=== PATIENT | male | born 1945 | race Caucasian/White ===

== ENCOUNTER → 2016-07-04 | Outpatient (CLI) | payer OTHER ==
[~2016-07-04] MED LIST: CDN30 PO; CEPH500C PO; CHOL100040 PO; CODE30TA PO; DIPH-416 PO; FINA5TAB PO; FLM4 PO; IMD2X PO; LISI-729 PO; LSN5 PO; ONDA4TAB10 SL; PANC1200 PO; PANC24002 PO; PARO1TAB27 PO; PARO30TA PO; POLY150C4 PO; PRS5 PO; PXL20 PO; TAMS0.4C38 PO; ZOLP10TA6 PO; [UNRECOGNIZED DRUG - CODE] IV; [UNRECOGNIZED DRUG - CODE] PO
[2016-07-04 12:57] LABS: HEMATOCRIT 33.9 % (42-52); MEAN CELL VOLUME 92.9 fL (80-100); MEAN CORPUSCULAR HEMOGLOBIN 30.7 pg (25-34); MEAN PLATELET VOLUME 11.7 fL (7.4-10.4); PLATELET COUNT 264 K/uL (130-400); RED BLOOD COUNT 3.65 M/uL (4.7-6.1); WHITE BLOOD COUNT 6.11 K/uL (4.8-10.8)
[2016-07-04 13:26] LABS: ALKALINE PHOSPHATASE 93 U/L (45-117); ALT/SGPT 28 U/L (12-78); BLOOD UREA NITROGEN 24 mg/dl (7-18); BUN/CREATININE RATIO 38.4 (10-20); CALCIUM 8.7 mg/dl (8.5-10.1); CARBON DIOXIDE 27 mmol/L (21-32); CHLORIDE 102 mmol/L (98-107); CREATININE 0.62 mg/dl (0.60-1.40); GLUCOSE 89 mg/dl (70-99); MAGNESIUM 2.2 mg/dl (1.8-2.4); POTASSIUM 4.1 mmol/L (3.5-5.1); SODIUM 140 mmol/L (136-145)
[2016-07-04 13:27] LABS: ALB/GLOB RATIO 0.7 (0.9-2); AST/SGOT 28 U/L (15-37); PHOSPHORUS 3.8 mg/dl (2.5-4.9)
--- NOTE | 2016-07-28 07:05 | CODING QUERY NO DIAGNOSIS ---
: 1945 TREATMENT RENDERED WITHOUT A DIAGNOSIS To promote full compliance with coding requirements relating to patient care, physician participation is requested in all cases of high density press operator uncertainty. Please assist us with providing a diagnosis/symptom for the test(s) below: A diagnosis/symptom was not documented on your Order. A valid diagnosis/symptom is required to bill all insurances. Please remember that we are unable to code a diagnosis of rule out, probable, possible, questionable, or suspected. Tests that require a diagnosis: * COMPREHENSIVE METABO DOS: 07/04/16 DIAGNOSIS: * MAGNESIUM DOS: 07/04/16 DIAGNOSIS: * PHOSPHORUS DOS: 07/04/16 DIAGNOSIS: * CBC W/O DIFF DOS: 07/04/16 DIAGNOSIS: Provider Signature: Date: Thank you Rosalinda Alcocer Health Information Management Once completed, please kindly fax back to [phone] For questions please call [phone]
== END | disposition home or self-care (01) ==
LOC: C.LABSPEC 12:33
PROVIDERS: ATTEND Surgery
DX: Z48.815 Encounter for surgical aftercare following surgery on the digestive system (principal); Z45.2 Encounter for adjustment and management of vascular access device; Z43.3 Encounter for attention to colostomy

== ENCOUNTER → 2016-07-11 | Outpatient (CLI) | payer OTHER ==
[2016-07-11 08:42] LABS: HEMATOCRIT 31.2 % (42-52); MEAN CELL VOLUME 94.8 fL (80-100); MEAN CORPUSCULAR HEMOGLOBIN 30.1 pg (25-34); MEAN CORPUSCULAR HGB CONC 31.7 g/dl (32-36); MEAN PLATELET VOLUME 11.7 fL (7.4-10.4); PLATELET COUNT 239 K/uL (130-400); RED BLOOD COUNT 3.29 M/uL (4.7-6.1)
[2016-07-11 08:52] LABS: ALB/GLOB RATIO 0.7 (0.9-2); ALKALINE PHOSPHATASE 72 U/L (45-117); ALT/SGPT 26 U/L (12-78); AST/SGOT 22 U/L (15-37); BLOOD UREA NITROGEN 22 mg/dl (7-18); BUN/CREATININE RATIO 36.8 (10-20); CALCIUM 8.3 mg/dl (8.5-10.1); CARBON DIOXIDE 25 mmol/L (21-32); CHLORIDE 103 mmol/L (98-107); FERRITIN 70.9 ng/ml (8.0-388.0); GLUCOSE 401 mg/dl (70-99); MAGNESIUM 2.4 mg/dl (1.8-2.4); PHOSPHORUS 5.6 mg/dl (2.5-4.9); POTASSIUM 4.8 mmol/L (3.5-5.1); SODIUM 140 mmol/L (136-145); TOTAL IRON BINDING CAPACITY 246 mcg/dl (250-450)
[2016-07-11 09:11] LABS: BETA-HYDROXYBUTYRATE 1.02 mg/dL (0.2-2.81)
--- NOTE | 2016-07-17 08:28 | CODING QUERY MEDICAL NECESSITY ---
SUPPORTING DIAGNOSIS NEEDED A supporting diagnosis is required for the test/procedure performed on this patient in order for us to be reimbursed by the patient's insurance. Please provide a supporting diagnosis for the following test/procedure listed below next to the test name along with your signature. *If there is no additional diagnosis for this patient that would support the following test/procedure please document that below next to the test/procedure. Test(s)/Procedure(s) that require a supporting diagnosis: DOS 07/11 * Vitamin D DIAGNOSIS: * Vitamin B12 DIAGNOSIS: * Vitamin B6 DIAGNOSIS: * Iron DIAGNOSIS: Provider Signature: Date: Thank you Alejandrina Leal Health Information Management Once completed, please kindly fax back to [phone] For questions please call [phone]
[2016-07-18 09:25] LABS: VIT E ALPHA-TOCOPHEROL 8.4 mg/L (5.7-19.9); VIT E BETA&GAMMA-TOCOPHEROL 1.8 mg/L (<=4.3); VITAMIN B6** TC 926 42.8 ng/mL (2.1-21.7)
== END | disposition home or self-care (01) ==
LOC: C.LABSPEC 08:16
PROVIDERS: ATTEND Internal Medicine
DX: Z79.01 Long term (current) use of anticoagulants (principal); Z51.81 Encounter for therapeutic drug level monitoring

== ENCOUNTER → 2016-07-14 | Outpatient (CLI) | payer OTHER ==
[2016-07-14 09:13] LABS: HEMATOCRIT 31.6 % (42-52); MEAN CELL VOLUME 93.2 fL (80-100); MEAN PLATELET VOLUME 11.1 fL (7.4-10.4); PLATELET COUNT 244 K/uL (130-400); RED BLOOD COUNT 3.39 M/uL (4.7-6.1); WHITE BLOOD COUNT 7.37 K/uL (4.8-10.8)
[2016-07-14 09:17] LABS: MEAN CORPUSCULAR HGB CONC 33.2 g/dl (32-36)
[2016-07-14 09:55] LABS: ALB/GLOB RATIO 0.8 (0.9-2); ALKALINE PHOSPHATASE 71 U/L (45-117); ALT/SGPT 24 U/L (12-78); AST/SGOT 25 U/L (15-37); BLOOD UREA NITROGEN 23 mg/dl (7-18); BUN/CREATININE RATIO 36.8 (10-20); CALCIUM 8.6 mg/dl (8.5-10.1); CARBON DIOXIDE 25 mmol/L (21-32); CHLORIDE 104 mmol/L (98-107); CREATININE 0.62 mg/dl (0.60-1.40); GLUCOSE 398 mg/dl (70-99); MAGNESIUM 2.5 mg/dl (1.8-2.4); PHOSPHORUS 5.5 mg/dl (2.5-4.9); SODIUM 140 mmol/L (136-145)
[2016-07-14 10:09] LABS: BETA-HYDROXYBUTYRATE 1.04 mg/dL (0.2-2.81)
--- NOTE | 2016-07-25 06:52 | CODING QUERY NO DIAGNOSIS ---
Valid Physician Order Needed A valid physician order must be submitted in order to properly bill for the service(s) provided, including date of service(s), valid diagnosis, and physician signature. If these tests are done on a recurring basis the original physican order must be submitted in order to code and bill for the service(s) provided. Please fax us the original, signed physician order so that we may expedite billing to [phone] DOS - 07/14/16 * CBC, COMPLETE METABOLIC PROFILE, MAGNESIUM, PHOSPHORUS AND BETA HYDROXYBUTYRATE (ORDERED BY DR SHANTI YORK?) Thank you Linda Morrow [facility] Information Management
--- NOTE | 2016-07-28 09:34 | CODING QUERY NO DIAGNOSIS ---
TREATMENT RENDERED WITHOUT A DIAGNOSIS To promote full compliance with coding requirements relating to patient care, physician participation is requested in all cases of senior electrical controls engineer uncertainty. Please assist us with providing a diagnosis/symptom for the test(s) below: A diagnosis/symptom was not documented on your Order. A valid diagnosis/symptom is required to bill all insurances. Please remember that we are unable to code a diagnosis of rule out, probable, possible, questionable, or suspected. DATE OF SERVICE: 07/14/16 ORDERING PHYSICIAN - DR. SHANTI YORK Tests that require a diagnosis: * CBC W/O DIFF DIAGNOSIS: * BETA-HYDROXYBUTYRATE, QUANT DIAGNOSIS: * PHOSPHORUS, SERUM DIAGNOSIS: * MAGNESIUM DIAGNOSIS: * COMP. METABOLIC PROFILE DIAGNOSIS: Provider Signature: Date: Thank you Linda Morrow [facility] [place] Information Management Once completed, please kindly fax back to [phone] For questions please call [phone]
== END ==
LOC: C.LABSPEC 08:54
PROVIDERS: ATTEND Internal Medicine
DX: D64.9 Anemia, unspecified (principal); K91.2 Postsurgical malabsorption, not elsewhere classified; R63.2 Polyphagia

== ENCOUNTER → 2016-07-18 | Outpatient (CLI) | payer OTHER ==
[2016-07-18 11:58] LABS: HEMATOCRIT 36.8 % (42-52); MEAN CELL VOLUME 91.5 fL (80-100); MEAN CORPUSCULAR HEMOGLOBIN 30.8 pg (25-34); MEAN CORPUSCULAR HGB CONC 33.7 g/dl (32-36); MEAN PLATELET VOLUME 11.5 fL (7.4-10.4); PLATELET COUNT 361 K/uL (130-400); RED BLOOD COUNT 4.02 M/uL (4.7-6.1); WHITE BLOOD COUNT 9.02 K/uL (4.8-10.8)
[2016-07-18 12:06] LABS: BLOOD UREA NITROGEN 26 mg/dl (7-18); BUN/CREATININE RATIO 32.2 (10-20); CALCIUM 9.4 mg/dl (8.5-10.1); CARBON DIOXIDE 27 mmol/L (21-32); CHLORIDE 102 mmol/L (98-107); CREATININE 0.81 mg/dl (0.60-1.40); GLUCOSE 144 mg/dl (70-99); MAGNESIUM 2.3 mg/dl (1.8-2.4); POTASSIUM 4.2 mmol/L (3.5-5.1); SODIUM 142 mmol/L (136-145)
[2016-07-18 12:10] LABS: ALB/GLOB RATIO 0.8 (0.9-2); ALKALINE PHOSPHATASE 93 U/L (45-117); ALT/SGPT 36 U/L (12-78); AST/SGOT 34 U/L (15-37); PHOSPHORUS 3.8 mg/dl (2.5-4.9)
--- NOTE | 2016-07-20 10:21 | CODING QUERY NO DIAGNOSIS ---
: 1945 TREATMENT RENDERED WITHOUT A DIAGNOSIS To promote full compliance with coding requirements relating to patient care, physician participation is requested in all cases of outpatient coder uncertainty. Please assist us with providing a diagnosis/symptom for the test(s) below: A diagnosis/symptom was not documented on your Order. A valid diagnosis/symptom is required to bill all insurances. Please remember that we are unable to code a diagnosis of rule out, probable, possible, questionable, or suspected. Tests that require a diagnosis: * COMPREHENSIVE METABO DOS: 07/18/16 DIAGNOSIS: * MAGNESIUM DOS: 07/18/16 DIAGNOSIS: * PHOSPHORUS DOS: 07/18/16 DIAGNOSIS: * CBC W/O DIFF DOS: 07/18/16 DIAGNOSIS: Provider Signature: Date: Thank you Rosalinda Alcocer Health Information Management Once completed, please kindly fax back to [phone] For questions please call [phone]
== END | disposition home or self-care (01) ==
LOC: C.LABSPEC 11:37
PROVIDERS: ATTEND Surgery
DX: E46 Unspecified protein-calorie malnutrition (principal)

== ENCOUNTER → 2016-07-31 | Outpatient (CLI) | payer OTHER ==
[2016-07-31 16:33] LABS: HEMATOCRIT 35.7 % (42-52); MEAN CELL VOLUME 90.6 fL (80-100); MEAN CORPUSCULAR HEMOGLOBIN 30.2 pg (25-34); MEAN CORPUSCULAR HGB CONC 33.3 g/dl (32-36); MEAN PLATELET VOLUME 11.2 fL (7.4-10.4); PLATELET COUNT 262 K/uL (130-400); RED BLOOD COUNT 3.94 M/uL (4.7-6.1); WHITE BLOOD COUNT 8.62 K/uL (4.8-10.8)
[2016-07-31 17:53] LABS: ALT/SGPT 29 U/L (12-78); AST/SGOT 22 U/L (15-37); BLOOD UREA NITROGEN 19 mg/dl (7-18); BUN/CREATININE RATIO 23.1 (10-20); CALCIUM 9.5 mg/dl (8.5-10.1); CARBON DIOXIDE 31 mmol/L (21-32); CHLORIDE 105 mmol/L (98-107); CREATININE 0.82 mg/dl (0.60-1.40); GLUCOSE 93 mg/dl (70-99); MAGNESIUM 2.2 mg/dl (1.8-2.4); POTASSIUM 4.2 mmol/L (3.5-5.1); SODIUM 144 mmol/L (136-145)
[2016-07-31 17:55] LABS: ALB/GLOB RATIO 0.9 (0.9-2); ALKALINE PHOSPHATASE 84 U/L (45-117); PHOSPHORUS 3.7 mg/dl (2.5-4.9)
== END | disposition home or self-care (01) ==
LOC: C.LAB 15:25
PROVIDERS: ATTEND Surgery
DX: Z48.815 Encounter for surgical aftercare following surgery on the digestive system (principal); Z43.3 Encounter for attention to colostomy; Z45.2 Encounter for adjustment and management of vascular access device; E46 Unspecified protein-calorie malnutrition

== ENCOUNTER → 2016-07-31 | Outpatient (CLI) | payer OTHER ==
[2016-07-31 09:51] LABS: BASO % 0.9 %; BASO ABS # 0.08 K/uL (0-0.2); EOS % 5.7 %; HEMATOCRIT 35.7 % (42-52); IG% 0.4 %; LYMPH % 21.7 %; LYMPH ABS # 1.83 K/uL (1.2-3.4); MEAN CELL VOLUME 90.6 fL (80-100); MEAN CORPUSCULAR HEMOGLOBIN 31.5 pg (25-34); MEAN CORPUSCULAR HGB CONC 34.7 g/dl (32-36); MEAN PLATELET VOLUME 12.4 fL (7.4-10.4); MONO % 10.3 %; PLATELET COUNT 293 K/uL (130-400); RED BLOOD COUNT 3.94 M/uL (4.7-6.1); WHITE BLOOD COUNT 8.43 K/uL (4.8-10.8)
[2016-07-31 10:51] LABS: COMPLETE YES
--- NOTE | 2016-08-03 12:03 | CODING QUERY NO DIAGNOSIS ---
TREATMENT RENDERED WITHOUT A DIAGNOSIS To promote full compliance with coding requirements relating to patient care, physician participation is requested in all cases of child welfare counselor uncertainty. Please assist us with providing a diagnosis/symptom for the test(s) below: A diagnosis/symptom was not documented on your Order. A valid diagnosis/symptom is required to bill all insurances. Please remember that we are unable to code a diagnosis of rule out, probable, possible, questionable, or suspected. Tests that require a diagnosis: * CBC WITH AUTO DIFFER DOS: 07/31/16 DIAGNOSIS: Provider Signature: Date: Thank you Rosalinda Alcocer Personally Information Management Once completed, please kindly fax back to [phone] For questions please call [phone]
== END | disposition home or self-care (01) ==
LOC: C.LABSPEC 09:36
PROVIDERS: ATTEND Surgery
DX: E46 Unspecified protein-calorie malnutrition (principal)

== ENCOUNTER → 2016-08-07 | Outpatient (CLI) | payer OTHER ==
[2016-08-07 12:26] LABS: HEMATOCRIT 37.2 % (42-52); MEAN CELL VOLUME 90.7 fL (80-100); MEAN CORPUSCULAR HEMOGLOBIN 30.2 pg (25-34); MEAN CORPUSCULAR HGB CONC 33.3 g/dl (32-36); MEAN PLATELET VOLUME 11.5 fL (7.4-10.4); PLATELET COUNT 294 K/uL (130-400); WHITE BLOOD COUNT 6.61 K/uL (4.8-10.8)
[2016-08-07 12:42] LABS: ALKALINE PHOSPHATASE 87 U/L (45-117); ALT/SGPT 28 U/L (12-78); AST/SGOT 25 U/L (15-37); BLOOD UREA NITROGEN 23 mg/dl (7-18); CALCIUM 8.8 mg/dl (8.5-10.1); CARBON DIOXIDE 27 mmol/L (21-32); CHLORIDE 104 mmol/L (98-107); CREATININE 0.71 mg/dl (0.60-1.40); GLUCOSE 123 mg/dl (70-99); MAGNESIUM 2.2 mg/dl (1.8-2.4); PHOSPHORUS 4.6 mg/dl (2.5-4.9); POTASSIUM 4.5 mmol/L (3.5-5.1); SODIUM 142 mmol/L (136-145)
[2016-08-07 12:46] LABS: ALB/GLOB RATIO 0.9 (0.9-2); FERRITIN 81.5 ng/ml (8.0-388.0); TOTAL IRON BINDING CAPACITY 331 mcg/dl (250-450)
--- NOTE | 2016-08-11 11:08 | CODING QUERY NO DIAGNOSIS ---
TREATMENT RENDERED WITHOUT A DIAGNOSIS : 1945 To promote full compliance with coding requirements relating to patient care, physician participation is requested in all cases of metal smelter uncertainty. Please assist us with providing a diagnosis/symptom for the test(s) below: A diagnosis/symptom was not documented on your Order. A valid diagnosis/symptom is required to bill all insurances. Please remember that we are unable to code a diagnosis of rule out, probable, possible, questionable, or suspected. DOS: 08/07/16 Tests that require a diagnosis: * COMPREHENSIVE METABO DIAGNOSIS: * FERRITIN DIAGNOSIS: * MAGNESIUM DIAGNOSIS: * PHOSPHORUS DIAGNOSIS: * TRANSFERRIN % SAT + DIAGNOSIS: * CBC W/O DIFF DIAGNOSIS: * VITAMIN B12 DIAGNOSIS: * VITAMIN D, 25-HYDROXY DIAGNOSIS: * VITAMIN B6 DIAGNOSIS: Provider Signature: Date: Thank you Rosalinda Alcocer Health Information Management Once completed, please kindly fax back to [phone] For questions please call [phone]
== END | disposition home or self-care (01) ==
LOC: C.LABSPEC 12:10
PROVIDERS: ATTEND Surgery
DX: K90.9 Intestinal malabsorption, unspecified (principal); Z90.49 Acquired absence of other specified parts of digestive tract

== ENCOUNTER → 2016-09-04 | Outpatient (CLI) | payer OTHER ==
[2016-09-04 14:13] LABS: HEMATOCRIT 38.1 % (42-52); MEAN CELL VOLUME 89.6 fL (80-100); MEAN CORPUSCULAR HEMOGLOBIN 30.8 pg (25-34); MEAN CORPUSCULAR HGB CONC 34.4 g/dl (32-36); MEAN PLATELET VOLUME 11.7 fL (7.4-10.4); PLATELET COUNT 293 K/uL (130-400); RED BLOOD COUNT 4.25 M/uL (4.7-6.1); WHITE BLOOD COUNT 7.23 K/uL (4.8-10.8)
[2016-09-04 18:37] LABS: ALT/SGPT 33 U/L (12-78); BLOOD UREA NITROGEN 23 mg/dl (7-18); BUN/CREATININE RATIO 26.8 (10-20); CALCIUM 9.2 mg/dl (8.5-10.1); CARBON DIOXIDE 31 mmol/L (21-32); CHLORIDE 104 mmol/L (98-107); CREATININE 0.87 mg/dl (0.60-1.40); GLUCOSE 94 mg/dl (70-99); POTASSIUM 3.7 mmol/L (3.5-5.1); SODIUM 144 mmol/L (136-145)
[2016-09-04 18:40] LABS: ALB/GLOB RATIO 0.8 (0.9-2); ALKALINE PHOSPHATASE 91 U/L (45-117); AST/SGOT 25 U/L (15-37)
--- NOTE | 2016-09-05 10:12 | CODING QUERY NO DIAGNOSIS ---
TREATMENT RENDERED WITHOUT A DIAGNOSIS [birth year] To promote full compliance with coding requirements relating to patient care, physician participation is requested in all cases of management manager uncertainty. Please assist us with providing a diagnosis/symptom for the test(s) below: A diagnosis/symptom was not documented on your Order. A valid diagnosis/symptom is required to bill all insurances. Please remember that we are unable to code a diagnosis of rule out, probable, possible, questionable, or suspected. DOS 09/04/16 Tests that require a diagnosis: * COMP METABOLIC DIAGNOSIS: * PHOSPHORUS DIAGNOSIS: * CBC W/O DIFF DIAGNOSIS: * VITAMIN B6 DIAGNOSIS: *WE RECEIVED YOUR LETTER BACK BUT WITHOUT A DX ON IT, CAN YOU PLEASE ADD A DX Provider Signature: Date: Thank you Kim [facility] Information Management Once completed, please kindly fax back to [phone] For questions please call [phone]
== END | disposition home or self-care (01) ==
LOC: C.LABSPEC 14:02
PROVIDERS: ATTEND Internal Medicine
DX: K90.9 Intestinal malabsorption, unspecified (principal)

== ENCOUNTER 2016-10-21 09:52 | Emergency (ER) | payer OTHER ==
[~2016-10-21] VITALS: Ht 162.6 cm; Wt 67.8 kg
[~2016-10-21 09:52] MED LIST changes: -CDN30 PO; -CEPH500C PO; -CHOL100040 PO; -CODE30TA PO; -DIPH-416 PO; -FLM4 PO; -LSN5 PO; -ONDA4TAB10 SL; -PANC1200 PO; -PANC24002 PO; -PARO30TA PO; -POLY150C4 PO; -PRS5 PO; -PXL20 PO; -ZOLP10TA6 PO; -[UNRECOGNIZED DRUG - CODE] IV; -[UNRECOGNIZED DRUG - CODE] PO
[2016-10-21 09:54] VITALS: TEMP 36.9; Ht 162.6 cm; Wt 67.8 kg
[2016-10-21] MEDS ORDERED: SODIUM CHLORIDE 0.9% 1000ML 1,000 ML IV STA (10:25)
--- NOTE | 2016-10-21 10:26 | EMERGENCY ROOM VISIT NOTE ---
History Report prepared by Kimberly: Les Graham Under the Supervision of: Dr. George Byrnes D.O. First contact with patient: 10:05 Chief Complaint: CHEST PAIN Stated Complaint: CHEST PAINS Nursing Triage Summary: pt reports chest pain described as tightness. had fall 3 days ago off ladder approx 3 feet. has bruise on left side from fall. feels sob. History of Present Illness The patient is a 71 year old male who presents to the Emergency Room with complaints of persistent chest pain beginning three days prior to arrival. He describes his pain and tightness and currently rates his discomfort as a 2-3/10 in severity. The patient associates shortness of breath, fever, and left rib pain with today's symptoms. He states he fell off of a 3 foot ladder three days ago, in which, he bruised his left side. The patient notes he took his temperature this morning and it was 99F, which he considers high. 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 The patient notes the surgery for TPM was at the end of May 2016. He states he originally had chronic ulcerative colitis in 1974, in which, he wore an ileostomy. The patient notes he went for an elective surgery, and they removed his entire colon and rectum. He states there were problems so they had to remove more. 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 Review of Systems See above for pertinent positives & negatives. A total of 10 systems reviewed and were otherwise negative. Past Medical & Surgical Medical Problems: (1) Small bowel obstruction (2) ulcerative colostomy Family History Diabetes mellitus FH: heart disease Hypertension Lung disease Social History Smoking Status: Never Smoker Alcohol Use: none Drug Use: none Marital Status: Housing Status: lives with family Occupation Status: retired Current/Historical Medications Scheduled Cholecalciferol (Vitamin D-1000), 1,000 UNITS PO DAILY Codeine Sulfate (Codeine), 30 MG PO QID Diphenoxylate/Atropine (Lomotil), 2 TABS PO QID Finasteride (Proscar), 5 MG PO HS Lisinopril (Zestril), 5 MG PO DAILY Pancrelipase (Lipase-Protease- (Creon 17189), 2 CAP PO TID Parenteral Electrolytes (Tpn Electrolytes), 1 DOSE 6XWK Paroxetine Hcl (Paxil), 30 MG PO DAILY Polysaccharide Iron Complex-Ir (Feosol Bifera), 5 MG PO TID Tamsulosin Hcl (Flomax), 0.4 MG PO HS Scheduled PRN Loperamide Hcl (Imodium), 1 TAB PO QID PRN for DIARRHEA Ondasetron Odt (Zofran Odt), 4 MG SL UD PRN for Nausea Allergies Coded Allergies: Ibuprofen (Verified Adverse Reaction, Intermediate, GASTRIC ULCERS, NO COLON, 10/21/16) Physical Exam Vital Signs Date Time Temp Pulse Resp B/P Pulse Ox O2 Delivery O2 Flow Rate FiO2 10/21/16 11:52 66 10/21/16 11:13 73 16 119/64 99 Room Air 10/21/16 10:12 85 18 118/76 100 Room Air 10/21/16 10:07 85 10/21/16 09:54 36.9 88 20 116/73 97 Room Air Physical Exam GENERAL: Patient is well appearing and in no acute distress. HEENT: No acute trauma, normocephalic atraumatic, mucous membranes moist, no nasal congestion, no scleral icterus. NECK: No stridor, no adenopathy, no meningismus, trachea is midline. LUNGS: No dyspnea. Clear to auscultation and equal bilaterally. No wheeze, no rhonchi. HEART: Regular rate and rhythm. No murmurs, rubs, gallops appreciated. CHEST: Left chest wall tenderness. EDWARDS catheter in right anterior chest wall , no purulence. ABDOMEN: Left upper quadrant tenderness. Right lower quadrant ileostomy. Soft, no masses appreciated, no peritonitis. BACK: No midline tenderness, no CVA tenderness EXTREMITIES: Normal motion all extremities, no cyanosis, no edema. NEUROLOGIC: Alert and oriented, no acute motor or sensory deficits, no focal weakness, cranial nerves grossly intact. SKIN: Multiple ecchymoses on the left chest. Diffuse scars over abdomen consistent with total colectomy. No rash, no jaundice, no diaphoresis. Medical Decision & Procedures ER Provider Diagnostic Interpretation: Radiology results as stated below per my review and radiologist interpretation: CT OF THE CHEST WITH IV CONTRAST CLINICAL HISTORY: Left-sided chest pain status post trauma COMPARISON STUDY: Chest x-ray dated 09/09/2015 TECHNIQUE: Following the IV administration of 119 mL of Optiray-320, CT of the thorax was performed from the thoracic inlet to the lung bases. Images are reviewed in the axial, sagittal, and coronal planes. IV contrast was administered without complication. CT DOSE: FINDINGS: Thyroid: Imaged portions of the thyroid gland are normal in appearance. Thoracic aorta: The thoracic aorta is normal in course and caliber, noting standard 3-vessel arch anatomy. No aneurysm or dissection is seen. Pulmonary vasculature: The pulmonary trunk is normal in caliber. There are no central filling defects identified to suggest pulmonary embolus. Note that this examination was not protocoled for the evaluation of pulmonary emboli. HEART: The heart is mildly enlarged. There are minimal coronary artery calcifications. Lungs and pleural spaces: No pleural effusions are visualized. There is no pneumothorax. There is pulmonary emphysema. There is no evidence of pulmonary contusion. There are left lower lobe atelectatic changes. Mediastinum: Mediastinal lymph nodes are the upper limits of normal in size. Kaci: There is no evidence of pathologic hilar adenopathy. Axilla: Clear. Upper abdomen: Partially visualized upper abdominal viscera is within normal limits. Skeletal structures: There are old bilateral rib fractures. No acute fractures are visualized. IMPRESSION: No evidence of acute intrathoracic injury. Electronically signed by: Bertin Veloz M.D. 10/21/2016 11:[address] ABD/PELVIS IV CONTRAST ONLY CLINICAL HISTORY: Left-sided chest and abdominal pain status post trauma COMPARISON STUDY: 04/05/2016 TECHNIQUE: Following the IV administration of 119 mL of Optiray-320, CT scan of the abdomen and pelvis was performed from the lung bases to the proximal femurs. Images are reviewed in the axial, sagittal, and coronal planes. IV contrast was administered without complication. CT DOSE: 499.27 mGy.cm FINDINGS: Lower chest: There are basilar atelectatic changes present. No pneumothorax is visualized. Liver: There is a 7 mm right lobe hypodensity consistent with a cyst. Gallbladder: Unremarkable. Spleen: Normal in size and attenuation. Pancreas: Unremarkable. Adrenal glands: Unremarkable. Kidneys: There is a 2 mm nonobstructing right renal calculus. There is a 9 mm cortical cyst involving the upper pole the right kidney. There is a 5 mm cyst within the mid upper pole the left kidney. Bowel: There are postsurgical changes of a total colectomy and right lower quadrant ileostomy. There is a small right parastomal hernia. There are no transition zones indicate bowel obstruction. Peritoneum: There is no intraperitoneal free air or abdominal ascites. Postsurgical changes involve the anterior abdominal wall. There is minimal stranding within the central upper pelvic mesentery. Vasculature: The abdominal aorta is normal in course and caliber. Adenopathy: None. Pelvic viscera: The bladder, and pelvic viscera are unremarkable. Skeletal structures: No destructive osseous lesions are seen. IMPRESSION: 1. No evidence of acute intra-abdominal or pelvic injury 2. Postsurgical changes of a total colectomy and right lower quadrant ileostomy Electronically signed by: Bertin Veloz M.D. 10/21/2016 11:29 AM Laboratory Results 10/21/16 10:05 Red Blood Count 4.27, Mean Corpuscular Volume 90.4, Mean Corpuscular Hemoglobin 30.4, Mean Corpuscular Hemoglobin Concent 33.7, Mean Platelet Volume 11.2, Neutrophils (%) (Auto) 67.9, Lymphocytes (%) (Auto) 20.7, Monocytes (%) (Auto) 9.3, Eosinophils (%) (Auto) 1.7, Basophils (%) (Auto) 0.3, Neutrophils # (Auto) 6.81, Lymphocytes # (Auto) 2.07, Monocytes # (Auto) 0.93, Eosinophils # (Auto) 0.17, Basophils # (Auto) 0.03 10/21/16 10:05 Test 10/21/16 10:05 10/21/16 11:30 White Blood Count 10.02 K/uL (4.8-10.8) Red Blood Count 4.27 M/uL (4.7-6.1) Hemoglobin 13.0 g/dL (14.0-18.0) Hematocrit 38.6 % (42-52) Mean Corpuscular Volume 90.4 fL (80-100) Mean Corpuscular Hemoglobin 30.4 pg (25-34) Mean Corpuscular Hemoglobin Concent 33.7 g/dl (32-36) Platelet Count 247 K/uL (130-400) Mean Platelet Volume 11.2 fL (7.4-10.4) Neutrophils (%) (Auto) 67.9 % Lymphocytes (%) (Auto) 20.7 % Monocytes (%) (Auto) 9.3 % Eosinophils (%) (Auto) 1.7 % Basophils (%) (Auto) 0.3 % Neutrophils # (Auto) 6.81 K/uL (1.4-6.5) Lymphocytes # (Auto) 2.07 K/uL (1.2-3.4) Monocytes # (Auto) 0.93 K/uL (0.11-0.59) Eosinophils # (Auto) 0.17 K/uL (0-0.5) Basophils # (Auto) 0.03 K/uL (0-0.2) RDW Standard Deviation 47.2 fL (36.4-46.3) RDW Coefficient of Variation 14.2 % (11.5-14.5) Immature Granulocyte % (Auto) 0.1 % Immature Granulocyte # (Auto) 0.01 K/uL (0.00-0.02) Anion Gap 4.0 mmol/L (3-11) Est Creatinine Clear Calc Drug Dose 66.8 ml/min Estimated GFR () 101.6 Estimated GFR (Non- 87.7 BUN/Creatinine Ratio 34.6 (10-20) Calcium Level 8.8 mg/dl (8.5-10.1) Total Bilirubin 1.7 mg/dl (0.2-1) Direct Bilirubin 0.4 mg/dl (0-0.2) Aspartate Amino Transf (AST/SGOT) 25 U/L (15-37) Alanine Aminotransferase (ALT/SGPT) 47 U/L (12-78) Alkaline Phosphatase 116 U/L (45-117) Total Protein 7.7 gm/dl (6.4-8.2) Albumin 3.6 gm/dl (3.4-5.0) Lipase 332 U/L (73-393) Procalcitonin < 0.05 ng/ml (0-0.5) Urine Color YELLOW Urine Appearance CLEAR (CLEAR) Urine pH 5.0 (4.5-7.5) Urine Specific [place] > 1.045 (1.000-1.030) Urine Protein NEG (NEG) Urine Glucose (UA) NEG (NEG) Urine Ketones NEG (NEG) Urine Occult Blood NEG (NEG) Urine Nitrite NEG (NEG) Urine Bilirubin NEG (NEG) Urine Urobilinogen NEG (NEG) Urine Leukocyte Esterase NEG (NEG) Laboratory results as reviewed by me. Medications Administered Medications (Trade) Dose Ordered Sig/Joe Route Start Time Stop Time Status Last Admin Dose Admin Sodium Chloride (Nss 1000ml) 1,000 ml @ 999 mls/hr Q1H1M STAT IV 10/21/16 10:25 10/21/16 11:25 DC 10/21/16 10:37 999 MLS/HR Procedure Critical Care Medicine Point of Care Bedside Ultrasound Procedure: E fast Ultrasound Indication: Fall from ladder onto left chest and abdomen Date: 10/21/2016 Attending: Ariel Byrnes DO Physician Skydiving Instructor: Not applicable Organs Examined: Heart, Lung, Liver, Kidney, Spleen, Genitourinary system Pericardial Fluid: Absent Hepatorenal fluid: Absent Splenorenal fluid: Absent Rectovesical fluid: Absent Additional Findings: None Extended FAST: for pneumothorax and pleural fluid (hemothorax) Hemothorax: Absent, Location: Left chest Lung sliding: Present, Location: Left Chest Impression: Normal E fast ultrasound for trauma Plan: Follow-up with contrasted CT scan of the thorax abdomen and pelvis to exclude solid organ injury. Images obtained are saved for permanent record ECG Indication: chest pain Rate (beats per minute): 85 Rhythm: normal sinus Findings: PVC (frequent), left axis deviation, other (Normal intervals. Abnormal EKG.) Comparison ECG Date: 09/09/2015 Change: Sinus tachycardia resolved. Left anterior fascicular block noted on 09/09/2015 EKG. ED Course 1010: The patient was evaluated in room B1. A complete history and physical exam was performed. 1025: Ordered Sodium Chloride 1,000 ml @ 999 mls/hr IV. 1207: Reevaluated the patient. Discussed results and discharge instructions: He verbalized understanding and agreement. The patient is ready for discharge. Medical Decision The differential diagnoses include but are not limited to: bacteremia, pneumonia , pneumothorax, hemothorax, splenic laceration, kidney laceration, fractured ribs. Patient is a 71-year-old male who approximately 3 days ago fell from a ladder approximately 3 feet onto the left chest. He presents today for continued pain , which he describes as an elevated temp of 99 and ecchymoses along his left flank. 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 He has a Edwards catheter in his right chest, blood cultures will be sent for possible bacteremia. Impression Primary Impression: Chest wall pain Additional Impressions: Fall on and from ladder causing accidental injury Short gut syndrome On total parenteral nutrition (TPN) Ileostomy in place Microcytic anemia Total bilirubin, elevated Contusion of left chest wall Hx of ulcerative colitis Hepatic cyst Renal cyst Scribe Attestation The scribe's documentation has been prepared under my direction and personally reviewed by me in its entirety. I confirm that the note above accurately reflects all work, treatment, procedures, and medical decision making performed by me. Departure Information Dispostion Home / Self-Care Referrals Tao Montoya MD (PCP) Follow-up with her primary care provider regarding a liver cyst and kidney cysts. These have likely been there a long time and were found on the CAT scan today. Forms HOME CARE DOCUMENTATION FORM, IMPORTANT VISIT INFORMATION Patient Instructions Bruises Contusions, Incentive Spirometer Fl, [facility], Simple Renal Cysts Additional Instructions Use Tylenol and/or Motrin as needed for pain, you can ice the areas as well. Follow-up with your primary care provider for any fevers or return to the emergency department. Use the incentive spirometer every 8 hours. You need to cough and deep breathe to prevent development of pneumonia. Problem Qualifiers Additional Impressions: Fall on and from ladder causing accidental injury Encounter type: initial encounter Qualified Codes: W11.XXXA - Fall on and from ladder, initial encounter
[2016-10-21 10:37] LABS: BASO % 0.3 %; BASO ABS # 0.03 K/uL (0-0.2); COMPLETE YES; EOS % 1.7 %; HEMATOCRIT 38.6 % (42-52); IG% 0.1 %; LYMPH % 20.7 %; LYMPH ABS # 2.07 K/uL (1.2-3.4); MEAN CELL VOLUME 90.4 fL (80-100); MEAN CORPUSCULAR HEMOGLOBIN 30.4 pg (25-34); MEAN CORPUSCULAR HGB CONC 33.7 g/dl (32-36); MEAN PLATELET VOLUME 11.2 fL (7.4-10.4); MONO % 9.3 %; NEUT % 67.9 %; PLATELET COUNT 247 K/uL (130-400); RED BLOOD COUNT 4.27 M/uL (4.7-6.1); WHITE BLOOD COUNT 10.02 K/uL (4.8-10.8)
[2016-10-21 10:45] LABS: BUN/CREATININE RATIO 34.6 (10-20); CALCIUM 8.8 mg/dl (8.5-10.1); CREATININE 0.85 mg/dl (0.60-1.40); POTASSIUM 4.3 mmol/L (3.5-5.1)
[2016-10-21] MEDS ORDERED: OPTIRAY 320 IV PRN (10:45)
[2016-10-21] MEDS ORDERED: [UNRECOGNIZED DRUG - CODE] PO (10:55)
[2016-10-21] MEDS ORDERED: PARO30TA PO (10:55)
[2016-10-21] MEDS ORDERED: PANC1200 PO (10:55)
[2016-10-21] MEDS ORDERED: CODE30TA PO (10:55)
--- NOTE | 2016-10-21 11:20 | DIAGNOSTIC IMAGING REPORT ---
CT OF THE CHEST WITH IV CONTRAST CLINICAL HISTORY: Left-sided chest pain status post trauma COMPARISON STUDY: Chest x-ray dated 09/09/2015 TECHNIQUE: Following the IV administration of 119 mL of Optiray-320, CT of the thorax was performed from the thoracic inlet to the lung bases. Images are reviewed in the axial, sagittal, and coronal planes. IV contrast was administered without complication. CT DOSE: FINDINGS: Thyroid: Imaged portions of the thyroid gland are normal in appearance. Thoracic aorta: The thoracic aorta is normal in course and caliber, noting standard 3-vessel arch anatomy. No aneurysm or dissection is seen. Pulmonary vasculature: The pulmonary trunk is normal in caliber. There are no central filling defects identified to suggest pulmonary embolus. Note that this examination was not protocoled for the evaluation of pulmonary emboli. HEART: The heart is mildly enlarged. There are minimal coronary artery calcifications. Lungs and pleural spaces: No pleural effusions are visualized. There is no pneumothorax. There is pulmonary emphysema. There is no evidence of pulmonary contusion. There are left lower lobe atelectatic changes. Mediastinum: Mediastinal lymph nodes are the upper limits of normal in size. Kaci: There is no evidence of pathologic hilar adenopathy. Axilla: Clear. Upper abdomen: Partially visualized upper abdominal viscera is within normal limits. Skeletal structures: There are old bilateral rib fractures. No acute fractures are visualized. IMPRESSION: No evidence of acute intrathoracic injury. Electronically signed by: Bertin Veloz M.D. 10/21/2016 11:18 AM Dictated Date/Time: 10/21/2016 11:13 AM
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
[2016-10-21 11:44] LABS: URINE APPEARANCE CLEAR (CLEAR); URINE BILIRUBIN NEG (NEG); URINE COLOR YELLOW; URINE NITRITE NEG (NEG); URINE SPECIFIC GRAVITY > 1.045 (1.000-1.030); UROBILINOGEN NEG (NEG)
[2016-10-21 11:46] LABS: MANUAL MICROSCOPIC REQUIRED? NO; REVIEW REQ? NO
[2016-10-21 12:25] VITALS: BP 105/55; PULSE 71; O2SAT 96
[2017-03-16] MEDS ORDERED: [UNRECOGNIZED DRUG - CODE] IV (10:37)
[2017-03-16] MEDS ORDERED: ONDA4TAB10 SL (10:55)
[2017-03-16] MEDS ORDERED: CHOL100040 PO (10:55)
[2017-03-16] MEDS ORDERED: DIPH-416 PO (10:55)
== END 2016-10-21 12:22 | disposition home or self-care (01) ==
LOC: C.EDB 09:54
DX: S20.211A Contusion of right front wall of thorax, initial encounter (principal); W11.XXXA Fall on and from ladder, initial encounter; K76.89 Other specified diseases of liver; N28.1 Cyst of kidney, acquired; D50.9 Iron deficiency anemia, unspecified; Z93.2 Ileostomy status; R79.89 Other specified abnormal findings of blood chemistry; Z87.19 Personal history of other diseases of the digestive system

== ENCOUNTER 2017-02-26 17:43 | Emergency (ER) | payer OTHER ==
[~2017-02-26] VITALS: Ht 165.1 cm; Wt 69.1 kg
[~2017-02-26 17:43] MED LIST changes: +CODE30TA PO; +PANC1200 PO; -PARO1TAB27 PO; +PARO30TA PO; +[UNRECOGNIZED DRUG - CODE] PO
[2017-02-26 18:03] VITALS: TEMP 36.6; Ht 165.1 cm; Wt 69.1 kg
[2017-02-26] MEDS ORDERED: CEPH500C PO (18:51)
[2017-02-26] MEDS ORDERED: CEPHALEXIN MONOHYDRATE 250 MG CAP PO ONE (19:00)
[2017-02-26 19:51] VITALS: BP 106/62; PULSE 60; O2SAT 98
--- NOTE | 2017-02-27 02:21 | EMERGENCY ROOM VISIT NOTE ---
History Report prepared by Kimberly: Nestor Monae Under the Supervision of: Dr. Reji Manuel M.D. First contact with patient: 18:35 Chief Complaint: OTHER COMPLAINT Stated Complaint: EDWARDS LINE History of Present Illness The patient is a 71 year old male who presents to the Emergency Room with complaints of intermittent drainage from his catheter that started two weeks ago. He describes the drainage as crusty "like it is dried blood". The patient states that he has had his catheter for nine months due to his short gut from his history of ulcerative colitis. The patient states that he noticed a discharge from his Edwards catheter of his right upper chest two weeks ago. He states that he called the [facility] due to his symptoms and reports he was given Keflex and Bactroban ointment. The patient states that he sent a culture to his clinic for signs of an infection. He admits that he used the antibiotics for a week and discontinued use a week ago. The patient states that the drainage resolved until three days ago when he noticed the drainage returned. He states that he called the Clinic again who advised him to report to the ED. The patient is accompanied by his who states that his temporary catheter is in because she needed to take pictures of the area for the clinic. She also reports that she typically helps change his bandages for the catheter region. He admits that he has chronic numbness in his hands bilaterally. The patient denies LOC, headache, fevers, chills, diaphoresis, visual changes, neck pain, chest pain, breathing difficulties, nausea, vomiting, abdominal pain, back pain, melena, hematochezia, urinary symptoms, weakness, lymphadenopathy, rash, erythema at the site of his catheter hole, or other complaints. Source of History: patient Onset: two weeks ago Position: chest (right) Quality: other (crusty) Timing: intermittent Review of Systems See HPI for pertinent positives and negatives. A total of ten systems were reviewed and were otherwise negative. Past Medical & Surgical Medical Problems: (1) Small bowel obstruction (2) ulcerative colostomy Family History Diabetes mellitus FH: heart disease Hypertension Lung disease Social History Smoking Status: Former Smoker Alcohol Use: none Drug Use: none Marital Status: Housing Status: lives with family Occupation Status: retired Current/Historical Medications Scheduled Cephalexin Monohydrate (Keflex), 500 MG PO QID Cholecalciferol (Vitamin D-1000), 1,000 UNITS PO DAILY Codeine Sulfate (Codeine), 30 MG PO QID Diphenoxylate/Atropine (Lomotil), 2 TABS PO QID Finasteride (Proscar), 5 MG PO HS Lisinopril (Zestril), 5 MG PO DAILY Pancrelipase (Lipase-Protease- (Creon 07102), 2 CAP PO TID Parenteral Electrolytes (Tpn Electrolytes), 1 DOSE 6XWK Paroxetine Hcl (Paxil), 30 MG PO DAILY Polysaccharide Iron Complex-Ir (Feosol Bifera), 5 MG PO TID Tamsulosin Hcl (Flomax), 0.4 MG PO HS Scheduled PRN Loperamide Hcl (Imodium), 1 TAB PO QID PRN for DIARRHEA Ondasetron Odt (Zofran Odt), 4 MG SL UD PRN for Nausea Allergies Coded Allergies: Ibuprofen (Verified Adverse Reaction, Intermediate, GASTRIC ULCERS, NO COLON, 02/26/17) Physical Exam Vital Signs Date Time Temp Pulse Resp B/P (MAP) Pulse Ox O2 Delivery O2 Flow Rate FiO2 02/26/17 19:51 60 18 106/62 98 Room Air 02/26/17 18:03 36.6 66 18 124/67 96 Room Air Physical Exam GENERAL: Awake, alert, well-appearing, in no distress HENT: Normocephalic, atraumatic. Oropharynx unremarkable. EYES: Normal conjunctiva. Sclera non-icteric. NECK: Supple. No nuchal rigidity. FROM. No JVD. RESPIRATORY: Clear to auscultation. CHEST: Edwards catheter in right chest tunneled into the right neck. No tenderness. CARDIAC: Regular rate, normal rhythm. Extremities warm and well perfused. Pulses equal. ABDOMEN: Soft, non-distended. No tenderness to palpation. No rebound or guarding. No masses. RECTAL: Deferred. MUSCULOSKELETAL: Chest examination reveals no tenderness. The back is symmetrical on inspection without obvious abnormality. There is no CVA tenderness to palpation. No joint edema. LOWER EXTREMITIES: Calves are equal size bilaterally and non-tender. No edema. No discoloration. NEURO: Normal sensorium. No sensory or motor deficits noted. SKIN: No rash or jaundice noted. Medical Decision & Procedures Medications Administered Medications (Trade) Dose Ordered Sig/Joe Route Start Time Stop Time Status Last Admin Dose Admin Cephalexin Monohydrate (Keflex Cap) 500 mg NOW ONCE PO 02/26/17 19:00 02/26/17 19:01 DC 02/26/17 19:26 500 MG ED Course 183: The patient was evaluated in room D09. A complete history and physical exam was performed. 1899: Ordered Keflex Cap 500 mg PO. 1903: I reevaluated the patient and he is resting comfortably. I discussed results and discharge instructions: He verbalized understanding and agreement. The patient is ready for discharge. Medical Decision Triage Nursing notes reviewed. The patient's presentation and history were concerning for possible line complication. The patient was evaluated. He noted some minimal drainage from the site of his right sided chest catheter. I did evaluate this. There was scant amount of drainage that I can express only with pressure along the tunnel site. There is no significant purulence. The patient has had no fevers, chills or rigors. Brush was felt to be unnecessary. He is afebrile. He has Bactroban already. He previously was treated with Keflex from his provider at [facility]. I believe it is not unreasonable to start him on Keflex because of the scant drainage. A line infection would be a significant issue for him. The patient and felt very comfortable. He was given the first dose of Keflex in the emergency department. He was able to change his dressing and apply Bactroban in the Emergency Room. He will contact the [facility] tomorrow for follow -up. Prior to antibiotics a culture was sent. Medication Reconcilliation Current Medication List: was personally reviewed by me Blood Pressure Screening Patient's blood pressure: Elevated blood pressure Blood pressure disposition: Elevated BP felt to be situational Impression Primary Impression: Infection of central venous catheter exit site Scribe Attestation The scribe's documentation has been prepared under my direction and personally reviewed by me in its entirety. I confirm that the note above accurately reflects all work, treatment, procedures, and medical decision making performed by me. Departure Information Dispostion Home / Self-Care Prescriptions Cephalexin Monohydrate (Keflex) 500 Mg Cap 500 MG PO QID, #28 CAP Prov: Reji Manuel MD 02/26/17 Referrals Tao Montoya MD (PCP) Forms HOME CARE DOCUMENTATION FORM, IMPORTANT VISIT INFORMATION, WORK / SCHOOL INSTRUCTIONS Patient Instructions My [facility] Additional Instructions Cephalexin(Keflex) 500mg: Take one pill four times daily for 7 days. All antibiotics can cause diarrhea. If this occurs and you feel worse or it does not resolve in 1-2 days follow up with your doctor or return to the Emergency Department as this could be signs of serious underlying problems. Any medication can cause an allergic reaction, stop the pills immediately and return to the ER for rash, hives, breathing difficulties, or swelling. Continue normal dressings and line care as directed by the [facility]. Continue current medications. Continue the mupirocin ointment with dressing changes. Return to the ER for severe pain, fevers, spreading redness, chest pain, difficulty breathing, chills, or any worsening of your condition. Follow up with [facility] tomorrow to let them know the results. A culture is pending and should be available within the next 24-48 hours.
--- NOTE | 2017-02-28 13:42 | Pharmacy Progress Note ---
ED Pharmacist Culture FollowUp Date of Service: Feb 28, 2017. Serratia marcescens and GNR #2 (sensitivity to follow) growing from catheter/ Edwards site. Patient was sent with cephalexin po which will not likely cover the Serratia. Patient with history of total colectomy w partial small bowel resection ( Edwards catheter for chronic TPN). I am concerned about adequacy of any po antibiotic for the following reasons: 1. Decreased absorption 2nd short gut (as above) which may both be inadequate to treat the current infection and increase risk for development of antimicrobial resistance 2. Risk of loss of line due to line infection Patient is therefore likely to require IV or IM therapy to treat this infection , which would be more appropriately managed by PCP. ED was to provide Bactrim suspension in the interim if could not make appointment with PCP MAYRA (per Dr. Sultana). Called patient and informed of above. Provided consent for me to make an appointment on his behalf. Called patient's PCP - Tao Montoya MD, [facility] . Spoke with RN. 1. Provided verbal report of patient history and need for urgent appointment 2. Made appointment for today at 2:30pm 3. Faxed culture results to at their request, confirmation received. Called patient back. Informed of above appointment. Patient also requested that results be faxed to [facility] at . Fax sent, confirmation received. Further management to be completed by patient's PCP. [facility] ED Staff will fax results of culture once finalized to both PCP at and [facility] at (at patient's request).
[2017-03-16] MEDS ORDERED: [UNRECOGNIZED DRUG - CODE] IV (10:37)
[2017-03-16] MEDS ORDERED: DIPH-416 PO (10:55)
[2017-03-16] MEDS ORDERED: CHOL100040 PO (10:55)
[2017-03-16] MEDS ORDERED: ONDA4TAB10 SL (10:55)
== END 2017-02-26 19:53 | disposition home or self-care (01) ==
LOC: C.EDB 17:44 → C.EDD 19:53
DX: T80.212A Local infection due to central venous catheter, initial encounter (principal); X58.XXXA Exposure to other specified factors, initial encounter; Z83.3 Family history of diabetes mellitus; Z82.49 Family history of ischemic heart disease and other diseases of the circulatory system; Z87.891 Personal history of nicotine dependence

== ENCOUNTER 2017-03-16 16:04 | Emergency (ER) | payer OTHER ==
[~2017-03-16] VITALS: Ht 165.1 cm; Wt 66.4 kg
[~2017-03-16 16:04] MED LIST changes: +CHOL100040 PO; +DIPH-416 PO; +ONDA4TAB10 SL; +[UNRECOGNIZED DRUG - CODE] IV
[2017-03-16 16:11] VITALS: Ht 165.1 cm; Wt 66.4 kg
[2017-03-16 16:49] VITALS: BP 118/71; PULSE 68; TEMP 36.8; O2SAT 96
[2017-03-16] MEDS ORDERED: PANC24002 PO (16:50)
[2017-03-16] MEDS ORDERED: FLM4 PO (16:50)
[2017-03-16] MEDS ORDERED: LSN5 PO (16:50)
[2017-03-16] MEDS ORDERED: PXL20 PO (16:50)
[2017-03-16] MEDS ORDERED: PRS5 PO (16:50)
[2017-03-16] MEDS ORDERED: ZOLP10TA6 PO (16:50)
[2017-03-16] MEDS ORDERED: CDN30 PO (16:50)
[2017-03-16] MEDS ORDERED: POLY150C4 PO (16:55)
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
== END 2017-03-16 16:50 | disposition home or self-care (01) ==
LOC: C.EDB 16:06 → C.EDA 16:50
DX: T82.838A Hemorrhage due to vascular prosthetic devices, implants and grafts, initial encounter (principal); Y84.8 Other medical procedures as the cause of abnormal reaction of the patient, or of later complication, without mention of misadventure at the time of the procedure; Z93.3 Colostomy status; Z83.3 Family history of diabetes mellitus; Z82.49 Family history of ischemic heart disease and other diseases of the circulatory system; Z87.891 Personal history of nicotine dependence; Z79.899 Other long term (current) drug therapy

== ENCOUNTER 2020-09-25 19:24 | Inpatient (IN) ==
[2020-09-25] MEDS ORDERED: CEFEPIME 2,000 MG/20 ML VIAL IV STA (20:13)
[2020-09-25] MEDS ORDERED: SODIUM CHLORIDE 0.9% 1000ML 1,000 ML IV ONE ×2 (20:13→21:32)
--- NOTE | 2020-09-25 20:17 | Emergency Department Note ---
History of Present Illness General Chief complaint: Fever Stated complaint: SWELLING AT CATHETER, FEVER Time Seen by Provider: 09/25/20 20:04 Source: patient and family (Daughter who is at the bedside) Mode of arrival: ambulatory Limitations: no limitations History of Present Illness This patient comes in after having redness and swelling near his Edwards site on the right chest. He is on a chronic Edwards for short gut syndrome. He had this replaced on Sunday at the [facility]. At Sunday at midnight he had an episode where he felt shaky and cold he has had a low-grade temperature since then he says some increasing redness and swelling around the site. No drainage. He has been using it for his TPN which he receives 5 days a week and it is been functioning fine to just been red. He has no chest pain or shortness of breath. No abdominal pain. Denies any other symptoms. Home Medications Medication Instructions Recorded Confirmed Type cholecalciferol (vitamin D3) 1,000 unit PO BID 04/23/18 09/25/20 History [Vitamin D3] diphenoxylate-atropine [Lomotil] 2 tab PO QID 04/23/18 09/25/20 History finasteride 5 mg PO HS 04/23/18 09/25/20 History [id number] [Creon] 1 cap PO TID 04/23/18 09/25/20 History paroxetine HCl 30 mg PO PM 04/23/18 09/25/20 History Parenteral Electrolytes 1 dose IV [id number] 05/03/18 09/25/20 History polysaccharide iron complex 150 mg PO BID 05/03/18 09/25/20 History [Ferrex 150] tamsulosin 0.4 mg PO HS 05/03/18 09/25/20 History zolpidem 10 mg PO HS PRN 05/03/18 09/25/20 History lisinopril 5 mg PO QAM 08/13/20 09/25/20 History bupropion HCl 100 mg PO QAM 09/16/20 09/25/20 History codeine sulfate 30 mg PO QID 09/16/20 09/25/20 History loperamide 2 mg PO QID 09/16/20 09/25/20 History Allergies Allergy/AdvReac Type Severity Reaction Status Date / Time ibuprofen AdvReac Intermediate GASTRIC Verified 09/25/20 21:32 ULCERS, NO COLON Past Med/Surg History Medical History Anxiety BPH (benign prostatic hyperplasia) Chronic pain H/O ulcerative colitis HTN (hypertension) Ileostomy in place Insomnia Pancreatitis pt denies any history SBO (small bowel obstruction) hx Short gut syndrome Sleep apnea CPAP Surgical History H/O rotator cuff surgery right H/O total colectomy (~1973) History of colonoscopy History of laparotomy removed SBO History of tonsillectomy Family History Other No family history of adverse response to anesthesia No significant family history Social History Smoking Status: Former smoker Second Hand Exposure: No; Do You Dip or Chew Tobacco: No; Hx Alcohol Use: No Hx Substance Use: No Preferred Language: Thai Communication Ability: Effective Burglary Investigator Required: No Beliefs That Will Affect Care: None Current Living Situation: Spouse Other Information That Helps Us Care for You: No Feels Safe at Home: Yes Safety Concerns: Feels Safe At This Time Assistive Devices: None Review of Systems A total of 10 systems reviewed and were otherwise negative Physical Exam Vital Signs Vital Signs - 24 hr 09/25/20 19:27 09/25/20 20:32 09/25/20 20:45 Temperature 36.6 C Temperature Source Temporal Artery Scan Pulse Rate 81 74 Pulse Rate from SpO2 Sensor 75 Respiratory Rate 18 16 Respiratory Depth Normal Blood Pressure 117/65 94/67 L Blood Pressure Mean 82 76 Pulse Oximetry 96 94 Oxygen Delivery Method Room Air Sepsis Recent Fever Within 48 Hours Yes Sepsis New/Unexplained Change in Mental Status N/A Sepsis Action Taken by Nursing No Action Required 09/25/20 21:00 09/25/20 21:31 09/25/20 22:00 Temperature Temperature Source Pulse Rate 69 118 H 97 H Pulse Rate from SpO2 Sensor 69 Respiratory Rate 16 19 15 Respiratory Depth Blood Pressure 120/70 135/78 133/67 Blood Pressure Mean 86 97 89 Pulse Oximetry 96 97 93 Oxygen Delivery Method Room Air Room Air Sepsis Recent Fever Within 48 Hours Sepsis New/Unexplained Change in Mental Status Sepsis Action Taken by Nursing 09/25/20 22:30 Temperature Temperature Source Pulse Rate 89 Pulse Rate from SpO2 Sensor 88 Respiratory Rate 17 Respiratory Depth Blood Pressure 110/52 L Blood Pressure Mean 71 Pulse Oximetry 93 Oxygen Delivery Method Room Air Sepsis Recent Fever Within 48 Hours Sepsis New/Unexplained Change in Mental Status Sepsis Action Taken by Nursing General: Well developed well nourished in no acute distress, breathing comfortably on room air. Normal speech HEENT: Normal cephalic atraumatic. Pupils are equal round and reactive to light. Extraocular movements are intact. Oropharynx is pink with moist mucous membranes. No swelling of the mouth lips or tongue. Neck: Supple with a midline trachea. No meningeal signs or stiffness, no JVD or bruits. No Stridor. Chest: Clear to auscultation bilaterally. No wheezes or rhonchi. No increased work of breathing. The Edwards is intact in the right chest. There is redness and swelling superior to it there is no fluctuance but it is tender. No p urulent discharge. Heart: Regular rate and rhythm without murmurs or gallops. Abdomen: Soft nontender, nondistended without rebound guarding or rigidity. Extremities: No cyanosis clubbing or edema. No calf tenderness or assymetry Spine/Back. Non tender to palpation. No CVA tenderness Skin: Good turgor without rashes. Neurologic exam: Cranial nerves two through 12 are intact. Motor and sensation are intact and symmetrical throughout. Course Administered Medications Discontinued Medications Sodium Chloride (Nss 1000ml) 1,000 mls @ 999 mls/hr IV .Q1H1M ONE Stop: 09/25/20 21:13 Last Infusion: 09/25/20 21:50 Dose: 0 mls/hr Documented by: [id number] Admin: 09/25/20 20:48 Dose: 999 mls/hr Documented by: [id number] Cefepime HCl (Maxipime) 2,000 mg in 20 mls @ 5 mls/min IV NOW STA; Protocol Stop: 09/25/20 20:16 Last Admin: 09/25/20 20:48 Dose: 5 mls/min Documented by: [id number] Sodium Chloride (Nss 1000ml) 1,000 mls @ 999 mls/hr IV .Q1H1M ONE Stop: 09/25/20 22:32 Last Infusion: 09/25/20 23:29 Dose: 0 mls/hr Documented by: [id number] Admin: 09/25/20 21:40 Dose: 999 mls/hr Documented by: [id number] Lorazepam (Ativan) 0.5 mg in 1 mls @ 1 mls/min IV NOW STA Stop: 09/25/20 21:33 Last Admin: 09/25/20 21:39 Dose: 1 mls/min Documented by: [id number] Vancomycin HCl 1,250 mg/ (Sodium Chloride) 525 mls @ 200 mls/hr IV NOW ONE Stop: 09/26/20 00:09 Last Infusion: 09/25/20 23:29 Dose: 0 mls/hr Documented by: [id number] Admin: 09/25/20 21:49 Dose: 200 mls/hr Documented by: [id number] Critical Care Time Critical Care Time: Yes Total Critical Care Time: 40 Due to the patient's concern for sepsis, rigors, need for multiple IV antibiotics IV fluids and consultations, and frequent reassessment, I have personally spent greater than 40 minutes of critical care time in the direct management of this patient. This includes bedside care, interpretation of di agnostic studies, and testing, discussion with consultants, patient, and family members, and other required patient management activities. This 40 minutes is in excess of all separately billable procedures. Medical Decision Making Differential Diagnosis Postop complication, postop infection, blood clot, cellulitis, dehydration, electrolyte or metabolic abnormality Medical Records Attestation: I reviewed the patient's medical records. Home Medications Current Medication List: was personally reviewed by me Laboratory Data Attestation: I reviewed the patient's lab results. Result diagrams: 09/25/20 20:33 09/25/20 20:33 Lab Results 09/25/20 09/25/20 09/25/20 Range/Units 20:33 20:33 20:33 WBC 8.19 (4.8-10.8) K/uL RBC 3.45 L (4.7-6.1) M/uL Hgb 10.3 L (14.0-18.0) g/dL Hct 30.8 L (42-52) % MCV 89.3 (80-100) fL MCH 29.9 (25-34) pg MCHC 33.4 (32-36) g/dL RDW Std Deviation 48.0 H (36.4-46.3) fL RDW Coeff of Charles 14.7 H (11.5-14.5) % Plt Count 244 (130-400) K/uL MPV 10.1 (7.4-10.4) fL Immature Gran % (Auto) 0.4 % Neut % (Auto) 61.6 % Lymph % (Auto) 24.5 % [place] % (Auto) 11.4 % Eos % (Auto) 1.7 % Baso % (Auto) 0.4 % Neut # (Auto) 5.05 (1.4-6.5) K/uL Lymph # (Auto) 2.01 (1.2-3.4) K/uL [place] # (Auto) 0.93 H (0.11-0.59) K/uL Eos # (Auto) 0.14 (0-0.5) K/uL Baso # (Auto) 0.03 (0-0.2) K/uL Immature Gran # (Auto) 0.03 H (0.00-0.02) K/uL PT 12.1 H (9.0-12.0) Seconds INR 1.2 H (0.9-1.1) APTT 28.4 (21.0-31.0) Seconds PTT Ratio 1.1 Sodium 134 L (136-145) mmol/L Potassium 3.1 L (3.5-5.1) mmol/L Chloride 101 (98-107) mmol/L Carbon Dioxide 28 (21-32) mmol/L Anion Gap 5.0 (3-11) BUN 15 (7-18) mg/dl Creatinine 0.89 (0.6-1.4) mg/dl Est Cr Clr Drug Dosing 60.0 ml/min Est GFR ( Amer) 96.9 Est GFR (Non-Af Amer) 83.6 BUN/Creatinine Ratio 16.4 (10-20) Glucose 122 H (70-99) mg/dl Lactate (0.4-2.0) mmol/L Calcium 8.8 (8.5-10.1) mg/dl Magnesium 1.9 (1.8-2.4) mg/dl Total Bilirubin 1.1 H (0.2-1) mg/dl AST 25 (15-37) U/L ALT 23 (12-78) U/L Alkaline Phosphatase 96 (45-117) U/L Total Protein 7.9 (6.4-8.2) gm/dl Albumin 2.7 L (3.4-5.0) gm/dl Globulin 5.2 H (2.5-4.0) gm/dl Albumin/Globulin Ratio 0.5 L (0.9-2) Procalcitonin (0-0.5) ng/ml COVID-19 Eval Order SARS-CoV-2 (PCR) (Negative) Influenza Type A (PCR) (Neg) Influenza Type B (PCR) (Neg) RSV (RT-PCR) (Neg) 09/25/20 09/25/20 09/25/20 Range/Units 20:33 20:33 21:28 WBC (4.8-10.8) K/uL RBC (4.7-6.1) M/uL Hgb (14.0-18.0) g/dL Hct (42-52) % MCV (80-100) fL MCH (25-34) pg MCHC (32-36) g/dL RDW Std Deviation (36.4-46.3) fL RDW Coeff of Charles (11.5-14.5) % Plt Count (130-400) K/uL MPV (7.4-10.4) fL Immature Gran % (Auto) % Neut % (Auto) % Lymph % (Auto) % [place] % (Auto) % Eos % (Auto) % Baso % (Auto) % Neut # (Auto) (1.4-6.5) K/uL Lymph # (Auto) (1.2-3.4) K/uL [place] # (Auto) (0.11-0.59) K/uL Eos # (Auto) (0-0.5) K/uL Baso # (Auto) (0-0.2) K/uL Immature Gran # (Auto) (0.00-0.02) K/uL PT (9.0-12.0) Seconds INR (0.9-1.1) APTT (21.0-31.0) Seconds PTT Ratio Sodium (136-145) mmol/L Potassium (3.5-5.1) mmol/L Chloride (98-107) mmol/L Carbon Dioxide (21-32) mmol/L Anion Gap (3-11) BUN (7-18) mg/dl Creatinine (0.6-1.4) mg/dl Est Cr Clr Drug Dosing ml/min Est GFR ( Amer) Est GFR (Non-Af Amer) BUN/Creatinine Ratio (10-20) Glucose (70-99) mg/dl Lactate 1.9 (0.4-2.0) mmol/L Calcium (8.5-10.1) mg/dl Magnesium (1.8-2.4) mg/dl Total Bilirubin (0.2-1) mg/dl AST (15-37) U/L ALT (12-78) U/L Alkaline Phosphatase (45-117) U/L Total Protein (6.4-8.2) gm/dl Albumin (3.4-5.0) gm/dl Globulin (2.5-4.0) gm/dl Albumin/Globulin Ratio (0.9-2) Procalcitonin 1.91 H (0-0.5) ng/ml COVID-19 Eval Order CovFluRsv at [facility] SARS-CoV-2 (PCR) (Negative) Influenza Type A (PCR) (Neg) Influenza Type B (PCR) (Neg) RSV (RT-PCR) (Neg) 09/25/20 Range/Units 21:28 WBC (4.8-10.8) K/uL RBC (4.7-6.1) M/uL Hgb (14.0-18.0) g/dL Hct (42-52) % MCV (80-100) fL MCH (25-34) pg MCHC (32-36) g/dL RDW Std Deviation (36.4-46.3) fL RDW Coeff of Charles (11.5-14.5) % Plt Count (130-400) K/uL MPV (7.4-10.4) fL Immature Gran % (Auto) % Neut % (Auto) % Lymph % (Auto) % [place] % (Auto) % Eos % (Auto) % Baso % (Auto) % Neut # (Auto) (1.4-6.5) K/uL Lymph # (Auto) (1.2-3.4) K/uL [place] # (Auto) (0.11-0.59) K/uL Eos # (Auto) (0-0.5) K/uL Baso # (Auto) (0-0.2) K/uL Immature Gran # (Auto) (0.00-0.02) K/uL PT (9.0-12.0) Seconds INR (0.9-1.1) APTT (21.0-31.0) Seconds PTT Ratio Sodium (136-145) mmol/L Potassium (3.5-5.1) mmol/L Chloride (98-107) mmol/L Carbon Dioxide (21-32) mmol/L Anion Gap (3-11) BUN (7-18) mg/dl Creatinine (0.6-1.4) mg/dl Est Cr Clr Drug Dosing ml/min Est GFR ( Amer) Est GFR (Non-Af Amer) BUN/Creatinine Ratio (10-20) Glucose (70-99) mg/dl Lactate (0.4-2.0) mmol/L Calcium (8.5-10.1) mg/dl Magnesium (1.8-2.4) mg/dl Total Bilirubin (0.2-1) mg/dl AST (15-37) U/L ALT (12-78) U/L Alkaline Phosphatase (45-117) U/L Total Protein (6.4-8.2) gm/dl Albumin (3.4-5.0) gm/dl Globulin (2.5-4.0) gm/dl Albumin/Globulin Ratio (0.9-2) Procalcitonin (0-0.5) ng/ml COVID-19 Eval Order SARS-CoV-2 (PCR) NEGATIVE (Negative) Influenza Type A (PCR) Negative (Neg) Influenza Type B (PCR) Negative (Neg) RSV (RT-PCR) Negative (Neg) Imaging Data My Impression: Chest x-rayno acute infiltrate, failure, pneumothorax seen ECG Data Attestation: I personally reviewed and interpreted this ECG as follows: Indication: + other (Sepsis) Rate (beats per minute): 76 Rhythm: + normal sinus ECG Intervals/blocks: + Incomplete right bundle branch block ECG Brohard: + Normal ECG ST segments: + Nonspecific ST abnormalities ECG Findings: + PACs Comparison ECG Date: from (10/21/16) Change: no significant change MDM Narrative This patient comes in after having some red wine after been placed about 3 days ago. He is afebrile here but is had fever and chills at home and a low-grade. I am concerned about infection based on his presentation. I ordered IV access to be established peripherally and 1 blood culture through the Edwards and one peripherally. He was given cefepime 2 g IV, he was given IV normal saline bolus of full sepsis work-up was obtained I did discuss case with Dr. Phillips who is our on-call surgeon he recommends the IV antibiotics and attempt to salvage the line it may be that ultimately is going need to be pulled. The patient did receive the cefepime as well as IV fluids and looks well he has no elevation of fever here or white count or lactic acid elevation. He has no electrolyte or meta bolic abnormality chest x-ray is unremarkable and does not show any pneumonia or pneumothorax. I am concerned he does look red around the sites and I think it is infected. I did consult Dr. Acevedo in the [facility] team to see him for admission for IV antibiotics. The patient then got very rigorous and we checked his vitals they were normal I did add vancomycin as well as additional IV fluid bolus. He is vital signs are stable but he did spike a temperature. He was given Ativan for itch shakes 0.5 mg IV and with this and the fluids he seemed to settle down. He has broad-spectrum antibiotics and fluid resuscitation and will need to be admitted for IV antibiotic IV fluids and possible Edwards removal. The patient is daughter happy with the plan and he will be admitted for these me asures Continuous cardiac monitoring: Due to the concern for sepsis, order was placed in EMR for continuous cardiac monitoring. The patient was noted to be in normal sinus rhythm with a rate of 75. Impression & Plan Sepsis, Short gut syndrome, Postoperative wound infection, Rigors Discharge Plan Visit Data Chief Complaint: Fever Stated Complaint: SWELLING AT CATHETER, FEVER ED Provider: George Durant Discharge Problem: Sepsis, Short gut syndrome, Postoperative wound infection, Rigors Patient Disposition: Admitted As Inpatient Discharge Instructions Interventions: ED Discharge Assessment Last Done: 09/25/20 23:29 Discharge Problem: Sepsis Qualifiers: Sepsis type: sepsis due to unspecified organism Sepsis acute organ dysfunction status: unspecified Qualified Code(s): A41.9 - Sepsis, unspecified organism
[2020-09-25 20:48] LABS: Basophils # (auto) 0.03 K/uL (0-0.2); Basophils % (auto) 0.4 %; Eosinophils # (auto) 0.14 K/uL (0-0.5); Eosinophils % (auto) 1.7 %; Hematocrit (blood only) 30.8 % (42-52); Hemoglobin 10.3 g/dL (14.0-18.0); Immature Granulocytes # (auto) 0.03 K/uL (0.00-0.02); Immature Granulocytes % (auto) 0.4 %; Lymphocytes # (auto) 2.01 K/uL (1.2-3.4); Lymphocytes % (auto) 24.5 %; Mean Corpuscular Hemoglobin 29.9 pg (25-34); Mean Corpuscular Hgb Conc 33.4 g/dL (32-36); Mean Corpuscular Volume 89.3 fL (80-100); Mean Platelet Volume 10.1 fL (7.4-10.4); Monocytes # (auto) 0.93 K/uL (0.11-0.59); Monocytes % (auto) 11.4 %; Neutrophils # (auto) 5.05 K/uL (1.4-6.5); Neutrophils % (auto) 61.6 %; Platelet Count 244 K/uL (130-400); RDW Coefficient of Variation 14.7 % (11.5-14.5); Red Blood Count 3.45 M/uL (4.7-6.1); White Blood Count 8.19 K/uL (4.8-10.8)
[2020-09-25 20:58] LABS: INR 1.2 (0.9-1.1); Partial Thromboplastin Ratio 1.1; Partial Thromboplastin Time 28.4 Seconds (21.0-31.0); Prothrombin Time 12.1 Seconds (9.0-12.0)
[2020-09-25 21:03] LABS: Albumin Level 2.7 gm/dl (3.4-5.0); BUN Creatinine Ratio 16.4 (10-20); Calcium 8.8 mg/dl (8.5-10.1); Est GFR (African American) 96.9; Est GFR (Non-African American) 83.6; Magnesium 1.9 mg/dl (1.8-2.4); Potassium 3.1 mmol/L (3.5-5.1)
[2020-09-25 21:06] LABS: Albumin Globulin Ratio 0.5 (0.9-2); Bilirubin,Total 1.1 mg/dl (0.2-1); Globulin 5.2 gm/dl (2.5-4.0); Total Protein 7.9 gm/dl (6.4-8.2)
[2020-09-25] MEDS ORDERED: LORazepam 0.5 MG/1 ML VIAL IV STA (21:32)
[2020-09-25] MEDS ORDERED: VANCOMYCIN CONSULT ACTIVE PRN ×2 (21:32→23:43)
[2020-09-25] MEDS ORDERED: VANCOMYCIN HCL 1,250 MG in SODIUM CHLORIDE 0.9% 500 ML IV ONE (21:32)
[2020-09-25 22:28] LABS: Influenza A virus by PCR Negative (Neg); Influenza B virus by PCR Negative (Neg); RSV by PCR Negative (Neg); SARS CoV2 RNA(COVID-19) InHosp NEGATIVE (Negative)
--- NOTE | 2020-09-25 22:39 | History & Physical Report ---
Date of Service September 25, 2020 Assessment & Plan (1) Postoperative wound infection: Patient is a 75 year old male with PMHx Ulcerative Colitis, Short Gut Syndrome, Sleep Apnea, Anxiety, BPH, HTN, Ileostomy, that presented after having 1 day history of rigors, chills, redness and swelling of Edwards port and overall feelings of malaise. Suspected infection of Edwards Port -Recent replacement on 09/22/20 at [facility] of R chest wall Edwards port -Lactic 1.9 and Procal 1.91 on admission -Blood cultures pending, drawn prior to antibiotic administration -Started on Vanc and Cefepime in the ED, will continue Vancomycin and convert Cefepime to Zosyn for greater anaerobic coverage. -Fluid resuscitated in the ED with NSS 2L, will give additional 500ml NSS bolus tonight -Surgery Consulted, continue with antibiotics at this time, suspect consideration of removal of port if no improvement on abx -Tylenol 1000mg q8h PRN fever -Will hold use of port at this time -Will likely require other form of access for TPN should this port be removed, await surg consult as above -Will keep patient NPO in the event he undergoes surgery for removal of port Short Gut Syndrome secondary total colectomy -H/O Ulcerative colitis, s/p total colectomy -Patient's home regiment of TPN on ////Sun and NSS on /Sun -Fluid given appropriately at this time -Will likely require other form of access for TPN, await surg consult -Continue home Lomotil and Imodium Hypokalemia -Potassium 3.1 on admission -Repleted with IV KCl 60meq Anxiety -Continue home Bupropion 100mg QD -Continue home Paroxetine 30mg QHS BPH -Continue home Flomax -Continue home Finasteride Sleep Apnea -CPAP QHS Dispo: PCU FEN: NPO, NSS 100ml/hr x 500ml DVT: SCD, holding chemoprophylaxis at this time while awaiting surgical consult Code: Conditional, no intubation, OK for CPR - (2) Sepsis: (3) Short gut syndrome: (4) HTN (hypertension): (5) BPH (benign prostatic hyperplasia): History of Present Illness Chief Complaint: Chills, Redness near port Primary Care Provider: Tao Montoya Patient is a 75 year old male with PMHx Ulcerative Colitis, Short Gut Syndrome, Sleep Apnea, Anxiety, BPH, HTN, Ileostomy, that presented after having 1 day history of rigors, chills, redness and swelling of Edwards port and overall feelings of malaise. Patient notes that he had recently had his Edwards port replaced at [facility] on 09/22/20 due to the line being cracked. He states he had been using that port for the past 2 years before replacement. He states that since the replacement, the port has been working as intended for his TPN, however, started to have redness and swelling 1 day ago accompanied by rigors and chills. He denies any fevers. As noted, he has been utilizing his line for his TPN which he takes everyday except for Wednesdays and Saturdays, where he does 2500mL of NSS instead, and Lipids on Sundays. Currently he notes that he feels relatively lethargic and was having some rigors prior to my arrival to his room. He also notes some tenderness to palpation around his R chest surrounding the Edwards Port in addition to progression of the redness spreading from around the port itself towards the L side of his collar bone. He otherwise denies chest pain, SOB, abdominal pain. He notes that his R sided ostomy has been working appropriately and he has not had issues with it. In the ED patient had concerns regarding infection of the port with lactate at 1.9 and elevated procal 1.91. He was started on IVF and given empiric antibiotics Cefepime and Vancomycin. Med Hx: UC, Short gut syndrome, Sleep apnea, anxiety, BPH, HTN, ileostomy in place Surg Hx: Total Colectomy, Tonsillectomy, Ileostomy Soc Hx: No tobacco, alcohol, or illicit drug use. Allergies Allergy/AdvReac Type Severity Reaction Status Date / Time ibuprofen AdvReac Intermediate GASTRIC Verified 09/25/20 21:32 ULCERS, NO COLON Home Medications Medication Instructions Recorded Confirmed Type cholecalciferol (vitamin D3) 1,000 unit PO BID 04/23/18 09/25/20 History [Vitamin D3] diphenoxylate-atropine [Lomotil] 2 tab PO QID 04/23/18 09/25/20 History finasteride 5 mg PO HS 04/23/18 09/25/20 History [id number] [Creon] 1 cap PO TID 04/23/18 09/25/20 History paroxetine HCl 30 mg PO PM 04/23/18 09/25/20 History Parenteral Electrolytes 1 dose IV [id number] 05/03/18 09/25/20 History polysaccharide iron complex 150 mg PO BID 05/03/18 09/25/20 History [Ferrex 150] tamsulosin 0.4 mg PO HS 05/03/18 09/25/20 History zolpidem 10 mg PO HS PRN 05/03/18 09/25/20 History lisinopril 5 mg PO QAM 08/13/20 09/25/20 History bupropion HCl 100 mg PO QAM 09/16/20 09/25/20 History codeine sulfate 30 mg PO QID 09/16/20 09/25/20 History loperamide 2 mg PO QID 09/16/20 09/25/20 History Past Med/Surg History Medical History Anxiety BPH (benign prostatic hyperplasia) Chronic pain H/O ulcerative colitis HTN (hypertension) Ileostomy in place Insomnia Pancreatitis pt denies any history SBO (small bowel obstruction) hx Short gut syndrome Sleep apnea CPAP Surgical History H/O rotator cuff surgery right H/O total colectomy (~1973) History of colonoscopy History of laparotomy removed SBO History of tonsillectomy Family History Other No family history of adverse response to anesthesia No significant family history Social History Smoking Status: Former smoker Second Hand Exposure: No; Do You Dip or Chew Tobacco: No; Hx Alcohol Use: No Hx Substance Use: No Preferred Language: Congolese Communication Ability: Effective Equine Breeder Required: No Beliefs That Will Affect Care: None Current Living Situation: Spouse Other Information That Helps Us Care for You: No Feels Safe at Home: Yes Safety Concerns: Feels Safe At This Time Assistive Devices: None Review of Systems Review of Systems: All systems reviewed & are unremarkable except as noted in Subjective Physical Exam Constitutional: + ill appearing and cooperative; no acute distress Eyes: PERRL, conjunctivae normal, anicteric sclerae ENMT: external ear and nose normal, oropharynx normal Neck: trachea midline, no thyromegaly no neck crepitus Respiratory: normal respiratory effort, lungs clear to auscultation Cardiovascular: RRR, no murmur, no edema Chest (Breasts): Chest: + vascular access device or port (R sided Edwards Port ); + abnormal inspection of chest (Erythema surrounding the Edwards port, progressing towards the L clavicle) Additional Comments: Tenderness to palpation surrounding the Edwards port with mild swelling and erythema. Gastrointestinal (Abdomen): Inspection/Auscultation: + visible herniation (R mid-low quadrant ), + abdominal surgical scar and + hypoactive bowel sounds; + abdomen abnormal to inspection (Ostomy site well appearing without erythema ) Percussion/Palpation: abdomen soft and + hernia (R mid to lower quadrant ); abdomen nontender, no guarding and abdomen not rigid Musculoskeletal: no cyanosis or clubbing, extremities motor strength 5/5 Skin: Erythema and swelling surrounding Edwards Port and progressing towards the L clavicle Psychiatric: A+Ox3, euthymic affect Results & Data Results & Data ([facility]) Vital Signs (Past 12 Hours) Vital Signs Temp Pulse Resp BP Pulse Ox 09/25/20 22:00 97 H 15 133/67 93 09/25/20 21:31 118 H 19 135/78 97 09/25/20 21:00 69 16 120/70 96 09/25/20 20:32 74 16 94/67 L 94 09/25/20 19:27 36.6 C 81 18 117/65 96 Code Status & VTE Plan VTE Prophylaxis Plan VTE Prophylaxis will be ordered: Yes Supervising Physician Co-Signing Physician Notes Attending addendum: I have physically seen this patient, have supervised the medical residents activities, and agree with the H&P unless as otherwise noted. Assessment and Plan: Postoperative wound infection/Edwards port infection- Status post procedure at [facility] on 09/22/2020. Follow blood culture and sensitivities Empiric treatment with vancomycin and cefepime IV in the ED. Will be admitted on vancomycin IV and Zosyn IV. General surgical consult Short gut syndrome status post total colectomy/history of ulcerative colitis- Continue home regimen: TPN on Sunday/Sunday//Sunday/Sunday, and normal saline on Sunday/Sunday Continue home Lomotil and Imodium Hypokalemia- Potassium 3.1 upon admission Replace both orally and IV Anxiety- Continue bupropion and paroxetine BPH- Continue tamsulosin and finasteride Remaining orders and notations as noted Resident Activity Tracking Resident Involvement: Resident Care Provided Care Provided: Adult [facility] Medicine
[2020-09-25] MEDS ORDERED: PIPERACILL/TAZOBAC CONSULT ACTIVE PRN (23:43)
[2020-09-25] MEDS ORDERED: SODIUM CHLORIDE 0.9% 1000ML 1,000 ML IV SCH (23:43)
[2020-09-26] MEDS: POTASSIUM CHLORIDE / WTR 10 MEQ/100 ML PLCT IV SCH ×6 (00:13→05:47)
[2020-09-26] MEDS ORDERED: ACETAMINOPHEN 500 MG TAB PO PRN (00:13)
[2020-09-26] MEDS: PIPERACILLIN/TAZOBACTAM 3.375 GM in DEXTROSE 5% 100 ML IV SCH ×4 (00:22→22:30)
--- NOTE | 2020-09-26 06:38 | Surgery Consultation ---
Date of Consultation September 26, 2020 Assessment & Plan (1) Sepsis: Patient with positive blood culture for gram-negative bacilli He also had a fever to 38 5 His Edwards shows erythema at the tunnel but no drainage Recent symptoms are associated with placement of the Edwards catheter through t he prior tunnel His care for the catheter and nutrition are through the [facility] It appears the catheter was placed by the interventional radiologist but I am unsure Technically removing the catheter would not be difficult however it is very important Would consider discussion with his team in [place] as to a plan prior to proceeding with removal Unless absolutely necessary-May need ID evaluation We will discuss with the medical team History of Present Illness Attending Physician: Greg Grossman MD History of Present Illness Patient admitted with fatigue fever and chills since he had his new Edwards catheter placed on 09/22. He has a longstanding Edwards catheter which became damaged in the recent past and has his normal care At the [facility]. He had a new catheter placed through the same tunnel this past Sunday 4 days prior He has noticed increased redness over the tunnel site in the past 1 to 2 days. Blood culture in the emergency room did grow gram-negative bacilli Patient is feeling better than he had been over the past several days. 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 Allergies Allergy/AdvReac Type Severity Reaction Status Date / Time ibuprofen AdvReac Intermediate GASTRIC Verified 09/25/20 21:32 ULCERS, NO COLON Home Medications Medication Instructions Recorded Confirmed Type cholecalciferol (vitamin D3) 1,000 unit PO BID 04/23/18 09/25/20 History [Vitamin D3] diphenoxylate-atropine [Lomotil] 2 tab PO QID 04/23/18 09/25/20 History finasteride 5 mg PO HS 04/23/18 09/25/20 History [id number] [Creon] 1 cap PO TID 04/23/18 09/25/20 History paroxetine HCl 30 mg PO PM 04/23/18 09/25/20 History Parenteral Electrolytes 1 dose IV 5XWK 05/03/18 09/25/20 History polysaccharide iron complex 150 mg PO BID 05/03/18 09/25/20 History [Ferrex 150] tamsulosin 0.4 mg PO HS 05/03/18 09/25/20 History zolpidem 10 mg PO HS PRN 05/03/18 09/25/20 History lisinopril 5 mg PO QAM 08/13/20 09/25/20 History bupropion HCl 100 mg PO QAM 09/16/20 09/25/20 History codeine sulfate 30 mg PO QID 09/16/20 09/25/20 History loperamide 2 mg PO QID 09/16/20 09/25/20 History Patient History Medical History Anxiety BPH (benign prostatic hyperplasia) Chronic pain H/O ulcerative colitis HTN (hypertension) Ileostomy in place Insomnia Pancreatitis pt denies any history SBO (small bowel obstruction) hx Short gut syndrome Sleep apnea CPAP Surgical History H/O rotator cuff surgery right H/O total colectomy (~1973) History of colonoscopy History of laparotomy removed SBO History of tonsillectomy Family History Other No family history of adverse response to anesthesia No significant family history Social History Smoking Status: Former smoker Second Hand Exposure: No; Do You Dip or Chew Tobacco: No; Hx Alcohol Use: No Hx Substance Use: No Preferred Language: Armenian Communication Ability: Effective Hardware Designer Required: No Beliefs That Will Affect Care: None Current Living Situation: Spouse Other Information That Helps Us Care for You: No Feels Safe at Home: Yes Safety Concerns: Feels Safe At This Time Assistive Devices: None Physical Exam Physical Exam: Patient is awake and alert in no distress Normally responsive He does have erythema over the tunnel from the exit site to the neck The only opening is at the exit site and not in the neck area No overt drainage Eyes: + anicteric sclerae Respiratory: normal respiratory effort; no respiratory distress Cardiovascular: Rate/Rhythm: regular rate Gastrointestinal (Abdomen): Inspection/Auscultation: abdomen not distended Musculoskeletal: Head/Neck/Chest: head atraumatic Skin: no rashes, warm and dry Neurologic: awake Psychiatric: Orientation: alert Results & Data ([facility]) Vital Signs (Past 12 Hours) Vital Signs Temp Pulse Pulse Resp BP BP Pulse Ox 09/26/20 03:18 36.6 C 62 15 111/57 L 95 09/25/20 23:59 89 09/25/20 23:44 38.5 C H 94 H 18 105/59 L 93 09/25/20 23:43 89 09/25/20 23:00 90 20 112/57 L 93 09/25/20 22:30 89 17 110/52 L 93 09/25/20 22:00 97 H 15 133/67 93 09/25/20 21:31 118 H 19 135/78 97 09/25/20 21:00 69 16 120/70 96 09/25/20 20:32 74 16 94/67 L 94 09/25/20 19:27 36.6 C 81 18 117/65 96 PG Care Time/CCT Total # of Minutes Spent Total Time Spent with Patient: Total time spent is greater than 50% in coordination of care (as documented) at patient's floor/unit and/or counseling patient: Coding Level of Care Code 60337 Initial Inpt Care Lvl 3 Diagnoses Sepsis A41.9
[2020-09-26 07:50] LABS: Basophils # (auto) 0.03 K/uL (0-0.2); Basophils % (auto) 0.3 %; Eosinophils # (auto) 0.07 K/uL (0-0.5); Eosinophils % (auto) 0.8 %; Hematocrit (blood only) 32.6 % (42-52); Hemoglobin 10.8 g/dL (14.0-18.0); Immature Granulocytes # (auto) 0.03 K/uL (0.00-0.02); Immature Granulocytes % (auto) 0.3 %; Lymphocytes # (auto) 1.15 K/uL (1.2-3.4); Lymphocytes % (auto) 12.6 %; Mean Corpuscular Hgb Conc 33.1 g/dL (32-36); Mean Corpuscular Volume 90.6 fL (80-100); Mean Platelet Volume 10.4 fL (7.4-10.4); Monocytes # (auto) 0.81 K/uL (0.11-0.59); Monocytes % (auto) 8.9 %; Neutrophils # (auto) 7.03 K/uL (1.4-6.5); Neutrophils % (auto) 77.1 %; Platelet Count 221 K/uL (130-400); RDW Coefficient of Variation 14.8 % (11.5-14.5); RDW Standard Deviation 49.5 fL (36.4-46.3); White Blood Count 9.12 K/uL (4.8-10.8)
[2020-09-26] MEDS: VANCOMYCIN HCL 1,000 MG in SODIUM CHLORIDE 0.9% 250 ML IV SCH ×2 (08:25→20:04)
[2020-09-26] MEDS: LOPERAMIDE HCL 2 MG CAP PO SCH ×4 (08:26→20:05)
[2020-09-26] MEDS: buPROPion SR 100 MG TABCR PO SCH (08:26)
[2020-09-26] MEDS: PANCREAZE (LIPASE 10,500U) CAP PO SCH ×3 (08:26→16:25)
[2020-09-26] MEDS: DIPHENOXYLATE/ATROPINE 2.5/0.025MG TAB PO SCH ×4 (08:26→20:05)
[2020-09-26] MEDS: lisinopril 5 MG TAB PO SCH (08:26)
[2020-09-26] MEDS: IRON POLYSACCHARIDE COMPLEX 150 MG CAPSULE PO SCH ×2 (08:26→20:06)
[2020-09-26] MEDS: CHOLECALCIFEROL 1,000 UNITS 25 MCG TAB PO SCH ×2 (08:26→20:05)
[2020-09-26 08:38] LABS: BUN Creatinine Ratio 13.2 (10-20); Calcium 8.7 mg/dl (8.5-10.1); Creatinine Clr Calc Pharmacy 64.4 ml/min; Est GFR (African American) 99.8; Est GFR (Non-African American) 86.1; Magnesium 1.9 mg/dl (1.8-2.4); Phosphorus 3.2 mg/dl (2.5-4.9); Potassium 4.5 mmol/L (3.5-5.1)
[2020-09-26] MEDS: CODEINE SULFATE 30 MG TAB PO SCH ×4 (09:10→20:10)
--- NOTE | 2020-09-26 09:45 | Pharmacy Report ---
Pharmacy Abx Dose Short Note - Date of Service September 26, 2020 - Assessment & Plan Assessment * 75 year old M receiving Zosyn and vancomycin for treatment of bacteremia 2nd suspected infection of Edwards Port after recent replacement on 09/22/[address] [facility] * 1 of 2 blood cultures with GNR isolated from both the aerobic and anaerobic bottles * PMH: UC s/p total colectomy, short gut Vancomycin * Will dose via AUC estimate * Trough prior to the 4th overall dose Plan * Vancomycin 1000 mg IV q12h * Trough 09/27 @ 0730 Pharmacy will continue to follow and will adjust dose/frequency as necessary. Thank you.
--- NOTE | 2020-09-26 09:46 | XRay Report ---
XR chest 1V portable HISTORY: SEPSIS COMPARISON: Chest 05/08/2018. FINDINGS: No pneumothorax. Trace bilateral pleural effusions. The heart remains mildly enlarged. Old, healed left-sided rib fractures. There is mild central pulmonary vascular congestion without overt e te. No new focal lung consolidations to suggest pneumonia. Right-sided central venous catheter term inates in the SVC. Bibasilar linear densities favor subsegmental atelectasis. IMPRESSION: 1. Mild central pulmonary vascular congestion without overt edema. 2. Cardiomegaly and trace bilateral pleural effusions. 3. Bibasilar linear densities favor subsegmental atelectasis. ACT 112: Negative or not required by law. Electronically signed by: Syed Ocampo M.D. 09/26/2020 9:44 AM
--- NOTE | 2020-09-26 15:00 | Electrocardiogram Report ---
Test Reason : Blood Pressure : / mmHG Vent. Rate : 076 BPM Atrial Rate : 076 BPM P-R Int : 136 ms QRS Dur : 100 ms QT Int : 368 ms P-R-T Axes : 042 -19 028 degrees QTc Int : 414 ms Sinus rhythm with Premature atrial complexes Incomplete right bundle branch block Borderline ECG When compared with ECG of 21-OCT-2016 10:00, Premature ventricular complexes are no longer Present Premature atrial complexes are now Present Confirmed by Bogdan Ayers ([id number]) on 09/26/2020 3:00:01 PM Referred By: REFERRED SELF Confirmed By:Bogdan Ayers
--- NOTE | 2020-09-26 15:05 | Electrocardiogram Report ---
Test Reason : Blood Pressure : / mmHG Vent. Rate : 056 BPM Atrial Rate : 056 BPM P-R Int : 134 ms QRS Dur : 090 ms QT Int : 452 ms P-R-T Axes : 050 -13 023 degrees QTc Int : 436 ms Sinus bradycardia with sinus arrhythmia Otherwise normal ECG When compared with ECG of 25-SEP-2020 20:45, (unconfirmed) Premature atrial complexes are no longer Present Confirmed by Bogdan Ayers ([id number]) on 09/26/2020 3:04:46 PM Referred By: REFERRED SELF Confirmed By:Bogdan Ayers
[2020-09-26] MEDS: PSYLLIUM 58.6% POWDER PACKET PO SCH (20:04)
[2020-09-26] MEDS: PARoxetine HCL 20 MG TAB PO SCH (20:05)
[2020-09-26] MEDS: TAMSULOSIN HCL 0.4 MG CAP PO SCH (20:05)
[2020-09-26] MEDS: FINASTERIDE 5 MG TAB PO SCH (20:07)
--- NOTE | 2020-09-26 20:29 | Hospitalist Progress Note ---
Date of Service September 26, 2020 Assessment & Plan (1) Postoperative wound infection: Patient is a 75 year old male with PMHx Ulcerative Colitis, Short Gut Syndrome, Sleep Apnea, Anxiety, BPH, HTN, Ileostomy, that presented after having 1 day history of rigors, chills, redness and swelling of Edwards port and overall feelings of malaise. Suspected infection of Edwards Port -Recent replacement on 09/22/20 at [facility] of R chest wall Edwards port -Lactic 1.9 and Procal 1.91 on admission -Blood cultures pending, drawn prior to antibiotic administration -Started on Vanc and Cefepime in the ED, will continue Vancomycin and convert Cefepime to Zosyn for greater anaerobic coverage. -Fluid resuscitated in the ED with NSS 2L, will give additional 500ml NSS bolus tonight -Surgery Consulted, continue with antibiotics at this time, suspect consideration of removal of port if no improvement on abx -Tylenol 1000mg q8h PRN fever -Will hold use of port at this time -Will likely require other form of access for TPN should this port be removed -Will keep patient NPO in the event he will likely require removal of port: will discuss with ID and [facility]. -Had discussion with daughter and will call [facility] in AM Short Gut Syndrome secondary total colectomy -H/O Ulcerative colitis, s/p total colectomy -Patient's home regiment of TPN on ////Sun and NSS on /Sun -Fluid given appropriately at this time -Will likely require other form of access for TPN, await surg consult -Continue home Lomotil and Imodium Hypokalemia -replacing. Anxiety -Continue home Bupropion 100mg QD -Continue home Paroxetine 30mg QHS BPH -Continue home Flomax -Continue home Finasteride Sleep Apnea -CPAP QHS Dispo: PCU FEN: NPO, NSS 100ml/hr x 500ml DVT: SCD, holding chemoprophylaxis at this time while awaiting surgical consult Code: Conditional, no intubation, OK for CPR (2) Sepsis: (3) Short gut syndrome: (4) HTN (hypertension): (5) BPH (benign prostatic hyperplasia): Admission and Anticipated Discharge Date Admission Date: September 25, 2020 Subjective 75 yo male reports feeling better. He feels to be 100 percent. Patient reports less swelling/ Review of Systems Review of Systems: All systems reviewed & are unremarkable except as noted in HPI & below Physical Exam Physical Exam: Constitutional: cooperative; no acute distress Eyes: PERRL, conjunctivae normal, anicteric sclerae ENMT: external ear and nose normal, oropharynx normal Neck: trachea midline, no thyromegaly no neck crepitus Respiratory: normal respiratory effort, lungs clear to auscultation Cardiovascular: RRR, no murmur, no edema Chest (Breasts): Chest: + vascular access device or port (R sided Edwards Port ); + abnormal inspection of chest (Erythema surrounding the Edwards port, progressing towards the L clavicle) Additional Comments: Tenderness to palpation surrounding the Edwards port with mild swelling and erythema. Gastrointestinal (Abdomen): Inspection/Auscultation: + visible herniation (R mid-low quadrant ), + abdominal surgical scar and + hypoactive bowel sounds; + abdomen abnormal to inspection (Ostomy site well appearing without erythema ) Percussion/Palpation: abdomen soft and + hernia (R mid to lower quadrant ); abdomen nontender, no guarding and abdomen not rigid Musculoskeletal: no cyanosis or clubbing, extremities motor strength 5/5 Skin: Erythema and swelling surrounding Edwards Port and progressing towards the L clavicle: left subclavian vein, left internal jugular vein Psychiatric: A+Ox3, euthymic affect Results & Data Results & Data ([facility]) Vital Signs (Past 12 Hours) Vital Signs Temp Pulse Pulse Resp BP Pulse Ox 09/26/20 19:46 37.2 C 69 18 96/63 L 93 09/26/20 15:10 37.0 C 79 18 107/56 L 95 09/26/20 15:00 83 09/26/20 12:11 36.8 C 83 19 120/63 92 PG Care Time/CCT Total # of Minutes Spent Total Time Spent with Patient: Total time spent is greater than 50% in coordination of care (as documented) at patient's floor/unit and/or counseling patient: Coding Level of Care Code 80878 Subseq Hosp Care Lvl 3 Diagnoses Postoperative wound infection T81.49XA Sepsis A41.9 Short gut syndrome K91.2 HTN (hypertension) I10 BPH (benign prostatic hyperplasia) N40.0 Time Spent (min) 35
--- NOTE | 2020-09-27 03:31 | Billing Data ---
Date of Service September 27, 2020 Coding Level of Care Code 06559 Initial Inpt Care Lvl 3
--- NOTE | 2020-09-27 06:58 | Surgery Progress Note ---
Date of Service September 27, 2020 Assessment & Plan (1) Sepsis: Clinically patient has improved and is afebrile Continue IV antibiotics for now Continue diet Could consider PPN for 24 to 48 hours We will discuss with medical team Admission and Anticipated Discharge Date Admission Date: September 25, 2020 Subjective Patient awake and alert much less discomfort in the right upper chest area Patient is afebrile and his vital signs are stable Physical Exam Physical Exam: Right upper chest area shows less erythema over the tunnel Continues to have some mild erythema No drainage from the exit site Constitutional: well developed; no acute distress Eyes: + anicteric sclerae Respiratory: normal respiratory effort; no respiratory distress Cardiovascular: Rate/Rhythm: regular rate Gastrointestinal (Abdomen): Inspection/Auscultation: abdomen not distended Musculoskeletal: Head/Neck/Chest: head atraumatic Skin: no rashes, warm and dry Mild erythema over the right chest tunnel site Neurologic: awake Psychiatric: Orientation: alert Results & Data ([facility]) Vital Signs (Past 12 Hours) Vital Signs Temp Pulse Pulse Resp BP BP Pulse Ox 09/27/20 03:43 37 C 65 18 110/66 92 09/27/20 00:37 64 09/26/20 23:31 36.7 C 73 17 122/65 94 09/26/20 21:00 78 18 91 09/26/20 19:46 37.2 C 69 18 96/63 L 93 PG Care Time/CCT Total # of Minutes Spent Total Time Spent with Patient: Total time spent is greater than 50% in coordination of care (as documented) at patient's floor/unit and/or counseling patient: Coding Level of Care Code 10451 Subs Hosp Care [facility] 3 Diagnoses Sepsis A41.9 Sepsis acute organ dysfunction status: unspecified Sepsis type: sepsis due to unspecified organism (1) Sepsis Sepsis acute organ dysfunction status: unspecified Sepsis type: sepsis due to unspecified organism Qualified Code(s): A41.9 - Sepsis, unspecified organism
[2020-09-27] MEDS ORDERED: VANCOMYCIN TROUGH ONE (07:30)
[2020-09-27] MEDS: VANCOMYCIN HCL 1,000 MG in SODIUM CHLORIDE 0.9% 250 ML IV SCH (08:44)
[2020-09-27] MEDS: buPROPion SR 100 MG TABCR PO SCH (08:45)
[2020-09-27] MEDS: DIPHENOXYLATE/ATROPINE 2.5/0.025MG TAB PO SCH ×4 (08:45→20:02)
[2020-09-27] MEDS: PSYLLIUM 58.6% POWDER PACKET PO SCH ×4 (08:45→20:05)
[2020-09-27] MEDS: lisinopril 5 MG TAB PO SCH (08:45)
[2020-09-27] MEDS: IRON POLYSACCHARIDE COMPLEX 150 MG CAPSULE PO SCH ×2 (08:45→20:03)
[2020-09-27] MEDS: LOPERAMIDE HCL 2 MG CAP PO SCH ×4 (08:45→20:05)
[2020-09-27] MEDS: CHOLECALCIFEROL 1,000 UNITS 25 MCG TAB PO SCH ×2 (08:45→20:02)
[2020-09-27] MEDS: PANCREAZE (LIPASE 10,500U) CAP PO SCH ×3 (08:45→17:49)
[2020-09-27] MEDS: PIPERACILLIN/TAZOBACTAM 3.375 GM in DEXTROSE 5% 100 ML IV SCH ×2 (08:52→17:54)
[2020-09-27] MEDS: CODEINE SULFATE 30 MG TAB PO SCH ×4 (09:19→20:11)
[2020-09-27 09:38] LABS: Basophils # (auto) 0.05 K/uL (0-0.2); Basophils % (auto) 0.8 %; Eosinophils # (auto) 0.17 K/uL (0-0.5); Eosinophils % (auto) 2.6 %; Hematocrit (blood only) 31.8 % (42-52); Hemoglobin 10.8 g/dL (14.0-18.0); Immature Granulocytes # (auto) 0.03 K/uL (0.00-0.02); Immature Granulocytes % (auto) 0.5 %; Lymphocytes # (auto) 1.55 K/uL (1.2-3.4); Lymphocytes % (auto) 23.3 %; Mean Corpuscular Hemoglobin 30.3 pg (25-34); Mean Corpuscular Volume 89.3 fL (80-100); Mean Platelet Volume 10.4 fL (7.4-10.4); Monocytes # (auto) 0.79 K/uL (0.11-0.59); Monocytes % (auto) 11.9 %; Neutrophils # (auto) 4.06 K/uL (1.4-6.5); Neutrophils % (auto) 60.9 %; Platelet Count 277 K/uL (130-400); RDW Coefficient of Variation 14.6 % (11.5-14.5); RDW Standard Deviation 48.2 fL (36.4-46.3); Red Blood Count 3.56 M/uL (4.7-6.1); White Blood Count 6.65 K/uL (4.8-10.8)
[2020-09-27 10:10] LABS: BUN Creatinine Ratio 11.1 (10-20); Calcium 8.6 mg/dl (8.5-10.1); Est GFR (African American) 96.9; Est GFR (Non-African American) 83.6; Potassium 3.4 mmol/L (3.5-5.1)
[2020-09-27 12:53] LABS: Influenza A virus by PCR Negative (Neg); Influenza B virus by PCR Negative (Neg); RSV by PCR Negative (Neg); SARS CoV2 RNA(COVID-19) InHosp NEGATIVE (Negative)
--- NOTE | 2020-09-27 14:29 | Anesthesiology Consultation ---
Date of Service September 27, 2020 Assessment & Plan (1) Encounter for pre-operative examination: Chart Review Patient had breakfast at 0800 so plan to start procedure after 1600 per NPO roxanna cruz. Patient had negative covid screening test today (09/27/2020) but apparently patient sharing his room with him tested positive for covid and therefore will take extra precaution of performing procedure in OR #1 as it is the COVID PUI room. Per surgeon, requesting local with sedation. Consults Requested none ASA ASA3 Proposed Anesthesia Anesthesia Type: MAC Risk / Benefits Reviewed With: PT / POA / Parent / Guardian, Accepts Plan and Informed Consent Obtained History Surgery Operation Date: 09/27/20 12:55 Proposed Procedures p Edwards Catheter Removal - Chencho Mauro MD, FACS Height/Weight Height: 5 ft 4 in Weight: 63 kg Allergies Allergy/AdvReac Type Severity Reaction Status Date / Time ibuprofen AdvReac Intermediate GASTRIC Verified 09/25/20 21:32 ULCERS, NO COLON Medications Home Medications Medication Instructions Recorded Confirmed Last Taken cholecalciferol (vitamin D3) 1,000 unit PO BID 04/23/18 09/25/20 09/16/20 [Vitamin D3] diphenoxylate-atropine [Lomotil] 2 tab PO QID 04/23/18 09/25/20 09/16/20 finasteride 5 mg PO HS 04/23/18 09/25/20 09/15/20 [id number] [Creon] 1 cap PO TID 04/23/18 09/25/20 09/16/20 paroxetine HCl 30 mg PO PM 04/23/18 09/25/20 09/15/20 Parenteral Electrolytes 1 dose IV [id number] 05/03/18 09/25/20 09/15/20 polysaccharide iron complex 150 mg PO BID 05/03/18 09/25/20 09/16/20 [Ferrex 150] tamsulosin 0.4 mg PO HS 05/03/18 09/25/20 09/15/20 zolpidem 10 mg PO HS PRN 05/03/18 09/25/20 09/15/20 lisinopril 5 mg PO QAM 08/13/20 09/25/20 09/16/20 bupropion HCl 100 mg PO QAM 03/09/25/20 09/16/20 codeine sulfate 30 mg PO QID 09/16/20 09/25/20 09/16/20 loperamide 2 mg PO QID 09/16/20 09/25/20 09/16/20 Active Medications Generic Name Dose Route Start Last Admin Trade Name Freq PRN Reason Stop Dose Admin Acetaminophen 1,000 mg 09/26/20 00:13 09/26/20 00:33 Acetaminophen 500 Mg Tab PO 10/26/20 00:12 1,000 mg Q8H PRN Administration Fever Lipase/Protease/Amylase 2 cap 09/26/20 08:00 09/27/20 16:21 Pancreaze (Lipase 10,500u) Cap PO 10/26/20 07:59 Not Given TIDM MIKIE Bupropion HCl 100 mg 09/26/20 09:00 09/27/20 08:45 Bupropion Sr 100 Mg Tabcr PO 10/26/20 08:59 100 mg QAM MIKIE Administration Codeine Sulfate 30 mg 09/26/20 07:30 09/27/20 16:21 Codeine Sulfate 30 Mg Tab PO 10/10/20 07:29 Not Given ACHS MIKIE Diphenoxylate HCl/Atropine 2 tab 09/26/20 09:00 09/27/20 16:22 Diphenoxylate/Atropine 2.5/0.025mg Tab PO 10/26/20 08:59 Not Given QID MIKIE Finasteride 5 mg 09/26/20 21:00 09/26/20 20:07 Finasteride 5 Mg Tab PO 10/26/20 20:59 5 mg HS MIKIE Administration Piperacillin Sod/Tazobactam 115 mls @ 28.75 mls/hr 09/26/20 00:00 09/27/20 16:23 Sod 3.375 gm/ Dextrose IV 10/03/20 00:00 Infused Q8H MIKIE Infusion Protocol Lisinopril 5 mg 09/26/20 09:00 09/27/20 08:45 Lisinopril 5 Mg Tab PO 10/26/20 08:59 5 mg QAM MIKIE Administration Loperamide HCl 2 mg 09/26/20 09:00 09/27/20 16:22 Loperamide Hcl 2 Mg Cap PO 10/26/20 08:59 Not Given QID MIKIE Paroxetine HCl 30 mg 09/26/20 21:00 09/26/20 20:05 Paroxetine Hcl 20 Mg Tab PO 10/26/20 20:59 30 mg PM MIKIE Administration Polysaccharide Iron Complex 150 mg 09/26/20 09:00 09/27/20 08:45 Iron Polysaccharide Complex 150 Mg Capsule PO 10/26/20 08:59 150 mg BID MIKIE Administration Psyllium Hydrophilic Mucilloid 1 pkt 09/26/20 21:00 09/27/20 16:21 Psyllium 58.6% Powder Packet PO 10/26/20 20:59 Not Given ACHS MIKIE Tamsulosin HCl 0.4 mg 09/26/20 21:00 09/26/20 20:05 Tamsulosin Hcl 0.4 Mg Cap PO 10/26/20 20:59 0.4 mg HS MIKIE Administration Vitamin D 1,000 units 09/26/20 09:00 09/27/20 08:45 Cholecalciferol 1,000 Units 25 Mcg Tab PO 10/26/20 08:59 1,000 units BID MIKIE Administration Past Medical History Medical History (Updated 09/27/20 @ 14:59 by Sudhir Mandel MD) Anxiety BPH (benign prostatic hyperplasia) Chronic pain H/O ulcerative colitis HTN (hypertension) Ileostomy in place Insomnia Pancreatitis pt denies any history SBO (small bowel obstruction) hx Sepsis Short gut syndrome Sleep apnea CPAP Suspected infection of Edwards Port -Recent replacement on 09/22/20 at [facility] chest wall Edwards port -Lactic 1.9 and Procal 1.91 on admission Exercise / Class Metabolic Activity II 4-5 Yardwork/Stairs/Walk up hill Past Family History Family History Other No family history of adverse response to anesthesia No significant family history Past Surgical History Surgical History H/O rotator cuff surgery right H/O total colectomy (~1973) History of colonoscopy History of laparotomy removed SBO History of tonsillectomy Past Anesthesia History No Hx of Anesthesia Complications and No Family Hx of Anesthesia Complications History of PONV No Hx of PONV and No Hx of Motion Sickness Social History Smoking Status: Former smoker tobacco type: cigarettes Do You Dip or Chew Tobacco: No Hx Alcohol Use: No Hx Substance Use: No substance use type: does not use Review of Systems denies fever/cough/ colds/ chest pain/ SOB/ DAVID denies DAVID Physical Exam Vital Signs Last Vital Signs Temp 36.4 C L 09/27/20 15:00 Pulse 74 09/27/20 16:00 Resp 20 09/27/20 15:00 BP 113/52 L 09/27/20 15:00 Pulse Ox 95 09/27/20 15:00 ENMT Mouth: no TMJ abnormality and no dentition abnormality Thyromental Distance: > or= 3.5 Finger Breadths Mallampati Class: II Neck neck extension not limited Respiratory normal respiratory effort; no respiratory distress Auscultation: lungs clear to auscultation bilaterally Cardiovascular Rate/Rhythm: regular rate and regular rhythm Neurologic moves all extremities Psychiatric Orientation: alert and oriented x 3 Testing Laboratory Results 09/27/20 09:12 09/27/20 09:12 PT 12.1 Seconds (9.0-12.0) H 09/25/20 20:33 INR 1.2 (0.9-1.1) H 09/25/20 20:33 APTT 28.4 Seconds (21.0-31.0) 09/25/20 20:33 09/25/20 20:33 Aerobic Blood Culture - Preliminary Blood No growth in Aerobic bottle after 24 hours. Anaerobic Blood Culture - Preliminary No growth in Anaerobic bottle after 24 hours. 09/25/20 20:37 Aerobic Blood Culture - Preliminary Blood Gram negative bacilli Anaerobic Blood Culture - Preliminary Gram negative bacilli Electrocardiogram Date: 09/25/20 DICTATED BY: Bogdan Ayers MD Test Reason : Blood Pressure : / mmHG Vent. Rate : 056 BPM Atrial Rate : 056 BPM P-R Int : 134 ms QRS Dur : 090 ms QT Int : 452 ms P-R-T Axes : 050 -13 023 degrees QTc Int : 436 ms Sinus bradycardia with sinus arrhythmia Otherwise normal ECG When compared with ECG of 25-SEP-2020 20:45, (unconfirmed) Premature atrial complexes are no longer Present Confirmed by Bogdan Ayers ([id number]) on 09/26/2020 3:04:46 PM Chest X-Ray Date: 09/25/20 XR chest 1V portable HISTORY: SEPSIS COMPARISON: Chest 05/08/2018. FINDINGS: No pneumothorax. Trace bilateral pleural effusions. The heart remains mildly enlarged. Old, healed left-sided rib fractures. There is mild central pulmonary vascular congestion without overt edema. No new focal lung consolidations to suggest pneumonia. Right-sided central venous catheter terminates in the SVC. Bibasilar linear densities favor subsegmental atel ectasis. IMPRESSION: 1. Mild central pulmonary vascular congestion without overt edema. 2. Cardiomegaly and trace bilateral pleural effusions. 3. Bibasilar linear densities favor subsegmental atelectasis.
[2020-09-27] MEDS ORDERED: LIDOCAINE HCL 1% 20 ML VIAL ONE (15:37)
[2020-09-27] MEDS ORDERED: fentaNYL citrate 100 MCG/2 ML VIAL ONE (15:43)
[2020-09-27] MEDS ORDERED: MIDAZOLAM HCL 1 MG/ML 2ML VIAL ONE (15:43)
[2020-09-27] MEDS ORDERED: LIDOCAINE HCL 2% 2 ML VIAL/AMP(20MG/ML) INFIL ONE (15:43)
[2020-09-27] MEDS ORDERED: PROPOFOL IV EMULSION 10 MG/ML 20 ML VIAL IV ONE (15:43)
[2020-09-27] MEDS ORDERED: ATROPINE SULFATE 0.1 MG/ML 10ML SYR IV PRN (16:59)
[2020-09-27] MEDS ORDERED: ONDANSETRON INJ 2 MG/ML 2 ML VIAL IV PRN ×2 (16:59→17:23)
[2020-09-27] MEDS ORDERED: fentaNYL citrate 100 MCG/2 ML VIAL IV PRN (16:59)
[2020-09-27] MEDS ORDERED: ePHEDrine sulfate 50 MG/ML AMP IV PRN (16:59)
--- NOTE | 2020-09-27 17:10 | Post Operative Brief Note ---
PG Immediate Post Op with CF Date of Surgery September 27, 2020 Pre & Post Diagnosis Operation Date: 09/27/20 12:55 Pre-Op Diagnosis: PORT INFECTION Post-Op Diagnosis: PORT INFECTION I identified the patient and participated in the time-out.: Yes Procedure Operation Date: 09/27/20 12:55 Actual Procedures p Edwards Catheter Removal(Right) - Chencho Mauro MD, FACS Surgeon Chencho Mauro MD, FACS Aircraft Technician 0 Estimated Blood Loss 0 Findings Consistent with Post-Op Diagnosis
[2020-09-27] MEDS ORDERED: MoRPHine SULFATE 2 MG/ML CARP IV PRN (17:23)
--- NOTE | 2020-09-27 17:29 | Operative Report ---
PG Post Operative Report Pre & Post Diagnosis Operation Date: 09/27/20 12:55 Pre-Op Diagnosis: PORT INFECTION Post-Op Diagnosis: PORT INFECTION I identified the patient and participated in the time-out.: Yes Procedure Operation Date: 09/27/20 12:55 Actual Procedures p Edwards Catheter Removal(Right) - Chencho Mauro MD, FACS The patient was brought into the operating theater supine position IV sedation given the right chest where the Edwards catheter was was prepped once we removed the dressing properly draped patient identified timeout was had we took down the nylon suture that was holding the Edwards catheter at the skin edge once we took this off with the opening some purulent material came out and the catheter pretty much came out without any assistance the background cuff similarly came out very easily dressing was applied the catheter was tip was cut and sent for cultures cultures placed in the small vial Procedure was tolerated well a pressure dressing was applied the opening where the Edwards catheter was was not closed left the drain Surgeon Chencho Mauro MD, FACS Maintenance Apprentice 0 Estimated Blood Loss 0 Findings Consistent with Post-Op Diagnosis Specimens piece of Edwards cath part send for c and s Description of Procedure merda I attest to the content of the Intraoperative Record and any orders documented therein. Any exceptions are noted below.
--- NOTE | 2020-09-27 17:33 | Anesthesiology Progress Note ---
Date of Service September 27, 2020 Anesthesia Post Procedure Vital Signs Vital Signs: Temp Pulse Pulse Pulse Resp BP BP 09/27/20 16:00 74 09/27/20 15:00 36.4 C L 75 20 113/52 L 09/27/20 11:57 36.3 C L 65 20 116/68 09/27/20 07:29 36.8 C 62 18 110/60 09/27/20 07:22 62 09/27/20 03:43 37 C 65 18 110/66 09/27/20 00:37 64 09/26/20 23:31 36.7 C 73 17 122/65 09/26/20 21:00 78 18 09/26/20 19:46 37.2 C 69 18 96/63 L Pulse Ox 09/27/20 16:00 09/27/20 15:00 95 09/27/20 11:57 95 09/27/20 07:29 94 09/27/20 07:22 09/27/20 03:43 92 09/27/20 00:37 09/26/20 23:31 94 09/26/20 21:00 91 09/26/20 19:46 93 Transfer of Care Handoff Completed per policy Notes Mental Status: alert / awake / arousable and participated in evaluation Patient Amnestic to Procedure: Yes Nausea / Vomiting: adequately controlled Pain: adequately controlled Airway Patency, RR, SpO2: stable & adequate BP & HR: stable & adequate Hydration State: stable & adequate Anesthetic Complications: no major complications apparent and Pt Satisfied with anesthetic care
[2020-09-27] MEDS ORDERED: ePHEDrine sulfate 50 MG/ML SYR ONE (17:59)
[2020-09-27] MEDS: FINASTERIDE 5 MG TAB PO SCH (20:03)
[2020-09-27] MEDS: PARoxetine HCL 20 MG TAB PO SCH (20:04)
[2020-09-27] MEDS: TAMSULOSIN HCL 0.4 MG CAP PO SCH (20:04)
--- NOTE | 2020-09-27 21:22 | Hospitalist Progress Note ---
Date of Service September 27, 2020 Assessment & Plan (1) Postoperative wound infection: Patient is a 75 year old male with PMHx Ulcerative Colitis, Short Gut Syndrome, Sleep Apnea, Anxiety, BPH, HTN, Ileostomy, that presented after having 1 day history of rigors, chills, redness and swelling of Cobb port and overall feelings of malaise. Suspected infection of Cobb Port -Recent replacement on 09/22/20 at [facility] of R chest wall Cobb port -Lactic 1.9 and Procal 1.91 on admission -Blood cultures pending, drawn prior to antibiotic administration -Started on Vanc and Cefepime in the ED, will continue Vancomycin and convert Cefepime to Zosyn for greater anaerobic coverage. -Fluid resuscitated in the ED with NSS 2L, will give additional 500ml NSS bolus tonight -Surgery Consulted, continue with antibiotics at this time, suspect consideration of removal of port if no improvement on abx -Tylenol 1000mg q8h PRN fever -Will hold use of port at this time -After extensive discussion, will cobb line removed. -will get tip cultured. -Given that patient has not had a fever and is growing gram negative, patient may be discharged tomorrow with a PICC line. -Had discussion with [facility] Kip from corrections cadet team. -Patient also had an expusre to an individual who is covid postive. Patient was informed and will obtain a covid test today and in 5-7 days. will continue antibiotics. Short Gut Syndrome secondary total colectomy -H/O Ulcerative colitis, s/p total colectomy -Patient's home regiment of TPN on ////Sun and NSS on /Sun -Fluid given appropriately at this time -Will likely require other form of access for TPN, await surg consult -Continue home Lomotil and Imodium Hypokalemia -replacing. Anxiety -Continue home Bupropion 100mg QD -Continue home Paroxetine 30mg QHS BPH -Continue home Flomax -Continue home Finasteride Sleep Apnea -CPAP QHS Dispo: PCU FEN: restarted oral feeds. DVT: SCD Code: Conditional, no intubation, OK for CPR (2) Sepsis: (3) Short gut syndrome: (4) HTN (hypertension): (5) BPH (benign prostatic hyperplasia): Admission and Anticipated Discharge Date Admission Date: September 25, 2020 Subjective Patient reports feeling well. He has had no new symptoms, fever chills, nausea, or vomitng. Had extensive conversation with patient and also was available to discuss with t he ID provider Dr. Banerjee. Plan is to have Cobb replaced in [place]. Review of Systems Review of Systems: All systems reviewed & are unremarkable except as noted in HPI & below Physical Exam Physical Exam: Constitutional: cooperative; no acute distress Eyes: PERRL, conjunctivae normal, anicteric sclerae ENMT: external ear and nose normal, oropharynx normal Neck: trachea midline, no thyromegaly no neck crepitus Respiratory: normal respiratory effort, lungs clear to auscultation Cardiovascular: RRR, no murmur, no edema Chest (Breasts): Chest: + vascular access device or port (R sided Cobb Port ); + abnormal inspection of chest (Erythema surrounding the Cobb port, progressing towards the L clavicle) Additional Comments: Tenderness to palpation surrounding the Cobb port with mild swelling and erythema. Gastrointestinal (Abdomen): Inspection/Auscultation: + visible herniation (R mid-low quadrant ), + abdominal surgical scar and + hypoactive bowel sounds; + abdomen abnormal to inspection (Ostomy site well appearing without erythema ) Percussion/Palpation: abdomen soft and + hernia (R mid to lower quadrant ); abdomen nontender, no guarding and abdomen not rigid Musculoskeletal: no cyanosis or clubbing, extremities motor strength 5/5 Skin: Decreased erythema and swelling surrounding Cobb Port and progressing towards the L clavicle: left subclavian vein, left internal jugular vein Psychiatric: A+Ox3, euthymic affect Results & Data Results & Data ([facility]) Vital Signs (Past 12 Hours) Vital Signs Temp Pulse Pulse Resp BP Pulse Ox 09/27/20 19:44 36.3 C L 73 18 99/58 L 93 09/27/20 18:17 36.4 C L 76 126/71 09/27/20 17:57 36.4 C L 78 109/58 L 09/27/20 17:41 36.6 C 72 113/59 L 93 09/27/20 17:39 36.6 C 77 16 113/75 95 09/27/20 16:00 74 09/27/20 15:00 36.4 C L 75 20 113/52 L 95 09/27/20 11:57 36.3 C L 65 20 116/68 95 PG Care Time/CCT Total # of Minutes Spent Total Time Spent with Patient: Total time spent is greater than 50% in coordination of care (as documented) at patient's floor/unit and/or counseling patient: Prolonged Care Time Prolonged Care Time: Yes Total Prolonged Care Time: 70 8:50-9:10 10:40 to 11:20 15:10 to 15:20 Coding Level of Care Code 00991 Subseq Hosp Care Lvl 3 Diagnoses Postoperative wound infection T81.49XA Sepsis A41.9 Short gut syndrome K91.2 HTN (hypertension) I10 BPH (benign prostatic hyperplasia) N40.0 Additional Codes Prolonged Care Time - Prolonged Care Time: Yes ([id number])
[2020-09-28] MEDS: PIPERACILLIN/TAZOBACTAM 3.375 GM in DEXTROSE 5% 100 ML IV SCH ×3 (00:44→16:12)
[2020-09-28] MEDS: PANCREAZE (LIPASE 10,500U) CAP PO SCH ×3 (07:28→16:13)
[2020-09-28] MEDS: PSYLLIUM 58.6% POWDER PACKET PO SCH ×3 (07:28→16:11)
[2020-09-28] MEDS: CODEINE SULFATE 30 MG TAB PO SCH ×3 (07:34→16:15)
[2020-09-28] MEDS: DIPHENOXYLATE/ATROPINE 2.5/0.025MG TAB PO SCH ×3 (08:16→16:12)
[2020-09-28] MEDS: CHOLECALCIFEROL 1,000 UNITS 25 MCG TAB PO SCH (08:17)
[2020-09-28] MEDS: lisinopril 5 MG TAB PO SCH (08:17)
[2020-09-28] MEDS: LOPERAMIDE HCL 2 MG CAP PO SCH ×2 (08:18→11:48)
[2020-09-28] MEDS: IRON POLYSACCHARIDE COMPLEX 150 MG CAPSULE PO SCH (08:18)
[2020-09-28] MEDS: buPROPion SR 100 MG TABCR PO SCH (08:18)
--- NOTE | 2020-09-28 08:18 | Anesthesiology Progress Note ---
Date of Service September 28, 2020 Anesthesia Post Procedure Vital Signs Vital Signs: Temp Pulse Pulse Resp BP Pulse Ox 09/28/20 05:42 58 L 09/28/20 02:50 36.5 C 65 19 125/68 95 09/27/20 21:44 61 16 91 09/27/20 19:44 36.3 C L 73 18 99/58 L 93 09/27/20 18:17 36.4 C L 76 126/71 09/27/20 17:57 36.4 C L 78 109/58 L 09/27/20 17:41 36.6 C 72 113/59 L 93 09/27/20 17:39 36.6 C 77 16 113/75 95 09/27/20 16:00 74 09/27/20 15:00 36.4 C L 75 20 113/52 L 95 09/27/20 11:57 36.3 C L 65 20 116/68 95 Notes Mental Status: alert / awake / arousable Patient Amnestic to Procedure: Yes Nausea / Vomiting: adequately controlled Pain: adequately controlled Airway Patency, RR, SpO2: stable & adequate BP & HR: stable & adequate Hydration State: stable & adequate Anesthetic Complications: no major complications apparent and Pt Satisfied with anesthetic care
[2020-09-28] MEDS ORDERED: CIPROFLOXACIN 500 MG TAB PO STA (18:16)
--- NOTE | 2020-09-28 21:11 | Hospitalist Progress Note ---
Date of Service September 28, 2020 Assessment & Plan (1) Postoperative wound infection: Patient is a 75 year old male with PMHx Ulcerative Colitis, Short Gut Syndrome, Sleep Apnea, Anxiety, BPH, HTN, Ileostomy, that presented after having 1 day history of rigors, chills, redness and swelling of Cobb port and overall feelings of malaise. Suspected infection of Cobb Port -Recent replacement on 09/22/[address] [facility] of R chest wall Cobb port -Lactic 1.9 and Procal 1.91 on admission -Blood cultures pending, drawn prior to antibiotic administration -Started on Vanc and Cefepime in the ED, will continue Vancomycin and convert Cefepime to Zosyn for greater anaerobic coverage. -Fluid resuscitated in the ED with NSS 2L, will give additional 500ml NSS bolus tonight -Surgery Consulted, continue with antibiotics at this time, suspect consideration of removal of port if no improvement on abx -Tylenol 1000mg q8h PRN fever -Will hold use of port at this time -After extensive discussion, will cobb line removed. -will get tip cultured. -Given that patient has not had a fever and is growing gram negative, patient may be discharged tomorrow with a PICC line. -Had discussion with [facility] Kip from incubator machine operator team. -Patient also had an expusre to an individual who is covid postive. Patient was informed and will obtain a covid test today and in 5-7 days. will continue antibiotics. Short Gut Syndrome secondary total colectomy -H/O Ulcerative colitis, s/p total colectomy -Patient's home regiment of TPN on ////Sun and NSS on /Sun -Fluid given appropriately at this time -Will likely require other form of access for TPN, await surg consult -Continue home Lomotil and Imodium Hypokalemia -replacing. Anxiety -Continue home Bupropion 100mg QD -Continue home Paroxetine 30mg QHS BPH -Continue home Flomax -Continue home Finasteride Sleep Apnea -CPAP QHS Dispo: PCU FEN: restarted oral feeds. DVT: SCD Code: Conditional, no intubation, OK for CPR (2) Sepsis: (3) Short gut syndrome: (4) HTN (hypertension): (5) BPH (benign prostatic hyperplasia): Admission and Anticipated Discharge Date Admission Date: September 25, 2020 Results & Data Results & Data ([facility]) Vital Signs (Past 12 Hours) Vital Signs Temp Pulse Pulse Pulse Resp BP BP 09/28/20 20:37 36.3 C L 59 L 18 116/72 09/28/20 19:24 36.6 C 65 61 18 101/61 122/65 09/28/20 15:51 36.6 C 61 18 101/61 09/28/20 15:43 74 09/28/20 11:31 36.6 C 56 L 17 120/70 Pulse Ox 09/28/20 20:37 95 09/28/20 19:24 94 09/28/20 15:51 94 09/28/20 15:43 09/28/20 11:31 97 PG Care Time/CCT Total # of Minutes Spent Total Time Spent with Patient: Total time spent is greater than 50% in coordination of care (as documented) at patient's floor/unit and/or counseling patient: Coding Diagnoses Postoperative wound infection T81.49XA Sepsis A41.9 Short gut syndrome K91.2 HTN (hypertension) I10 BPH (benign prostatic hyperplasia) N40.0
--- NOTE | 2020-09-28 21:14 | Discharge Summary ---
Date of Service September 28, 2020 Admission HPI Per Admitting Provider Patient is a 75 year old male with PMHx Ulcerative Colitis, Short Gut Syndrome, Sleep Apnea, Anxiety, BPH, HTN, Ileostomy, that presented after having 1 day history of rigors, chills, redness and swelling of Cobb port and overall feelings of malaise. Patient notes that he had recently had his Cobb port replaced at [facility] on 09/22/20 due to the line being cracked. He states he had been using that port for the past 2 years before replacement. He states that since the replacement, the port has been working as intended for his TPN, however, started to have redness and swelling 1 day ago accompanied by rigors and chills. He denies any fevers. As noted, he has been utilizing his line for his TPN which he takes everyday except for Wednesdays and Saturdays, where he does 2500mL of NSS instead, and Lipids on Sundays. Currently he notes that he feels relatively lethargic and was having some rigors prior to my arrival to his room. He also notes some tenderness to palpation around his R chest surrounding the Cobb Port in addition to progression of the redness spreading from around the port itself towards the L side of his collar bone. He otherwise denies chest pain, SOB, abdominal pain. He notes that his R sided ostomy has been working appropriately and he has not had issues with it. In the ED patient had concerns regarding infection of the port with lactate at 1.9 and elevated procal 1.91. He was started on IVF and given empiric antibiotics Cefepime and Vancomycin. Med Hx: UC, Short gut syndrome, Sleep apnea, anxiety, BPH, HTN, ileostomy in place Surg Hx: Total Colectomy, Tonsillectomy, Ileostomy Soc Hx: No tobacco, alcohol, or illicit drug use. Principal Diagnosis infected cobb catheter Discharge Exam Constitutional: cooperative; no acute distress Eyes: PERRL, conjunctivae normal, anicteric sclerae ENMT: external ear and nose normal, oropharynx normal Neck: trachea midline, no thyromegaly no neck crepitus Respiratory: normal respiratory effort, lungs clear to auscultation Cardiovascular: RRR, no murmur, no edema Chest (Breasts): ; decreased erythema.. Gastrointestinal (Abdomen): Inspection/Auscultation: + visible herniation (R mid-low quadrant ), + abdominal surgical scar and + hypoactive bowel sounds; + abdomen abnormal to inspection (Ostomy site well appearing without erythema ) Percussion/Palpation: abdomen soft and + hernia (R mid to lower quadrant ); abdomen nontender, no guarding and abdomen not rigid Musculoskeletal: no cyanosis or clubbing, extremities motor strength 5/5 Skin: Decreased erythema and swelling surrounding Cobb Port and progressing towards the L clavicle: left subclavian vein, left internal jugular vein Psychiatric: A+Ox3, euthymic affect Discharge Data Allergies Allergy/AdvReac Type Severity Reaction Status Date / Time ibuprofen AdvReac Intermediate GASTRIC Verified 09/25/20 21:32 ULCERS, NO COLON Consultations 09/25/20 21:15 ED Decision to Admit Stat 09/25/20 23:43 Consult General Surgery Routine 09/27/20 08:30 Consult Infectious Diseases Routine Procedures Performed Operation Date: 09/27/20 12:55 Actual Procedures p Cobb Catheter Removal(Right) - Chencho Mauro MD, FACS Hospital Course (1) Postoperative wound infection: Patient is a 75 year old male with PMHx Ulcerative Colitis, Short Gut Syndrome, Sleep Apnea, Anxiety, BPH, HTN, Ileostomy, that presented after having 1 day history of rigors, chills, redness and swelling of Cobb port and overall feelings of malaise. Suspected infection of Cobb Port -Recent replacement on 09/22/20 at [facility] of R chest wall Cobb port -Lactic 1.9 and Procal 1.91 on admission -Blood cultures pending, drawn prior to antibiotic administration -Started on Vanc and Cefepime in the ED, will continue Vancomycin and convert Cefepime to Zosyn for greater anaerobic coverage. -Fluid resuscitated in the ED with NSS 2L, will give additional 500ml NSS bolus tonight -Surgery Consulted, continue with antibiotics at this time, suspect consideration of removal of port if no improvement on abx -Tylenol 1000mg q8h PRN fever -Will hold use of port at this time -After extensive discussion, will cobb line removed. -will get tip cultured. -Given that patient has not had a fever and is growing gram negative, patient may be discharged tomorrow with a PICC line. -Had discussion with [facility] Kip from rn transition team. -Patient also had an expusre to an individual who is covid postive. Patient was informed and had a repeat negative covid test in house and will have one 5-7 days post exposure. -Culture showed klebsiella in blood and tip of catheter, -will have PICC line in place for nutrition at [facility]. Had discussion with ID who is in agreement. will discharge patient on cipro for 14 days (antibiotic total duration) Short Gut Syndrome secondary total colectomy -H/O Ulcerative colitis, s/p total colectomy -Patient's home regiment of TPN on ////Sun and NSS on /Sun -Fluid given appropriately at this time -Will likely require other form of access for TPN, await surg consult -Continue home Lomotil and Imodium Hypokalemia -replacing. Anxiety -Continue home Bupropion 100mg QD -Continue home Paroxetine 30mg QHS BPH -Continue home Flomax -Continue home Finasteride Sleep Apnea -CPAP QHS Dispo: PCU FEN: restarted oral feeds. DVT: SCD Code: Conditional, no intubation, OK for CPR (2) Sepsis: (3) Short gut syndrome: (4) HTN (hypertension): (5) BPH (benign prostatic hyperplasia): Total Time Total Time Spent Total Time Spent (In Minutes): 32 Total Time Includes: Examination of the Patient, Discharge Planning and M edication Reconciliation Discharge Plan Discharge Items Patient Disposition: Home - Self-Care Reason For Visit: PORT INFECTION Discharge Diagnosis: Port infection Activity: Resume your previous activity Bathing Comment: you can remove the bandage tonight or tomorrow to shower Non-emergency contact: Primary Care Provider Call non-emergency contact if: you have any medication questions Follow-up/Referrals: Tao Montoya [Primary Care Provider] - 10/05/20 10:30 am Diet: Regular Addtl Attending Provider Instructions: You were found to have an infection in your port. Thankfully, you responded to IV antibiotics. Also the bacteria is sensitive to oral antibiotics. will recommend to continue antibiotics for a total of 14 days after line was removed. You will be called by [facility] at [place] to get the new Cobb port inserted within next week or two. Due to your low exposure with a COVID 19 individual, we recommend testing in 4-6 days. we will contact you for the time and date of that test. You will take ciprofloxacin for 12 and a half days. Pending Studies at Discharge: No Stand-Alone Forms: My [facility], Smoking Cessation Medications and DC Order Prescriptions: New ciprofloxacin HCl [Cipro] 500 mg tablet 500 mg PO BID Qty: 25 RF: 0 Continued cholecalciferol (vitamin D3) [Vitamin D3] 1,000 unit Tablet 1,000 unit PO BID RF: 0 diphenoxylate-atropine [Lomotil] 2.5-0.025 mg Tablet 2 tab PO QID RF: 0 finasteride 5 mg Tablet 5 mg PO HS RF: 0 paroxetine HCl 30 mg Tablet 30 mg PO PM RF: 0 Creon 3,000-9,500- 15,000 unit Capsule,Delayed Release(Dr/Ec) 1 cap PO TID RF: 0 zolpidem 10 mg Tablet 10 mg PO HS PRN (Reason: Insomnia) RF: 0 polysaccharide iron complex [Ferrex 150] 150 mg iron Capsule 150 mg PO BID RF: 0 tamsulosin 0.4 mg Capsule 0.4 mg PO HS RF: 0 Parenteral Electrolytes 1 dose IV 5XWK RF: 0 lisinopril 5 mg tablet 5 mg PO QAM RF: 0 loperamide 2 mg capsule 2 mg PO QID RF: 0 bupropion HCl 100 mg tablet sustained-release 12 hr 100 mg PO QAM RF: 0 codeine sulfate 30 mg tablet 30 mg PO QID RF: 0 Discharge Orders: Discharge Order (Routine); Ordered 09/28/20 Ordered By: Ganga Isaac Admission Data Admit Date/Time: 09/25/20 22:38 Attending Provider: Ganga Isaac Admit Provider: Ha Briggs Primary Care Provider: Tao Montoya Other Providers: Greg Grossman ; Miguel A Phillips ; Kaz Herndon ; Nadine Salazar ; Wade Banerjee I. ; Leonardo Doll II ; Genevieve Silva ; Joe Foley Other Interventions: Discharge Summary Assessment (RN) Last Done: 09/28/20 21:20 Coding Level of Care Code D/C Day Management >30 mins Diagnoses Postoperative wound infection T81.49XA Sepsis A41.9 Short gut syndrome K91.2 HTN (hypertension) I10 BPH (benign prostatic hyperplasia) N40.0
== END 2020-09-28 21:21 | disposition home or self-care (01) | DRG 314 ==
LOC: ED 19:24 → SUATTDRO 22:38 → 2S 22:38
DX: B96.89 Other specified bacterial agents as the cause of diseases classified elsewhere; Z20.822 Contact with and (suspected) exposure to COVID-19; T80.212A Local infection due to central venous catheter, initial encounter; A41.9 Sepsis, unspecified organism; G47.30 Sleep apnea, unspecified; Y92.009 Unspecified place in unspecified non-institutional (private) residence as the place of occurrence of the external cause; I45.10 Unspecified right bundle-branch block; E87.6 Hypokalemia; Z87.891 Personal history of nicotine dependence; Z90.49 Acquired absence of other specified parts of digestive tract; N40.0 Benign prostatic hyperplasia without lower urinary tract symptoms; Z88.6 Allergy status to analgesic agent; K51.90 Ulcerative colitis, unspecified, without complications; F41.9 Anxiety disorder, unspecified; K91.2 Postsurgical malabsorption, not elsewhere classified; I10 Essential (primary) hypertension

== ENCOUNTER 2021-03-14 13:23 | Inpatient (IN) ==
[2021-03-14] MEDS ORDERED: SODIUM CHLORIDE 0.9% 1000ML 1,000 ML IV ONE (14:46)
--- NOTE | 2021-03-14 15:33 | XRay Report ---
XR chest 1V portable CLINICAL HISTORY: Chest Pain COMPARISON STUDY: Chest radiograph September 25, 2020. FINDINGS: There is no pneumothorax. There is a trace left pleural effusion. Right internal jugular ce ntral line remains in place. Cardiomegaly is unchanged. No evidence for pulmonary edema or pneumonia. IMPRESSION: 1. Trace left pleural effusion. 2. Cardiomegaly without evidence for pulmonary edema. ACT 112: Negative or not required by law. Electronically signed by: Shabbir Xiong M.D. 03/14/2021 3:31 PM
[2021-03-14 15:43] LABS: Basophils # (auto) 0.04 K/uL (0-0.2); Basophils % (auto) 0.4 %; Eosinophils # (auto) 0.15 K/uL (0-0.5); Eosinophils % (auto) 1.6 %; Hematocrit (blood only) 37.7 % (42-52); Hemoglobin 12.6 g/dL (14.0-18.0); Immature Granulocytes # (auto) 0.02 K/uL (0.00-0.02); Immature Granulocytes % (auto) 0.2 %; Lymphocytes # (auto) 2.61 K/uL (1.2-3.4); Lymphocytes % (auto) 28.4 %; Mean Corpuscular Hemoglobin 32.1 pg (25-34); Mean Corpuscular Hgb Conc 33.4 g/dL (32-36); Mean Corpuscular Volume 95.9 fL (80-100); Mean Platelet Volume 9.5 fL (7.4-10.4); Monocytes # (auto) 0.68 K/uL (0.11-0.59); Monocytes % (auto) 7.4 %; Neutrophils # (auto) 5.68 K/uL (1.4-6.5); Platelet Count 445 K/uL (130-400); RDW Coefficient of Variation 12.8 % (11.5-14.5); RDW Standard Deviation 44.6 fL (36.4-46.3); Red Blood Count 3.93 M/uL (4.7-6.1); White Blood Count 9.18 K/uL (4.8-10.8)
[2021-03-14 15:53] LABS: INR 1.1 (0.9-1.1); Prothrombin Time 10.9 Seconds (9.0-12.0)
--- NOTE | 2021-03-14 16:14 | Electrocardiogram Report ---
Test Reason : Blood Pressure : / mmHG Vent. Rate : 057 BPM Atrial Rate : 057 BPM P-R Int : 144 ms QRS Dur : 098 ms QT Int : 452 ms P-R-T Axes : 051 -09 043 degrees QTc Int : 439 ms Sinus bradycardia Incomplete right bundle branch block Nonspecific ST and T wave abnormality Abnormal ECG When compared with ECG of 26-SEP-2020 05:17, No significant change was found Confirmed by Bogdan Ayers ([id number]) on 03/14/2021 4:13:44 PM Referred By: REFERRED SELF Confirmed By:Bogdan Ayers
[2021-03-14 16:16] LABS: BUN Creatinine Ratio 20.2 (10-20); Calcium 9.6 mg/dl (8.5-10.1); Creatinine Clr Calc Pharmacy 62.4 ml/min; Est GFR (African American) 96.9 ml/min; Est GFR (Non-African American) 83.6 ml/min; Magnesium 2.2 mg/dl (1.8-2.4); Potassium 4.1 mmol/L (3.5-5.1)
[2021-03-14 16:17] LABS: Albumin Level 3.4 gm/dl (3.4-5.0); Bilirubin Direct 0.2 mg/dl (0-0.2)
[2021-03-14 16:20] LABS: Albumin Globulin Ratio 0.7 (0.9-2); Bilirubin,Total 0.5 mg/dl (0.2-1); Globulin 5.2 gm/dl (2.5-4.0); Phosphorus 4.1 mg/dl (2.5-4.9); Total Protein 8.6 gm/dl (6.4-8.2); Troponin I 0.022 ng/ml (0-0.045)
[2021-03-14] MEDS ORDERED: CEFEPIME 2,000 MG/20 ML VIAL IV STA (17:30)
[2021-03-14] MEDS ORDERED: VANCOMYCIN CONSULT ACTIVE PRN (17:30)
[2021-03-14] MEDS ORDERED: VANCOMYCIN HCL 1,500 MG in SODIUM CHLORIDE 0.9% 500 ML IV ONE (17:30)
--- NOTE | 2021-03-14 17:39 | Emergency Department Note ---
Impression & Plan Positive blood culture, Leukocytosis, On total parenteral nutrition (TPN) ED Provider Note NAME: IKE HDZ AGE: 75 SEX: M ARRIVES VIA: Walk-In INFORMANT: Patient, ED PROVIDER(S): Demian Cameron MD CHIEF COMPLAINT: Positive blood culture, referred. PLAN: Disposition: Admit MEDICAL DECISION MAKING: The patient is a pleasant 75-year-old gentleman who presents to the emergency department [facility] routine blood work had shown rising white blood cell count approximately 2 weeks ago with subsequent WBC to 16 the following week and so an outpatient blood culture was drawn from his Cobb catheter site which he was notified today was positive and was referred to emergency department. The patient reports he did have his third COVID-19 immunization/booster approximately a week ago and is unsure of the timing of whether it was before or after his second blood draw. He reported feeling feverish a week ago and thinks this may have been after the booster but otherwise denies any symptoms thereafter. He reports that he was admitted for similar suspicion for infection in August and understands the need to be admitted for further management. Review of the [facility] records shows the patient had a single blood culture drawn from his Cobb catheter site that is growing coag negative staph. On arrival the patient well-appearing in no distress if still vital signs. His Cobb catheter site is clean dry and intact without erythema warmth or tenderness. Exam is otherwise unremarkable. EKG without overt acute ischemia. CXR negative for acute cardiopulmonary process. WBC within normal limits. H/H 12.6/37.7 similar to prior. Platelets 440K increased from prior and likely active. Chemistry with metabolic acidosis. BUN/creatinine> 20 consistent with patient's clinical dry appearance. Lactic acid 1.7, with a normal limits. Electrolytes without significant abnormality. LFTs without significant abnormality. Lipase not elevated. COVID-19 PCR is negative. The patient was ordered for empiric antibiotics with cefepime and vancomycin. Case was discussed with Dr. Bill, [facility] hospitalist, who will evaluate the patient for admission. Triage Nursing notes reviewed and agree them. Additional history obtained from [facility] records. Prior medical records reviewed Vital Signs: reviewed and remarkable for no significant abnormalities Differential diagnosis: Sepsis, UTI, pneumonia, metabolic, electrolyte abnormalities, cardiac sources, intracerebral event, toxicologic, neurologic, as well as other pathologies. ER treatment provided: See below. Diagnostics interpreted by me: ECG: Sinus bradycardia, 57 bpm, no ectopy, Incomplete right bundle branch block, Nonspecific ST and T wave abnormality, No overt ST elevation or depression Cardiac Monitoring: An order for continuous cardiac monitoring was placed and demonstrated Sinus bradycardia, 57 bpm, no ectopy. Laboratory studies: See below Imaging studies: See below Consultation(s): Dr. Bill, [facility] hospitalist, who will evaluate the patient for admission. HPI: The patient is a pleasant 75-year-old gentleman who presents to the emergency department [facility] after routine blood work had shown rising white blood cell count approximately 2 weeks ago with subsequent WBC to 16 the following week and so an outpatient blood culture was drawn from his Cobb catheter site which he was notified today was positive and was referred to emergency department. The patient reports he did have his third COVID-19 immunization/booster approximately a week ago and is unsure of the timing of whether it was before or after his second blood draw. He reported feeling feverish a week ago and thinks this may have been after the booster but otherwise denies any symptoms thereafter. He reports that he was admitted for similar suspicion for infection in August and understands the need to be admitted for further management. Review of the [facility] records shows the patient had a single blood culture drawn from his Cobb catheter site that is growing coag negative staph. ROS: See above HPI for pertinent positives & negatives. A total of 10 systems reviewed and were otherwise negative. PAST MEDICAL HISTORY:See Below PAST SURGICAL HISTORY:See Below FAMILY HISTORY:See Below SOCIAL HISTORY:See Below HOME MEDICATIONS:See Below ALLERGIES:See Below VITALS:See Below PHYSICAL EXAMINATION: GENERAL: Awake, alert, well-appearing, in no distress HENT: Normocephalic, atraumatic. Oropharynx unremarkable. EYES: Normal conjunctiva. Sclera non-icteric. NECK: Supple. No nuchal rigidity. FROM. No JVD. RESPIRATORY: Clear to auscultation. CARDIAC: Regular rate, normal rhythm. Extremities warm and well perfused. Pulses equal. ABDOMEN: Soft, non-distended. No tenderness to palpation. No rebound or guarding. RLQ ostomy site c/d/i. RECTAL: Deferred. MUSCULOSKELETAL: Chest examination reveals no tenderness. Right CW cobb catheter site, c/d/i. The back is symmetrical on inspection without obvious abnormality. There is no CVA tenderness to palpation. No joint edema. LOWER EXTREMITIES: Calves are equal size bilaterally and non-tender. No edema. No discoloration. NEURO: Normal sensorium. No sensory or motor deficits noted. SKIN: No rash or jaundice noted. Demian Camerno MD Past Med/Surg History Medical History Anxiety BPH (benign prostatic hyperplasia) Chronic pain H/O ulcerative colitis HTN (hypertension) Ileostomy in place Insomnia Pancreatitis pt denies any history SBO (small bowel obstruction) hx Sepsis Short gut syndrome Sleep apnea CPAP Surgical History H/O rotator cuff surgery right H/O total colectomy (~1973) History of colonoscopy History of laparotomy removed SBO History of tonsillectomy Family History Other No family history of adverse response to anesthesia No significant family history Social History Smoking Status: Former smoker Tobacco Type: Cigarettes Second Hand Exposure: No; Do You Dip or Chew Tobacco: No; Tobacco Cessation Education Requested by Patient: No Hx Alcohol Use: Yes Alcohol type: wine Hx Substance Use: No Preferred Language: [place] Communication Ability: Effective Child Care Development Specialist Required: No Beliefs That Will Affect Care: None Current Living Situation: Spouse Other Information That Helps Us Care for You: No Feels Safe at Home: Yes Safety Concerns: Feels Safe At This Time Assistive Devices: Glasses Assistive Devices Comment: Reading glasses. Allergies Allergies Allergy/AdvReac Type Severity Reaction Status Date / Time ibuprofen AdvReac Intermediate GASTRIC Verified 03/14/21 14:39 ULCERS, NO COLON Home Meds Home Medications Medication Instructions Recorded Confirmed cholecalciferol (vitamin D3) 25 1,000 unit PO BID 04/23/18 03/14/21 mcg (1,000 unit) tablet (Vitamin D3) diphenoxylate-atropine 2.5 2 tab PO QID 04/23/18 03/14/21 mg-0.025 mg tablet (Lomotil) finasteride 5 mg tablet 5 mg PO HS 04/23/18 03/14/21 lipase 3,000-protease 1 cap PO TID 04/23/18 03/14/21 9,500-amylase 15,000 unit capsule, delayed rel (Creon) paroxetine HCl 30 mg tablet 30 mg PO PM 04/23/18 03/14/21 Parenteral Electrolytes 1 dose IV [id number] 05/03/18 03/14/21 polysaccharide iron complex 150 mg 150 mg PO BID 05/03/18 03/14/21 iron capsule (Ferrex) tamsulosin 0.4 mg capsule 0.4 mg PO HS 05/03/18 03/14/21 zolpidem 10 mg tablet 10 mg PO HS PRN 05/03/18 03/14/21 lisinopril 5 mg tablet 5 mg PO QAM 08/13/20 03/14/21 bupropion HCl 100 mg tablet,12 hr 100 mg PO QAM 09/16/20 03/14/21 sustained-release codeine sulfate 30 mg tablet 30 mg PO QID 09/16/20 03/14/21 loperamide 2 mg capsule 2 mg PO QID 09/16/20 03/14/21 Previous Rx's Medication Instructions Recorded ciprofloxacin HCl 500 mg tablet 500 mg PO BID #25 tab 09/28/20 (Cipro) Results & Data (ED) Vital Signs Vital Signs - 24 hr 03/14/21 13:30 03/14/21 15:14 03/14/21 15:30 Temperature 36.4 C L Temperature Source Temporal Artery Scan Pulse Rate 75 57 L 59 L Pulse Rate from SpO2 Sensor 57 L 59 L Respiratory Rate 20 20 21 Respiratory Effort / Characteristics Non-Labored Spontaneous Respiratory Depth Normal Respiratory Pattern Regular Blood Pressure 120/70 107/60 124/68 Blood Pressure Mean 86 75 86 Blood Pressure Position Sitting Pulse Oximetry 97 98 97 Oxygen Delivery Method Room Air Room Air Sepsis Recent Fever Within 48 Hours No Sepsis New/Unexplained Change in Mental Status N/A Sepsis Action Taken by Nursing No Action Required 03/14/21 16:00 03/14/21 16:30 03/14/21 17:00 Temperature Temperature Source Pulse Rate 57 L 57 L 58 L Pulse Rate from SpO2 Sensor 57 L 57 L Respiratory Rate 21 18 15 Respiratory Effort / Characteristics Respiratory Depth Respiratory Pattern Blood Pressure 113/66 129/67 113/57 L Blood Pressure Mean 81 87 75 Blood Pressure Position Pulse Oximetry 98 98 Oxygen Delivery Method Room Air Room Air Room Air Sepsis Recent Fever Within 48 Hours Sepsis New/Unexplained Change in Mental Status Sepsis Action Taken by Nursing 03/14/21 17:30 03/14/21 18:00 03/14/21 18:31 Temperature Temperature Source Pulse Rate 56 L 57 L 60 Pulse Rate from SpO2 Sensor 61 Respiratory Rate 14 14 15 Respiratory Effort / Characteristics Respiratory Depth Respiratory Pattern Blood Pressure 112/60 122/63 108/62 Blood Pressure Mean 77 82 77 Blood Pressure Position Pulse Oximetry 96 Oxygen Delivery Method Room Air Sepsis Recent Fever Within 48 Hours Sepsis New/Unexplained Change in Mental Status Sepsis Action Taken by Nursing Laboratory Data Attestation: I reviewed the patient's lab results. Result diagrams: 03/14/21 15:33 03/14/21 15:33 Lab Results 03/14/21 03/14/21 03/14/21 Range/Units 15:33 15:33 15:33 WBC 9.18 (4.8-10.8) K/uL RBC 3.93 L (4.7-6.1) M/uL Hgb 12.6 L (14.0-18.0) g/dL Hct 37.7 L (42-52) % MCV 95.9 (80-100) fL MCH 32.1 (25-34) pg MCHC 33.4 (32-36) g/dL RDW Std Deviation 44.6 (36.4-46.3) fL RDW Coeff of Charles 12.8 (11.5-14.5) % Plt Count 445 H (130-400) K/uL MPV 9.5 (7.4-10.4) fL Immature Gran % (Auto) 0.2 % Neut % (Auto) 62.0 % Lymph % (Auto) 28.4 % Maries % (Auto) 7.4 % Eos % (Auto) 1.6 % Baso % (Auto) 0.4 % Neut # (Auto) 5.68 (1.4-6.5) K/uL Lymph # (Auto) 2.61 (1.2-3.4) K/uL Maries # (Auto) 0.68 H (0.11-0.59) K/uL Eos # (Auto) 0.15 (0-0.5) K/uL Baso # (Auto) 0.04 (0-0.2) K/uL Immature Gran # (Auto) 0.02 (0.00-0.02) K/uL PT 10.9 (9.0-12.0) Seconds INR 1.1 (0.9-1.1) Sodium (136-145) mmol/L Potassium (3.5-5.1) mmol/L Chloride (98-107) mmol/L Carbon Dioxide (21-32) mmol/L Anion Gap (3-11) BUN (7-18) mg/dl Creatinine (0.6-1.4) mg/dl Est Cr Clr Drug Dosing ml/min Est GFR ( Amer) ml/min Est GFR (Non-Af Amer) ml/min BUN/Creatinine Ratio (10-20) Glucose (70-99) mg/dl Lactate 1.7 (0.4-2.0) mmol/L Calcium (8.5-10.1) mg/dl Phosphorus (2.5-4.9) mg/dl Magnesium (1.8-2.4) mg/dl Total Bilirubin (0.2-1) mg/dl Direct Bilirubin (0-0.2) mg/dl AST (15-37) U/L ALT (12-78) U/L Alkaline Phosphatase (45-117) U/L Troponin I (0-0.045) ng/ml Total Protein (6.4-8.2) gm/dl Albumin (3.4-5.0) gm/dl Globulin (2.5-4.0) gm/dl Albumin/Globulin Ratio (0.9-2) Lipase (73-393) U/L 03/14/21 Range/Units 15:33 WBC (4.8-10.8) K/uL RBC (4.7-6.1) M/uL Hgb (14.0-18.0) g/dL Hct (42-52) % MCV (80-100) fL MCH (25-34) pg MCHC (32-36) g/dL RDW Std Deviation (36.4-46.3) fL RDW Coeff of Charles (11.5-14.5) % Plt Count (130-400) K/uL MPV (7.4-10.4) fL Immature Gran % (Auto) % Neut % (Auto) % Lymph % (Auto) % Maries % (Auto) % Eos % (Auto) % Baso % (Auto) % Neut # (Auto) (1.4-6.5) K/uL Lymph # (Auto) (1.2-3.4) K/uL Maries # (Auto) (0.11-0.59) K/uL Eos # (Auto) (0-0.5) K/uL Baso # (Auto) (0-0.2) K/uL Immature Gran # (Auto) (0.00-0.02) K/uL PT (9.0-12.0) Seconds INR (0.9-1.1) Sodium 137 (136-145) mmol/L Potassium 4.1 (3.5-5.1) mmol/L Chloride 103 (98-107) mmol/L Carbon Dioxide 30 (21-32) mmol/L Anion Gap 4.0 (3-11) BUN 18 (7-18) mg/dl Creatinine 0.89 (0.6-1.4) mg/dl Est Cr Clr Drug Dosing 62.4 ml/min Est GFR ( Amer) 96.9 ml/min Est GFR (Non-Af Amer) 83.6 ml/min BUN/Creatinine Ratio 20.2 H (10-20) Glucose 98 (70-99) mg/dl Lactate (0.4-2.0) mmol/L Calcium 9.6 (8.5-10.1) mg/dl Phosphorus 4.1 (2.5-4.9) mg/dl Magnesium 2.2 (1.8-2.4) mg/dl Total Bilirubin 0.5 (0.2-1) mg/dl Direct Bilirubin 0.2 (0-0.2) mg/dl AST 29 (15-37) U/L ALT 39 (12-78) U/L Alkaline Phosphatase 129 H (45-117) U/L Troponin I 0.022 (0-0.045) ng/ml Total Protein 8.6 H (6.4-8.2) gm/dl Albumin 3.4 (3.4-5.0) gm/dl Globulin 5.2 H (2.5-4.0) gm/dl Albumin/Globulin Ratio 0.7 L (0.9-2) Lipase 199 (73-393) U/L Administered Medications Codeine Sulfate (Codeine Sulfate 30 Mg Tab) 30 mg PO QID MIKIE Stop: 03/28/21 20:59 Last Admin: 03/14/21 21:18 Dose: Not Given Documented by: [id number] Diphenoxylate HCl/Atropine (Diphenoxylate/Atropine 2.5/0.025mg Tab) 2 tab PO QID MIKIE Stop: 04/13/21 20:59 Last Admin: 03/14/21 21:18 Dose: Not Given Documented by: [id number] Enoxaparin Sodium (Enoxaparin Inj 40 Mg/0.4 Ml Syr) 40 mg SQ Q24H MIKIE Stop: 04/13/21 20:59 Last Admin: 03/14/21 21:20 Dose: 40 mg Documented by: [id number] Finasteride (Finasteride 5 Mg Tab) 5 mg PO HS MIKIE Stop: 04/13/21 20:59 Last Admin: 03/14/21 21:20 Dose: 5 mg Documented by: [id number] Loperamide HCl (Loperamide Hcl 2 Mg Cap) 2 mg PO QID MIKIE Stop: 04/13/21 20:59 Last Admin: 03/14/21 21:18 Dose: Not Given Documented by: [id number] Paroxetine HCl (Paroxetine Hcl 20 Mg Tab) 30 mg PO PM MIKIE Stop: 04/13/21 20:59 Last Admin: 03/14/21 21:21 Dose: 30 mg Documented by: [id number] Polysaccharide Iron Complex (Iron Polysaccharide Complex 150 Mg Capsule) 150 mg PO BID MIKIE Stop: 04/13/21 20:59 Last Admin: 03/14/21 21:21 Dose: 150 mg Documented by: [id number] Tamsulosin HCl (Tamsulosin Hcl 0.4 Mg Cap) 0.4 mg PO HS MIKIE Stop: 04/13/21 20:59 Last Admin: 03/14/21 21:21 Dose: 0.4 mg Documented by: [id number] Vitamin D (Cholecalciferol 1,000 Units 25 Mcg Tab) 1,000 units PO BID MIKIE Stop: 04/13/21 20:59 Last Admin: 03/14/21 21:18 Dose: 1,000 units Documented by: [id number] Discontinued Medications Sodium Chloride (Nss 1000ml) 1,000 mls @ 999 mls/hr IV .Q1H1M ONE Stop: 03/14/21 15:46 Last Infusion: 03/14/21 16:47 Dose: 0 mls/hr Documented by: [id number] Admin: 03/14/21 15:46 Dose: 999 mls/hr Documented by: [id number] Cefepime HCl (Maxipime) 2,000 mg in 20 mls @ 5 mls/min IV NOW STA; Protocol Stop: 03/14/21 17:33 Last Admin: 03/14/21 18:10 Dose: 5 mls/min Documented by: [id number] Vancomycin HCl 1,500 mg/ (Sodium Chloride) 530 mls @ 200 mls/hr IV NOW ONE Stop: 03/14/21 20:08 Last Infusion: 03/14/21 21:40 Dose: 0 mls/hr Documented by: [id number] Admin: 03/14/21 18:58 Dose: 200 mls/hr Documented by: [id number] Imaging Data Radiologist's Impression: Chest X-Ray 03/14/21 14:37 XR chest 1V portable CLINICAL HISTORY: Chest Pain COMPARISON STUDY: Chest radiograph September 25, 2020. FINDINGS: There is no pneumothorax. There is a trace left pleural effusion. Right internal jugular central line remains in place. Cardiomegaly is unchanged. No evidence for pulmonary edema or pneumonia. IMPRESSION: 1. Trace left pleural effusion. 2. Cardiomegaly without evidence for pulmonary edema. ACT 112: Negative or not required by law. Electronically signed by: Shabbir Xiong M.D. 03/14/2021 3:31 PM Discharge Plan Visit Data Chief Complaint: Infection Stated Complaint: INFECTION IN FEEDING TUBE ED Provider: Demian Cameron Discharge Problem: Positive blood culture, Leukocytosis, On total parenteral nutrition (TPN) Patient Disposition: Admitted As Inpatient Discharge Instructions Interventions: ED Discharge Assessment Last Done: 03/14/21 19:41 Discharge Problem: Leukocytosis Qualifiers: Leukocytosis type: unspecified Qualified Code(s): D72.829 - Elevated white blood cell count, unspecified
--- NOTE | 2021-03-14 18:36 | History & Physical Report ---
Date of Service March 14, 2021 Assessment & Plan (1) Leukocytosis: Plan: Place patient in nonmonitored observation Will try to get records from [facility] regarding culture discussed with patient on 03/11 Repeat cultures are withdrawn the emergency room, follow this as well Patient was started empirically on cefepime and vancomycin, will continue these for now Patient's white count is 9.18 which is considered normal and patient is afebrile. Cobb catheter does not appear to be outwardly infected but if blood cultures are positive, patient will require longer term antibiotics and consideration to removing the line (2) HTN (hypertension): Plan: Blood pressure stable at 122/63, continue occasions as per outpatient (3) Short gut syndrome: Plan: Chronic condition, patient tells me that while he does have ongoing diarrhea with the ileostomy that he typically does not restrict his diet. Will order regular diet (4) Ulcerative colitis: Plan: Patient status post total colectomy with ileostomy, stable History of Present Illness Chief Complaint: Possible bacteremia Primary Care Provider: Tao Montoya This is a 75-year-old male with past medical history of ulcerative colitis, status post ileostomy, short gut syndrome, status post Cobb catheter that presents today on advice of his [facility] physicians for evaluation of bacteremia. Patient is pleasant and very good historian. Patient tells me that he gets regular blood work, every 2 weeks on the direction of his physicians at the [facility]. They noted over the last 2 lab draws that he has had a slowly climbing WBC count that was not explained. Patient himself essentially had no symptoms, was using his Cobb to get TPN nightly. He does eat regularly but the food "runs right through him "secondary to a short gut syndrome and he typically has diarrhea. Despite this, he had no new symptoms of fever, chills, chest pain, or any unusual drainage or pain from the Cobb catheter. He does note a single episode a few days ago when he connected the TPN and had an episode of rigors resolved after half an hour and was not repeated. Patient had blood cultures drawn last week and was notified on Sunday, 03/11 that the cultures grew gram-positive cocci in chains from the catheter and then he should present to the emergency room [facility] for treatment. Patient delayed this until today when he came to emergency room. Patient reiterated that outside of that single episode of rigors, he has had no symptoms and otherwise feels well. He has been afebrile. Of note, the patient had been admitted here 08/2020 for evaluation of bacteremia, is found to be a pansensitive Klebsiella and to be treated for 14 days total with Cipro without any sequelae. Allergies Allergy/AdvReac Type Severity Reaction Status Date / Time ibuprofen AdvReac Intermediate GASTRIC Verified 03/14/21 14:39 ULCERS, NO COLON Home Medications Medication Instructions Recorded Confirmed Type cholecalciferol (vitamin D3) 25 1,000 unit PO BID 04/23/18 03/14/21 History mcg (1,000 unit) tablet (Vitamin D3) diphenoxylate-atropine 2.5 2 tab PO QID 04/23/18 03/14/21 History mg-0.025 mg tablet (Lomotil) finasteride 5 mg tablet 5 mg PO HS 04/23/18 03/14/21 History lipase 3,000-protease 1 cap PO TID 04/23/18 03/14/21 History 9,500-amylase 15,000 unit capsule, delayed rel (Creon) paroxetine HCl 30 mg tablet 30 mg PO PM 04/23/18 03/14/21 History Parenteral Electrolytes 1 dose IV 5XWK 05/03/18 03/14/21 History polysaccharide iron complex 150 mg 150 mg PO BID 05/03/18 03/14/21 History iron capsule (Ferrex) tamsulosin 0.4 mg capsule 0.4 mg PO HS 05/03/18 03/14/21 History zolpidem 10 mg tablet 10 mg PO HS PRN 05/03/18 03/14/21 History lisinopril 5 mg tablet 5 mg PO QAM 08/13/20 03/14/21 History bupropion HCl 100 mg tablet,12 hr 100 mg PO QAM 09/16/20 03/14/21 History sustained-release codeine sulfate 30 mg tablet 30 mg PO QID 09/16/20 03/14/21 History loperamide 2 mg capsule 2 mg PO QID 09/16/20 03/14/21 History ciprofloxacin HCl 500 mg tablet 500 mg PO BID #25 tab 09/28/20 03/14/21 Rx (Cipro) Past Med/Surg History Medical History Anxiety BPH (benign prostatic hyperplasia) Chronic pain H/O ulcerative colitis HTN (hypertension) Ileostomy in place Insomnia Pancreatitis pt denies any history SBO (small bowel obstruction) hx Sepsis Short gut syndrome Sleep apnea CPAP Surgical History H/O rotator cuff surgery right H/O total colectomy (~1973) History of colonoscopy History of laparotomy removed SBO History of tonsillectomy Family History Other No family history of adverse response to anesthesia No significant family history Social History Smoking Status: Former smoker Tobacco Type: Cigarettes Second Hand Exposure: No; Hx Alcohol Use: No Hx Substance Use: No Preferred Language: Argentine Communication Ability: Effective 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 Beliefs That Will Affect Care: None Current Living Situation: Spouse Feels Safe at Home: Yes Assistive Devices: None Review of Systems Constitutional: + chills (single episode as described); no fever, no weakness, no weight loss and no weight gain Eyes: as per Subjective / HPI Respiratory: no cough, no chest congestion, no dyspnea and no dyspnea on exertion Cardiovascular: no chest pain, no orthopnea, no palpitations, no lightheadedness and no edema Gastrointestinal: no abdominal pain, no nausea, no vomiting, no constipation and no diarrhea/loose stools Musculoskeletal: no back pain, no neck pain, no joint pain, no stiffness and no myalgia Integumentary: no rash Neurologic: no gait abnormality, no unsteadiness, no falls and no generalized weakness Physical Exam Constitutional: cooperative; no acute distress Neck: trachea midline, no thyromegaly Respiratory: normal respiratory effort Auscultation: lungs clear to auscultation bilaterally; no crackles, no rales, no rhonchi and no wheezes Cardiovascular: Rate/Rhythm: regular rate and regular rhythm Heart Sounds: normal S1 and normal S2 Chest (Breasts): Chest: normal inspection of chest (RU chest wall with cobb cath, covered in tegederm. no drainage, erythema) Gastrointestinal (Abdomen): Inspection/Auscultation: abdomen normal to inspection Percussion/Palpation: abdomen soft; abdomen nontender, no guard ing, abdomen not rigid and no hepatosplenomegaly Skin: no rashes, warm and dry Results & Data Results & Data ([facility]) Vital Signs (Past 12 Hours) Vital Signs Temp Pulse Resp BP Pulse Ox 03/14/21 18:00 57 L 14 122/63 03/14/21 17:30 56 L 14 112/60 03/14/21 17:00 58 L 15 113/57 L 03/14/21 16:30 57 L 18 129/67 98 03/14/21 16:00 57 L 21 113/66 98 03/14/21 15:30 59 L 21 124/68 97 03/14/21 15:14 57 L 20 107/60 98 03/14/21 13:30 36.4 C L 75 20 120/70 97 Laboratory Results Laboratory Results WBC 9.18 K/uL (4.8-10.8) 03/14/21 15:33 RBC 3.93 M/uL (4.7-6.1) L 03/14/21 15:33 Hgb 12.6 g/dL (14.0-18.0) L 03/14/21 15:33 Hct 37.7 % (42-52) L 03/14/21 15:33 MCV 95.9 fL (80-100) 03/14/21 15:33 MCH 32.1 pg (25-34) 03/14/21 15:33 MCHC 33.4 g/dL (32-36) 03/14/21 15:33 RDW Std Deviation 44.6 fL (36.4-46.3) 03/14/21 15:33 RDW Coeff of Charles 12.8 % (11.5-14.5) 03/14/21 15:33 Plt Count 445 K/uL (130-400) H 03/14/21 15:33 MPV 9.5 fL (7.4-10.4) 03/14/21 15:33 Immature Gran % (Auto) 0.2 % 03/14/21 15:33 Neut % (Auto) 62.0 % 03/14/21 15:33 Lymph % (Auto) 28.4 % 03/14/21 15:33 Dauphin % (Auto) 7.4 % 03/14/21 15:33 Eos % (Auto) 1.6 % 03/14/21 15:33 Baso % (Auto) 0.4 % 03/14/21 15:33 Neut # (Auto) 5.68 K/uL (1.4-6.5) 03/14/21 15:33 Lymph # (Auto) 2.61 K/uL (1.2-3.4) 03/14/21 15:33 Dauphin # (Auto) 0.68 K/uL (0.11-0.59) H 03/14/21 15:33 Eos # (Auto) 0.15 K/uL (0-0.5) 03/14/21 15:33 Baso # (Auto) 0.04 K/uL (0-0.2) 03/14/21 15:33 Immature Gran # (Auto) 0.02 K/uL (0.00-0.02) 03/14/21 15:33 PT 10.9 Seconds (9.0-12.0) 03/14/21 15:33 INR 1.1 (0.9-1.1) 03/14/21 15:33 Sodium 137 mmol/L (136-145) 03/14/21 15:33 Potassium 4.1 mmol/L (3.5-5.1) 03/14/21 15:33 Chloride 103 mmol/L (98-107) 03/14/21 15:33 Carbon Dioxide 30 mmol/L (21-32) 03/14/21 15:33 Anion Gap 4.0 (3-11) 03/14/21 15:33 BUN 18 mg/dl (7-18) 03/14/21 15:33 Creatinine 0.89 mg/dl (0.6-1.4) 03/14/21 15:33 Est Cr Clr Drug Dosing 62.4 ml/min 03/14/21 15:33 Est GFR ( Amer) 96.9 ml/min 03/14/21 15:33 Est GFR (Non-Af Amer) 83.6 ml/min 03/14/21 15:33 BUN/Creatinine Ratio 20.2 (10-20) H 03/14/21 15:33 Glucose 98 mg/dl (70-99) 03/14/21 15:33 Lactate 1.7 mmol/L (0.4-2.0) 03/14/21 15:33 Calcium 9.6 mg/dl (8.5-10.1) 03/14/21 15:33 Phosphorus 4.1 mg/dl (2.5-4.9) 03/14/21 15:33 Magnesium 2.2 mg/dl (1.8-2.4) 03/14/21 15:33 Total Bilirubin 0.5 mg/dl (0.2-1) 03/14/21 15:33 Direct Bilirubin 0.2 mg/dl (0-0.2) 03/14/21 15:33 AST 29 U/L (15-37) 03/14/21 15:33 ALT 39 U/L (12-78) 03/14/21 15:33 Alkaline Phosphatase 129 U/L (45-117) H 03/14/21 15:33 Troponin I 0.022 ng/ml (0-0.045) 03/14/21 15:33 Total Protein 8.6 gm/dl (6.4-8.2) H 03/14/21 15:33 Albumin 3.4 gm/dl (3.4-5.0) 03/14/21 15:33 Globulin 5.2 gm/dl (2.5-4.0) H 03/14/21 15:33 Albumin/Globulin Ratio 0.7 (0.9-2) L 03/14/21 15:33 Lipase 199 U/L (73-393) 03/14/21 15:33 COVID-19 Eval Order Covid19 at [facility] 03/14/21 Unknown SARS-CoV-2 (PCR) NEGATIVE (Negative) 03/14/21 Unknown Impressions Chest X-Ray 03/14/21 14:37 XR chest 1V portable CLINICAL HISTORY: Chest Pain COMPARISON STUDY: Chest radiograph September 25, 2020. FINDINGS: There is no pneumothorax. There is a trace left pleural effusion. Right internal jugular central line remains in place. Cardiomegaly is unchanged. No evidence for pulmonary edema or pneumonia. IMPRESSION: 1. Trace left pleural effusion. 2. Cardiomegaly without evidence for pulmonary edema. ACT 112: Negative or not required by law. Electronically signed by: Shabbir Xiong M.D. 03/14/2021 3:31 PM PG Care Time/CCT Total # of Minutes Spent Total Time Spent with Patient: Total time spent is greater than 50% in coordination of care (as documented) at patient's floor/unit and/or counseling patient: Coding Level of Care Code INT OBSERVATION CARE 70M LVL 3 Diagnoses HTN (hypertension) I10 Short gut syndrome K91.2 Leukocytosis D72.829 Ulcerative colitis K51.90
[2021-03-14] MEDS ORDERED: ONDANSETRON INJ 2 MG/ML 2 ML VIAL IV PRN (19:59)
[2021-03-14] MEDS ORDERED: ZOLPIDEM TARTRATE 10 MG TAB PO PRN (19:59)
[2021-03-14] MEDS ORDERED: ACETAMINOPHEN 325 MG TAB PO PRN (19:59)
[2021-03-14] MEDS ORDERED: TPN/PPN CONSULT PHARMACY PRN (20:19)
[2021-03-14] MEDS: CHOLECALCIFEROL 1,000 UNITS 25 MCG TAB PO SCH (21:18)
[2021-03-14] MEDS: LOPERAMIDE HCL 2 MG CAP PO SCH (21:18)
[2021-03-14] MEDS: DIPHENOXYLATE/ATROPINE 2.5/0.025MG TAB PO SCH (21:18)
[2021-03-14] MEDS: CODEINE SULFATE 30 MG TAB PO SCH (21:18)
[2021-03-14] MEDS: ENOXAPARIN INJ 40 MG/0.4 ML SYR SQ SCH (21:20)
[2021-03-14] MEDS: FINASTERIDE 5 MG TAB PO SCH (21:20)
[2021-03-14] MEDS: IRON POLYSACCHARIDE COMPLEX 150 MG CAPSULE PO SCH (21:21)
[2021-03-14] MEDS: PARoxetine HCL 20 MG TAB PO SCH (21:21)
[2021-03-14] MEDS: TAMSULOSIN HCL 0.4 MG CAP PO SCH (21:21)
--- NOTE | 2021-03-14 22:20 | Pharmacy Report ---
Pharmacy Vanc AUC Short Note - Date of Service March 14, 2021 - Assessment & Plan Assessment 75 year old M receiving Vancomycin and Cefepime for empiric treatment of leukocytosis * Has a Edwards catheter and is on home TPN. Came to ED at advice of physician from [facility] for increase in WBCs * Cultures pending Plan Vancomycin * AUC/OCTAVIO is the preferred PK/PD target for vancomycin * AUC guided dosing is effective and associated with decreased risk of nep hrotoxicity compared to traditional trough targets * Loading Dose: 1500 mg IV x 1 * Maintenance Dose: 750 mg IV every 12 hours * This dose is expected to achieve a steady-state AUC and trough of 534 mg/ L.hr and 17.7 mcg/mL, respectively. * Trough level ordered for 03/16/21 prior to 0600 dose to assess AUC/OCTAVIO Cefepime * 1000 mg IV every 12 hours per provider (not a pharmacy consult) Pharmacy will continue to follow and will adjust dose/frequency as necessary. Thank you.
[2021-03-15] MEDS: VANCOMYCIN HCL 750 MG in SODIUM CHLORIDE 0.9% 250 ML IV SCH ×2 (05:45→18:20)
[2021-03-15] MEDS ORDERED: CEFEPIME 1,000 MG in SYRINGE 0 ML IV SCH (06:00)
[2021-03-15 06:07] LABS: Appearance Urine Clear (Clear); Bilirubin Urine Negative (Negative); Blood Urine Negative (Negative); Color Urine Yellow; Glucose Urine UA Negative (Negative); Ketones Urine Negative (Negative); Leukocyte Esterase Urine Negative (Negative); Nitrite Urine Negative (Negative); Protein Urine Negative (Negative); Specific Gravity Urine 1.019 (1.000-1.030); Urobilinogen Urine Negative (Negative); pH Urine 5.5 (4.5-7.5)
[2021-03-15 06:29] LABS: Basophils # (auto) 0.07 K/uL (0-0.2); Basophils % (auto) 0.9 %; Eosinophils # (auto) 0.19 K/uL (0-0.5); Eosinophils % (auto) 2.3 %; Hematocrit (blood only) 34.6 % (42-52); Hemoglobin 11.5 g/dL (14.0-18.0); Immature Granulocytes # (auto) 0.02 K/uL (0.00-0.02); Immature Granulocytes % (auto) 0.2 %; Lymphocytes % (auto) 29.5 %; Mean Corpuscular Hemoglobin 31.1 pg (25-34); Mean Corpuscular Hgb Conc 33.2 g/dL (32-36); Mean Corpuscular Volume 93.5 fL (80-100); Mean Platelet Volume 9.4 fL (7.4-10.4); Monocytes # (auto) 0.72 K/uL (0.11-0.59); Monocytes % (auto) 8.9 %; Neutrophils # (auto) 4.73 K/uL (1.4-6.5); Neutrophils % (auto) 58.2 %; Platelet Count 374 K/uL (130-400); RDW Standard Deviation 44.3 fL (36.4-46.3); White Blood Count 8.13 K/uL (4.8-10.8)
[2021-03-15 06:59] LABS: Albumin Level 2.9 gm/dl (3.4-5.0); BUN Creatinine Ratio 18.6 (10-20); Calcium 8.9 mg/dl (8.5-10.1); Creatinine Clr Calc Pharmacy 69.4 ml/min; Est GFR (African American) 101.3 ml/min; Est GFR (Non-African American) 87.4 ml/min; Potassium 3.8 mmol/L (3.5-5.1)
[2021-03-15 07:05] LABS: Albumin Globulin Ratio 0.7 (0.9-2); Bilirubin,Total 0.6 mg/dl (0.2-1); Globulin 4.1 gm/dl (2.5-4.0)
[2021-03-15] MEDS: PANCREAZE (LIPASE 10,500U) CAP PO SCH ×4 (08:13→17:22)
[2021-03-15] MEDS: CODEINE SULFATE 30 MG TAB PO SCH ×4 (08:13→20:07)
[2021-03-15] MEDS: LOPERAMIDE HCL 2 MG CAP PO SCH ×4 (08:13→20:08)
[2021-03-15] MEDS ORDERED: TPN/PPN CONSULT PHARMACY STA (09:25)
[2021-03-15] MEDS: lisinopril 5 MG TAB PO SCH (09:52)
[2021-03-15] MEDS: CHOLECALCIFEROL 1,000 UNITS 25 MCG TAB PO SCH ×2 (09:52→20:05)
[2021-03-15] MEDS: DIPHENOXYLATE/ATROPINE 2.5/0.025MG TAB PO SCH ×4 (09:52→20:07)
[2021-03-15] MEDS: buPROPion SR 100 MG TABCR PO SCH (09:52)
[2021-03-15] MEDS: IRON POLYSACCHARIDE COMPLEX 150 MG CAPSULE PO SCH ×2 (09:52→20:08)
--- NOTE | 2021-03-15 11:33 | Consultation ---
Date of Consultation March 15, 2021 Assessment & Plan (1) Infection of intravenous catheter: Pt with likely infected cobb catheter. Pt discussed wtih Dr Mohna. Recommends removal of cobb catheter in OR tomorrow. Will replace after negative blood cx obtained. Recommend redraw blood cx morning, with tentative replacement of catheter on Sunday. Pt agreeable. History of Present Illness Reason for Consultation: bacteremia Attending Physician: Tavo Chung MD History of Present Illness 75 yo m with hx of HTN, UC, short gut syndrome, ileostomy, admitted for positive blood cx, seen in consultation to discuss removal of cobb catheter which is used for TPN. Pt has been on TPN for years. Current cobb catheter has been in place since August 2020. Routine bloodwork done by [facility] showed leukocytosis, then blood cx were ordered after pt c/o shaking chills during on TPN infusion about 2 weeks ago. Pt states has had a few episodes of night sweats at home as well. Cobb catheter is usually accessed by his at home. New blood cx ordered here and are positive. Pt states overall feeling improved. Denies WADSWORTH, fever, chest pain, SOB, abd pain, N/V, rest pain, claudication, other complaints. Allergies Allergy/AdvReac Type Severity Reaction Status Date / Time ibuprofen AdvReac Intermediate GASTRIC Verified 03/14/21 14:39 ULCERS, NO COLON Home Medications Medication Instructions Recorded Confirmed Type cholecalciferol (vitamin D3) 25 1,000 unit PO BID 04/23/18 03/14/21 History mcg (1,000 unit) tablet (Vitamin D3) diphenoxylate-atropine 2.5 2 tab PO QID 04/23/18 03/14/21 History mg-0.025 mg tablet (Lomotil) finasteride 5 mg tablet 5 mg PO HS 04/23/18 03/14/21 History lipase 3,000-protease 1 cap PO TID 04/23/18 03/14/21 History 9,500-amylase 15,000 unit capsule, delayed rel (Creon) paroxetine HCl 30 mg tablet 30 mg PO PM 04/23/18 03/14/21 History Parenteral Electrolytes 1 dose IV [id number] 05/03/18 03/14/21 History polysaccharide iron complex 150 mg 150 mg PO BID 05/03/18 03/14/21 History iron capsule (Ferrex) tamsulosin 0.4 mg capsule 0.4 mg PO HS 05/03/18 03/14/21 History zolpidem 10 mg tablet 10 mg PO HS PRN 05/03/18 03/14/21 History lisinopril 5 mg tablet 5 mg PO QAM 08/13/20 03/14/21 History bupropion HCl 100 mg tablet,12 hr 100 mg PO QAM 09/16/20 03/14/21 History sustained-release codeine sulfate 30 mg tablet 30 mg PO QID 09/16/20 03/14/21 History loperamide 2 mg capsule 2 mg PO QID 09/16/20 03/14/21 History ciprofloxacin HCl 500 mg tablet 500 mg PO BID #25 tab 09/28/20 03/14/21 Rx (Cipro) Patient History Medical History (Updated 03/15/21 @ 11:31 by Whit Cueva PA-C) Anxiety BPH (benign prostatic hyperplasia) Chronic pain H/O ulcerative colitis HTN (hypertension) Ileostomy in place Infection of intravenous catheter Insomnia Pancreatitis pt denies any history SBO (small bowel obstruction) hx Sepsis Short gut syndrome Sleep apnea CPAP Surgical History H/O rotator cuff surgery right H/O total colectomy (~1973) History of colonoscopy History of laparotomy removed SBO History of tonsillectomy Family History Other No family history of adverse response to anesthesia No significant family history Social History Smoking Status: Former smoker Tobacco Type: Cigarettes Second Hand Exposure: No; Do You Dip or Chew Tobacco: No; Tobacco Cessation Education Requested by Patient: No Hx Alcohol Use: Yes Alcohol type: wine Hx Substance Use: No Preferred Language: Slovak Communication Ability: Effective 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 Review of Systems Review of Systems: 14 systems reviewed and negative aside from HPI Physical Exam Constitutional: WD/WN, vitals as above healthy appearing, cooperative and comfortable; not in distress ENMT: Ears: no hearing impairment Neck: normal visual inspection (R side cobb tunneled catheter nontender to palpation, no erythema/draina) and trachea midline Respiratory: normal respiratory effort, lungs clear to auscultation Cardiovascular: Rate/Rhythm: regular rate and regular rhythm Vessels: femoral pulses present, posterior tibial pulses present, dorsalis pedis pulses present and radial pulses present; + abnormal peripheral pulses Extremities: normal capillary refill; no edema Gastrointestinal (Abdomen): Inspection/Auscultation: + abdominal surgical scar (ileostomy noted) Musculoskeletal: no cyanosis or clubbing, extremities motor strength 5/5 Skin: no rashes, warm and dry Neurologic: moves all extremities and awake; no focal motor deficits and not confused Psychiatric: A+Ox3, euthymic affect Results & Data ([facility]) Vital Signs (Past 12 Hours) Vital Signs Temp Pulse Resp BP Pulse Ox 03/15/21 07:03 36.5 C 56 L 16 122/65 94
[2021-03-15] MEDS: D5NSS + 20MEQ KCL 20 MEQ/1,000 ML BAG IV SCH (12:03)
--- NOTE | 2021-03-15 16:21 | Hospitalist Progress Note ---
Date of Service March 15, 2021 Assessment & Plan (1) Infection of intravenous catheter: Plan: Edwards Catheter Infection - BC+ for GPC clusters, not MRSA by PCR No leukocytosis, leukocytes 8.13 from 9.18 today - Continue vancomycin - Do not recommend salvage therapy at this time - Pt with similar episode and replacement several months ago - Vascular consulted for removal, replacement once bacteremia clears. Anticipate OR removal tomorrow. - Surveillance BC post removal Hold TPN, patient get some nutrition from orals and will supplement with crystalloid (2) HTN (hypertension): Plan: Blood pressure stable at 122/63, continue occasions as per outpatient (3) Short gut syndrome: Plan: Regular diet TPN held as catheter infected, supplement with crystalloid Continue Creon (4) Ulcerative colitis: Plan: Patient status post total colectomy with ileostomy, stable (5) On total parenteral nutrition (TPN): Plan: Held as noted (6) Positive blood culture: Plan: Repeat pending post catheter removal as noted (7) Anxiety: Plan: Controlled, no exacerbation at visit (8) BPH (benign prostatic hyperplasia): Plan: Continue finasteride Continue send Bladder as needed for reduced output Plan: DVT prophylaxis: SCDs, Lovenox CODE STATUS: Full code Disposition: MedSurg, pending infected catheter removal Admission and Anticipated Discharge Date Admission Date: March 14, 2021 Diamond Hayes is seen at the bedside this morning. He reports overall he feels well, but was advised to come in at the recommendation of his outpatient providers for potential leukocytosis. He reports that he has a distant history of colectomy and has had a Edwards catheter and ostomy placed. He is able to eat, but has short gut syndrome with greatly impaired nutrition and takes TPN through his Edwards catheter. His Edwards was infected several months ago around December and required replacement at that time, salvage therapy was not attempted. He reports he has not noticed any tenderness, warmth, discharge, or change at his Edwards site and notes that it was completely clean when his changed it yesterday but there is some debris on it that he did not notice before. Discussed plan of care with patient, no other questions or concerns at time of visit. Review of Systems Review of Systems: Constitutional: Denies fever, chills, malaise Eyes: Denies vision change ENT: Denies ear pain, sore throat, sinus pain Cardiovascular: Denies Chest pain, chest pressure, palpitations, extremity swelling Respiratory: Denies shortness of breath, cough, sputum production, difficulty breathing Gastrointestinal: Denies abdominal pain, nausea, vomiting. Ostomy, no increased output Genitourinary: Denies dysuria, urinary frequency Musculoskeletal: Denies acute focal weakness, muscle aches/pain, joint aches/pain Integumentary:Denies acute rash, lesions, bruising Neurological: Denies headache, numbness, tingling, focal weakness Physical Exam Physical Exam: General: A&Ox3. NAD. Cooperative. HEENT: Atraumatic, normocephalic. Visual acuity grossly intact hearing grossly intact Thorax: Edwards catheter present at right upper chest, take addressing overlying and intact. No surrounding erythema, warmth, or tenderness but small amount of brown/yellow spots appreciated where catheter meets the skin Pulm: CTAB A&P. -wheezes, -rales, -rhonchi. Symmetrical chest rise. No increase work of breathing. No respiratory distress. Cardiac: RRR, -mrg. Radial pulses intact and symmetrical. Abdominal: Nontender, nondistended, soft. BS present. Ostomy present at right abdomen, no surrounding erythema, discharge, tenderness. Results & Data Results & Data ([facility]) Vital Signs (Past 12 Hours) Vital Signs Temp Pulse Resp BP Pulse Ox 03/15/21 15:41 36.6 C 18 101/52 L 97 03/15/21 07:03 36.5 C 56 L 16 122/65 94 PG Care Time/CCT Total # of Minutes Spent Total Time Spent with Patient: Total time spent is greater than 50% in coordination of care (as documented) at patient's floor/unit and/or counseling patient: Coding Level of Care Code 43994 Subseq Hosp Care Lvl 3 Diagnoses HTN (hypertension) I10 Short gut syndrome K91.2 Ulcerative colitis K51.90 Infection of intravenous catheter T82.7XXA On total parenteral nutrition (TPN) Z78.9 Positive blood culture R78.81 Anxiety F41.9 BPH (benign prostatic hyperplasia) N40.0
[2021-03-15] MEDS: PARoxetine HCL 20 MG TAB PO SCH (20:06)
[2021-03-15] MEDS: FINASTERIDE 5 MG TAB PO SCH (20:07)
[2021-03-15] MEDS: TAMSULOSIN HCL 0.4 MG CAP PO SCH (20:08)
[2021-03-15] MEDS: ENOXAPARIN INJ 40 MG/0.4 ML SYR SQ SCH (20:09)
[2021-03-16] MEDS: D5NSS + 20MEQ KCL 20 MEQ/1,000 ML BAG IV SCH ×2 (00:59→10:58)
[2021-03-16] MEDS ORDERED: VANCOMYCIN TROUGH ONE (05:30)
[2021-03-16 06:03] LABS: Basophils # (auto) 0.05 K/uL (0-0.2); Basophils % (auto) 0.8 %; Eosinophils # (auto) 0.19 K/uL (0-0.5); Eosinophils % (auto) 2.9 %; Hematocrit (blood only) 34.8 % (42-52); Hemoglobin 11.5 g/dL (14.0-18.0); Immature Granulocytes # (auto) 0.01 K/uL (0.00-0.02); Immature Granulocytes % (auto) 0.2 %; Lymphocytes # (auto) 2.92 K/uL (1.2-3.4); Lymphocytes % (auto) 44.5 %; Mean Corpuscular Hemoglobin 31.1 pg (25-34); Mean Corpuscular Volume 94.1 fL (80-100); Mean Platelet Volume 9.7 fL (7.4-10.4); Monocytes # (auto) 0.49 K/uL (0.11-0.59); Monocytes % (auto) 7.5 %; Neutrophils % (auto) 44.1 %; Platelet Count 337 K/uL (130-400); RDW Standard Deviation 44.3 fL (36.4-46.3); White Blood Count 6.56 K/uL (4.8-10.8)
[2021-03-16] MEDS: VANCOMYCIN HCL 750 MG in SODIUM CHLORIDE 0.9% 250 ML IV SCH (06:13)
[2021-03-16 06:30] LABS: BUN Creatinine Ratio 13.9 (10-20); Calcium 8.7 mg/dl (8.5-10.1); Creatinine Clr Calc Pharmacy 68.5 ml/min; Est GFR (African American) 100.8 ml/min; Est GFR (Non-African American) 86.9 ml/min; Potassium 3.9 mmol/L (3.5-5.1)
[2021-03-16 06:34] LABS: Phosphorus 3.1 mg/dl (2.5-4.9)
--- NOTE | 2021-03-16 07:30 | Pharmacy Report ---
Pharmacy Abx Dose Short Note - Date of Service March 16, 2021 - Assessment & Plan Assessment 75 year old M receiving Vancomycin for treatment of Edwards Catheter infection. Blood culture 2 shows gram + cocci clusters with a - PCR for s.aureus/MRSA. Will follow cultures to see if Vancomycin still appropriate Day # 3/14 of antimicrobial therapy. Catheter to be removed until infection is cleared. Plan Vancomycin * Trough level of 11.3 mcg/mL is subtherapeutic, target 15-20 * Increase dose of 750mg IV q12h to 1000mg IV q12h * Trough level will be redrawn 03/18 at 0130 Pharmacy will continue to follow and will adjust dose/frequency as necessary. Thank you.
[2021-03-16] MEDS: CODEINE SULFATE 30 MG TAB PO SCH ×4 (08:05→21:06)
[2021-03-16] MEDS: buPROPion SR 100 MG TABCR PO SCH (08:06)
[2021-03-16] MEDS: IRON POLYSACCHARIDE COMPLEX 150 MG CAPSULE PO SCH ×2 (08:06→21:08)
[2021-03-16] MEDS: PANCREAZE (LIPASE 10,500U) CAP PO SCH ×3 (08:06→17:31)
[2021-03-16] MEDS: LOPERAMIDE HCL 2 MG CAP PO SCH ×4 (08:06→21:06)
[2021-03-16] MEDS: CHOLECALCIFEROL 1,000 UNITS 25 MCG TAB PO SCH ×2 (08:06→21:07)
[2021-03-16] MEDS: lisinopril 5 MG TAB PO SCH (08:06)
[2021-03-16] MEDS: DIPHENOXYLATE/ATROPINE 2.5/0.025MG TAB PO SCH ×4 (08:07→21:06)
--- NOTE | 2021-03-16 10:24 | History & Physical Bridge Note ---
Date of Service March 16, 2021 History & Physical Bridge Note Patient for removal of his cobb catheter today. I have discussed the risks options and benefits of the procedure with the patient. The patient understands the risks options and benefits and agrees to the procedure. I have examined the patient, reviewed the History & Physical and in the interval since the performance of the History & Physical I have noted the following changes of clinical significance: no changes noted
[2021-03-16] MEDS ORDERED: LIDOCAINE 1% LOCAL 20 ML VIAL ONE (11:33)
--- NOTE | 2021-03-16 12:37 | Pre Anesthesia Assessment ---
Date of Service March 16, 2021 Pre Sedation Assessment Vital Signs Temp Pulse Resp BP Pulse Ox Pulse Ox 03/16/21 11:23 37.1 C 58 L 18 159/79 H 98 03/16/21 07:39 36.3 C L 53 L 16 145/76 H 98 03/15/21 22:53 36.7 C 56 L 14 109/68 98 03/15/21 20:10 97 03/15/21 15:41 36.6 C 18 101/52 L 97 Cardiovascular RRR, no murmur, no edema Respiratory normal respiratory effort, lungs clear to auscultation Pre-Sedation Airway Assessment Smoking Status: Former smoker Hx Sleep Apnea: Yes Short, Thick Neck: No Thyromental Distance: > or= 3.5 Finger Breadths Oral Cavity: + WNL Mallampati Class: III ASA: ASA2 NPO Status Date of Last Intake of Fluids: 03/15/21 Time of Last Intake of Fluids: 23:00 Date of Last Intake of Solid Food: 03/15/21 Time of Last Intake of Solid Foods: 23:00 Procedure Planning Contraindications for Sedation: none Current Medications Reviewed: Yes Notes The planned sedation has been discussed with the patient. Informed Consent was obtained. I have identified the patient, determined the appropriateness of sedation and have assessed the patient immediately prior to the procedure. All medicine(s) and interventions are by my order.
[2021-03-16] MEDS ORDERED: MIDAZOLAM HCL 1 MG/ML 2ML VIAL ONE (12:57)
[2021-03-16] MEDS ORDERED: fentaNYL citrate 100 MCG/2 ML VIAL ONE (12:57)
--- NOTE | 2021-03-16 13:11 | Operative Report ---
Post Operative Report Pre & Post Diagnosis Operation Date: 03/16/21 12:00 Pre-Op Diagnosis: infected edwards Post-Op Diagnosis: infected edwards I identified the patient and participated in the time-out.: Yes Procedure Operation Date: 03/16/21 12:00 Actual Procedures p Edwards Catheter Removal, Moderate Sedation [id number](Right) - Ulises Mohan MD Surgeon Ulises Mohan MD Engine Wiper none Estimated Blood Loss 0 Findings Consistent with Post-Op Diagnosis Specimens none Complications none Disposition Accompanied Patient To Recovery: No Disposition: Recovery Room Indications This is a 75-year-old man who has a Edwards catheter in place for TPN. He was admitted with sepsis and positive blood cultures most likely from his catheter. Removal was recommended. I have discussed the risks options and benefits of the procedure with the patient. The patient understands the risks options and benefits and agrees to the procedure. Description of Procedure The patient was taken to the angio suite and placed in the supine position. The patient was identified and a timeout performed. The right side of the neck, chest wall and catheter were prepped and draped in a sterile manner. Local anesthesia was then accomplished. Using sharp and blunt dissection, the cuff of the Edwards was freed up from the surrounding fibrous tissue. The Edwards and cuff were completely removed. Pressure was then applied and adequate hemostasis was obtained. A sterile dressing was then applied. The patient left the operation room in satisfactory condition and tolerated the procedure well. All needle and sponge counts were correct at the end of the procedure. I attest to the content of the Intraoperative Record and any orders documented therein. Any exceptions are noted below.
--- NOTE | 2021-03-16 13:20 | Post Anesthesia Assessment ---
Date of Service March 16, 2021 Post Sedation Assessment Vital Signs Temp Pulse Pulse Resp BP Pulse Ox Pulse Ox 03/16/21 13:13 55 L 16 133/75 96 03/16/21 13:08 59 L 16 133/70 98 03/16/21 13:06 53 L 16 133/70 100 03/16/21 13:01 56 L 18 160/79 H 100 03/16/21 12:59 53 L 18 139/89 99 03/16/21 11:23 37.1 C 58 L 18 159/79 H 98 03/16/21 07:39 36.3 C L 53 L 16 145/76 H 98 03/15/21 22:53 36.7 C 56 L 14 109/68 98 03/15/21 20:10 97 03/15/21 15:41 36.6 C 18 101/52 L 97 Recovery Score Activity: Moves 4 extremities Respiration: Deep Breath/Cough Circulation: +/-20% PreAnes Value Consciousness: Fully Awake Oxygen Saturation: > 92% On Room Air Post Anesthesia Score: 10 Discharge Sedation Level of Care: Fast Track Phase II Post Sedation Plan On clinical assessment, the patient appears to have tolerated the sedation without complications. Patient is recovering as anticipated. Patient will continue to be monitored by nursing and may be discharged when sedation discharge criteria are met per below protocol. Upon Completions of procedure up to 15 minutes continue every 5 minute vital signs and the P.A.R. score; then discharge to a Phase I or Fast Track to Phase II per the following guidelines: * Discharge Patient to appropriate Phase II area if PAR is 8 or greater or return to pre- procedure baseline. The post - procedure orders will be as directed. * If PAR score is less than 8 or not return to pre-procedure baseline then patient will follow Phase I monitoring till PAR is reached for Phase II. The Phase I may be done in procedure room or may call to secure a Phase I area. * If naloxone or flumazenil are used for reversal, hold in Phase I for continued monitoring from when last reversal dose was given for a minimum of 60 minutes or longer pending the nurse and/or physician discretion of patient condition before discharge to Phase II. Please call the Sedation Physician to re-evaluate and complete post-note for discharge to Phase II area. Do NOT discharge from procedure sedation or Phase 1 until post- sedation evaluation note is complete by procedure /sedation MD Sedation Discharge Instructions to be given to the patient at discharge to home.
[2021-03-16] MEDS: VANCOMYCIN HCL 1,000 MG in SODIUM CHLORIDE 0.9% 250 ML IV SCH (15:02)
--- NOTE | 2021-03-16 16:17 | Hospitalist Progress Note ---
Date of Service March 16, 2021 Assessment & Plan (1) Infection of intravenous catheter: Plan: Edwards Catheter Infection -Blood cultures 1 set of 2+ for coagulase-negative staph (non-lugdunensis). Continue vancomycin, discussed with lab tomorrow regarding mecA testing was performed and whether narrowing to a early generation cephalosporin/penicillin would have improved efficacy. Given indwelling catheter recommend 7 to 14-day course of treatment Edwards catheter removed 03/16, catheter Tip sent for culture No leukocytosis - Continue vancomycin - Pt with similar episode and replacement several months ago - Surveillance BC 03/17 post removal Hold TPN, patient get some nutrition from orals and will supplement with crystalloid (2) HTN (hypertension): Plan: Blood pressure stable at 122/63, continue occasions as per outpatient (3) Short gut syndrome: Plan: Regular diet TPN held as catheter infected, supplement with crystalloid Continue Creon (4) Ulcerative colitis: Plan: Patient status post total colectomy with ileostomy, stable (5) On total parenteral nutrition (TPN): Plan: Held as noted (6) Positive blood culture: Plan: Repeat pending post catheter removal as noted (7) Anxiety: Plan: Controlled, no exacerbation at visit (8) BPH (benign prostatic hyperplasia): Plan: Continue finasteride Continue send Bladder as needed for reduced output Plan: DVT prophylaxis: SCDs, Lovenox CODE STATUS: Full code Disposition: MedSur, pending infected catheter removal Admission and Anticipated Discharge Date Admission Date: March 14, 2021 Subjective Patient is seen at bedside this morning, pleasant and in no acute distress. Reports he felt well overnight and has not had any fever, chills, sweats, shaking chills. He reports he has had a good appetite, and has not had any nausea or vomiting. Denies chest pain, chest pressure, palpitations, shortness of breath, difficulty breathing. He continues to have no pain overlying his Edwards catheter. He reports the output into his ostomy bag has remained normal with no changes. Requests that his be given an update when possible on his case, and is curious about the catheter types which vascular surgery may use when he is ready to have it replaced, otherwise no questions or concerns this morning. Review of Systems Review of Systems: 10 point review systems negative Physical Exam Physical Exam: General: A&Ox3. NAD. Cooperative. Nontoxic. HEENT: Atraumatic, normocephalic. Visual acuity grossly intact hearing grossly intact Thorax: Edwards catheter present at right upper chest, take addressing overlying and intact. No surrounding erythema, warmth, or tenderness but small amount of brown/yellow spots continue to be appreciated where catheter meets the skin Pulm: CTAB A&P. -wheezes, -rales, -rhonchi. Symmetrical chest rise. No increase work of breathing. No respiratory distress. Cardiac: RRR, -mrg. Radial pulses intact and symmetrical. Abdominal: Nontender, nondistended, soft. BS present. Ostomy present at right abdomen, no surrounding erythema, discharge, tenderness. Results & Data Results & Data ([facility]) Vital Signs (Past 12 Hours) Vital Signs Temp Pulse Pulse Resp BP BP Pulse Ox 03/16/21 15:30 36.5 C 65 16 116/58 L 94 03/16/21 15:00 36.9 C 65 17 113/64 96 03/16/21 14:00 70 16 144/74 H 94 03/16/21 13:45 36.7 C 57 L 17 128/70 96 03/16/21 13:30 36.7 C 55 L 16 136/70 95 03/16/21 13:13 55 L 16 133/75 96 03/16/21 13:08 59 L 16 133/70 98 03/16/21 13:06 53 L 16 133/70 100 03/16/21 13:01 56 L 18 160/79 H 100 03/16/21 12:59 53 L 18 139/89 99 03/16/21 11:23 37.1 C 58 L 18 159/79 H 98 03/16/21 07:39 36.3 C L 53 L 16 145/76 H 98 PG Care Time/CCT Total # of Minutes Spent Total Time Spent with Patient: Total time spent is greater than 50% in coordination of care (as documented) at patient's floor/unit and/or counseling patient: Coding Level of Care Code 20301 Subseq Hosp Care Lvl 3 Diagnoses Infection of intravenous catheter T82.7XXA HTN (hypertension) I10 Short gut syndrome K91.2 Ulcerative colitis K51.90 On total parenteral nutrition (TPN) Z78.9 Positive blood culture R78.81 Anxiety F41.9 BPH (benign prostatic hyperplasia) N40.0
[2021-03-16] MEDS: ENOXAPARIN INJ 40 MG/0.4 ML SYR SQ SCH (21:07)
[2021-03-16] MEDS: TAMSULOSIN HCL 0.4 MG CAP PO SCH (21:08)
[2021-03-16] MEDS: FINASTERIDE 5 MG TAB PO SCH (21:08)
[2021-03-16] MEDS: PARoxetine HCL 20 MG TAB PO SCH (21:09)
[2021-03-17] MEDS: D5NSS + 20MEQ KCL 20 MEQ/1,000 ML BAG IV SCH ×2 (01:51→13:04)
[2021-03-17] MEDS: VANCOMYCIN HCL 1,000 MG in SODIUM CHLORIDE 0.9% 250 ML IV SCH ×2 (01:51→13:04)
[2021-03-17] MEDS: LOPERAMIDE HCL 2 MG CAP PO SCH ×4 (08:10→20:16)
[2021-03-17] MEDS: buPROPion SR 100 MG TABCR PO SCH (08:10)
[2021-03-17] MEDS: DIPHENOXYLATE/ATROPINE 2.5/0.025MG TAB PO SCH ×4 (08:11→20:15)
[2021-03-17] MEDS: lisinopril 5 MG TAB PO SCH (08:11)
[2021-03-17] MEDS: IRON POLYSACCHARIDE COMPLEX 150 MG CAPSULE PO SCH ×2 (08:12→20:22)
[2021-03-17] MEDS: CHOLECALCIFEROL 1,000 UNITS 25 MCG TAB PO SCH ×2 (08:12→20:17)
[2021-03-17 08:14] LABS: Basophils # (auto) 0.08 K/uL (0-0.2); Basophils % (auto) 1.2 %; Eosinophils % (auto) 1.5 %; Hematocrit (blood only) 39.6 % (42-52); Hemoglobin 13.3 g/dL (14.0-18.0); Immature Granulocytes # (auto) 0.01 K/uL (0.00-0.02); Immature Granulocytes % (auto) 0.2 %; Lymphocytes # (auto) 2.98 K/uL (1.2-3.4); Lymphocytes % (auto) 44.9 %; Mean Corpuscular Hemoglobin 31.9 pg (25-34); Mean Corpuscular Hgb Conc 33.6 g/dL (32-36); Mean Platelet Volume 10.3 fL (7.4-10.4); Monocytes # (auto) 0.49 K/uL (0.11-0.59); Monocytes % (auto) 7.4 %; Neutrophils # (auto) 2.97 K/uL (1.4-6.5); Neutrophils % (auto) 44.8 %; Platelet Count 359 K/uL (130-400); RDW Coefficient of Variation 13.2 % (11.5-14.5); RDW Standard Deviation 45.5 fL (36.4-46.3); Red Blood Count 4.17 M/uL (4.7-6.1); White Blood Count 6.63 K/uL (4.8-10.8)
[2021-03-17] MEDS: CODEINE SULFATE 30 MG TAB PO SCH ×4 (08:15→20:15)
[2021-03-17 08:44] LABS: BUN Creatinine Ratio 10.2 (10-20); Calcium 9.9 mg/dl (8.5-10.1); Creatinine Clr Calc Pharmacy 61.7 ml/min; Est GFR (African American) 96.5 ml/min; Est GFR (Non-African American) 83.3 ml/min; Potassium 3.6 mmol/L (3.5-5.1)
[2021-03-17] MEDS: PANCREAZE (LIPASE 10,500U) CAP PO SCH ×3 (09:58→18:02)
--- NOTE | 2021-03-17 18:14 | Hospitalist Progress Note ---
Date of Service March 17, 2021 Assessment & Plan (1) Infection of intravenous catheter: Plan: Edwards Catheter Infection -Blood cultures 1 set of 2+ for coagulase-negative staph (non-lugdunensis). Second gram-positive species and anaerobic bottle, pending further investigation on whether it represents the same species. Case discussed in detail with pharmacy, sensitivities being requested. Anticipate 14-day course of treatment. If appropriate will narrow to a narrow spectrum cephalosporin for efficacy; however given unknown status of meca gene and second speciation we will continue vancomycin at this time. Edwards catheter removed 03/16, catheter Tip sent for culture No leukocytosis - Continue vancomycin - Pt with similar episode and replacement several months ago - Surveillance BC 03/17 pending Hold TPN, patient get some nutrition from orals and will supplement with crystalloid Anticipate catheter replacement per vascular as long as surveillance cultures remain negative (2) HTN (hypertension): Plan: Blood pressure stable at 122/63, continue occasions as per outpatient (3) Short gut syndrome: Plan: Regular diet TPN held as catheter infected, supplement with crystalloid Continue Creon (4) Ulcerative colitis: Plan: Patient status post total colectomy with ileostomy, stable (5) On total parenteral nutrition (TPN): Plan: Held as noted (6) Positive blood culture: Plan: Repeat pending post catheter removal as noted (7) Anxiety: Plan: Controlled, no exacerbation at visit (8) BPH (benign prostatic hyperplasia): Plan: Continue finasteride Continue send Bladder as needed for reduced output Plan: DVT prophylaxis: SCDs, Lovenox CODE STATUS: Full code Disposition: [facility], pending infected catheter removal Admission and Anticipated Discharge Date Admission Date: March 16, 2021 Subjective Seen at bedside this morning, patient feels well and is in good spirits. Denies fever, chills, sweats, chest pain, chest pressure, shortness of breath, difficulty breathing at time of assessment. He reports he feels in his normal baseline level of health. No pain at the site of his Edwards removal. No questions or concerns about plan at this time. Review of Systems Review of Systems: 10 point review of systems negative Physical Exam Physical Exam: General: A&Ox3. NAD. Cooperative. Nontoxic. HEENT: Atraumatic, normocephalic. Visual acuity grossly intact hearing grossly intact Thorax: Gauze dressing over Edwards catheter removal site, trace serosanguineous staining otherwise C/D/I. No surrounding erythema, warmth, or tenderness Pulm: CTAB A&P. -wheezes, -rales, -rhonchi. Symmetrical chest rise. No increase work of breathing. No respiratory distress. Cardiac: RRR, -mrg. Radial pulses intact and symmetrical. Abdominal: Nontender, nondistended, soft. BS present. Ostomy present at right abdomen, no surrounding erythema, discharge, tenderness. Results & Data Results & Data ([facility]) Vital Signs (Past 12 Hours) Vital Signs Temp Pulse Resp BP Pulse Ox 03/17/21 15:56 37.0 C 63 16 134/75 98 03/17/21 07:45 36.6 C 54 L 16 156/72 H 97 PG Care Time/CCT Total # of Minutes Spent Total Time Spent with Patient: Total time spent is greater than 50% in coordination of care (as documented) at patient's floor/unit and/or counseling patient: Coding Level of Care Code 07707 Subseq Hosp Care Lvl 2 Diagnoses Infection of intravenous catheter T82.7XXA HTN (hypertension) I10 Short gut syndrome K91.2 Ulcerative colitis K51.90 On total parenteral nutrition (TPN) Z78.9 Positive blood culture R78.81 Anxiety F41.9 BPH (benign prostatic hyperplasia) N40.0
[2021-03-17] MEDS: ENOXAPARIN INJ 40 MG/0.4 ML SYR SQ SCH (20:17)
[2021-03-17] MEDS: TAMSULOSIN HCL 0.4 MG CAP PO SCH (20:22)
[2021-03-17] MEDS: FINASTERIDE 5 MG TAB PO SCH (20:22)
[2021-03-17] MEDS: PARoxetine HCL 20 MG TAB PO SCH (20:22)
[2021-03-18] MEDS: D5NSS + 20MEQ KCL 20 MEQ/1,000 ML BAG IV SCH ×2 (01:26→15:04)
[2021-03-18] MEDS ORDERED: VANCOMYCIN TROUGH ONE ×2 (01:30→13:30)
[2021-03-18] MEDS: VANCOMYCIN HCL 1,000 MG in SODIUM CHLORIDE 0.9% 250 ML IV SCH ×2 (02:08→15:04)
[2021-03-18 07:40] LABS: Basophils # (auto) 0.06 K/uL (0-0.2); Eosinophils # (auto) 0.09 K/uL (0-0.5); Eosinophils % (auto) 1.5 %; Hematocrit (blood only) 36.4 % (42-52); Hemoglobin 12.2 g/dL (14.0-18.0); Immature Granulocytes # (auto) 0.01 K/uL (0.00-0.02); Immature Granulocytes % (auto) 0.2 %; Lymphocytes % (auto) 37.8 %; Mean Corpuscular Hemoglobin 31.7 pg (25-34); Mean Corpuscular Hgb Conc 33.5 g/dL (32-36); Mean Corpuscular Volume 94.5 fL (80-100); Monocytes # (auto) 0.47 K/uL (0.11-0.59); Monocytes % (auto) 7.7 %; Neutrophils # (auto) 3.15 K/uL (1.4-6.5); Neutrophils % (auto) 51.8 %; Platelet Count 305 K/uL (130-400); RDW Coefficient of Variation 13.1 % (11.5-14.5); RDW Standard Deviation 45.5 fL (36.4-46.3); Red Blood Count 3.85 M/uL (4.7-6.1); White Blood Count 6.08 K/uL (4.8-10.8)
[2021-03-18 08:06] LABS: BUN Creatinine Ratio 8.7 (10-20); Calcium 9.3 mg/dl (8.5-10.1); Creatinine Clr Calc Pharmacy 62.4 ml/min; Est GFR (African American) 96.9 ml/min; Est GFR (Non-African American) 83.6 ml/min; Potassium 4.1 mmol/L (3.5-5.1)
[2021-03-18] MEDS: DIPHENOXYLATE/ATROPINE 2.5/0.025MG TAB PO SCH ×4 (08:25→20:13)
[2021-03-18] MEDS: CODEINE SULFATE 30 MG TAB PO SCH ×4 (08:25→20:13)
[2021-03-18] MEDS: LOPERAMIDE HCL 2 MG CAP PO SCH ×4 (08:25→20:15)
[2021-03-18] MEDS: lisinopril 5 MG TAB PO SCH (09:13)
[2021-03-18] MEDS: buPROPion SR 100 MG TABCR PO SCH (09:14)
[2021-03-18] MEDS: IRON POLYSACCHARIDE COMPLEX 150 MG CAPSULE PO SCH ×2 (09:14→20:14)
[2021-03-18] MEDS: CHOLECALCIFEROL 1,000 UNITS 25 MCG TAB PO SCH ×2 (09:14→20:13)
[2021-03-18] MEDS: PANCREAZE (LIPASE 10,500U) CAP PO SCH ×3 (09:15→17:42)
--- NOTE | 2021-03-18 12:19 | Hospitalist Progress Note ---
Date of Service March 18, 2021 Assessment & Plan (1) Infection of intravenous catheter: Plan: Bacteremia 2/2 Edwards Catheter Infection -Blood cultures 1 set of 2+ for coagulase-negative staph (non-lugdunensis). Second gram-positive species grown from anaerobic bottle, pending sensitivities. Case discussed in detail with pharmacy, sensitivities from aerobic also being requested. Anticipate 14-day course of treatment. If appropriate will narrow to a narrow spectrum cephalosporin for efficacy; however given unknown status of meca gene and second speciation we will continue vancomycin at this time. Patient bacteremic, but did not meet qSOFA or SIRS definition of sepsis on admission Edwards catheter removed 03/16, catheter Tip sent for culture No leukocytosis - Continue vancomycin - Pt with similar episode and replacement several months ago - Surveillance BC 03/17 pending, no growth to date Hold TPN, patient get some nutrition from orals and will supplement with crystalloid Anticipate catheter replacement per vascular as long as surveillance cultures remain negative on 03/21 (2) HTN (hypertension): Plan: Blood pressure stable at 122/63, continue occasions as per outpatient (3) Short gut syndrome: Plan: Regular diet TPN held as catheter infected, supplement with crystalloid Continue Creon (4) Ulcerative colitis: Plan: Patient status post total colectomy with ileostomy, stable (5) On total parenteral nutrition (TPN): Plan: Held as noted (6) Positive blood culture: Plan: Repeat pending post catheter removal as noted (7) Anxiety: Plan: Controlled, no exacerbation at visit (8) BPH (benign prostatic hyperplasia): Plan: Continue finasteride Continue send Bladder as needed for reduced output Plan: DVT prophylaxis: SCDs, Lovenox CODE STATUS: Full code Disposition: MedSurg, pending Edwards replacement Admission and Anticipated Discharge Date Admission Date: March 16, 2021 Diamond Barone seen at the bedside. He is in good spirits, reports he feels well with no clinical change. No fever, chills, sweats, difficulty breathing, chest pain, chest pressure. His prior Edwards site has no pain, erythema, or discharge. He has been told by vascular that they anticipate replacement of the catheter on Sunday, otherwise he is undergoing antibiotic treatment with surveillance cultures pending until that. He feels he is getting good nutrition at this time orally supplemented with his IV fluids, does not feel lightheaded or dizzy or like he is dehydrated at this time. No additional questions or concerns at this time Review of Systems Review of Systems: 10 point review of systems negative and noted in HPI Physical Exam Physical Exam: General: A&Ox3. NAD. Cooperative. Nontoxic. HEENT: Atraumatic, normocephalic. Visual acuity grossly intact hearing grossly intact Thorax: Gauze dressing over Edwards catheter removal site, trace serosanguineous staining otherwise C/D/I. No surrounding erythema, warmth, or tenderness Pulm: CTAB A&P. -wheezes, -rales, -rhonchi. Symmetrical chest rise. No increase work of breathing. No respiratory distress. Cardiac: RRR, -mrg. Radial pulses intact and symmetrical. Abdominal: Nontender, nondistended, soft. BS present. Ostomy present at right abdomen, no surrounding erythema, discharge, tenderness. Results & Data Results & Data ([facility]) Vital Signs (Past 12 Hours) Vital Signs Temp Pulse Resp BP Pulse Ox 03/18/21 07:00 36.9 C 55 L 18 164/80 H 98 PG Care Time/CCT Total # of Minutes Spent Total Time Spent with Patient: Total time spent is greater than 50% in coordination of care (as documented) at patient's floor/unit and/or counseling patient: Coding Level of Care Code 59051 Subseq Hosp Care Lvl 2 Diagnoses Infection of intravenous catheter T82.7XXA HTN (hypertension) I10 Short gut syndrome K91.2 Ulcerative colitis K51.90 On total parenteral nutrition (TPN) Z78.9 Positive blood culture R78.81 Anxiety F41.9 BPH (benign prostatic hyperplasia) N40.0
--- NOTE | 2021-03-18 16:37 | Pharmacy Report ---
Pharmacy Vanc AUC Short Note - Date of Service March 18, 2021 - Assessment & Plan Assessment 75 year old M receiving VANC 1000MG IV Q12H. Day # 4 of antimicrobial therapy. Plan Vancomycin * AUC/OCTAVIO is the preferred PK/PD target for vancomycin * AUC guided dosing is effective and associated with decreased risk of nephrotoxicity compared to traditional trough targets * Trough level of 14.1 mcg/mL is predicted to achieve target AUC/OCTAVIO of 400-600 mg/L.hr and may be associated with a 12% risk of nephrotoxicity * Continue dose of VANC 1000mg IV every 12 hours * Will monitor renal function to guide subsequent level ordering. Pharmacy will continue to follow and will adjust dose/frequency as necessary. Thank you.
[2021-03-18] MEDS: ENOXAPARIN INJ 40 MG/0.4 ML SYR SQ SCH (20:14)
[2021-03-18] MEDS: FINASTERIDE 5 MG TAB PO SCH (20:14)
[2021-03-18] MEDS: PARoxetine HCL 20 MG TAB PO SCH (20:15)
[2021-03-18] MEDS: TAMSULOSIN HCL 0.4 MG CAP PO SCH (20:16)
[2021-03-19] MEDS: VANCOMYCIN HCL 1,000 MG in SODIUM CHLORIDE 0.9% 250 ML IV SCH ×2 (02:13→14:55)
[2021-03-19] MEDS: D5NSS + 20MEQ KCL 20 MEQ/1,000 ML BAG IV SCH ×2 (02:14→15:00)
[2021-03-19 06:40] LABS: Basophils # (auto) 0.06 K/uL (0-0.2); Basophils % (auto) 0.8 %; Eosinophils # (auto) 0.15 K/uL (0-0.5); Eosinophils % (auto) 2.1 %; Hematocrit (blood only) 35.7 % (42-52); Hemoglobin 11.6 g/dL (14.0-18.0); Lymphocytes # (auto) 2.68 K/uL (1.2-3.4); Lymphocytes % (auto) 37.4 %; Mean Corpuscular Hemoglobin 30.9 pg (25-34); Mean Corpuscular Hgb Conc 32.5 g/dL (32-36); Mean Corpuscular Volume 94.9 fL (80-100); Mean Platelet Volume 9.8 fL (7.4-10.4); Monocytes # (auto) 0.57 K/uL (0.11-0.59); Monocytes % (auto) 7.9 %; Neutrophils # (auto) 3.71 K/uL (1.4-6.5); Neutrophils % (auto) 51.8 %; Platelet Count 283 K/uL (130-400); RDW Coefficient of Variation 13.1 % (11.5-14.5); RDW Standard Deviation 45.2 fL (36.4-46.3); Red Blood Count 3.76 M/uL (4.7-6.1); White Blood Count 7.17 K/uL (4.8-10.8)
[2021-03-19 07:14] LABS: BUN Creatinine Ratio 8.9 (10-20); Calcium 9.1 mg/dl (8.5-10.1); Creatinine Clr Calc Pharmacy 63.8 ml/min; Est GFR (African American) 97.8 ml/min; Est GFR (Non-African American) 84.4 ml/min; Potassium 3.9 mmol/L (3.5-5.1)
[2021-03-19] MEDS: CODEINE SULFATE 30 MG TAB PO SCH ×4 (07:55→20:21)
[2021-03-19] MEDS: DIPHENOXYLATE/ATROPINE 2.5/0.025MG TAB PO SCH ×4 (07:55→20:26)
[2021-03-19] MEDS: LOPERAMIDE HCL 2 MG CAP PO SCH ×4 (07:55→20:27)
[2021-03-19] MEDS: PANCREAZE (LIPASE 10,500U) CAP PO SCH ×3 (07:57→17:06)
[2021-03-19] MEDS: IRON POLYSACCHARIDE COMPLEX 150 MG CAPSULE PO SCH ×2 (08:26→20:25)
[2021-03-19] MEDS: buPROPion SR 100 MG TABCR PO SCH (08:26)
[2021-03-19] MEDS: lisinopril 5 MG TAB PO SCH (08:26)
[2021-03-19] MEDS: CHOLECALCIFEROL 1,000 UNITS 25 MCG TAB PO SCH ×2 (08:26→20:25)
--- NOTE | 2021-03-19 14:40 | Hospitalist Progress Note ---
Date of Service March 19, 2021 Assessment & Plan (1) Infection of intravenous catheter: Plan: Bacteremia 2/2 Edwards Catheter Infection -Blood cultures positive for coag negative staph and staph species, 2 species isolated. Catheter tip also positive for staph species. Both staph isolates negative for MRSA by PCR. Anticipate 14-day course of treatment, based on negative MRSA patient is a candidate for early generation cephalosporin therapy. Catheter tip sensitivities remain pending. We will continue vancomycin at this time. Patient bacteremic, but did not meet qSOFA or SIRS definition of sepsis on admission Edwards catheter removed 03/16, catheter Tip sent for culture No leukocytosis - Continue vancomycin - Pt with similar episode and replacement several months ago - Surveillance BC 03/17 pending, no growth to date Hold TPN, patient get some nutrition from orals and will supplement with crystalloid Anticipate catheter replacement per vascular as long as surveillance cultures remain negative on 03/21 (2) HTN (hypertension): Plan: Blood pressure stable at 122/63, continue occasions as per outpatient (3) Short gut syndrome: Plan: Regular diet TPN held as catheter infected, supplement with crystalloid Continue Creon (4) Ulcerative colitis: Plan: Patient status post total colectomy with ileostomy, stable (5) On total parenteral nutrition (TPN): Plan: Held as noted (6) Positive blood culture: Plan: Repeat pending post catheter removal as noted (7) Anxiety: Plan: Controlled, no exacerbation at visit (8) BPH (benign prostatic hyperplasia): Plan: Continue finasteride Continue send Bladder as needed for reduced output Plan: DVT prophylaxis: SCDs, Lovenox CODE STATUS: Full code Disposition: [facility], pending Edwards replacement Admission and Anticipated Discharge Date Admission Date: March 16, 2021 Subjective Patient is seen at bedside. He is in no acute distress, comfortable, reported he feels well with a good view and sunshine from the window. He reports he has no symptoms, including fever/chills/sweats, chest pain, chest pressure, lightheadedness, dizziness, difficulty breathing, cough. He continues to have normal output from his ostomy, and no pain at his Edwards removal site. Reports he feels comfortable waiting until replacement on Sunday, otherwise no concerns today. Appreciative of update being given to his by phone. Review of Systems Review of Systems: 10 point review of systems negative today Physical Exam Physical Exam: General: A&Ox3. NAD. Cooperative. Nontoxic. HEENT: Atraumatic, normocephalic. Visual acuity grossly intact hearing grossly intact Thorax: Gauze dressing over Edwards catheter removal site, gauze dressing remains C/D/I. No surrounding erythema, warmth, or tenderness Pulm: CTAB A&P. -wheezes, -rales, -rhonchi. Symmetrical chest rise. No increase work of breathing. No respiratory distress. Cardiac: RRR, -mrg. Radial pulses intact and symmetrical. Abdominal: Nontender, nondistended, soft. BS present. Ostomy present at right abdomen, no surrounding erythema, discharge, tenderness. Results & Data Results & Data ([facility]) Vital Signs (Past 12 Hours) Vital Signs Temp Pulse Resp BP Pulse Ox 03/19/21 07:26 36.6 C 60 16 159/68 H 99 PG Care Time/CCT Total # of Minutes Spent Total Time Spent with Patient: Total time spent is greater than 50% in coordination of care (as documented) at patient's floor/unit and/or counseling patient: Coding Level of Care Code 31257 Subseq Hosp Care Lvl 2 Diagnoses Infection of intravenous catheter T82.7XXA HTN (hypertension) I10 Short gut syndrome K91.2 Ulcerative colitis K51.90 On total parenteral nutrition (TPN) Z78.9 Positive blood culture R78.81 Anxiety F41.9 BPH (benign prostatic hyperplasia) N40.0
[2021-03-19] MEDS: PARoxetine HCL 20 MG TAB PO SCH (20:24)
[2021-03-19] MEDS: TAMSULOSIN HCL 0.4 MG CAP PO SCH (20:25)
[2021-03-19] MEDS: FINASTERIDE 5 MG TAB PO SCH (20:26)
[2021-03-19] MEDS: ENOXAPARIN INJ 40 MG/0.4 ML SYR SQ SCH (20:27)
[2021-03-20] MEDS: VANCOMYCIN HCL 1,000 MG in SODIUM CHLORIDE 0.9% 250 ML IV SCH (01:48)
[2021-03-20] MEDS: D5NSS + 20MEQ KCL 20 MEQ/1,000 ML BAG IV SCH ×2 (03:44→16:15)
[2021-03-20 07:48] LABS: Basophils # (auto) 0.07 K/uL (0-0.2); Eosinophils # (auto) 0.14 K/uL (0-0.5); Eosinophils % (auto) 1.9 %; Hematocrit (blood only) 34.1 % (42-52); Hemoglobin 11.2 g/dL (14.0-18.0); Immature Granulocytes # (auto) 0.01 K/uL (0.00-0.02); Immature Granulocytes % (auto) 0.1 %; Lymphocytes # (auto) 2.73 K/uL (1.2-3.4); Lymphocytes % (auto) 37.4 %; Mean Corpuscular Hgb Conc 32.8 g/dL (32-36); Mean Corpuscular Volume 94.5 fL (80-100); Mean Platelet Volume 10.4 fL (7.4-10.4); Monocytes # (auto) 0.68 K/uL (0.11-0.59); Monocytes % (auto) 9.3 %; Neutrophils # (auto) 3.67 K/uL (1.4-6.5); Neutrophils % (auto) 50.3 %; Platelet Count 254 K/uL (130-400); RDW Standard Deviation 44.5 fL (36.4-46.3); Red Blood Count 3.61 M/uL (4.7-6.1)
[2021-03-20 08:08] LABS: BUN Creatinine Ratio 8.1 (10-20); Calcium 9.4 mg/dl (8.5-10.1); Creatinine Clr Calc Pharmacy 62.4 ml/min; Est GFR (African American) 96.9 ml/min; Est GFR (Non-African American) 83.6 ml/min; Potassium 4.3 mmol/L (3.5-5.1)
[2021-03-20] MEDS: LOPERAMIDE HCL 2 MG CAP PO SCH ×4 (08:10→20:38)
[2021-03-20] MEDS: DIPHENOXYLATE/ATROPINE 2.5/0.025MG TAB PO SCH ×4 (08:10→20:40)
[2021-03-20] MEDS: CODEINE SULFATE 30 MG TAB PO SCH ×4 (08:10→20:36)
[2021-03-20] MEDS: PANCREAZE (LIPASE 10,500U) CAP PO SCH ×3 (09:06→17:44)
[2021-03-20] MEDS: buPROPion SR 100 MG TABCR PO SCH (09:17)
[2021-03-20] MEDS: lisinopril 5 MG TAB PO SCH (09:17)
[2021-03-20] MEDS: CHOLECALCIFEROL 1,000 UNITS 25 MCG TAB PO SCH ×2 (09:17→20:37)
[2021-03-20] MEDS: IRON POLYSACCHARIDE COMPLEX 150 MG CAPSULE PO SCH ×2 (09:17→20:39)
--- NOTE | 2021-03-20 12:04 | Hospitalist Progress Note ---
Date of Service March 20, 2021 Assessment & Plan (1) Infection of intravenous catheter: Plan: Bacteremia 2/2 Edwards Catheter Infection -Blood cultures positive for coag negative staph and staph species, 2 species initially isolated follow-up testing indicate same species/strain. Catheter tip also positive for staph species. Negative for MRSA by PCR. Vancomycin discontinued and cefazolin started for de-escalation of care and improved efficacy of low generation flow Sporn. Patient bacteremic, but did not meet qSOFA or SIRS definition of sepsis on admission Edwards catheter removed 03/16, catheter Tip sent for culture as noted No leukocytosis -New cefazolin 2 g every 8 hours anticipate 14-day total course - Pt with similar episode and replacement several months ago - Surveillance BC 03/17 pending, no growth to date Hold TPN, patient get some nutrition from orals and will supplement with crystalloid Anticipate catheter replacement per vascular as long as surveillance cultures remain negative on 03/21 (2) HTN (hypertension): Plan: Blood pressure stable at 122/63, continue occasions as per outpatient (3) Short gut syndrome: Plan: Regular diet TPN held as catheter infected, supplement with crystalloid Continue Creon (4) Ulcerative colitis: Plan: Patient status post total colectomy with ileostomy, stable (5) On total parenteral nutrition (TPN): Plan: Held as noted (6) Positive blood culture: Plan: Repeat pending post catheter removal as noted (7) Anxiety: Plan: Controlled, no exacerbation at visit (8) BPH (benign prostatic hyperplasia): Plan: Continue finasteride Continue send Bladder as needed for reduced output Plan: DVT prophylaxis: SCDs, Lovenox, Lovenox to be held the morning of 03/21 pending vascular surgery CODE STATUS: Full code Disposition: Gabe, pending Edwards replacement Admission and Anticipated Discharge Date Admission Date: March 16, 2021 Subjective Patient seen at bedside this morning. Alert, awake, no acute distress. Reports he feels well, no symptoms overnight including fever, chills, sweats, pain in his prior Edwards site, bleeding, lightheadedness, dizziness, melena, abdominal pain, increased ostomy output. Discussed plan, and narrowing of antibiotics based on sensitivities. No additional questions or concerns Review of Systems Review of Systems: 10 point review of systems negative today Physical Exam Physical Exam: General: A&Ox3. NAD. Cooperative. Nontoxic. HEENT: Atraumatic, normocephalic. Visual acuity grossly intact hearing grossly intact Thorax: Gauze dressing over Edwards catheter removal site, C/D/I. No surrounding erythema, warmth, or tenderness Pulm: CTAB A&P. -wheezes, -rales, -rhonchi. Symmetrical chest rise. No increase work of breathing. No respiratory distress. Cardiac: RRR, -mrg. Radial pulses intact and symmetrical. Abdominal: Nontender, nondistended, soft. BS present. Ostomy present at right abdomen, no surrounding erythema, discharge, tenderness. Results & Data Results & Data ([facility]) Vital Signs (Past 12 Hours) Vital Signs Temp Pulse Resp BP Pulse Ox 03/20/21 07:05 36.8 C 54 L 16 151/77 H 96 PG Care Time/CCT Total # of Minutes Spent Total Time Spent with Patient: Total time spent is greater than 50% in coordination of care (as documented) at patient's floor/unit and/or counseling patient: Coding Level of Care Code 80591 Subseq Hosp Care Lvl 2 Diagnoses Infection of intravenous catheter T82.7XXA HTN (hypertension) I10 Short gut syndrome K91.2 Ulcerative colitis K51.90 On total parenteral nutrition (TPN) Z78.9 Positive blood culture R78.81 Anxiety F41.9 BPH (benign prostatic hyperplasia) N40.0
[2021-03-20] MEDS: ceFAZolin 2000MG 2,000 MG/15 ML SYR IV SCH ×2 (14:24→21:53)
[2021-03-20] MEDS: FINASTERIDE 5 MG TAB PO SCH (20:37)
[2021-03-20] MEDS: PARoxetine HCL 20 MG TAB PO SCH (20:38)
[2021-03-20] MEDS: TAMSULOSIN HCL 0.4 MG CAP PO SCH (20:38)
[2021-03-20] MEDS: ENOXAPARIN INJ 40 MG/0.4 ML SYR SQ SCH (20:40)
[2021-03-21] MEDS: D5NSS + 20MEQ KCL 20 MEQ/1,000 ML BAG IV SCH (04:50)
[2021-03-21 05:22] LABS: Basophils # (auto) 0.05 K/uL (0-0.2); Basophils % (auto) 0.6 %; Eosinophils # (auto) 0.18 K/uL (0-0.5); Eosinophils % (auto) 2.2 %; Hematocrit (blood only) 37.1 % (42-52); Hemoglobin 12.2 g/dL (14.0-18.0); Immature Granulocytes # (auto) 0.02 K/uL (0.00-0.02); Immature Granulocytes % (auto) 0.2 %; Lymphocytes # (auto) 2.82 K/uL (1.2-3.4); Lymphocytes % (auto) 35.1 %; Mean Corpuscular Hemoglobin 31.1 pg (25-34); Mean Corpuscular Hgb Conc 32.9 g/dL (32-36); Mean Corpuscular Volume 94.6 fL (80-100); Mean Platelet Volume 10.2 fL (7.4-10.4); Monocytes # (auto) 0.65 K/uL (0.11-0.59); Monocytes % (auto) 8.1 %; Neutrophils # (auto) 4.31 K/uL (1.4-6.5); Neutrophils % (auto) 53.8 %; Platelet Count 249 K/uL (130-400); RDW Coefficient of Variation 13.2 % (11.5-14.5); RDW Standard Deviation 45.4 fL (36.4-46.3); Red Blood Count 3.92 M/uL (4.7-6.1); White Blood Count 8.03 K/uL (4.8-10.8)
[2021-03-21 05:58] LABS: BUN Creatinine Ratio 7.8 (10-20); Calcium 9.4 mg/dl (8.5-10.1); Creatinine Clr Calc Pharmacy 56.1 ml/min; Est GFR (Non-African American) 74.2 ml/min; Potassium 4.2 mmol/L (3.5-5.1)
[2021-03-21] MEDS: ceFAZolin 2000MG 2,000 MG/15 ML SYR IV SCH ×3 (06:05→22:18)
--- NOTE | 2021-03-21 10:09 | History & Physical Bridge Note ---
Date of Service March 21, 2021 History & Physical Bridge Note Patient for insertion of marian catheter today. I have discussed the risks options and benefits of the procedure with the patient. The patient understands the risks options and benefits and agrees to the procedure. I have examined the patient, reviewed the History & Physical and in the interval since the performance of the History & Physical I have noted the following changes of clinical significance: no changes noted
[2021-03-21] MEDS ORDERED: MIDAZOLAM HCL 1 MG/ML 2ML VIAL ONE (10:39)
[2021-03-21] MEDS ORDERED: fentaNYL citrate 100 MCG/2 ML VIAL ONE (10:40)
[2021-03-21] MEDS ORDERED: HEPARIN 100 UNIT/ML 5ML FLUSH ONE (10:42)
--- NOTE | 2021-03-21 11:34 | Post Operative Brief Note ---
Immediate Post Op Note v1 Date of Surgery March 21, 2021 Pre & Post Diagnosis Operation Date: 03/16/21 12:00 Pre-Op Diagnosis: infected edwards Post-Op Diagnosis: infected edwards Operation Date: 03/21/21 10:20 Pre-Op Diagnosis: Malnutrition Post-Op Diagnosis: Malnutrition I identified the patient and participated in the time-out.: Yes Procedure Operation Date: 03/16/21 12:00 Actual Procedures p Edwards Catheter Removal, Moderate Sedation [id number](Right) - Ulises Mohan MD Operation Date: 03/21/21 10:20 Actual Procedures p Insertion Of Edwards Catheter, Right Internal Jugular Approach, Ultrasound Localization of Right Internal Jugular Vein, Fluoroscopy for Positioning, Moderate Sedation [id number] - Ulises Mohan MD Surgeon Ulises Mohan MD Rubber Press Operator MD Syeda Estimated Blood Loss 5 Findings Consistent with Post-Op Diagnosis Anesthesia Type RN Sedation Complications none Disposition Accompanied Patient To Recovery: No Disposition: Recovery Room
--- NOTE | 2021-03-21 11:36 | Operative Report ---
Post Operative Report Pre & Post Diagnosis Operation Date: 03/16/21 12:00 Pre-Op Diagnosis: infected edwards Post-Op Diagnosis: infected edwards Operation Date: 03/21/21 10:20 Pre-Op Diagnosis: Malnutrition Post-Op Diagnosis: Malnutrition I identified the patient and participated in the time-out.: Yes Procedure Operation Date: 03/16/21 12:00 Actual Procedures p Edwards Catheter Removal, Moderate Sedation [id number](Right) - Ulises Mohan MD Operation Date: 03/21/21 10:20 Actual Procedures p Insertion Of Edwards Catheter, Right Internal Jugular Approach, Ultrasound Localization of Right Internal Jugular Vein, Fluroscopy for Positioning, Moderate Sedation [id number] - Ulises Mohan MD Surgeon Ulises Mohan MD Occupational Therapy Specialist Yi Roach DO Estimated Blood Loss 5 Findings Consistent with Post-Op Diagnosis Specimens none Anesthesia Type RN Sedation Disposition Accompanied Patient To Recovery: No Disposition: Recovery Room Indications This is a 75 year old male who is TPN dependent due to short gut syndrome who required line removal due to infection, now needing new central access. Description of Procedure Patient was taken to the angio suite and placed in the supine position. The right neck and chest wall were prepped and draped in a sterile manner. The patient was identified and a timeout performed. Local anesthesia was then administered to the appropriate areas of the neck and chest wall. Ultrasound was then used to locate the right internal jugular vein. The vein compressed easily, had no filing defects, and was patent. The vein was then punctured under direct ultrasound imaging. A guidewire was then passed centrally under fluoroscopic imaging. A stab wound was then made in the anterior chest wall and Edwards catheter was passed from the stab wound on the chest wall to the puncture site on the neck. The puncture site was serially dilated until the peel away sheath was inserted. The 8Fr Edwards was then inserted through the sheath to a central position in the distal superior vena cava after it was trimmed to appropriate length. The peel away sheath was then removed. The catheter was then sutured in place using nylon sutures. The puncture was then closed using a 4-0 Vicryl subcuticular suture. Dermabond was used for a dressing on the puncture site. The port aspirated and flushed easily and was then packed with heparin. A sterile dressing was applied to the catheter. The patient left the angio suite in good condition and tolerated the procedure well. Dr. Mohan was present and scrubbed for the entire procedure. I attest to the content of the Intraoperative Record and any orders documented therein. Any exceptions are noted below.
--- NOTE | 2021-03-21 11:36 | Pre Anesthesia Assessment ---
Date of Service March 21, 2021 Pre Sedation Assessment Vital Signs Temp Pulse Pulse Resp BP BP Pulse Ox 03/21/21 11:31 57 L 20 134/72 98 03/21/21 11:26 56 L 20 131/73 100 03/21/21 11:21 56 L 20 142/73 H 100 03/21/21 11:16 56 L 18 131/78 100 03/21/21 11:11 55 L 18 145/79 H 100 03/21/21 11:06 56 L 20 164/78 H 99 03/21/21 10:55 58 L 20 154/79 H 99 03/21/21 10:31 37 C 61 20 171/80 H 98 03/20/21 23:30 36.6 C 55 L 16 119/55 L 95 03/20/21 15:09 37.2 C 54 L 16 121/64 96 Cardiovascular RRR, no murmur, no edema Respiratory normal respiratory effort, lungs clear to auscultation Pre-Sedation Airway Assessment Smoking Status: Former smoker Hx Sleep Apnea: Yes Short, Thick Neck: No Thyromental Distance: > or= 3.5 Finger Breadths Oral Cavity: + WNL Mallampati Class: III ASA: ASA2 NPO Status Date of Last Intake of Fluids: 03/20/21 Time of Last Intake of Fluids: 22:00 Date of Last Intake of Solid Food: 03/20/21 Time of Last Intake of Solid Foods: 22:00 Procedure Planning Contraindications for Sedation: none Current Medications Reviewed: Yes Notes The planned sedation has been discussed with the patient. Informed Consent was obtained. I have identified the patient, determined the appropriateness of sedation and have assessed the patient immediately prior to the procedure. All medicine(s) and interventions are by my order.
--- NOTE | 2021-03-21 11:39 | Post Anesthesia Assessment ---
Date of Service March 21, 2021 Post Sedation Assessment Vital Signs Temp Pulse Pulse Resp BP BP Pulse Ox 03/21/21 11:36 58 L 20 134/72 99 03/21/21 11:31 57 L 20 134/72 98 03/21/21 11:26 56 L 20 131/73 100 03/21/21 11:21 56 L 20 142/73 H 100 03/21/21 11:16 56 L 18 131/78 100 03/21/21 11:11 55 L 18 145/79 H 100 03/21/21 11:06 56 L 20 164/78 H 99 03/21/21 10:55 58 L 20 154/79 H 99 03/21/21 10:31 37 C 61 20 171/80 H 98 03/20/21 23:30 36.6 C 55 L 16 119/55 L 95 03/20/21 15:09 37.2 C 54 L 16 121/64 96 Recovery Score Activity: Moves 4 extremities Respiration: Deep Breath/Cough Circulation: +/-20% PreAnes Value Consciousness: Fully Awake Oxygen Saturation: > 92% On Room Air Post Anesthesia Score: 10 Discharge Sedation Level of Care: Fast Track Phase II Post Sedation Plan On clinical assessment, the patient appears to have tolerated the sedation without complications. Patient is recovering as anticipated. Patient will continue to be monitored by nursing and may be discharged when sedation discharge criteria are met per below protocol. Upon Completions of procedure up to 15 minutes continue every 5 minute vital signs and the P.A.R. score; then discharge to a Phase I or Fast Track to Phase II per the following guidelines: * Discharge Patient to appropriate Phase II area if PAR is 8 or greater or return to pre- procedure baseline. The post - procedure orders will be as directed. * If PAR score is less than 8 or not return to pre-procedure baseline then patient will follow Phase I monitoring till PAR is reached for Phase II. The Phase I may be done in procedure room or may call to secure a Phase I area. * If naloxone or flumazenil are used for reversal, hold in Phase I for continued monitoring from when last reversal dose was given for a minimum of 60 minutes or longer pending the nurse and/or physician discretion of patient condition before discharge to Phase II. Please call the Sedation Physician to re-evaluate and complete post-note for discharge to Phase II area. Do NOT discharge from procedure sedation or Phase 1 until post- sedation evaluation note is complete by procedure /sedation MD Sedation Discharge Instructions to be given to the patient at discharge to home.
[2021-03-21 12:02] LABS: Magnesium 1.9 mg/dl (1.8-2.4); Phosphorus 3.8 mg/dl (2.5-4.9)
[2021-03-21] MEDS: DIPHENOXYLATE/ATROPINE 2.5/0.025MG TAB PO SCH ×3 (13:08→20:44)
[2021-03-21] MEDS: IRON POLYSACCHARIDE COMPLEX 150 MG CAPSULE PO SCH ×2 (13:09→20:37)
[2021-03-21] MEDS: lisinopril 5 MG TAB PO SCH (13:09)
[2021-03-21] MEDS: LOPERAMIDE HCL 2 MG CAP PO SCH ×3 (13:09→20:37)
[2021-03-21] MEDS: buPROPion SR 100 MG TABCR PO SCH (13:10)
[2021-03-21] MEDS: CHOLECALCIFEROL 1,000 UNITS 25 MCG TAB PO SCH ×2 (13:10→20:37)
[2021-03-21] MEDS: CODEINE SULFATE 30 MG TAB PO SCH ×3 (13:11→20:44)
[2021-03-21] MEDS: PANCREAZE (LIPASE 10,500U) CAP PO SCH ×2 (13:11→17:04)
[2021-03-21] MEDS ORDERED: DEXTROSE 10% 1,000 ML IV PRN (14:42)
--- NOTE | 2021-03-21 15:15 | Hospitalist Progress Note ---
Date of Service March 21, 2021 Assessment & Plan (1) Infection of intravenous catheter: Plan: Bacteremia 2/2 Cobb Catheter Infection -Blood cultures positive for coag negative staph and staph species, 2 species initially isolated follow-up testing indicate same species/strain. Catheter tip also positive for staph species. Negative for MRSA by PCR. Vancomycin discontinued and cefazolin started for de-escalation of care and improved efficacy of low generation flow Sporn. Patient bacteremic, but did not meet qSOFA or SIRS definition of sepsis on admission Cobb catheter removed 03/16, catheter Tip sent for culture as noted No leukocytosis -New cefazolin 2 g every 8 hours anticipate 14-day total course - Pt with similar episode and replacement several months ago - Surveillance BC 03/17 pending, no growth to date Hold TPN, patient get some nutrition from orals and will supplement with crystalloid Patient getting replaced cobb later today. Due to scheduling of TPN, will obtain an U/S guided peripheral line. (2) HTN (hypertension): Plan: Blood pressure stable, continue occasions as per outpatient (3) Short gut syndrome: Plan: Regular diet TPN held as catheter infected, supplement with crystalloid Continue Creon (4) Ulcerative colitis: Plan: Patient status post total colectomy with ileostomy, stable (5) On total parenteral nutrition (TPN): Plan: will restart (6) Positive blood culture: Plan: Repeat pending post catheter removal as noted (7) Anxiety: Plan: Controlled, no exacerbation at visit (8) BPH (benign prostatic hyperplasia): Plan: Continue finasteride Continue send Bladder as needed for reduced output Plan: DVT prophylaxis: SCDs, Lovenox, Lovenox to be held the morning of 03/21 pending vascular surgery CODE STATUS: Full code Disposition: Gabe, pending Cobb replacement Admission and Anticipated Discharge Date Admission Date: March 16, 2021 Subjective Patient reports feeling well. He has no new complaints. Review of Systems Review of Systems: All systems reviewed & are unremarkable except as noted in HPI & below Physical Exam Physical Exam: General: A&Ox3. NAD. Cooperative. Nontoxic. HEENT: Atraumatic, normocephalic. Visual acuity grossly intact hearing grossly intact Thorax: C/D/I. No surrounding erythema, warmth, or tenderness Pulm: CTAB A&P. -wheezes, -rales, -rhonchi. Symmetrical chest rise. No increase work of breathing. No respiratory distress. Cardiac: RRR, -mrg. Radial pulses intact and symmetrical. Abdominal: Nontender, nondistended, soft. BS present. Ostomy present at right abdomen, no surrounding erythema, discharge, tenderness Results & Data Results & Data ([facility]) Vital Signs (Past 12 Hours) Vital Signs Temp Pulse Pulse Resp BP Pulse Ox 03/21/21 11:36 58 L 20 134/72 99 03/21/21 11:31 57 L 20 134/72 98 03/21/21 11:26 56 L 20 131/73 100 03/21/21 11:21 56 L 20 142/73 H 100 03/21/21 11:16 56 L 18 131/78 100 03/21/21 11:11 55 L 18 145/79 H 100 03/21/21 11:06 56 L 20 164/78 H 99 03/21/21 10:55 58 L 20 154/79 H 99 03/21/21 10:31 37 C 61 20 171/80 H 98 PG Care Time/CCT Total # of Minutes Spent Total Time Spent with Patient: Total time spent is greater than 50% in coordination of care (as documented) at patient's floor/unit and/or counseling patient: Coding Level of Care Code 99359 Subseq Hosp Care Lvl 2 Diagnoses Infection of intravenous catheter T82.7XXA HTN (hypertension) I10 Short gut syndrome K91.2 Ulcerative colitis K51.90 On total parenteral nutrition (TPN) Z78.9 Positive blood culture R78.81 Anxiety F41.9 BPH (benign prostatic hyperplasia) N40.0 Time Spent (min) 25
[2021-03-21] MEDS ORDERED: Custom Central Pn 2,000 ML in TPN BAG 0 ML IV SCH (16:00)
[2021-03-21] MEDS: ENOXAPARIN INJ 40 MG/0.4 ML SYR SQ SCH (20:36)
[2021-03-21] MEDS: FINASTERIDE 5 MG TAB PO SCH (20:38)
[2021-03-21] MEDS: PARoxetine HCL 20 MG TAB PO SCH (20:38)
[2021-03-21] MEDS: TAMSULOSIN HCL 0.4 MG CAP PO SCH (20:38)
[2021-03-22] MEDS: ceFAZolin 2000MG 2,000 MG/15 ML SYR IV SCH ×3 (05:46→21:27)
[2021-03-22 07:05] LABS: BUN Creatinine Ratio 9.5 (10-20); Calcium 9.4 mg/dl (8.5-10.1); Creatinine Clr Calc Pharmacy 47.9 ml/min; Est GFR (Non-African American) 61.3 ml/min; Potassium 3.7 mmol/L (3.5-5.1)
[2021-03-22 07:08] LABS: Bilirubin,Total 0.6 mg/dl (0.2-1); Phosphorus 4.1 mg/dl (2.5-4.9)
[2021-03-22] MEDS: CODEINE SULFATE 30 MG TAB PO SCH ×4 (08:06→20:54)
[2021-03-22] MEDS: PANCREAZE (LIPASE 10,500U) CAP PO SCH ×3 (08:06→17:21)
[2021-03-22] MEDS: IRON POLYSACCHARIDE COMPLEX 150 MG CAPSULE PO SCH ×2 (08:07→20:59)
[2021-03-22] MEDS: lisinopril 5 MG TAB PO SCH (08:07)
[2021-03-22] MEDS: CHOLECALCIFEROL 1,000 UNITS 25 MCG TAB PO SCH ×2 (08:07→20:58)
[2021-03-22] MEDS: LOPERAMIDE HCL 2 MG CAP PO SCH ×4 (08:07→20:56)
[2021-03-22] MEDS: buPROPion SR 100 MG TABCR PO SCH (08:07)
[2021-03-22] MEDS: DIPHENOXYLATE/ATROPINE 2.5/0.025MG TAB PO SCH ×4 (08:08→20:55)
[2021-03-22 15:42] VITALS: TEMP 98.2
--- NOTE | 2021-03-22 15:55 | Hospitalist Progress Note ---
Date of Service March 22, 2021 Assessment & Plan (1) Infection of intravenous catheter: Plan: Bacteremia 2/2 Edwards Catheter Infection -Blood cultures positive for coag negative staph and staph species, 2 species initially isolated follow-up testing indicate same species/strain. Catheter tip also positive for staph species. Negative for MRSA by PCR. Vancomycin discontinued and cefazolin started for de-escalation of care and improved efficacy of low generation flow Sporn. Patient bacteremic, but did not meet qSOFA or SIRS definition of sepsis on admission Edwards catheter removed 03/16, catheter Tip sent for culture as noted No leukocytosis -New cefazolin 2 g every 8 hours anticipate 14-day total course - Pt with similar episode and replacement several months ago - Surveillance BC 03/17 pending, no growth to date resumed TPN. Edwards has been replaced. - U/S guided peripheral line has been placed. will discharge tomorrow as home halth will be set up for IV antibiotics on 03/23 (2) HTN (hypertension): Plan: Blood pressure stable, continue occasions as per outpatient (3) Short gut syndrome: Plan: Regular diet TPN held as catheter infected, supplement with crystalloid Continue Creon (4) Ulcerative colitis: Plan: Patient status post total colectomy with ileostomy, stable (5) On total parenteral nutrition (TPN): Plan: will restart (6) Positive blood culture: Plan: Repeat pending post catheter removal as noted (7) Anxiety: Plan: Controlled, no exacerbation at visit (8) BPH (benign prostatic hyperplasia): Plan: Continue finasteride Continue send Bladder as needed for reduced output Plan: DVT prophylaxis: SCDs, Lovenox, Lovenox to be held the morning of 03/21 pending vascular surgery CODE STATUS: Full code Disposition: Gabe, pending Edwards replacement Admission and Anticipated Discharge Date Admission Date: March 16, 2021 Subjective Patient reports feeling well. He has no new symptoms. Review of Systems Review of Systems: All systems reviewed & are unremarkable except as noted in HPI & below Physical Exam Physical Exam: General: A&Ox3. NAD. Cooperative. Nontoxic. HEENT: Atraumatic, normocephalic. Visual acuity grossly intact hearing grossly intact Thorax: C/D/I. No surrounding erythema, warmth, or tenderness Pulm: CTAB A&P. -wheezes, -rales, -rhonchi. Symmetrical chest rise. No increase work of breathing. No respiratory distress. Cardiac: RRR, -mrg. Radial pulses intact and symmetrical. Abdominal: Nontender, nondistended, soft. BS present. Ostomy present at right abdomen, no surrounding erythema, discharge, tenderness Results & Data Results & Data ([facility]) Vital Signs (Past 12 Hours) Vital Signs Temp Pulse Resp BP BP Pulse Ox 03/22/21 15:42 36.8 C 62 16 115/45 L 96 03/22/21 08:24 36.5 C 62 16 155/70 H 97 PG Care Time/CCT Total # of Minutes Spent Total Time Spent with Patient: Total time spent is greater than 50% in coordination of care (as documented) at patient's floor/unit and/or counseling patient: Coding Level of Care Code 38488 Subseq Hosp Care Lvl 2 Diagnoses Infection of intravenous catheter T82.7XXA HTN (hypertension) I10 Short gut syndrome K91.2 Ulcerative colitis K51.90 On total parenteral nutrition (TPN) Z78.9 Positive blood culture R78.81 Anxiety F41.9 BPH (benign prostatic hyperplasia) N40.0
[2021-03-22] MEDS ORDERED: Custom Central Pn 2,000 ML in TPN BAG 0 ML IV SCH (16:00)
[2021-03-22] MEDS ORDERED: Nursing to Pharmacy Communication SCH (19:45)
[2021-03-22] MEDS: ENOXAPARIN INJ 40 MG/0.4 ML SYR SQ SCH (20:56)
[2021-03-22] MEDS: FINASTERIDE 5 MG TAB PO SCH (20:56)
[2021-03-22] MEDS: PARoxetine HCL 20 MG TAB PO SCH (20:57)
[2021-03-22] MEDS: TAMSULOSIN HCL 0.4 MG CAP PO SCH (20:59)
[2021-03-23] MEDS: ceFAZolin 2000MG 2,000 MG/15 ML SYR IV SCH (06:13)
[2021-03-23 07:29] VITALS: PULSE 58; O2SAT 98
[2021-03-23 07:56] LABS: BUN Creatinine Ratio 21.3 (10-20); Calcium 9.6 mg/dl (8.5-10.1); Creatinine Clr Calc Pharmacy 65.3 ml/min; Est GFR (African American) 98.8 ml/min; Est GFR (Non-African American) 85.2 ml/min; Magnesium 2.1 mg/dl (1.8-2.4); Phosphorus 3.3 mg/dl (2.5-4.9); Potassium 4.4 mmol/L (3.5-5.1)
[2021-03-23] MEDS: PANCREAZE (LIPASE 10,500U) CAP PO SCH (08:15)
[2021-03-23] MEDS: LOPERAMIDE HCL 2 MG CAP PO SCH (08:15)
[2021-03-23] MEDS: buPROPion SR 100 MG TABCR PO SCH (08:15)
[2021-03-23] MEDS: CODEINE SULFATE 30 MG TAB PO SCH (08:15)
[2021-03-23] MEDS: DIPHENOXYLATE/ATROPINE 2.5/0.025MG TAB PO SCH (08:15)
[2021-03-23] MEDS: CHOLECALCIFEROL 1,000 UNITS 25 MCG TAB PO SCH (08:15)
[2021-03-23] MEDS: IRON POLYSACCHARIDE COMPLEX 150 MG CAPSULE PO SCH (08:15)
[2021-03-23] MEDS: lisinopril 5 MG TAB PO SCH (08:15)
--- NOTE | 2021-03-23 08:49 | Discharge Summary ---
Date of Service March 23, 2021 Admission HPI Per Admitting Provider This is a 75-year-old male with past medical history of ulcerative colitis, status post ileostomy, short gut syndrome, status post Edwards catheter that presents today on advice of his [facility] physicians for evaluation of bacteremia. Patient is pleasant and very good historian. Patient tells me that he gets regular blood work, every 2 weeks on the direction of his physicians at the [facility]. They noted over the last 2 lab draws that he has had a slowly climbing WBC count that was not explained. Patient himself essentially had no symptoms, was using his Edwards to get TPN nightly. He does eat regularly but the food "runs right through him "secondary to a short gut syndrome and he typically has diarrhea. Despite this, he had no new symptoms of fever, chills, chest pain, or any unusual drainage or pain from the Edwards catheter. He does note a single episode a few days ago when he connected the TPN and had an episode of rigors resolved after half an hour and was not repeated. Patient had blood cultures drawn last week and was notified on Sunday, 03/11 that the cultures grew gram-positive cocci in chains from the catheter and then he should present to the emergency room [facility] for treatment. Patient delayed this until today when he came to emergency room. Patient reiterated that outside of that single episode of rigors, he has had no symptoms and otherwise feels well. He has been afebrile. Of note, the patient had been admitted here 08/2020 for evaluation of bacteremia, is found to be a pansensitive Klebsiella and to be treated for 14 days total with Cipro without any sequelae. Principal Diagnosis BACTEREMIA Discharge Exam General: A&Ox3. NAD. Cooperative. Nontoxic. HEENT: Atraumatic, normocephalic. Visual acuity grossly intact hearing grossly intact Thorax: C/D/I. No surrounding erythema, warmth, or tenderness Pulm: CTAB A&P. -wheezes, -rales, -rhonchi. Symmetrical chest rise. No increase work of breathing. No respiratory distress. Cardiac: RRR, -mrg. Radial pulses intact and symmetrical. Abdominal: Nontender, nondistended, soft. BS present. Ostomy present at right abdomen, no surrounding erythema, Discharge Data Allergies Allergy/AdvReac Type Severity Reaction Status Date / Time ibuprofen AdvReac Intermediate GASTRIC Verified 03/14/21 14:39 ULCERS, NO COLON Consultations 03/14/21 17:33 ED Decision to Admit Stat 03/15/21 10:35 Consult Vascular Surgery Routine Procedures Performed Operation Date: 03/16/21 12:00 Actual Procedures p Edwards Catheter Removal, Moderate Sedation [id number](Right) - Ulises Mohan MD Operation Date: 03/21/21 10:20 Actual Procedures p Insertion Of Edwards Catheter, Right Internal Jugular Approach, Ultrasound Localization of Right Internal Jugular Vein, Fluroscopy for Positioning, Moderate Sedation [id number] - Ulises Mohan MD Ordered Studies 03/21/21 10:19 EV cvc insrt tnnl with prt/retail asset protection specialist Routine 03/21/21 10:21 US EV guide vascular access Routine Hospital Course (1) Infection of intravenous catheter: Bacteremia 2/2 Edwards Catheter Infection -Blood cultures positive for coag negative staph and staph species, 2 species initially isolated follow-up testing indicate same species/strain. Catheter tip also positive for staph species. Negative for MRSA by PCR. Vancomycin di scontinued and cefazolin started for de-escalation of care and improved efficacy of low generation flow Sporn. Patient bacteremic, but did not meet qSOFA or SIRS definition of sepsis on admission Edwards catheter removed 03/16, catheter Tip sent for culture as noted No leukocytosis - cefazolin 2 g every 8 hours WILL FINISH 14-day total course: needs 8 more days -due to schedule of his TPN, u/s guided peripheral line is ordered. - Pt with similar episode and replacement several months ago - Surveillance BC 03/17:no growth to date resumed TPN. Edwards has been replaced. - U/S guided peripheral line has been placed. will discharge with home health (2) HTN (hypertension): Blood pressure stable, continue occasions as per outpatient (3) Short gut syndrome: Regular diet TPN held as catheter infected, supplement with crystalloid Continue Creon (4) Ulcerative colitis: Patient status post total colectomy with ileostomy, stable (5) On total parenteral nutrition (TPN): continue at discharge. (6) Positive blood culture: Repeat negative post catheter removal. (7) Anxiety: Controlled, no exacerbation at visit (8) BPH (benign prostatic hyperplasia): Continue finasteride Continue send Bladder as needed for reduced output DVT prophylaxis: SCDs, Lovenox, Lovenox to be held the morning of 03/21 pending vascular surgery CODE STATUS: Full code Disposition: MedSurg, pending Edwards replacement Total Time Total Time Spent Total Time Spent (In Minutes): 32 Discharge Plan Discharge Items Patient Disposition: Home - Home Health Services Reason For Visit: POSSIBLE BACTERMIA Discharge Diagnosis: Bacteremia Activity: Resume your previous activity Non-emergency contact: Primary Care Provider Call non-emergency contact if: you have any medication questions Follow-up/Referrals: Tao Montoya [Primary Care Provider] - 03/30/21 2:30 pm (DR BLAIR WILL BE YOUR NEW PCP, SINCE DR MONTOYA IS NO LONGER AT OFFICE.) Diet: Regular Addtl Attending Provider Instructions: You have been hospitalized for an acute medical problem. During your stay at [facility], we have made an effort to correct the problem that brought you to the hospital while keeping you as comfortable as possible. Medications were used to bring your condition under control and your discharge instructions will include directions for any medications you should take after leaving the hospital. Please make sure you see your Primary Care Provider as part of your follow up plan. Continue antibiotics IV for 8 more days. Then remove ultrasound guided peripheral line. Followup with PCP in 1-2 weeks. Pending Studies at Discharge: No Stand-Alone Forms: My [facility] Medications and DC Order Prescriptions: New cefazolin 1 gram recon soln 2 g IV Q8H Qty: 24 RF: 0 Continued cholecalciferol (vitamin D3) [Vitamin D3] 1,000 unit Tablet 1,000 unit PO BID RF: 0 diphenoxylate-atropine [Lomotil] 2.5-0.025 mg Tablet 2 tab PO QID RF: 0 finasteride 5 mg Tablet 5 mg PO HS RF: 0 paroxetine HCl 30 mg Tablet 30 mg PO PM RF: 0 Creon 3,000-9,500- 15,000 unit Capsule,Delayed Release(Dr/Ec) 1 cap PO TID RF: 0 zolpidem 10 mg Tablet 10 mg PO HS PRN (Reason: Insomnia) RF: 0 polysaccharide iron complex [Ferrex 150] 150 mg iron Capsule 150 mg PO BID RF: 0 tamsulosin 0.4 mg Capsule 0.4 mg PO HS RF: 0 Parenteral Electrolytes 1 dose IV 5XWK RF: 0 lisinopril 5 mg tablet 5 mg PO QAM RF: 0 loperamide 2 mg capsule 2 mg PO QID RF: 0 bupropion HCl 100 mg tablet sustained-release 12 hr 100 mg PO QAM RF: 0 codeine sulfate 30 mg tablet 30 mg PO QID RF: 0 Discontinued ciprofloxacin HCl [Cipro] 500 mg tablet 500 mg PO BID Qty: 25 RF: 0 Discharge Orders: Discharge Order (Routine); Ordered 03/23/21 Ordered By: Ganga Isaac Admission Data Admit Date/Time: 03/16/21 16:09 Attending Provider: Ganga Isaac Admit Provider: Nando Bill Primary Care Provider: aTo Montoya Other Providers: Nando Bill ; Ulises Mohan ; [facility],Home Healthcare Other Interventions: Discharge Summary Assessment (RN) Last Done: 03/23/21 09:49 Coding Level of Care Code D/C DAY MANAGEMENT >30 MINS Diagnoses Infection of intravenous catheter T82.7XXA HTN (hypertension) I10 Short gut syndrome K91.2 Ulcerative colitis K51.90 On total parenteral nutrition (TPN) Z78.9 Positive blood culture R78.81 Anxiety F41.9 BPH (benign prostatic hyperplasia) N40.0
[2021-03-23 09:50] VITALS: BP 100/58
== END 2021-03-23 11:23 | disposition home health service (06) | DRG 315 ==
LOC: ED 13:23 → 3W 13:23 → SUATTDRO 18:57 → 3W 19:41 → SUATTDRO 03-16 16:09 → 3E 03-22 14:15

== ENCOUNTER 2021-04-15 12:11 | Inpatient (IN) ==
[2021-04-15 15:10] LABS: Hematocrit (blood only) 36.1 % (42-52); Hemoglobin 12.3 g/dL (14.0-18.0); White Blood Count 8.41 K/uL (4.8-10.8)
[2021-04-15 15:11] LABS: Basophils # (auto) 0.01 K/uL (0-0.2); Basophils % (auto) 0.1 %; Eosinophils # (auto) 0.01 K/uL (0-0.5); Eosinophils % (auto) 0.1 %; Immature Granulocytes # (auto) 0.04 K/uL (0.00-0.02); Immature Granulocytes % (auto) 0.5 %; Lymphocytes # (auto) 0.76 K/uL (1.2-3.4); Mean Corpuscular Hemoglobin 31.5 pg (25-34); Mean Corpuscular Hgb Conc 34.1 g/dL (32-36); Mean Corpuscular Volume 92.6 fL (80-100); Mean Platelet Volume 11.4 fL (7.4-10.4); Monocytes # (auto) 0.76 K/uL (0.11-0.59); Neutrophils # (auto) 6.83 K/uL (1.4-6.5); Neutrophils % (auto) 81.3 %; Platelet Count 106 K/uL (130-400); RDW Coefficient of Variation 13.7 % (11.5-14.5); RDW Standard Deviation 46.8 fL (36.4-46.3)
[2021-04-15 15:28] LABS: Albumin Level 3.1 gm/dl (3.4-5.0); BUN Creatinine Ratio 17.9 (10-20); Calcium 9.6 mg/dl (8.5-10.1); Creatinine Clr Calc Pharmacy 57.5 ml/min; Est GFR (African American) 92.7 ml/min; Potassium 3.3 mmol/L (3.5-5.1)
[2021-04-15 15:31] LABS: Albumin Globulin Ratio 0.7 (0.9-2); Bilirubin,Total 2.2 mg/dl (0.2-1); Globulin 4.3 gm/dl (2.5-4.0); Total Protein 7.4 gm/dl (6.4-8.2)
--- NOTE | 2021-04-15 15:40 | XRay Report ---
SINGLE VIEW CHEST CLINICAL HISTORY: Fever. FINDINGS: 2 AP, portable, upright chest radiographs are compared to study dated 03/14/2021 and correla janie with chest CT dated 10/21/2016. A right sided central venous infusion port is unchanged in positio n. The heart is enlarged noting atherosclerotic calcification of the thoracic aorta. The pulmonary va sculature is noncongested. Emphysema and chronic interstitial thickening is similar to previous. Ther e is mild bibasilar scarring/atelectasis. No airspace consolidation or large pleural effusion is iden tified. No pneumothorax is seen. The skeletal structures are osteopenic. There are healed bilateral r ib fractures. Surgical clips project over the left upper quadrant. IMPRESSION: Cardiomegaly and emphysema with no acute cardiopulmonary abnormality identified. ACT 112: Negative or not required by law. Electronically signed by: Macario Veras M.D. 04/15/2021 3:39 PM
[2021-04-15] MEDS ORDERED: SODIUM CHLORIDE 0.9% 1000ML 500 ML IV ONE (15:47)
[2021-04-15] MEDS ORDERED: DAPTOmycin 350 MG in SYRINGE 0 ML IV ONE (15:48)
--- NOTE | 2021-04-15 15:52 | Emergency Department Note ---
History of Present Illness General Chief complaint: Infection Stated complaint: INFECTED CATHETER, FEVER Time Seen by Provider: 04/15/21 15:38 Source: patient History of Present Illness Provider complaint: Fever and night sweats Onset (ago): day(s) 3 Location: head Pain Consistency: + intermittent Quality: + other (T-max 102.6 today) Relieved By: + medication (Tylenol) Associated symptoms: + fever/chills, + headaches (Mild frontal headache) and + malaise; no chest pain, no cough, no nausea/vomiting or no shortness of breath This is a 75-year-old male with a prior history of bacteremia presenting with fever night sweats and chills for the past 3 days. He had a T-max of 102.6 today and was told by his physicians at the [facility] to go to the emergency department right away. He denies any cough or cold symptoms, vomiting, chest pain, shortness of breath, abdominal pain, diarrhea or urinary symptoms. He has had no rash or tick bites. He does complain of a mild frontal headache with fevers but no neck pain or stiffness. He has not noticed any strange discharge from his Edwards catheter. Home Medications Medication Instructions Recorded Confirmed Type cholecalciferol (vitamin D3) 25 1,000 unit PO BID 04/23/18 04/15/21 History mcg (1,000 unit) tablet (Vitamin D3) diphenoxylate-atropine 2.5 2 tab PO QID 04/23/18 04/15/21 History mg-0.025 mg tablet (Lomotil) finasteride 5 mg tablet 5 mg PO HS 04/23/18 04/15/21 History lipase 3,000-protease 1 cap PO TID 04/23/18 04/15/21 History 9,500-amylase 15,000 unit capsule, delayed rel (Creon) paroxetine HCl 30 mg tablet 30 mg PO PM 04/23/18 04/15/21 History Parenteral Electrolytes 1 dose IV 5XWK 05/03/18 04/15/21 History polysaccharide iron complex 150 mg 150 mg PO BID 05/03/18 04/15/21 History iron capsule (Ferrex) tamsulosin 0.4 mg capsule 0.4 mg PO HS 05/03/18 04/15/21 History zolpidem 10 mg tablet 10 mg PO HS PRN 05/03/18 04/15/21 History lisinopril 5 mg tablet 5 mg PO QAM 08/13/20 04/15/21 History bupropion HCl 100 mg tablet,12 hr 100 mg PO QAM 09/16/20 04/15/21 History sustained-release codeine sulfate 30 mg tablet 30 mg PO QID 09/16/20 04/15/21 History loperamide 2 mg capsule 2 mg PO QID 09/16/20 04/15/21 History psyllium husk 3.4 gram/5.4 gram 1 tbsp PO QID 04/15/21 04/15/21 History oral powder (Metamucil) Allergies Allergy/AdvReac Type Severity Reaction Status Date / Time ibuprofen AdvReac Intermediate GASTRIC Verified 04/15/21 17:15 ULCERS, NO COLON Past Med/Surg History Medical History Anxiety BPH (benign prostatic hyperplasia) Chronic pain H/O ulcerative colitis HTN (hypertension) Ileostomy in place Infection of intravenous catheter Insomnia Pancreatitis pt denies any history SBO (small bowel obstruction) hx Sepsis Short gut syndrome Sleep apnea CPAP Surgical History H/O rotator cuff surgery right H/O total colectomy (~1973) History of colonoscopy History of laparotomy removed SBO History of tonsillectomy Family History Other No family history of adverse response to anesthesia No significant family history Social History Smoking Status: Never smoker Tobacco Type: Cigarettes Second Hand Exposure: No; Hx Alcohol Use: Yes Alcohol type: wine Hx Substance Use: No Preferred Language: Nigerian Communication Ability: Effective Shampooer Required: No Beliefs That Will Affect Care: None marital status: Current Living Situation: Spouse How many Children do You have: 2 Feels Safe at Home: Yes Assistive Devices: None Review of Systems See HPI for pertinent positives & negatives. and A total of 10 systems reviewed and were otherwise negative Physical Exam Vital Signs Vital Signs - 24 hr 04/15/21 12:20 04/15/21 15:08 04/15/21 16:00 Temperature 37.9 C H 37.1 C Temperature Source Temporal Artery Scan Oral Pulse Rate 113 H 65 Pulse Rate [Apical] 66 Pulse Rate [Right Finger] 76 Pulse Rhythm Regular Pulse Rhythm [Right Finger] Regular Pulse Strength Normal Pulse Strength [Right Finger] Normal Respiratory Rate 16 20 18 Respiratory Effort / Characteristics Non-Labored Spontaneous Non-Labored Spontaneous Non-Labored Respiratory Depth Normal Normal Respiratory Pattern Regular Regular Blood Pressure 120/68 Blood Pressure [Right Arm] 96/61 L Blood Pressure Mean 85 Blood Pressure Mean [Right Arm] 72 Pulse Oximetry 95 97 96 Oxygen Delivery Method Room Air Room Air Room Air Sepsis Recent Fever Within 48 Hours No Sepsis New/Unexplained Change in Mental Status No Sepsis Action Taken by Nursing No Action Required 04/15/21 16:45 04/15/21 17:00 04/15/21 17:30 Temperature Temperature Source Pulse Rate Pulse Rate [Apical] 63 64 Pulse Rate [Right Finger] Pulse Rhythm Pulse Rhythm [Right Finger] Pulse Strength Pulse Strength [Right Finger] Respiratory Rate 18 18 Respiratory Effort / Characteristics Non-Labored Non-Labored Respiratory Depth Respiratory Pattern Blood Pressure Blood Pressure [Right Arm] 96/48 L 101/55 L Blood Pressure Mean Blood Pressure Mean [Right Arm] 64 70 Pulse Oximetry 96 96 Oxygen Delivery Method Room Air Room Air Sepsis Recent Fever Within 48 Hours Sepsis New/Unexplained Change in Mental Status Sepsis Action Taken by Nursing Constitutional: Vital signs reviewed. Eyes: Pupils are equal round reactive to light. Conjunctiva are noninjected. ENT: Pharynx is clear without erythema or exudate. Mucous membranes are dry. Neck supple without meningeal signs. Respiratory: Clear to auscultation bilaterally. Breath sounds are equal bilaterally. Cardiovascular: Regular rate and rhythm. No rubs or gallops. GI: Soft, nondistended and nontender. Bowel sounds are present. Musculoskeletal: No peripheral edema. No lower extremity tenderness. Edwards catheter to the right upper chest. No tenderness or erythema to the insertion site. Integumentary: No cyanosis. or jaundice. Neurological: The patient is awake and alert. No focal deficits. Psychiatric: Normal affect. Not anxious appearing. Course Administered Medications Discontinued Medications Sodium Chloride (Nss 1000ml) 500 mls @ 999 mls/hr IV .Q31M ONE Stop: 04/15/21 16:17 Last Admin: 04/15/21 16:27 Dose: 999 mls/hr Documented by: [id number] Daptomycin 350 mg/ Syringe 7 mls @ 3.5 mls/min IV NOW ONE; Protocol Stop: 04/15/21 15:49 Last Admin: 04/15/21 16:28 Dose: 3.5 mls/min Documented by: [id number] Potassium Chloride (K Pete / Wtr) 10 meq in 100 mls @ 100 mls/hr IV Q1H MIKIE Stop: 04/15/21 18:29 Last Admin: 04/15/21 17:47 Dose: 100 mls/hr Documented by: [id number] Infusion: 04/15/21 17:47 Dose: 100 mls/hr Documented by: [id number] Admin: 04/15/21 16:55 Dose: 100 mls/hr Documented by: [id number] Cefepime HCl (Maxipime) 2,000 mg in 20 mls @ 5 mls/min IV NOW STA; Protocol Stop: 04/15/21 16:44 Last Admin: 04/15/21 16:55 Dose: 5 mls/min Documented by: [id number] Medical Decision Making Differential Diagnosis Bacteremia, sepsis, catheter infection, pneumonia, UTI Medical Records Attestation: I reviewed the patient's medical records. I did perform a limited focused review of portions of the patient's old chart on the electronic medical record. The patient was admitted last month for documented bacteremia with coag negative staph. His Edwards catheter was replaced by Dr. Mohan. Home Medications Current Medication List: was personally reviewed by me Laboratory Data Attestation: I reviewed the patient's lab results. Result diagrams: 04/15/21 15:03 04/15/21 15:03 Lab Results 04/15/21 04/15/21 04/15/21 Range/Units 15:03 15:03 15:47 WBC 8.41 (4.8-10.8) K/uL RBC 3.90 L (4.7-6.1) M/uL Hgb 12.3 L (14.0-18.0) g/dL Hct 36.1 L (42-52) % MCV 92.6 (80-100) fL MCH 31.5 (25-34) pg MCHC 34.1 (32-36) g/dL RDW Std Deviation 46.8 H (36.4-46.3) fL RDW Coeff of Charles 13.7 (11.5-14.5) % Plt Count 106 L (130-400) K/uL MPV 11.4 H (7.4-10.4) fL Immature Gran % (Auto) 0.5 % Neut % (Auto) 81.3 % Lymph % (Auto) 9.0 % [place] % (Auto) 9.0 % Eos % (Auto) 0.1 % Baso % (Auto) 0.1 % Neut # (Auto) 6.83 H (1.4-6.5) K/uL Lymph # (Auto) 0.76 L (1.2-3.4) K/uL [place] # (Auto) 0.76 H (0.11-0.59) K/uL Eos # (Auto) 0.01 (0-0.5) K/uL Baso # (Auto) 0.01 (0-0.2) K/uL Immature Gran # (Auto) 0.04 H (0.00-0.02) K/uL PT (9.0-12.0) Seconds INR (0.9-1.1) APTT (21.0-31.0) Seconds PTT Ratio Sodium 138 (136-145) mmol/L Potassium 3.3 L (3.5-5.1) mmol/L Chloride 106 (98-107) mmol/L Carbon Dioxide 24 (21-32) mmol/L Anion Gap 8.0 (3-11) BUN 17 (7-18) mg/dl Creatinine 0.93 (0.6-1.4) mg/dl Est Cr Clr Drug Dosing 57.5 ml/min Est GFR ( Amer) 92.7 ml/min Est GFR (Non-Af Amer) 80.0 ml/min BUN/Creatinine Ratio 17.9 (10-20) Glucose 124 H (70-99) mg/dl Lactate (0.4-2.0) mmol/L Calcium 9.6 (8.5-10.1) mg/dl Magnesium (1.8-2.4) mg/dl Total Bilirubin 2.2 H (0.2-1) mg/dl AST 31 (15-37) U/L ALT 24 (12-78) U/L Alkaline Phosphatase 79 (45-117) U/L Troponin I (0-0.045) ng/ml Total Protein 7.4 (6.4-8.2) gm/dl Albumin 3.1 L (3.4-5.0) gm/dl Globulin 4.3 H (2.5-4.0) gm/dl Albumin/Globulin Ratio 0.7 L (0.9-2) COVID-19 Eval Order Covid19 at [facility] [place] SARS-CoV-2 (PCR) (Negative) 04/15/21 04/15/21 04/15/21 Range/Units 15:47 16:25 16:25 WBC (4.8-10.8) K/uL RBC (4.7-6.1) M/uL Hgb (14.0-18.0) g/dL Hct (42-52) % MCV (80-100) fL MCH (25-34) pg MCHC (32-36) g/dL RDW Std Deviation (36.4-46.3) fL RDW Coeff of Charles (11.5-14.5) % Plt Count (130-400) K/uL MPV (7.4-10.4) fL Immature Gran % (Auto) % Neut % (Auto) % Lymph % (Auto) % [place] % (Auto) % Eos % (Auto) % Baso % (Auto) % Neut # (Auto) (1.4-6.5) K/uL Lymph # (Auto) (1.2-3.4) K/uL [place] # (Auto) (0.11-0.59) K/uL Eos # (Auto) (0-0.5) K/uL Baso # (Auto) (0-0.2) K/uL Immature Gran # (Auto) (0.00-0.02) K/uL PT 11.0 (9.0-12.0) Seconds INR 1.1 (0.9-1.1) APTT 33.2 H (21.0-31.0) Seconds PTT Ratio 1.3 Sodium (136-145) mmol/L Potassium (3.5-5.1) mmol/L Chloride (98-107) mmol/L Carbon Dioxide (21-32) mmol/L Anion Gap (3-11) BUN (7-18) mg/dl Creatinine (0.6-1.4) mg/dl Est Cr Clr Drug Dosing ml/min Est GFR ( Amer) ml/min Est GFR (Non-Af Amer) ml/min BUN/Creatinine Ratio (10-20) Glucose (70-99) mg/dl Lactate 2.6 H* (0.4-2.0) mmol/L Calcium (8.5-10.1) mg/dl Magnesium (1.8-2.4) mg/dl Total Bilirubin (0.2-1) mg/dl AST (15-37) U/L ALT (12-78) U/L Alkaline Phosphatase (45-117) U/L Troponin I (0-0.045) ng/ml Total Protein (6.4-8.2) gm/dl Albumin (3.4-5.0) gm/dl Globulin (2.5-4.0) gm/dl Albumin/Globulin Ratio (0.9-2) COVID-19 Eval Order SARS-CoV-2 (PCR) NEGATIVE (Negative) 04/15/21 Range/Units 16:25 WBC (4.8-10.8) K/uL RBC (4.7-6.1) M/uL Hgb (14.0-18.0) g/dL Hct (42-52) % MCV (80-100) fL MCH (25-34) pg MCHC (32-36) g/dL RDW Std Deviation (36.4-46.3) fL RDW Coeff of Charles (11.5-14.5) % Plt Count (130-400) K/uL MPV (7.4-10.4) fL Immature Gran % (Auto) % Neut % (Auto) % Lymph % (Auto) % [place] % (Auto) % Eos % (Auto) % Baso % (Auto) % Neut # (Auto) (1.4-6.5) K/uL Lymph # (Auto) (1.2-3.4) K/uL [place] # (Auto) (0.11-0.59) K/uL Eos # (Auto) (0-0.5) K/uL Baso # (Auto) (0-0.2) K/uL Immature Gran # (Auto) (0.00-0.02) K/uL PT (9.0-12.0) Seconds INR (0.9-1.1) APTT (21.0-31.0) Seconds PTT Ratio Sodium (136-145) mmol/L Potassium (3.5-5.1) mmol/L Chloride (98-107) mmol/L Carbon Dioxide (21-32) mmol/L Anion Gap (3-11) BUN (7-18) mg/dl Creatinine (0.6-1.4) mg/dl Est Cr Clr Drug Dosing ml/min Est GFR ( Amer) ml/min Est GFR (Non-Af Amer) ml/min BUN/Creatinine Ratio (10-20) Glucose (70-99) mg/dl Lactate (0.4-2.0) mmol/L Calcium (8.5-10.1) mg/dl Magnesium 2.0 (1.8-2.4) mg/dl Total Bilirubin (0.2-1) mg/dl AST (15-37) U/L ALT (12-78) U/L Alkaline Phosphatase (45-117) U/L Troponin I 0.056 H* (0-0.045) ng/ml Total Protein (6.4-8.2) gm/dl Albumin (3.4-5.0) gm/dl Globulin (2.5-4.0) gm/dl Albumin/Globulin Ratio (0.9-2) COVID-19 Eval Order SARS-CoV-2 (PCR) (Negative) Imaging Data Radiologist's Impression: Chest X-Ray 04/15/21 12:24 SINGLE VIEW CHEST CLINICAL HISTORY: Fever. FINDINGS: 2 AP, portable, upright chest radiographs are compared to study dated 03/14/2021 and correlated with chest CT dated 10/21/2016. A right sided central venous infusion port is unchanged in position. The heart is enlarged noting atherosclerotic calcification of the thoracic aorta. The pulmonary vasculature is noncongested. Emphysema and chronic interstitial thickening is similar to previous. There is mild bibasilar scarring/atelectasis. No airspace consolidation or large pleural effusion is identified. No pneumothorax is seen. The skeletal structures are osteopenic. There are healed bilateral rib fractures. Surgical clips project over the left upper quadrant. IMPRESSION: Cardiomegaly and emphysema with no acute cardiopulmonary abnormality identified. ACT 112: Negative or not required by law. Electronically signed by: Macario Veras M.D. 04/15/2021 3:39 PM ECG Data Attestation: I personally reviewed and interpreted this ECG as follows: Indication: + other Rate (beats per minute): 66 Rhythm: + normal sinus ECG Intervals/blocks: + Incomplete right bundle branch block ECG ST segments: + T-wave inversions Comparison ECG Date: from (March 14, 2021) Change: no significant change MDM Narrative I did evaluate the patient as noted above. He is presenting with symptoms concerning for bacteremia. He had bacteremia last month and was admitted to the hospital. IV access was established. 2 sets of blood cultures were ordered with one coming from the Edwards catheter. I did treat him empirically with daptomycin IV based on his prior cultures. I did place an order for continuous cardiac monitoring. The monitor showed normal sinus rhythm at a rate of 65 bpm. I did order and personally review the patient's 12-lead EKG as described above. He has T wave inversions in the septal leads but these are present on his pr evious EKG. I did order and personally reviewed the images of the patient's chest x-ray as described above. There is no evidence of pneumonia. I did order and review the patient's blood work as noted in the electronic medical record. CBC demonstrates anemia with a hemoglobin of 12.3. He has no leukocytosis. Electrolytes are unremarkable other than a potassium of 3.3. His lactate is elevated 2.6. Oddly troponin is slightly elevated at 0.056. He denies having any chest pain or shortness of breath. His blood pressure is up to 101/55. He states he feels well. He will be hospitalized for further care and evaluation. I did discuss case with the hospitalist and manager of case management. Impression & Plan Bacteremia, Acute hypotension, Elevated troponin Discharge Plan Visit Data Chief Complaint: Infection Stated Complaint: INFECTED CATHETER, FEVER ED Provider: Ha Vines Discharge Problem: Bacteremia, Acute hypotension, Elevated troponin Patient Disposition: Being Evaluated by Hospitalist Forms Stand Alone Forms: My [facility] Prescriptions Prescriptions: No Action cholecalciferol (vitamin D3) [Vitamin D3] 1,000 unit Tablet 1,000 unit PO BID RF: 0 diphenoxylate-atropine [Lomotil] 2.5-0.025 mg Tablet 2 tab PO QID RF: 0 finasteride 5 mg Tablet 5 mg PO HS RF: 0 paroxetine HCl 30 mg Tablet 30 mg PO PM RF: 0 Creon 3,000-9,500- 15,000 unit Capsule,Delayed Release(Dr/Ec) 1 cap PO TID RF: 0 zolpidem 10 mg Tablet 10 mg PO HS PRN (Reason: Insomnia) RF: 0 polysaccharide iron complex [Ferrex 150] 150 mg iron Capsule 150 mg PO BID RF: 0 tamsulosin 0.4 mg Capsule 0.4 mg PO HS RF: 0 Parenteral Electrolytes 1 dose IV 5XWK RF: 0 lisinopril 5 mg tablet 5 mg PO QAM RF: 0 loperamide 2 mg capsule 2 mg PO QID RF: 0 bupropion HCl 100 mg tablet sustained-release 12 hr 100 mg PO QAM RF: 0 codeine sulfate 30 mg tablet 30 mg PO QID RF: 0 Metamucil 3.4 gram/5.4 gram Powder 1 tbsp PO QID RF: 0 Referrals Referrals: Kev Burton [Primary Care Provider] -
--- NOTE | 2021-04-15 16:25 | History & Physical Report ---
Date of Service April 15, 2021 Assessment & Plan (1) Fever: Plan: Suspected recurrent bacteremia. Previous grown coag neg staph and Klebsiella. Daptomycin started in ER. Will add cefepime. Consider ID consult depending on results given recurrent bacteremia in setting of chronic TPN use. (2) Infection of intravenous catheter: Plan: Suspected. If confirmed will need vascular consult to change again. (3) On total parenteral nutrition (TPN): Plan: Short gut syndrome. Managed through the [facility]. In setting of suspecte d bacteremia will hold this currently. (4) HTN (hypertension): Plan: Continue lisinopril 5mg PO daily (5) Ulcerative colitis: Plan: s/p total colectomy (6) Anxiety: Plan: Continue paroxetine (7) BPH (benign prostatic hyperplasia): Plan: Continue finasteride and tamsulosin Plan: VTE Prophylaxis - SCDs, low risk given young age therefore chemical prophylaxis deferred Diet - regular, will need to start TPN once bacteremia resolved Disposition - admit to med/tele Admission and Anticipated Discharge Date Admission Date: April 15, 2021 History of Present Illness Chief Complaint: Fever Primary Care Provider: Kev Burton Freddy Barone is a 75 year old male on chronic TPN with recurrent bacteremia who presents to the ER with fever, chills and generalized weakness. He is on chronic TPN for short gut syndrome managed through the [facility]. Fever today reached 102.6 degrees Fahrenheit therefore he was advised to go to the ER for ongoing treatment. He otherwise feels well. No chest pain, abdominal pain, shortness of breath, sinus pain, nasal congestion. No change in ileostomy contents. He was recent admitted from March 14-2020 due to Coag negative staph bacteremia and had his Edwards line removed on 03/16 and replaced 03/21. He underwent treatment with intravenous cefazolin. He was given daptomycin in the ER, blood cultures taken from peripheral veins and Edwards catheter and he was referred to medicine for admission and ongoing management of suspected bacteremia. Allergies Allergy/AdvReac Type Severity Reaction Status Date / Time ibuprofen AdvReac Intermediate GASTRIC Verified 04/15/21 17:15 ULCERS, NO COLON Home Medications Medication Instructions Recorded Confirmed Type cholecalciferol (vitamin D3) 25 1,000 unit PO BID 04/23/18 04/15/21 History mcg (1,000 unit) tablet (Vitamin D3) diphenoxylate-atropine 2.5 2 tab PO QID 04/23/18 04/15/21 History mg-0.025 mg tablet (Lomotil) finasteride 5 mg tablet 5 mg PO HS 04/23/18 04/15/21 History lipase 3,000-protease 1 cap PO TID 04/23/18 04/15/21 History 9,500-amylase 15,000 unit capsule, delayed rel (Creon) paroxetine HCl 30 mg tablet 30 mg PO PM 04/23/18 04/15/21 History Parenteral Electrolytes 1 dose IV [id number] 05/03/18 04/15/21 History polysaccharide iron complex 150 mg 150 mg PO BID 05/03/18 04/15/21 History iron capsule (Ferrex) tamsulosin 0.4 mg capsule 0.4 mg PO HS 05/03/18 04/15/21 History zolpidem 10 mg tablet 10 mg PO HS PRN 05/03/18 04/15/21 History lisinopril 5 mg tablet 5 mg PO QAM 08/13/20 04/15/21 History bupropion HCl 100 mg tablet,12 hr 100 mg PO QAM 09/16/20 04/15/21 History sustained-release codeine sulfate 30 mg tablet 30 mg PO QID 09/16/20 04/15/21 History loperamide 2 mg capsule 2 mg PO QID 09/16/20 04/15/21 History psyllium husk 3.4 gram/5.4 gram 1 tbsp PO QID 04/15/21 04/15/21 History oral powder (Metamucil) Past Med/Surg History Medical History Anxiety BPH (benign prostatic hyperplasia) Chronic pain H/O ulcerative colitis HTN (hypertension) Ileostomy in place Infection of intravenous catheter Insomnia Pancreatitis pt denies any history SBO (small bowel obstruction) hx Sepsis Short gut syndrome Sleep apnea CPAP Surgical History H/O rotator cuff surgery right H/O total colectomy (~1973) History of colonoscopy History of laparotomy removed SBO History of tonsillectomy Family History Other No family history of adverse response to anesthesia No significant family history Social History Smoking Status: Former smoker Tobacco Type: Cigarettes Second Hand Exposure: No; Hx Alcohol Use: No Hx Substance Use: No Preferred Language: Kinyarwanda Communication Ability: Effective Wet End Helper Required: No Beliefs That Will Affect Care: None marital status: Current Living Situation: Spouse How many Children do You have: 2 Feels Safe at Home: Yes Assistive Devices: Glasses Review of Systems Review of Systems: All systems reviewed & are unremarkable except as noted in HPI & below Physical Exam Constitutional: WD/WN, vitals as above Eyes: + anicteric sclerae; normal pupil size Respiratory: normal respiratory effort, lungs clear to auscultation Cardiovascular: RRR, no murmur, no edema Gastrointestinal (Abdomen): Inspection/Auscultation: normal bowel sounds and + abdominal surgical scar (well healed) Percussion/Palpation: abdomen soft; abdomen nontender, no guarding and abdomen not rigid Ileostomy present Musculoskeletal: no cyanosis or clubbing, extremities motor strength 5/5 Skin: no rashes, warm and dry Neurologic: moves all extremities and awake; not confused Psychiatric: A+Ox3, euthymic affect Genitourinary: no CVA tenderness Results & Data Results & Data ([facility]) Vital Signs (Past 12 Hours) Vital Signs Temp Pulse Pulse Resp BP BP Pulse Ox 04/15/21 15:08 37.1 C 76 20 96/61 L 97 04/15/21 12:20 37.9 C H 113 H 16 120/68 95 Diagnostic Findings SINGLE VIEW CHEST CLINICAL HISTORY: Fever. FINDINGS: 2 AP, portable, upright chest radiographs are compared to study dated 03/14/2021 and correlated with chest CT dated 10/21/2016. A right sided central venous infusion port is unchanged in position. The heart is enlarged noting atherosclerotic calcification of the thoracic aorta. The pulmonary vasculature is noncongested. Emphysema and chronic interstitial thickening is similar to previous. There is mild bibasilar scarring/atelectasis. No airspace consolidation or large pleural effusion is identified. No pneumothorax is seen. The skeletal structures are osteopenic. There are healed bilateral rib fractures. Surgical clips project over the left upper quadrant. IMPRESSION: Cardiomegaly and emphysema with no acute cardiopulmonary abnormality identified. Medications Administered ER Medications Given: NSS 500 ml bolus Daptomycin 350mg IV ECG Indication: other (suspected bacteremia) Rate (beats per minute): 66 Rhythm: normal sinus Findings: + RBBB (incomplete) Comparison ECG Date: from (March 14, 2021) Change: no significant change Code Status & VTE Plan Code Status Full VTE Prophylaxis Plan VTE Prophylaxis will be ordered: Yes PG Care Time/CCT Total # of Minutes Spent Total Time Spent with Patient: Total time spent is greater than 50% in coordination of care (as documented) at patient's floor/unit and/or counseling patient: Coding Level of Care Code 81502 Initial Inpt Care Lvl 3 Diagnoses Fever R50.9 Infection of intravenous catheter T82.7XXA On total parenteral nutrition (TPN) Z78.9 HTN (hypertension) I10 Ulcerative colitis K51.90 Anxiety F41.9 BPH (benign prostatic hyperplasia) N40.0
--- NOTE | 2021-04-15 16:30 | Electrocardiogram Report ---
Test Reason : Blood Pressure : / mmHG Vent. Rate : 066 BPM Atrial Rate : 066 BPM P-R Int : 148 ms QRS Dur : 104 ms QT Int : 402 ms P-R-T Axes : 014 -18 035 degrees QTc Int : 421 ms Normal sinus rhythm Incomplete right bundle branch block Nonspecific T wave abnormality Abnormal ECG When compared with ECG of 14-MAR-2021 15:09, No significant change was found Confirmed by Bogdan Ayers ([id number]) on 04/15/2021 4:29:39 PM Referred By: REFERRED SELF Confirmed By:Bogdan Ayers
[2021-04-15] MEDS ORDERED: CEFEPIME 2,000 MG/20 ML VIAL IV STA (16:41)
[2021-04-15] MEDS: POTASSIUM CHLORIDE / WTR 10 MEQ/100 ML PLCT IV SCH ×2 (16:55→17:47)
[2021-04-15 16:59] LABS: INR 1.1 (0.9-1.1); Partial Thromboplastin Ratio 1.3; Partial Thromboplastin Time 33.2 Seconds (21.0-31.0)
[2021-04-15 17:26] LABS: Troponin I 0.056 ng/ml (0-0.045)
[2021-04-15] MEDS ORDERED: ACETAMINOPHEN 325 MG TAB PO PRN (21:29)
[2021-04-15] MEDS: NORMOSOL-R 1,000 ML IV SCH (21:50)
[2021-04-15] MEDS ORDERED: CEFEPIME CONSULT ACTIVE PRN (21:52)
[2021-04-15] MEDS ORDERED: ZOLPIDEM TARTRATE 10 MG TAB PO PRN (21:53)
[2021-04-15] MEDS: IRON POLYSACCHARIDE COMPLEX 150 MG CAPSULE PO SCH (23:17)
[2021-04-15] MEDS: TAMSULOSIN HCL 0.4 MG CAP PO SCH (23:18)
[2021-04-15] MEDS: PARoxetine HCL 20 MG TAB PO SCH (23:18)
[2021-04-16 01:59] LABS: Appearance Urine Clear (Clear); Bacteria Urine Automated Negative (Negative); Blood Urine 1+ (Negative); Color Urine Dark Yellow; Epithelial Cell Urine Auto 0-5 /lpf (0-5); Glucose Urine UA Negative (Negative); Ketones Urine Negative (Negative); Leukocyte Esterase Urine Negative (Negative); Nitrite Urine Negative (Negative); Protein Urine 1+ (Negative); Specific Gravity Urine 1.021 (1.000-1.030); Urobilinogen Urine Negative (Negative); pH Urine 6.5 (4.5-7.5)
[2021-04-16 02:03] LABS: Bilirubin Urine 1+ (Negative)
[2021-04-16] MEDS ORDERED: CEFEPIME 2,000 MG in SYRINGE 0 ML IV SCH (04:00)
[2021-04-16] MEDS: NORMOSOL-R 1,000 ML IV SCH ×2 (05:55→14:20)
[2021-04-16 06:48] LABS: Albumin Globulin Ratio 0.7 (0.9-2); Albumin Level 2.7 gm/dl (3.4-5.0); BUN Creatinine Ratio 19.3 (10-20); Calcium 9.1 mg/dl (8.5-10.1); Creatinine Clr Calc Pharmacy 62.9 ml/min; Est GFR (African American) 98.8 ml/min; Est GFR (Non-African American) 85.2 ml/min; Magnesium 2.4 mg/dl (1.8-2.4); Phosphorus 1.6 mg/dl (2.5-4.9); Potassium 3.3 mmol/L (3.5-5.1); Total Protein 6.7 gm/dl (6.4-8.2)
[2021-04-16 07:02] LABS: Basophils # (auto) 0.02 K/uL (0-0.2); Basophils % (auto) 0.3 %; Eosinophils # (auto) 0.03 K/uL (0-0.5); Eosinophils % (auto) 0.5 %; Hematocrit (blood only) 33.7 % (42-52); Hemoglobin 11.2 g/dL (14.0-18.0); Immature Granulocytes # (auto) 0.01 K/uL (0.00-0.02); Immature Granulocytes % (auto) 0.2 %; Lymphocytes # (auto) 1.03 K/uL (1.2-3.4); Lymphocytes % (auto) 17.2 %; Mean Corpuscular Hgb Conc 33.2 g/dL (32-36); Mean Corpuscular Volume 93.4 fL (80-100); Mean Platelet Volume 12.2 fL (7.4-10.4); Monocytes # (auto) 0.96 K/uL (0.11-0.59); Neutrophils # (auto) 3.94 K/uL (1.4-6.5); Neutrophils % (auto) 65.8 %; Platelet Count 93 K/uL (130-400); Platelet Estimate Decreased (Normal); RDW Standard Deviation 47.8 fL (36.4-46.3); Red Blood Count 3.61 M/uL (4.7-6.1); White Blood Count 5.99 K/uL (4.8-10.8)
[2021-04-16] MEDS ORDERED: Nursing to Pharmacy Communication SCH (07:30)
[2021-04-16] MEDS: IRON POLYSACCHARIDE COMPLEX 150 MG CAPSULE PO SCH ×2 (07:43→22:53)
[2021-04-16] MEDS: PANCREAZE (LIPASE 4,200U) CAP PO SCH ×3 (07:43→22:54)
[2021-04-16] MEDS: CHOLECALCIFEROL 1,000 UNITS 25 MCG TAB PO SCH ×2 (07:44→22:51)
[2021-04-16] MEDS: buPROPion SR 100 MG TABCR PO SCH (07:45)
[2021-04-16] MEDS: DIPHENOXYLATE/ATROPINE 2.5/0.025MG TAB PO SCH ×4 (07:45→22:51)
[2021-04-16] MEDS: LOPERAMIDE HCL 2 MG CAP PO SCH ×4 (07:46→22:52)
[2021-04-16] MEDS: CODEINE SULFATE 30 MG TAB PO SCH ×4 (07:52→23:07)
[2021-04-16] MEDS ORDERED: CODEINE SULFATE 30 MG TAB PO SCH (09:00)
[2021-04-16] MEDS: CEFEPIME 2,000 MG in SYRINGE 0 ML IV SCH ×2 (11:09→22:50)
[2021-04-16] MEDS ORDERED: DAPTOmycin 350 MG in SYRINGE 0 ML IV SCH (16:00)
[2021-04-16] MEDS ORDERED: POTASSIUM PHOS 3 MMOL/1 ML INFUSION IV STA (17:44)
--- NOTE | 2021-04-16 17:48 | Hospitalist Progress Note ---
Date of Service April 16, 2021 Assessment & Plan (1) Gram-negative bacteremia: Plan: Sepsis 2/2 gram-negative bacteremia with suspected Edwards catheter associated infection Hypotensive, tachycardic, febrile on admission. Blood cultures positive for gram-negative bacteria Continue cefepime,. If no additional growth and cultures likely narrow daptomycin tomorrow Further narrow based on sensitivities Given recurrent infections infectious disease consulted. Catheter does not appear overtly infected, but certainly will need to be removed/replaced. This will be his third removal several weeks. Will discuss with ID. Patient able to tolerate some oral nutrition/fluids, TPN held. Troponin x1 elevated, trended. No chest pain. EKG with no acute ST changes or territorial ischemia on admission. Suspect demand ischemia in the setting of sepsis. (2) Fever: Plan: Febrile on admission, afebrile last 12 hours (3) Infection of intravenous catheter: Plan: Suspected, vascular consulted Consider deferring removal until ID consult discussed, although given recurrent infection pessimistic that he would be a candidate for salvage On antibiotics as above (4) On total parenteral nutrition (TPN): Plan: Short gut syndrome Followed at [facility] TPN held, patient able to tolerate some oral nutrition -Patient reports that [facility] had considered a injectable medication that may allow him to defer future TPN. Does not recall the name, but will obtain the information and provide to primary team (5) HTN (hypertension): Plan: Continue lisinopril 5mg PO daily (6) Ulcerative colitis: Plan: s/p total colectomy (7) Anxiety: Plan: Continue paroxetine (8) BPH (benign prostatic hyperplasia): Plan: Continue finasteride and tamsulosin Plan: VTE Prophylaxis - SCDs Diet - regular, TPN held Disposition - admit to med/tele Admission and Anticipated Discharge Date Admission Date: April 15, 2021 Diamond Hayes is seen at the bedside this morning. He reports that he still feels tired and a little wiped out, but much better than previously. He reports that with this infection he felt completely wiped out, with shakes, cold sweats, and feverish. No fever/chills this morning. Reports his appetite is okay, has not had TPN through his Edwards. Discussed his history of recurrent infections. Current bacteremia appears to be gram-negative, distinct from his prior coag negative staph infection. Due to recurrent bacteremic infections in the setting of catheter placement, third in several months, despite good maintenance/hygiene infectious diseases been con sulted. Patient reports that [facility] had considered a injectable medication that may allow him to defer future TPN. Does not recall the name, but will obtain the information and provide to primary team Denies dysuria, polyuria, diarrhea, constipation, abdominal pain. Denies rashes/skin wounds. Review of Systems Review of Systems: Constitutional: See HPI Eyes: Denies vision change ENT: Denies ear pain, sore throat, sinus pain Cardiovascular: Denies Chest pain, chest pressure, palpitations, extremity swelling Respiratory: Denies shortness of breath, cough, sputum production, difficulty breathing Gastrointestinal: Denies abdominal pain, nausea, vomiting Genitourinary: Denies dysuria, urinary frequency Musculoskeletal: Denies acute focal weakness, muscle aches/pain, joint aches/pain Integumentary:Denies acute rash, lesions, bruising. Denies pain in his Edwards site. Neurological: Denies headache, numbness, tingling, focal weakness Physical Exam Physical Exam: General: A&Ox3. NAD. Cooperative. Nontoxic. HEENT: Atraumatic, normocephalic. Visual acuity grossly intact hearing grossly intact Thorax: Edwards catheter intact at right upper chest, no tenderness/erythema/discharge. Pulm: CTAB A&P. -wheezes, -rales, -rhonchi. Symmetrical chest rise. No increase work of breathing. No respiratory distress. Cardiac: RRR, -mrg. Radial pulses intact and symmetrical. Abdominal: Nontender, nondistended, soft. BS present. Ostomy present at right abdomen, no surrounding erythema, discharge, tenderness. Results & Data Results & Data ([facility]) Vital Signs (Past 12 Hours) Vital Signs Temp Pulse Pulse Resp BP BP Pulse Ox 04/16/21 15:43 56 L 04/16/21 11:07 36.4 C L 73 16 98/59 L 93 04/16/21 08:59 74 04/16/21 07:12 37.4 C 68 16 120/64 95 04/16/21 05:34 112/57 L PG Care Time/CCT Total # of Minutes Spent Total Time Spent with Patient: Total time spent is greater than 50% in coordination of care (as documented) at patient's floor/unit and/or counseling patient: Coding Level of Care Code 78295 Subseq Hosp Care Lvl 3 Diagnoses Fever R50.9 Infection of intravenous catheter T82.7XXA On total parenteral nutrition (TPN) Z78.9 HTN (hypertension) I10 Ulcerative colitis K51.90 Anxiety F41.9 BPH (benign prostatic hyperplasia) N40.0 Gram-negative bacteremia R78.81
[2021-04-16] MEDS ORDERED: POTASSIUM PHOSPHATE 21 MMOL in SODIUM CHLORIDE 0.9% 500 ML IV ONE (18:00)
[2021-04-16] MEDS: TAMSULOSIN HCL 0.4 MG CAP PO SCH (22:52)
[2021-04-16] MEDS: FINASTERIDE 5 MG TAB PO SCH (22:53)
[2021-04-16] MEDS: PARoxetine HCL 20 MG TAB PO SCH (22:55)
[2021-04-17] MEDS: NORMOSOL-R 1,000 ML IV SCH ×4 (04:59→23:16)
[2021-04-17] MEDS: CEFEPIME 2,000 MG in SYRINGE 0 ML IV SCH ×2 (04:59→11:22)
[2021-04-17 06:24] LABS: Basophils # (auto) 0.02 K/uL (0-0.2); Basophils % (auto) 0.4 %; Hematocrit (blood only) 30.7 % (42-52); Hemoglobin 10.3 g/dL (14.0-18.0); Immature Granulocytes # (auto) 0.01 K/uL (0.00-0.02); Immature Granulocytes % (auto) 0.2 %; Lymphocytes # (auto) 1.43 K/uL (1.2-3.4); Lymphocytes % (auto) 28.8 %; Mean Corpuscular Hgb Conc 33.6 g/dL (32-36); Mean Corpuscular Volume 92.5 fL (80-100); Mean Platelet Volume 11.4 fL (7.4-10.4); Monocytes # (auto) 0.93 K/uL (0.11-0.59); Monocytes % (auto) 18.7 %; Neutrophils # (auto) 2.48 K/uL (1.4-6.5); Neutrophils % (auto) 49.9 %; Platelet Count 105 K/uL (130-400); RDW Coefficient of Variation 13.9 % (11.5-14.5); RDW Standard Deviation 47.2 fL (36.4-46.3); Red Blood Count 3.32 M/uL (4.7-6.1); White Blood Count 4.97 K/uL (4.8-10.8)
[2021-04-17 06:39] LABS: BUN Creatinine Ratio 18.8 (10-20); Calcium 8.3 mg/dl (8.5-10.1); Creatinine Clr Calc Pharmacy 75.3 ml/min; Est GFR (African American) 106.4 ml/min; Est GFR (Non-African American) 91.8 ml/min; Potassium 3.2 mmol/L (3.5-5.1)
[2021-04-17 06:47] LABS: Phosphorus 2.8 mg/dl (2.5-4.9)
[2021-04-17] MEDS: CODEINE SULFATE 30 MG TAB PO SCH ×4 (07:35→21:38)
[2021-04-17] MEDS: LOPERAMIDE HCL 2 MG CAP PO SCH ×4 (07:35→21:24)
[2021-04-17] MEDS: IRON POLYSACCHARIDE COMPLEX 150 MG CAPSULE PO SCH ×2 (07:35→21:25)
[2021-04-17] MEDS: DIPHENOXYLATE/ATROPINE 2.5/0.025MG TAB PO SCH ×4 (07:36→21:24)
[2021-04-17] MEDS: buPROPion SR 100 MG TABCR PO SCH (07:36)
[2021-04-17] MEDS: CHOLECALCIFEROL 1,000 UNITS 25 MCG TAB PO SCH ×2 (07:36→23:14)
[2021-04-17] MEDS: PANCREAZE (LIPASE 4,200U) CAP PO SCH ×3 (07:37→21:25)
--- NOTE | 2021-04-17 17:14 | Hospitalist Progress Note ---
Date of Service April 17, 2021 Assessment & Plan (1) Gram-negative bacteremia: Plan: Sepsis 2/2 gram-negative bacteremia with suspected Edwards catheter associated infection Hypotensive, tachycardic, febrile on admission. Blood cultures positive for gram-negative bacteria Continue cefepime,. If no additional growth and cultures likely narrow daptomycin tomorrow Further narrow based on sensitivities Given recurrent infections infectious disease consulted. Catheter does not appear overtly infected, do not believe he is a candidate for salvage therapy but being that this is a GNR bacteremia and would be his third removal this year will treat with ABX and discussed with ID prior to consulting vascular. Patient able to tolerate some oral nutrition/fluids, TPN held. Troponin x1 elevated, trended. No chest pain. EKG with no acute ST changes or territorial ischemia on admission. Suspect demand ischemia in the setting of sepsis. (2) Fever: Plan: Febrile on admission, afebrile last 12 hours (3) Infection of intravenous catheter: Plan: Suspected, vascular consulted Consider deferring removal until ID consult discussed, although given recurrent infection pessimistic that he would be a candidate for salvage On antibiotics as above (4) On total parenteral nutrition (TPN): Plan: Short gut syndrome Followed at [facility] TPN held, patient able to tolerate some oral nutrition -Patient reports he has considered taking Gattex, teduglutide in the past. Long-acting GLP2 analog which has been shown in some trials to reduce the volume a number of days of parenteral support required. Patient with underlying nutritional needs requiring TPN, on review of studies it appears that many patients experience about a 20% reduction in the volume of parental support and may allow for 12 TPN 3 days/week. Freddy does not feel that his TPN infusions which occur over 10 hours overnight impact his quality of life for his day-to-day activities, and given that he would still require at least 5 days/week of TPN support is unclear if this reduction volume would provide a significant benefit on reduction in infection risk being that he would still need to maintain a catheter and have 56X per week infusions. (5) HTN (hypertension): Plan: Continue lisinopril 5mg PO daily (6) Ulcerative colitis: Plan: s/p total colectomy (7) Anxiety: Plan: Continue paroxetine (8) BPH (benign prostatic hyperplasia): Plan: Continue finasteride and tamsulosin Plan: VTE Prophylaxis - SCDs Diet - regular, TPN held Disposition - admit to med/tele Admission and Anticipated Discharge Date Admission Date: April 15, 2021 Diamond Hayes is seen at the bedside. He reports he clinically feels very well, and greatly improved. No pain at his Edwards site. No fever/chills/sweats. Was wondering about whether Gattex treatment would be of benefit to him and his infections, see discussion in assessment and plan. Otherwise no questions and concerns today. Pending ID consultation Review of Systems Review of Systems: 10 point review of systems negative today Physical Exam Physical Exam: General: A&Ox3. NAD. Cooperative. Nontoxic. HEENT: Atraumatic, normocephalic. Visual acuity grossly intact hearing grossly intact Thorax: Edwards catheter intact at right upper chest, no tenderness/erythema/discharge. Pulm: CTAB A&P. -wheezes, -rales, -rhonchi. Symmetrical chest rise. No increase work of breathing. No respiratory distress. Cardiac: RRR, -mrg. Radial pulses intact and symmetrical. Abdominal: Nontender, nondistended, soft. BS present. Ostomy present at right abdomen, no surrounding erythema, discharge, tenderness. Results & Data Results & Data ([facility]) Vital Signs (Past 12 Hours) Vital Signs Temp Pulse Pulse Resp BP Pulse Ox 04/17/21 16:01 60 04/17/21 09:07 36.8 C 77 12 126/87 96 04/17/21 07:09 70 PG Care Time/CCT Total # of Minutes Spent Total Time Spent with Patient: Total time spent is greater than 50% in coordination of care (as documented) at patient's floor/unit and/or counseling patient: Coding Level of Care Code 01051 Subseq Hosp Care Lvl 3 Diagnoses Gram-negative bacteremia R78.81 Fever R50.9 Infection of intravenous catheter T82.7XXA On total parenteral nutrition (TPN) Z78.9 HTN (hypertension) I10 Ulcerative colitis K51.90 Anxiety F41.9 BPH (benign prostatic hyperplasia) N40.0
[2021-04-17] MEDS: ceFAZolin 2000MG 2,000 MG/15 ML SYR IV SCH (21:24)
[2021-04-17] MEDS: TAMSULOSIN HCL 0.4 MG CAP PO SCH (21:24)
[2021-04-17] MEDS: FINASTERIDE 5 MG TAB PO SCH (21:25)
[2021-04-17] MEDS: PARoxetine HCL 20 MG TAB PO SCH (23:15)
[2021-04-18] MEDS: ceFAZolin 2000MG 2,000 MG/15 ML SYR IV SCH ×3 (04:12→20:03)
[2021-04-18] MEDS: CODEINE SULFATE 30 MG TAB PO SCH ×4 (07:36→20:03)
[2021-04-18] MEDS: CHOLECALCIFEROL 1,000 UNITS 25 MCG TAB PO SCH ×2 (07:37→20:04)
[2021-04-18] MEDS: IRON POLYSACCHARIDE COMPLEX 150 MG CAPSULE PO SCH ×2 (07:37→20:06)
[2021-04-18] MEDS: PANCREAZE (LIPASE 4,200U) CAP PO SCH ×3 (07:37→20:07)
[2021-04-18] MEDS: NORMOSOL-R 1,000 ML IV SCH ×3 (07:37→23:51)
[2021-04-18] MEDS: DIPHENOXYLATE/ATROPINE 2.5/0.025MG TAB PO SCH ×4 (07:37→20:04)
[2021-04-18] MEDS: LOPERAMIDE HCL 2 MG CAP PO SCH ×4 (07:37→20:04)
[2021-04-18] MEDS: buPROPion SR 100 MG TABCR PO SCH (07:37)
[2021-04-18 09:00] LABS: Basophils # (auto) 0.01 K/uL (0-0.2); Basophils % (auto) 0.2 %; Eosinophils # (auto) 0.14 K/uL (0-0.5); Hematocrit (blood only) 30.3 % (42-52); Hemoglobin 10.1 g/dL (14.0-18.0); Immature Granulocytes # (auto) 0.01 K/uL (0.00-0.02); Immature Granulocytes % (auto) 0.2 %; Lymphocytes # (auto) 1.54 K/uL (1.2-3.4); Lymphocytes % (auto) 32.9 %; Mean Corpuscular Hemoglobin 30.7 pg (25-34); Mean Corpuscular Hgb Conc 33.3 g/dL (32-36); Mean Corpuscular Volume 92.1 fL (80-100); Mean Platelet Volume 11.8 fL (7.4-10.4); Monocytes # (auto) 0.58 K/uL (0.11-0.59); Monocytes % (auto) 12.4 %; Neutrophils % (auto) 51.3 %; Platelet Count 124 K/uL (130-400); RDW Coefficient of Variation 13.9 % (11.5-14.5); RDW Standard Deviation 46.9 fL (36.4-46.3); Red Blood Count 3.29 M/uL (4.7-6.1); White Blood Count 4.68 K/uL (4.8-10.8)
[2021-04-18 09:27] LABS: BUN Creatinine Ratio 13.8 (10-20); Calcium 8.1 mg/dl (8.5-10.1); Creatinine Clr Calc Pharmacy 67.7 ml/min; Est GFR (African American) 101.8 ml/min; Est GFR (Non-African American) 87.8 ml/min; Potassium 3.2 mmol/L (3.5-5.1)
[2021-04-18 09:56] LABS: RBC Morphology Unremarkable
[2021-04-18] MEDS: FINASTERIDE 5 MG TAB PO SCH (20:05)
[2021-04-18] MEDS: PARoxetine HCL 20 MG TAB PO SCH (20:05)
[2021-04-18] MEDS: TAMSULOSIN HCL 0.4 MG CAP PO SCH (20:07)
--- NOTE | 2021-04-18 23:03 | Hospitalist Progress Note ---
Date of Service April 18, 2021 Assessment & Plan (1) Gram-negative bacteremia: Plan: 2nd pansensitive klebsiella. source - Edwards catheter which is used for chronic TPN. now on IV ancef. appreciate [facility] ID consultation and recs. Edwards will need removal. consult Dr Mohan from vascular. repeat blood cultures negative to date. plan 14 days of Rx. (2) Infection of intravenous catheter: Plan: Needs removal. Dr Mohan consultation requested. TPN on hold in setting of #1 above. (3) On total parenteral nutrition (TPN): Plan: Chronic daily use for 5 years. 2nd to malabsoprtion from short gut syndrome. followed at [facility]. TPN on hold due to #1. Consider PPN once catheter is out and blood cultures remain negative. Then will need new IV catheter to resume home TPN. (4) HTN (hypertension): Plan: Continue lisinopril 5mg PO daily (5) Ulcerative colitis: Plan: s/p total colectomy (6) Anxiety: Plan: Continue paroxetine (7) BPH (benign prostatic hyperplasia): Plan: Continue finasteride and tamsulosin (8) Short gut syndrome: Plan: as above (9) Hypokalemia: Plan: replace 2nd to GI losses via ostomy and limited PO intake along with TPN on hold (10) Pancytopenia: Plan: 2nd to #1 (bone marrow suppression)? other? repeat CBC in am Plan: DVT proph - consider once daily lovenox but patient is ambulating very frequently Admission and Anticipated Discharge Date Admission Date: April 15, 2021 Subjective patient "feels great" walking the hallways without limitation tolerating diet no abdominal pain states he had his total colectomy in the for his UC usual TPN at home - runs 10 hours at night-time; 2.5 L Review of Systems Review of Systems: gen - no fevers, no chills CV - no chest pain pulm - no cough, no dyspnea GI - no N/V; stool output via ostomy no different than baseline Physical Exam Physical Exam: gen - NAD, pleasant mouth - MMM, no thrush neck - no JVD chest - IV catheter in place, right upper chest - c/d/i heart - RRR, s1 s2 lungs - CTA b/l abd - soft NT parastomal hernia present; ostomy bag with liquid stool; stoma clean/healthy-appearing ext - no edema, pulses 2+ b/l Results & Data Results & Data ([facility]) Vital Signs (Past 12 Hours) Vital Signs Temp Pulse Pulse Pulse Resp BP BP 04/18/21 19:00 37.1 C 65 18 145/81 H 04/18/21 16:02 69 04/18/21 15:10 36.9 C 60 18 131/74 Pulse Ox 04/18/21 19:00 90 04/18/21 16:02 04/18/21 15:10 94 Laboratory Results Laboratory Results - last 24 hr 04/18/21 04/18/21 08:28 08:28 WBC 4.68 L RBC 3.29 L Hgb 10.1 L Hct 30.3 L MCV 92.1 MCH 30.7 MCHC 33.3 RDW Std Deviation 46.9 H RDW Coeff of Charles 13.9 Plt Count 124 L MPV 11.8 H Immature Gran % (Auto) 0.2 Neut % (Auto) 51.3 Lymph % (Auto) 32.9 Crane % (Auto) 12.4 Eos % (Auto) 3.0 Baso % (Auto) 0.2 Neut # (Auto) 2.40 Lymph # (Auto) 1.54 Crane # (Auto) 0.58 Eos # (Auto) 0.14 Baso # (Auto) 0.01 Immature Gran # (Auto) 0.01 RBC Morphology Unremarkable Sodium 140 Potassium 3.2 L Chloride 105 Carbon Dioxide 31 Anion Gap 4.0 BUN 11 Creatinine 0.79 Est Cr Clr Drug Dosing 67.7 Est GFR ( Amer) 101.8 Est GFR (Non-Af Amer) 87.8 BUN/Creatinine Ratio 13.8 Glucose 127 H Calcium 8.1 L PG Care Time/CCT Total # of Minutes Spent Total Time Spent with Patient: Total time spent is greater than 50% in coordination of care (as documented) at patient's floor/unit and/or counseling patient: Coding Level of Care Code 14329 Subseq Hosp Care Lvl 2 Diagnoses Gram-negative bacteremia R78.81 Infection of intravenous catheter T82.7XXA On total parenteral nutrition (TPN) Z78.9 HTN (hypertension) I10 Ulcerative colitis K51.90 Anxiety F41.9 BPH (benign prostatic hyperplasia) N40.0 Short gut syndrome K91.2 Hypokalemia E87.6 Pancytopenia D61.818
[2021-04-19] MEDS: ceFAZolin 2000MG 2,000 MG/15 ML SYR IV SCH ×3 (05:28→20:23)
[2021-04-19] MEDS ORDERED: Nursing to Pharmacy Communication SCH (05:45)
[2021-04-19 07:23] LABS: Basophils # (auto) 0.02 K/uL (0-0.2); Basophils % (auto) 0.4 %; Eosinophils # (auto) 0.21 K/uL (0-0.5); Hematocrit (blood only) 30.5 % (42-52); Hemoglobin 10.2 g/dL (14.0-18.0); Immature Granulocytes # (auto) 0.02 K/uL (0.00-0.02); Immature Granulocytes % (auto) 0.4 %; Lymphocytes # (auto) 1.62 K/uL (1.2-3.4); Lymphocytes % (auto) 30.9 %; Mean Corpuscular Hemoglobin 30.9 pg (25-34); Mean Corpuscular Hgb Conc 33.4 g/dL (32-36); Mean Corpuscular Volume 92.4 fL (80-100); Mean Platelet Volume 11.3 fL (7.4-10.4); Monocytes # (auto) 0.63 K/uL (0.11-0.59); Neutrophils # (auto) 2.75 K/uL (1.4-6.5); Neutrophils % (auto) 52.3 %; Platelet Count 148 K/uL (130-400); RDW Coefficient of Variation 13.9 % (11.5-14.5); RDW Standard Deviation 47.1 fL (36.4-46.3); White Blood Count 5.25 K/uL (4.8-10.8)
[2021-04-19] MEDS: buPROPion SR 100 MG TABCR PO SCH (07:28)
[2021-04-19] MEDS: CODEINE SULFATE 30 MG TAB PO SCH ×4 (07:28→20:24)
[2021-04-19] MEDS: IRON POLYSACCHARIDE COMPLEX 150 MG CAPSULE PO SCH ×2 (07:28→20:24)
[2021-04-19] MEDS: LOPERAMIDE HCL 2 MG CAP PO SCH ×4 (07:28→20:25)
[2021-04-19] MEDS: CHOLECALCIFEROL 1,000 UNITS 25 MCG TAB PO SCH ×2 (07:28→20:24)
[2021-04-19] MEDS: PANCREAZE (LIPASE 4,200U) CAP PO SCH ×3 (07:29→20:25)
[2021-04-19] MEDS: DIPHENOXYLATE/ATROPINE 2.5/0.025MG TAB PO SCH ×4 (07:29→20:24)
[2021-04-19 07:54] LABS: BUN Creatinine Ratio 11.7 (10-20); Calcium 8.7 mg/dl (8.5-10.1); Creatinine Clr Calc Pharmacy 72.2 ml/min; Est GFR (African American) 104.6 ml/min; Est GFR (Non-African American) 90.2 ml/min; Potassium 3.7 mmol/L (3.5-5.1)
[2021-04-19] MEDS: NORMOSOL-R 1,000 ML IV SCH ×2 (10:12→17:51)
--- NOTE | 2021-04-19 10:14 | Consultation ---
Date of Consultation April 19, 2021 Assessment & Plan (1) Infection of intravenous catheter: Pt with infected R IJ marian/cobb catheter, stable/asymptomatic presently. Discussed with Dr Mohan, will plan for removal in OR tomorrow, with tentative plans to replace after negative blood cx obtained. Procedure, risks, benefits and alternatives discussed with pt by myself. Pt expresses understanding and agreement. History of Present Illness Reason for Consultation: infected cobb catheter Attending Physician: Luke Aranda History of Present Illness 75 yo m with hx of short gut syndrome on chronic TPN, admitted with fever and bacteremia, seen in consultation today for removal of marian/cobb catheter. Pt known to Dr Mohan for removal of infected cobb and marian catheter insertion about 1 month ago d/t. Pt states he developed fever/chills/generalized weakness about 2-3 days prior to arrival. States feeling significantly improved now. Pt denies chest pain, fever presently, SOB, abd pain, N/V, rest pain, claudication, other complaints. Blood cx drawn from catheter positive for klebsiella, peripherally drawn cx was negative. Allergies Allergy/AdvReac Type Severity Reaction Status Date / Time ibuprofen AdvReac Intermediate GASTRIC Verified 04/15/21 17:15 ULCERS, NO COLON Home Medications Medication Instructions Recorded Confirmed Type cholecalciferol (vitamin D3) 25 1,000 unit PO BID 04/23/18 04/15/21 History mcg (1,000 unit) tablet (Vitamin D3) diphenoxylate-atropine 2.5 2 tab PO QID 04/23/18 04/15/21 History mg-0.025 mg tablet (Lomotil) finasteride 5 mg tablet 5 mg PO HS 04/23/18 04/15/21 History lipase 3,000-protease 1 cap PO TID 04/23/18 04/15/21 History 9,500-amylase 15,000 unit capsule, delayed rel (Creon) paroxetine HCl 30 mg tablet 30 mg PO PM 04/23/18 04/15/21 History Parenteral Electrolytes 1 dose IV [id number] 05/03/18 04/15/21 History polysaccharide iron complex 150 mg 150 mg PO BID 05/03/18 04/15/21 History iron capsule (Ferrex) tamsulosin 0.4 mg capsule 0.4 mg PO HS 05/03/18 04/15/21 History zolpidem 10 mg tablet 10 mg PO HS PRN 05/03/18 04/15/21 History lisinopril 5 mg tablet 5 mg PO QAM 08/13/20 04/15/21 History bupropion HCl 100 mg tablet,12 hr 100 mg PO QAM 09/16/20 04/15/21 History sustained-release codeine sulfate 30 mg tablet 30 mg PO QID 09/16/20 04/15/21 History loperamide 2 mg capsule 2 mg PO QID 09/16/20 04/15/21 History psyllium husk 3.4 gram/5.4 gram 1 tbsp PO QID 04/15/21 04/15/21 History oral powder (Metamucil) Patient History Medical History Anxiety BPH (benign prostatic hyperplasia) Chronic pain H/O ulcerative colitis HTN (hypertension) Ileostomy in place Infection of intravenous catheter Insomnia Pancreatitis pt denies any history SBO (small bowel obstruction) hx Sepsis Short gut syndrome Sleep apnea CPAP Surgical History H/O rotator cuff surgery right H/O total colectomy (~1973) History of colonoscopy History of laparotomy removed SBO History of tonsillectomy Family History Other No family history of adverse response to anesthesia No significant family history Social History Smoking Status: Former smoker Tobacco Type: Cigarettes Second Hand Exposure: No; Hx Alcohol Use: No Hx Substance Use: No Preferred Language: Irish Communication Ability: Effective Pres[employer] Head Teacher Required: No Beliefs That Will Affect Care: None marital status: Current Living Situation: Spouse How many Children do You have: 2 Feels Safe at Home: Yes Review of Systems Review of Systems: 14 systems reviewed and negative aside from HPI. Physical Exam Constitutional: WD/WN, vitals as above healthy appearing, cooperative and comfortable; not in distress ENMT: Ears: no hearing impairment Neck: trachea midline Respiratory: normal respiratory effort, lungs clear to auscultation Auscultation: + diminished lung sounds Cardiovascular: RRR, no murmur, no edema Vessels: femoral pulses present, posterior tibial pulses present, dorsalis pedis pulses present and radial pulses present; + abnormal peripheral pulses Extremities: normal capillary refill and + vascular access device (nontender, no erythema or drainage); no edema Gastrointestinal (Abdomen): Inspection/Auscultation: normal bowel sounds and + abdominal surgical scar Percussion/Palpation: abdomen soft; abdomen nontender Musculoskeletal: no cyanosis or clubbing, extremities motor strength 5/5 Skin: no rashes, warm and dry Neurologic: moves all extremities and awake; no focal motor deficits and not confused Psychiatric: A+Ox3, euthymic affect Results & Data ([facility]) Vital Signs (Past 12 Hours) Vital Signs Temp Pulse Pulse Pulse Resp BP BP 04/19/21 08:00 36.7 C 57 L 18 159/81 H 04/19/21 07:00 61 04/19/21 03:31 36.7 C 65 20 148/79 H 04/18/21 23:00 36.7 C 63 18 134/75 04/18/21 22:19 57 L Pulse Ox 04/19/21 08:00 90 04/19/21 07:00 04/19/21 03:31 90 04/18/21 23:00 92 04/18/21 22:19
--- NOTE | 2021-04-19 14:27 | XCELERA ---
[id number]
[2021-04-19] MEDS: FINASTERIDE 5 MG TAB PO SCH (20:24)
[2021-04-19] MEDS: PARoxetine HCL 20 MG TAB PO SCH (20:25)
[2021-04-19] MEDS: TAMSULOSIN HCL 0.4 MG CAP PO SCH (20:25)
--- NOTE | 2021-04-19 21:34 | Hospitalist Progress Note ---
Date of Service April 19, 2021 Assessment & Plan (1) Gram-negative bacteremia: Plan: 2nd pansensitive klebsiella. source - Edwards catheter which is used for chronic TPN. now on IV ancef. appreciate [facility] ID consultation and recs. Edwards will need removal. Dr Mohan from vascular to do so tomorrow in OR. repeat blood cultures negative to date. plan 14 days of Rx. echo today w/o endocarditis findings. (2) Infection of intravenous catheter: Plan: Needs removal. Dr Mohan consultation appreciated and plan to remove catheter 04/20/21. TPN on hold in setting of #1 above. (3) On total parenteral nutrition (TPN): Plan: Chronic daily use for 5 years. 2nd to malabsoprtion from short gut syndrome. followed at [facility]. TPN on hold due to #1. Consider PPN once catheter is out and blood cultures remain negative. Then will need new IV catheter to resume home TPN. (4) HTN (hypertension): Plan: Continue lisinopril 5mg PO daily Controlled (5) Ulcerative colitis: Plan: s/p total colectomy 1970s (6) Anxiety: Plan: Continue paroxetine (7) BPH (benign prostatic hyperplasia): Plan: Continue finasteride and tamsulosin (8) Short gut syndrome: Plan: as above (9) Hypokalemia: Plan: replaced/resolved 2nd to GI losses via ostomy and limited PO intake along with TPN on hold (10) Pancytopenia: Plan: 2nd to #1 (bone marrow suppression)? other? repeat CBC today shows improvement follow carefully Plan: DVT proph - consider once daily lovenox but patient is ambulating very frequently start the lovenox once catheter is out Admission and Anticipated Discharge Date Admission Date: April 15, 2021 Subjective no issues overnight feels very good eating well per staff ostomy output unchanged no fevers he is aware of Edwards removal tomorrow by Dr Mohan tele overnight wnl Review of Systems Review of Systems: gen - no fevers/chills/sweats cv - no orthopnea pulm - no FRANKLIN GI - no abd pain Physical Exam Physical Exam: gen - NAD, pleasant, looks great mouth - MMM, no thrush neck - no JVD chest - IV catheter in place, right upper chest - c/d/i, nontender heart - RRR, s1 s2 lungs - CTA b/l abd - soft NT parastomal hernia present; ostomy bag with liquid stool; stoma healthy-appearing ext - no edema, pulses 2+ b/l Results & Data Results & Data ([facility]) Vital Signs (Past 12 Hours) Vital Signs Temp Pulse Pulse Resp BP Pulse Ox 04/19/21 16:05 37.0 C 60 18 156/84 H 93 04/19/21 15:20 63 04/19/21 12:04 36.5 C 67 20 156/76 H 91 Laboratory Results Laboratory Results - last 24 hr 04/19/21 04/19/21 06:37 06:37 WBC 5.25 RBC 3.30 L Hgb 10.2 L Hct 30.5 L MCV 92.4 MCH 30.9 MCHC 33.4 RDW Std Deviation 47.1 H RDW Coeff of Charles 13.9 Plt Count 148 MPV 11.3 H Immature Gran % (Auto) 0.4 Neut % (Auto) 52.3 Lymph % (Auto) 30.9 Tripp % (Auto) 12.0 Eos % (Auto) 4.0 Baso % (Auto) 0.4 Neut # (Auto) 2.75 Lymph # (Auto) 1.62 Tripp # (Auto) 0.63 H Eos # (Auto) 0.21 Baso # (Auto) 0.02 Immature Gran # (Auto) 0.02 Sodium 140 Potassium 3.7 D Chloride 104 Carbon Dioxide 31 Anion Gap 5.0 BUN 9 Creatinine 0.74 Est Cr Clr Drug Dosing 72.2 Est GFR ( Amer) 104.6 Est GFR (Non-Af Amer) 90.2 BUN/Creatinine Ratio 11.7 Glucose 83 Calcium 8.7 Diagnostic Findings repeat blood cx's cont to remain negative PG Care Time/CCT Total # of Minutes Spent Total Time Spent with Patient: Total time spent is greater than 50% in coordination of care (as documented) at patient's floor/unit and/or counseling patient: Coding Level of Care Code 04516 Subseq Hosp Care Lvl 2 Diagnoses Gram-negative bacteremia R78.81 Infection of intravenous catheter T82.7XXA On total parenteral nutrition (TPN) Z78.9 HTN (hypertension) I10 Ulcerative colitis K51.90 Anxiety F41.9 BPH (benign prostatic hyperplasia) N40.0 Short gut syndrome K91.2 Hypokalemia E87.6 Pancytopenia D61.818
[2021-04-20] MEDS: NORMOSOL-R 1,000 ML IV SCH ×2 (05:02→17:04)
[2021-04-20] MEDS: ceFAZolin 2000MG 2,000 MG/15 ML SYR IV SCH ×3 (05:17→20:02)
[2021-04-20] MEDS: CODEINE SULFATE 30 MG TAB PO SCH ×4 (08:08→20:03)
[2021-04-20] MEDS: DIPHENOXYLATE/ATROPINE 2.5/0.025MG TAB PO SCH ×4 (09:18→20:03)
[2021-04-20] MEDS: PANCREAZE (LIPASE 4,200U) CAP PO SCH ×3 (09:18→20:04)
[2021-04-20] MEDS: LOPERAMIDE HCL 2 MG CAP PO SCH ×4 (09:19→20:06)
[2021-04-20] MEDS ORDERED: fentaNYL citrate 100 MCG/2 ML VIAL ONE (09:43)
[2021-04-20] MEDS ORDERED: MIDAZOLAM HCL 1 MG/ML 2ML VIAL ONE (09:43)
[2021-04-20] MEDS: IRON POLYSACCHARIDE COMPLEX 150 MG CAPSULE PO SCH ×2 (09:46→20:03)
[2021-04-20] MEDS: CHOLECALCIFEROL 1,000 UNITS 25 MCG TAB PO SCH ×2 (09:46→20:02)
[2021-04-20] MEDS: buPROPion SR 100 MG TABCR PO SCH (09:46)
[2021-04-20] MEDS ORDERED: LIDOCAINE 1% LOCAL 20 ML VIAL ONE (11:16)
--- NOTE | 2021-04-20 11:40 | History & Physical Bridge Note ---
Date of Service April 20, 2021 History & Physical Bridge Note I have examined the patient, reviewed the History & Physical and in the interval since the performance of the History & Physical I have noted the following changes of clinical significance: no changes noted Consent was obtained by my PA per my request.
--- NOTE | 2021-04-20 11:40 | Pre Anesthesia Assessment ---
Date of Service April 20, 2021 Pre Sedation Assessment Vital Signs Temp Pulse Pulse Pulse Resp BP BP 04/20/21 11:09 37.2 C 66 66 20 156/84 H 04/20/21 09:21 04/20/21 08:25 36.5 C 81 16 159/76 H 04/20/21 02:59 37.1 C 59 L 18 138/74 04/19/21 23:32 37.0 C 69 18 149/68 H 04/19/21 23:27 60 04/19/21 21:00 63 04/19/21 16:05 37.0 C 60 18 156/84 H 04/19/21 15:20 63 04/19/21 12:04 36.5 C 67 20 156/76 H Pulse Ox Pulse Ox 04/20/21 11:09 94 04/20/21 09:21 98 04/20/21 08:25 92 04/20/21 02:59 93 04/19/21 23:32 94 04/19/21 23:27 04/19/21 21:00 04/19/21 16:05 93 04/19/21 15:20 04/19/21 12:04 91 Cardiovascular RRR, no murmur, no edema Respiratory normal respiratory effort, lungs clear to auscultation Pre-Sedation Airway Assessment Smoking Status: Former smoker Hx Sleep Apnea: No Short, Thick Neck: No Thyromental Distance: > or= 3.5 Finger Breadths Oral Cavity: + WNL Mallampati Class: III ASA: ASA3 NPO Status Date of Last Intake of Fluids: 04/19/21 Time of Last Intake of Fluids: 21:00 Date of Last Intake of Solid Food: 04/19/21 Time of Last Intake of Solid Foods: 21:00 Procedure Planning Contraindications for Sedation: none Current Medications Reviewed: Yes Notes The planned sedation has been discussed with the patient. Informed Consent was obtained. I have identified the patient, determined the appropriateness of sedation and have assessed the patient immediately prior to the procedure. All medicine(s) and interventions are by my order.
--- NOTE | 2021-04-20 12:01 | Operative Report ---
Post Operative Report Pre & Post Diagnosis Operation Date: 04/20/21 11:30 Pre-Op Diagnosis: infected edwards Post-Op Diagnosis: infected edwards I identified the patient and participated in the time-out.: Yes Procedure Operation Date: 04/20/21 11:30 Actual Procedures p Removal of Edwards Catheter - Ulises Mohan MD Surgeon Ulises Mohan MD [employer] none Estimated Blood Loss 0 Findings Consistent with Post-Op Diagnosis Specimens none Anesthesia Type Local Complications none Disposition Accompanied Patient To Recovery: No Disposition: Recovery Room Indications This is a 75-year-old gentleman who presented with bacteremia. He has a Edwards in place which is been in for a month. There is concern that this catheter was infected. Removal was recommended. I have discussed the risks options and benefits of the procedure with the patient. The patient understands the risks options and benefits and agrees to the procedure. Description of Procedure The patient was taken to the angio suite and placed in the supine position. The patient was identified and a timeout performed. The right side of the neck, chest wall and catheter were prepped and draped in a sterile manner. Local anesthesia was then accomplished. Using sharp and blunt dissection, the cuff of the Edwards was freed up from the surrounding fibrous tissue. The Edwards and cuff were completely removed. Pressure was then applied and adequate hemostasis was obtained. A sterile dressing was then applied. The patient left the operation room in satisfactory condition and tolerated the procedure well. All needle and sponge counts were correct at the end of the procedure. I attest to the content of the Intraoperative Record and any orders documented t herein. Any exceptions are noted below.
[2021-04-20] MEDS: FINASTERIDE 5 MG TAB PO SCH (20:03)
[2021-04-20] MEDS: PARoxetine HCL 20 MG TAB PO SCH (20:04)
[2021-04-20] MEDS: TAMSULOSIN HCL 0.4 MG CAP PO SCH (20:05)
--- NOTE | 2021-04-20 21:00 | Hospitalist Progress Note ---
Date of Service April 20, 2021 Assessment & Plan (1) Gram-negative bacteremia: Plan: 2nd pansensitive klebsiella. source - Cobb catheter which is used for chronic TPN. now on IV ancef. appreciate [facility] ID consultation and recs. Cobb removed in OR today by Dr Mohan from vascular. repeat blood cultures negative to date. plan 14 days of Rx from date of neg blood cx's. echo w/o endocarditis findings. tomorrow will d/w Dr Mohan timing of putting a new Cobb back in in meantime- no TPN just basal fluids of note - ID ok w/ switching to once-daily rocephin at d/c (2) Infection of intravenous catheter: Plan: s/p removal today as above (3) On total parenteral nutrition (TPN): Plan: Chronic daily use for 5 years. 2nd to malabsoprtion from short gut syndrome. followed at [facility]. TPN on hold due to #1. see above. (4) HTN (hypertension): Plan: Continue lisinopril 5mg PO daily Controlled (5) Ulcerative colitis: Plan: s/p total colectomy 1970s (6) Anxiety: Plan: Continue paroxetine (7) BPH (benign prostatic hyperplasia): Plan: Continue finasteride and tamsulosin (8) Short gut syndrome: Plan: as above (9) Hypokalemia: Plan: replaced/resolved 2nd to GI losses via ostomy and limited PO intake along with TPN on hold (10) Pancytopenia: Plan: 2nd to #1 (bone marrow suppression)? other? repeat CBC showing improvement b12/folate wnl Plan: updated will discuss care with Dr Mohan tomorrow will discuss care with SW tomorrow hopefully d/c home soon Admission and Anticipated Discharge Date Admission Date: April 15, 2021 Subjective had Cobb catheter removed today by Dr Mohan w/o incident at bedside during the visit he feels great no new issues Review of Systems Review of Systems: gen - no fevers/chills/sweats CV - no pain pulm - no cough/congestion GI - no increase in ostomy output; he is eating very well Physical Exam Physical Exam: gen - NAD, pleasant, looks great mouth - MMM, no thrush neck - no JVD chest - cobb gone; dressing in place heart - RRR, s1 s2, no murmur lungs - CTA b/l abd - soft NT parastomal hernia present; ostomy bag with liquid stool; stoma healthy-appearing ext - no edema, pulses 2+ b/l Results & Data Results & Data ([facility]) Vital Signs (Past 12 Hours) Vital Signs Temp Pulse Pulse Pulse Resp BP BP 04/20/21 19:00 36.8 C 67 18 151/79 H 04/20/21 18:34 36.8 C 70 18 146/68 H 04/20/21 16:10 36.8 C 68 16 142/68 H 04/20/21 15:26 62 04/20/21 15:14 36.8 C 76 16 169/59 H 04/20/21 14:00 68 18 152/86 H 04/20/21 13:30 78 18 168/88 H 04/20/21 13:00 36.6 C 65 68 18 162/84 H 04/20/21 12:45 72 18 160/82 H 04/20/21 12:30 36.6 C 70 16 158/78 H 04/20/21 12:17 36.9 C 69 17 152/80 H 04/20/21 12:04 71 16 169/79 H 04/20/21 12:02 70 16 168/82 H 04/20/21 11:59 74 16 165/78 H 04/20/21 11:55 72 16 164/89 H 04/20/21 11:50 65 16 155/76 H 04/20/21 11:09 37.2 C 66 66 20 156/84 H 04/20/21 09:21 Pulse Ox Pulse Ox 04/20/21 19:00 91 04/20/21 18:34 95 04/20/21 16:10 95 04/20/21 15:26 04/20/21 15:14 92 04/20/21 14:00 98 04/20/21 13:30 95 04/20/21 13:00 96 04/20/21 12:45 95 04/20/21 12:30 95 04/20/21 12:17 91 04/20/21 12:04 95 04/20/21 12:02 96 04/20/21 11:59 96 04/20/21 11:55 95 04/20/21 11:50 95 04/20/21 11:09 94 04/20/21 09:21 98 Laboratory Results repeat blood cx's 04/17 remain negative PG Care Time/CCT Total # of Minutes Spent Total Time Spent with Patient: Total time spent is greater than 50% in coordination of care (as documented) at patient's floor/unit and/or counseling patient: Coding Level of Care Code 99774 Subseq Hosp Care Lvl 2 Diagnoses Gram-negative bacteremia R78.81 Infection of intravenous catheter T82.7XXA On total parenteral nutrition (TPN) Z78.9 HTN (hypertension) I10 Ulcerative colitis K51.90 Anxiety F41.9 BPH (benign prostatic hyperplasia) N40.0 Short gut syndrome K91.2 Hypokalemia E87.6 Pancytopenia D61.818
[2021-04-21] MEDS: ceFAZolin 2000MG 2,000 MG/15 ML SYR IV SCH (04:28)
[2021-04-21] MEDS: CODEINE SULFATE 30 MG TAB PO SCH ×3 (08:02→18:26)
[2021-04-21] MEDS: DIPHENOXYLATE/ATROPINE 2.5/0.025MG TAB PO SCH ×3 (08:03→18:26)
[2021-04-21] MEDS: IRON POLYSACCHARIDE COMPLEX 150 MG CAPSULE PO SCH (08:03)
[2021-04-21] MEDS: PANCREAZE (LIPASE 4,200U) CAP PO SCH ×2 (08:03→14:19)
[2021-04-21] MEDS: LOPERAMIDE HCL 2 MG CAP PO SCH ×3 (08:03→18:26)
[2021-04-21] MEDS: CHOLECALCIFEROL 1,000 UNITS 25 MCG TAB PO SCH (08:03)
[2021-04-21] MEDS: buPROPion SR 100 MG TABCR PO SCH (08:03)
[2021-04-21 08:50] LABS: Basophils # (auto) 0.02 K/uL (0-0.2); Basophils % (auto) 0.3 %; Eosinophils # (auto) 0.26 K/uL (0-0.5); Eosinophils % (auto) 3.5 %; Hematocrit (blood only) 36.4 % (42-52); Hemoglobin 12.1 g/dL (14.0-18.0); Immature Granulocytes # (auto) 0.04 K/uL (0.00-0.02); Immature Granulocytes % (auto) 0.5 %; Lymphocytes # (auto) 1.87 K/uL (1.2-3.4); Lymphocytes % (auto) 24.9 %; Mean Corpuscular Hemoglobin 31.1 pg (25-34); Mean Corpuscular Hgb Conc 33.2 g/dL (32-36); Mean Corpuscular Volume 93.6 fL (80-100); Mean Platelet Volume 10.8 fL (7.4-10.4); Monocytes # (auto) 0.74 K/uL (0.11-0.59); Monocytes % (auto) 9.8 %; Neutrophils # (auto) 4.59 K/uL (1.4-6.5); Platelet Count 307 K/uL (130-400); RDW Coefficient of Variation 14.3 % (11.5-14.5); RDW Standard Deviation 48.6 fL (36.4-46.3); Red Blood Count 3.89 M/uL (4.7-6.1); White Blood Count 7.52 K/uL (4.8-10.8)
[2021-04-21 09:01] LABS: BUN Creatinine Ratio 7.3 (10-20); Calcium 9.2 mg/dl (8.5-10.1); Creatinine Clr Calc Pharmacy 62.1 ml/min; Est GFR (African American) 98.3 ml/min; Est GFR (Non-African American) 84.8 ml/min; Magnesium 2.2 mg/dl (1.8-2.4); Potassium 3.9 mmol/L (3.5-5.1)
[2021-04-21] MEDS ORDERED: cefTRIAXone SODIUM 2,000 MG in DEXTROSE 5% 50 ML IV SCH (12:00)
[2021-04-21] MEDS: NORMOSOL-R 1,000 ML IV SCH (16:23)
--- NOTE | 2021-04-21 19:01 | Discharge Summary ---
Date of Service date of admission - April 15, 2021 date of discharge - April 21, 2021 Admission HPI Per Admitting Provider Freddy Barone is a 75 year old male on chronic TPN with recurrent bacteremia who presents to the ER with fever, chills and generalized weakness. He is on ch ronic TPN for short gut syndrome managed through the [facility]. Fever today reached 102.6 degrees Fahrenheit therefore he was advised to go to the ER for ongoing treatment. He otherwise feels well. No chest pain, abdominal pain, shortness of breath, sinus pain, nasal congestion. No change in ileostomy contents. He was recent admitted from March 14-2020 due to Coag negative staph ba cteremia and had his Edwards line removed on 03/16 and replaced 03/21. He underwent treatment with intravenous cefazolin. He was given daptomycin in the ER, blood cultures taken from peripheral veins and Edwards catheter and he was referred to medicine for admission and ongoing management of suspected bacteremia. Principal Diagnosis Klebsiella septicemia/bacteremia 2nd to Edwards Catheter Infection Discharge Exam Gen - NAD, awake, alert Skin - dressing intact over R upper chest Neck - no JVD Mouth - MMM Heart - RRR, s1 s2, no murmur Lungs - CTA b/l Abd - soft, NT, ND, BS+; ostomy with liquid stool in bag Ext - no edema, pulses 2+ b/l Discharge Data Allergies Allergy/AdvReac Type Severity Reaction Status Date / Time ibuprofen AdvReac Intermediate GASTRIC Verified 04/27/21 10:22 ULCERS, NO COLON Consultations [facility] Infectious Disease (Telehealth) [facility] Vascular Surgery Procedures Performed Operation Date: 04/20/21 11:30 Actual Procedures p Removal of Edwards Catheter - Ulises Mohan MD Ordered Studies Echocardiogram - * EF 60-65% * normal valves - no vegetations * normal LV wall motion Chest X-Ray 04/15/21 12:24 SINGLE VIEW CHEST CLINICAL HISTORY: Fever. FINDINGS: 2 AP, portable, upright chest radiographs are compared to study dated 03/14/2021 and correlated with chest CT dated 10/21/2016. A right sided central venous infusion port is unchanged in position. The heart is enlarged noting atherosclerotic calcification of the thoracic aorta. The pulmonary vasculature is noncongested. Emphysema and chronic interstitial thickening is similar to previous. There is mild bibasilar scarring/atelectasis. No airspace consolidation or large pleural effusion is identified. No pneumothorax is seen. The skeletal structures are osteopenic. There are healed bilateral rib fractures. Surgical clips project over the left upper quadrant. IMPRESSION: Cardiomegaly and emphysema with no acute cardiopulmonary abnormality identified. ACT 112: Negative or not required by law. Electronically signed by: Macario Veras M.D. 04/15/2021 3:39 PM Hospital Course (1) Gram-negative bacteremia: 2nd pansensitive Klebsiella. Initially on broad-spectrum IV antibiotics, then changed to IV Ancef, and then finally transitioned to once daily Rocephin. Seen by Ivet CLARKE via Telehealth. Total of 14 days of IV antibiotic therapy advised. Starting 04/22/21 he will receive 9 additional days of once-daily IV rocephin 2gm at his home via u/s-guided peripheral IV. Edwards removed by Dr Mohan this admission. Echo w/o endocarditis findings. TPN on hold the entire stay. At discharge he will continue to hold TPN. TPN will be resumed once new Edwards catheter is placed in the week following discharge. (2) Septicemia: 2nd to Klebsiella. Source - Edwards catheter. Blood cultures from 04/15/21 positive for such. Repeat blood cultures 04/17/21 negative ensuring sterility. (3) Infection of intravenous catheter: Edwards catheter - used for chronic TPN usage at home. s/p removal by Dr Mohan this admission. Will need a new Edwards catheter placed in the week following discharge -- see below. (4) On total parenteral nutrition (TPN): Chronic daily use for 5 years. 2nd to malabsoprtion from short gut syndrome. followed at [facility], nutrition department. TPN on hold due to #1. Patient will administer 1/2 NS x 2.5 liters over 10 hours nightly until his new Edwards catheter is placed. See below. (5) HTN (hypertension): Continue lisinopril 5mg PO daily Controlled (6) Ulcerative colitis: s/p total colectomy 1970[address] ileostomy in place electrolytes and creatinine were stable throughout the stay (7) Anxiety: Continue paroxetine (8) BPH (benign prostatic hyperplasia): Continue finasteride and tamsulosin (9) Short gut syndrome: as above (10) Hypokalemia: replaced/resolved 2nd to GI losses via ostomy and limited PO intake along with TPN on hold in the early portion of his stay (11) Pancytopenia: 2nd to #1 (bone marrow suppression)? other? repeat CBCs later in the visit showed improvement b12/folate wnl recommend ongoing CBC surveillance as an outpatient On 04/21/21 social work was heavily involved in coordination of his post- discharge IV antibiotics and IV fluids. While awaiting final word from the [facility] on his IV fluids the patient abruptly left the hospital. Nursing and myself went to the hospital lobby to encourage him to stay 1 additional night until his post-discharge plans could be firmly finalized. Patient refused such, stating he needed to get home to his who is battling stage 4 cancer. Patient indeed went home with his on 04/21/21. On 04/22/21 I spoke personally with the nutrition department at [facility] and updated them on his hospital stay and need for interruption in TPN due to lack of central venous access and bacteremia. They felt that IV fluids via peripheral IV was acceptable and simply asked that we monitor his electrolytes and renal function while off TPN. To that end the patient will -- * infuse 1/2 NS, 2.5 liters, over 10 hours nightly until his new Edwards catheter is placed (scheduled for 04/27/21) * repeat BMP and magnesium levels every 2 days until his Edwards is placed (labs scheduled for 04/24/21 and 04/26/21) * once Edwards is in place TPN nightly per [facility] will be resumed Home Health Attestation I certify that this patient is under my care and that I, or a physicians assistant purchasing manager working with me, had a face to-face encounter that meets the home health [id number] encounter requirements with this patient. The encounter with the patient was in whole, or in part, for the following medical condition, which is the primary reason for home health care (list medical condition): I certify that, based on my findings, the following services are medically necessary home health services: My clinical findings support the need for the above services because: Further, I certify that my clinical findings support that this patient is homebound (i.e. absences from home require considerable and taxing effort and are for medical reasons or jain services or infrequently or of short duration when for other reasons) because: Certification for Home Health Services: Based on the above findings, I certify that this patient is confined to the home and needs intermittent halfway care, physical therapy and/or speech therapy or continues to need occupational therapy. The patient is under my care, and I have initiated the establishment of the plan of care. This patient will be followed by a physician who will periodically review the plan of care. Total Time Total Time Spent Total Time Spent (In Minutes): 60 Discharge Plan Discharge Items Patient Disposition: Home - Home Health Services Reason For Visit: FEVER Discharge Diagnosis: 1. Bacteremia (bloodstream infection) due to #2 2. Edwards Catheter Infection with removal by Dr Ulises Mohan on 04/20/21 Activity: As commented below Activity Comment: gradually increase activities over the next week Bathing Comment: keep left sided IV clean/covered/dry during showers Non-emergency contact: Primary Care Provider Call non-emergency contact if: you have any medication questions and you have a fever Follow-up/Referrals: Kev Burton [Primary Care Provider] - Ulises Mohan MD [Physician] - (Edwards catheter replacement surgery - date/time to be determined) Diet: Regular Addtl Attending Provider Instructions: Mr Barone - You were hospitalized for bacteremia due to Edwards Catheter infection. You received IV antibiotics throughout your stay. The most recent blood cultures are negative suggesting the bloodstream infection is resolving. Your echocardiogram did not show evidence of infection on the heart valves. Dr Ulises Mohan was consulted from vascular surgery and removed your infected catheter on 04/20/21. At this time we are trying to coordinate with your home infusion company as well as the [facility] a plan for your IV fluids at home. You will be off the TPN for several days. On 04/21/21 we encouraged you to stay 1 more night in the hospital so that we could arrange your surgery date/time as well as firm up the plan for your night- time fluids. You asked for hospital discharge despite our recommendation to stay. We will have to contact you on 04/22/21 with the final plans for the issues above. Finally, via home health, you will complete 9 more days of IV antibiotics at your home. A special IV has been placed in your arm for this purpose. Your first dose of antibiotic is scheduled for 04/22/21. Return to [facility] if - * you have fevers over 100 degrees * you have concerns about dehydration * you have increasing stool output via your ostomy * any other concerns Pending Studies at Discharge: No Stand-Alone Forms: My [facility], Smoking Cessation Medications and DC Order Prescriptions: Continued cholecalciferol (vitamin D3) [Vitamin D3] 1,000 unit Tablet 1,000 unit PO BID RF: 0 diphenoxylate-atropine [Lomotil] 2.5-0.025 mg Tablet 2 tab PO QID RF: 0 finasteride 5 mg Tablet 5 mg PO HS RF: 0 paroxetine HCl 30 mg Tablet 30 mg PO PM RF: 0 Creon 3,000-9,500- 15,000 unit Capsule,Delayed Release(Dr/Ec) 1 cap PO TID RF: 0 zolpidem 10 mg Tablet 10 mg PO HS PRN (Reason: Insomnia) RF: 0 polysaccharide iron complex [Ferrex 150] 150 mg iron Capsule 150 mg PO BID RF: 0 tamsulosin 0.4 mg Capsule 0.4 mg PO HS RF: 0 lisinopril 5 mg tablet 5 mg PO QAM RF: 0 loperamide 2 mg capsule 2 mg PO QID RF: 0 bupropion HCl 100 mg tablet sustained-release 12 hr 100 mg PO QAM RF: 0 codeine sulfate 30 mg tablet 30 mg PO QID RF: 0 Metamucil 3.4 gram/5.4 gram Powder 1 tbsp PO QID RF: 0 Discontinued Parenteral Electrolytes 1 dose IV [id number] RF: 0 Discharge Orders: Discharge Order (Routine); Ordered 04/21/21 Ordered By: Luke Aranda Admission Data Admit Date/Time: 04/15/21 16:50 Attending Provider: Luke Aranda Admit Provider: Luke Aragon Primary Care Provider: Kev Burton Other Providers: [facility],Home Healthcare ; Luke Aragon ; Kaz Herndon ; Nadine Salazar ; Wade Banerjee I. ; Leonardo Doll II ; Genevieve Silva ; Joe Foley ; Miguel A Cordova ; Ulises Mohan Other Interventions: Discharge Summary Assessment (RN) Last Done: 04/21/21 19:00 Coding Level of Care Code D/C DAY MANAGEMENT >30 MINS Diagnoses Gram-negative bacteremia R78.81 Infection of intravenous catheter T82.7XXA On total parenteral nutrition (TPN) Z78.9 HTN (hypertension) I10 Ulcerative colitis K51.90 Anxiety F41.9 BPH (benign prostatic hyperplasia) N40.0 Short gut syndrome K91.2 Hypokalemia E87.6 Pancytopenia D61.818 Septicemia A41.9
--- NOTE | 2021-04-28 07:26 | Coding Query ---
SEPSIS To promote full compliance with coding requirements relating to patient care, physician participation is requested in all cases of digital marketing coordinator uncertainty. Please assist us with the question(s) below: In responding to this query, please exercise your independent professional judgement. The fact that a question is asked does not imply that any particular answer is desired or expected. We appreciate your clarification on this issue. The medical record reflects the following clinical findings: Pt admitted with infected Edwards catheter. 04/17 pn states Sepsis d/t gram neg bacteremia . DS documents bacteremia/blood stream infection d/t catheter. Seeking to clarify the diagnosis that was treated during this IP stay. Please check below . Thank you . Devin Morfin [employer] ____ ( )Bacteremia (Nonspecific laboratory finding of bacteria in the blood) Specify Organism ( ) Present on Admission ( ) Not present on admission ( ) Unable to clinically determine (x ) Septicemia (Systemic disease associated with the presence of pathogenic microorganisms in the blood): Specify Organism (x ) Present on Admission ( ) Not present on admission ( ) Unable to clinically determine ( ) Sepsis Specify Organism Specify Associated Condition/Diagnosis ( ) Present on Admission ( ) Not present on admission () Unable to clinically determine ( ) Severe Sepsis (Sepsis associated with acute organ dysfunction) Specify Organism Specify Associated Condition/Diagnosis ( ) Present on Admission ( ) Not present on admission ( ) Unable to clinically determine ( ) Septic Shock (Severe sepsis with acute circulatory failure, unexplained by other causes) ( ) Present on Admission ( ) Not present on admission ( ) Unable to clinically determine ( ) Other, patient has: MTDD
== END 2021-04-21 18:46 | disposition home health service (06) | DRG 314 ==
LOC: ED 12:11 → SUATTDRO 16:50 → 2W 16:50

== ENCOUNTER 2022-02-04 21:34 | Inpatient (IN) ==
[2022-02-04 22:10] LABS: Hematocrit (blood only) 36.4 % (40.1-51.0); Hemoglobin 12.8 g/dl (14.0-18.0); White Blood Count 11.03 K/ul (4.8-10.8)
[2022-02-04 22:20] LABS: Albumin Globulin Ratio 1.1 (0.9-2); Albumin Level 3.7 gm/dl (3.4-5.0); Bilirubin,Total 4.6 mg/dl (0.2-1.0); Calcium 10.1 mg/dl (8.5-10.1); Creatinine Clr Calc Pharmacy 38.4 ml/min; Est GFR (African American) 57.7 ml/min; Est GFR (Non-African American) 49.7 ml/min; Globulin 3.4 gm/dl (2.5-4.0); Potassium 3.7 mmol/L (3.5-5.1); Total Protein 7.1 gm/dl (6.0-8.3)
[2022-02-04 22:26] LABS: Basophils # (auto) 0.03 K/uL (0-0.2); Basophils % (auto) 0.3 %; Dohle Bodies 1+; Echinocytes 1+; Eosinophils # (auto) 0.03 K/uL (0-0.50); Eosinophils % (auto) 0.3 %; Immature Granulocytes % (auto) 1.8 %; Lymphocytes # (auto) 0.51 K/uL (1.2-3.4); Lymphocytes % (auto) 4.6 %; Mean Corpuscular Hemoglobin 31.1 pg (25.0-34.0); Mean Corpuscular Hgb Conc 35.2 g/dL (32.0-36.0); Mean Corpuscular Volume 88.6 fL (80.0-100.0); Mean Platelet Volume 13.7 fL (9.4-12.4); Monocytes # (auto) 0.97 K/uL (0.24-0.82); Monocytes % (auto) 8.8 %; Neutrophils # (auto) 9.29 K/uL (1.4-6.5); Neutrophils % (auto) 84.2 %; Platelet Count 75 K/uL (130-400); RDW Coefficient of Variation 12.8 % (11.5-14.5); RDW Standard Deviation 41.2 fL (36.4-46.3); Red Blood Count 4.11 M/uL (4.63-6.08); Toxic Vacuolation 1+
[2022-02-04 23:59] LABS: Appearance Urine Clear (Clear); Bacteria Urine Automated Negative (Negative); Blood Urine 2+ (Negative); Color Urine Dark Yellow; Epithelial Cell Urine Auto 0-5 /lpf (0-5); Glucose Urine UA Negative (Negative); Ketones Urine Negative (Negative); Leukocyte Esterase Urine Negative (Negative); Nitrite Urine Negative (Negative); Protein Urine 1+ (Negative); Specific Gravity Urine 1.018 (1.000-1.030); Urobilinogen Urine Negative (Negative); WBC Urine Automated 0 /hpf (0-5)
[2022-02-05] LABS: Bilirubin Urine 1+ (Negative)
[2022-02-05] MEDS ORDERED: SODIUM CHLORIDE 0.9% 1000ML 1,000 ML IV ONE ×2 (00:01→00:29)
[2022-02-05] MEDS ORDERED: VANCOMYCIN CONSULT ACTIVE PRN (00:02)
[2022-02-05] MEDS ORDERED: CEFEPIME 2,000 MG/20 ML VIAL IV STA (00:02)
[2022-02-05] MEDS ORDERED: VANCOMYCIN HCL 1,500 MG in SODIUM CHLORIDE 0.9% 500 ML IV ONE (00:02)
[2022-02-05] MEDS ORDERED: ACETAMINOPHEN 1,000 MG/100 ML VIAL IV STA (00:32)
--- NOTE | 2022-02-05 00:32 | Emergency Department Note ---
History of Present Illness General Chief complaint: Fever Time Seen by Provider: 02/04/22 23:25 History of Present Illness Onset (ago): day(s) 4 This is a 76-year-old male presents emergency department due to concern for evolving infection. Patient states several days ago he noticed a drop off in his appetite which she states has happened is the first sign of evolving infection previously. He states he then began to feel more off balance and lightheaded. He states that that he then spiked a fever. His insisted he come in for evaluation. Patient does have a prior history of bacteremia/sepsis. He states he had previously had an infection in his spine and underwent 2 month s of antibiotics. He states he did have follow-up outpatient imaging which confirmed the infection had cleared. Patient does have an indwelling central line that he uses daily for TPN. He states he has not noticed any abnormalities at the skin site of the line or difficulty utilizing the line. He states he does feel dehydrated and with a drop in his appetite has not been drinking as much water. He denies any headaches, chest pain, abdominal pain, leg swelling, cough or cold symptoms, nausea, vomiting, or diarrhea. He denies any back pain or paresthesias. No known sick contacts. Pt seen during a time of high acuity and national emergency pandemic while wearing PPE. Home Medications Medication Instructions Recorded Confirmed Type cholecalciferol (vitamin D3) 25 1,000 unit PO BID 04/23/18 02/04/22 History mcg (1,000 unit) tablet (Vitamin D3) diphenoxylate-atropine 2.5 2 tab PO QID 04/23/18 02/04/22 History mg-0.025 mg tablet (Lomotil) finasteride 5 mg tablet 5 mg PO HS 04/23/18 02/04/22 History lipase 3,000-protease 1 cap PO TIDM 04/23/18 02/04/22 History 9,500-amylase 15,000 unit capsule, delayed rel (Creon) paroxetine HCl 30 mg tablet 30 mg PO PM 04/23/18 02/04/22 History polysaccharide iron complex 150 mg 150 mg PO BID 05/03/18 02/04/22 History iron capsule (Ferrex) tamsulosin 0.4 mg capsule 0.4 mg PO HS 05/03/18 02/04/22 History zolpidem 10 mg tablet 10 mg PO HS PRN Insomnia 05/03/18 02/04/22 History lisinopril 5 mg tablet 5 mg PO QAM 08/13/20 02/04/22 History bupropion HCl 100 mg tablet,12 hr 100 mg PO QAM 09/16/20 02/04/22 History sustained-release codeine sulfate 30 mg tablet 30 mg PO QID 09/16/20 02/04/22 History loperamide 2 mg capsule 2 mg PO QID 09/16/20 02/04/22 History psyllium husk 3.4 gram/5.4 gram 1 tbsp PO QID 04/15/21 02/04/22 History oral powder (Metamucil) Allergies Allergy/AdvReac Type Severity Reaction Status Date / Time ibuprofen AdvReac Intermediate GASTRIC Verified 02/04/22 23:39 ULCERS, NO COLON Past Med/Surg History Medical History Anxiety BPH (benign prostatic hyperplasia) Chronic pain H/O ulcerative colitis HTN (hypertension) Ileostomy in place Infection of intravenous catheter Insomnia Leukocytosis On total parenteral nutrition (TPN) Pancreatitis pt denies any history Positive blood culture SBO (small bowel obstruction) hx Sepsis Short gut syndrome Sleep apnea CPAP Surgical History H/O rotator cuff surgery right H/O total colectomy (~1973) History of colonoscopy History of laparotomy removed SBO History of tonsillectomy Family History Other No family history of adverse response to anesthesia No significant family history Social History Smoking Status: Former smoker Tobacco Type: Cigarettes Second Hand Exposure: No; Hx Alcohol Use: No Hx Substance Use: No Preferred Language: Maltese Communication Ability: Effective Binding Printer Required: No Beliefs That Will Affect Care: None marital status: Current Living Situation: Spouse How many Children do You have: 2 Feels Safe at Home: Yes Safety Concerns: Feels Safe At This Time Assistive Devices: Oxygen - Continuous Review of Systems A total of 10 systems reviewed and were otherwise negative All systems reviewed & are unremarkable except as noted in HPI & below Physical Exam Vital Signs Vital Signs - 24 hr 02/05/22 02:00 02/05/22 04:00 02/05/22 06:00 Temperature 37 C Temperature Source Oral Pulse Rate Pulse Rate [Apical] 78 67 61 Pulse Rate from SpO2 Sensor Pulse Rhythm [Apical] Regular Regular Regular Respiratory Rate 16 16 16 Respiratory Effort / Characteristics Non-Labored Non-Labored Non-Labored Respiratory Depth Normal Normal Normal Blood Pressure Blood Pressure [Left Arm] 108/62 94/51 L 111/56 L Blood Pressure Mean Blood Pressure Mean [Left Arm] 77 65 74 Pulse Oximetry 92 93 93 Oxygen Delivery Method Room Air Room Air Room Air Oxygen Flow Rate 02/05/22 01:00 02/05/22 01:00 02/05/22 02:00 Temperature Temperature Source Pulse Rate 79 94 H Pulse Rate [Apical] Pulse Rate from SpO2 Sensor 80 93 H Pulse Rhythm [Apical] Respiratory Rate 26 H 25 H Respiratory Effort / Characteristics Respiratory Depth Blood Pressure 107/60 Blood Pressure [Left Arm] Blood Pressure Mean 75 Blood Pressure Mean [Left Arm] Pulse Oximetry 91 91 Oxygen Delivery Method Oxygen Flow Rate 02/05/22 03:00 02/05/22 03:00 02/05/22 04:00 Temperature Temperature Source Pulse Rate 77 Pulse Rate [Apical] Pulse Rate from SpO2 Sensor 78 Pulse Rhythm [Apical] Respiratory Rate 20 Respiratory Effort / Characteristics Respiratory Depth Blood Pressure 98/57 L 93/51 L Blood Pressure [Left Arm] Blood Pressure Mean 70 65 Blood Pressure Mean [Left Arm] Pulse Oximetry 90 Oxygen Delivery Method Oxygen Flow Rate 02/05/22 04:00 02/05/22 05:00 02/05/22 05:00 Temperature Temperature Source Pulse Rate 66 64 Pulse Rate [Apical] Pulse Rate from SpO2 Sensor 65 65 Pulse Rhythm [Apical] Respiratory Rate 22 21 Respiratory Effort / Characteristics Respiratory Depth Blood Pressure 96/52 L Blood Pressure [Left Arm] Blood Pressure Mean 66 Blood Pressure Mean [Left Arm] Pulse Oximetry 91 93 Oxygen Delivery Method Oxygen Flow Rate 02/05/22 05:49 02/05/22 05:49 02/05/22 06:00 Temperature Temperature Source Pulse Rate 65 Pulse Rate [Apical] Pulse Rate from SpO2 Sensor Pulse Rhythm [Apical] Respiratory Rate 29 H Respiratory Effort / Characteristics Respiratory Depth Blood Pressure 111/56 L 96/51 L Blood Pressure [Left Arm] Blood Pressure Mean 74 66 Blood Pressure Mean [Left Arm] Pulse Oximetry Oxygen Delivery Method Oxygen Flow Rate 02/05/22 06:00 02/05/22 08:00 02/05/22 08:00 Temperature Temperature Source Pulse Rate 61 102 H Pulse Rate [Apical] Pulse Rate from SpO2 Sensor 60 Pulse Rhythm [Apical] Respiratory Rate 23 28 H Respiratory Effort / Characteristics Respiratory Depth Blood Pressure 108/54 L Blood Pressure [Left Arm] Blood Pressure Mean 72 Blood Pressure Mean [Left Arm] Pulse Oximetry 93 Oxygen Delivery Method Nasal Cannula Oxygen Flow Rate 2 GENERAL: alert, well appearing, well nourished, no distress, non-toxic EYE EXAM: normal conjunctiva, PERRL and EOM's grossly intact OROPHARYNX: no exudate, no erythema, lips, buccal mucosa, and tongue normal and mucous membranes are dry NECK: supple, no nuchal rigidity, no adenopathy, non-tender LUNGS: Clear to auscultation. Normal chest wall mechanics, no w/r/r HEART: no murmurs, S1 normal and S2 normal, indwelling line noted to the right anterior superior chest wall, no surrounding erythema at the skin site, no d rainage or discharge noted ABDOMEN: abdomen soft, non-tender, normo-active bowel sounds, no masses, no rebound or guarding. Stoma well-appearing, nonfriable mucosa noted, no blood noted with the fluid in the bag. Well-healed surgical scars of the wires noted to the patient's abdomen. Dull to percussion. BACK: Back is symmetrical on inspection and there is no deformity, no midline tenderness, no CVA tenderness. SKIN: no rashes and no bruising UPPER EXTREMITIES: upper extremities are grossly normal. FROM, nml pulses b/l. LOWER EXTREMITIES: No pitting edema. FROM, nml pulses b/l. NEURO EXAM: Normal sensorium, cranial nerves II-XII grossly intact, normal speech, no gross weakness of arms, no gross weakness of legs. Gross sensation intact. Course Administered Medications Acetaminophen (Acetaminophen 325 Mg Tab) 650 mg PO Q4H PRN PRN Reason: Pain or Fever Stop: 03/07/22 09:43 Last Admin: 02/05/22 15:09 Dose: 650 mg Documented By: AP Lipase/Protease/Amylase (Pancreaze (Lipase 4,200u) Cap) 1 cap PO TIDM MIKIE Stop: 03/07/22 11:59 Last Admin: 02/05/22 16:39 Dose: 1 cap Documented By: Admin: 02/05/22 12:42 Dose: 1 cap Documented By: REJI Bupropion HCl (Bupropion Sr 100 Mg Tabcr) 100 mg PO QAM [facility] Stop: 03/07/22 10:59 Last Admin: 02/05/22 16:17 Dose: Not Given Documented By: BETTE Codeine Sulfate (Codeine Sulfate 30 Mg Tab) 30 mg PO QID@0800,1200,1700,2100 MIKIE Stop: 02/19/22 11:59 Last Admin: 02/05/22 20:19 Dose: 30 mg Documented By: Admin: 02/05/22 16:41 Dose: 30 mg Documented By: Admin: 02/05/22 12:41 Dose: 30 mg Documented By: REJI Diphenoxylate HCl/Atropine (Diphenoxylate/Atropine 2.5/0.025mg Tab) 2 tab PO QID@0800,1200,1700,2100 MIKIE Stop: 03/07/22 11:59 Last Admin: 02/05/22 20:14 Dose: 2 tab Documented By: Admin: 02/05/22 16:39 Dose: 2 tab Documented By: Admin: 02/05/22 12:42 Dose: 2 tab Documented By: REJI Finasteride (Finasteride 5 Mg Tab) 5 mg PO HS MIKIE Stop: 03/07/22 20:59 Last Admin: 02/05/22 20:15 Dose: 5 mg Documented By: SVITLANA Sodium Chloride (Nss 1000ml) 1,000 mls @ 75 mls/hr IV .[id number] MIKIE Stop: 02/06/22 10:12 Last Infusion: 02/05/22 20:08 Dose: 75 mls/hr Documented By: Admin: 02/05/22 20:08 Dose: 100 mls/hr Documented By: Infusion: 02/05/22 20:08 Dose: 100 mls/hr Documented By: Admin: 02/05/22 10:46 Dose: 100 mls/hr Documented By: CECELIA Ceftriaxone Sodium 2,000 mg/ (Dextrose) 70 mls @ 100 mls/hr IV DAILY MIKIE; Protocol Stop: 02/19/22 10:29 Last Infusion: 02/05/22 13:39 Dose: 0 mls/hr Documented By: Admin: 02/05/22 12:41 Dose: 100 mls/hr Documented By: REJI Lisinopril (Lisinopril 5 Mg Tab) 5 mg PO QAM MIKIE Stop: 03/07/22 10:59 Last Admin: 02/05/22 12:42 Dose: Not Given Documented By: REJI Paroxetine HCl (Paroxetine Hcl 20 Mg Tab) 30 mg PO QPM MIKIE Stop: 03/07/22 20:59 Last Admin: 02/05/22 20:20 Dose: 30 mg Documented By: SVITLANA Psyllium Hydrophilic Mucilloid (Psyllium Or Guar Gum Fiber Powder Packet) 1 pkt PO QID MIKIE Stop: 03/07/22 12:59 Last Admin: 02/05/22 20:22 Dose: 1 pkt Documented By: Admin: 02/05/22 16:38 Dose: 1 pkt Documented By: Admin: 02/05/22 12:41 Dose: 1 pkt Documented By: REJI Tamsulosin HCl (Tamsulosin Hcl 0.4 Mg Cap) 0.4 mg PO HS MIKIE Stop: 03/07/22 20:59 Last Admin: 02/05/22 20:21 Dose: 0.4 mg Documented By: SVITLANA Vitamin D (Cholecalciferol 1,000 Units 25 Mcg Tab) 1,000 units PO BID MIKIE Stop: 03/07/22 20:59 Last Admin: 02/05/22 20:12 Dose: 1,000 units Documented By: SVITLANA Zolpidem Tartrate (Zolpidem Tartrate 10 Mg Tab) 10 mg PO HS PRN PRN Reason: Insomnia Stop: 03/07/22 09:43 Last Admin: 02/05/22 21:30 Dose: 10 mg Documented By: SVITLANA Discontinued Medications Finasteride (Finasteride 5 Mg Tab) 5 mg PO QAM ONE Stop: 02/05/22 11:01 Last Admin: 02/05/22 12:42 Dose: 5 mg Documented By: REJI Sodium Chloride (Nss 1000ml) 1,000 mls @ 999 mls/hr IV .Q1H1M ONE Stop: 02/05/22 01:01 Last Infusion: 02/05/22 01:35 Dose: 0 mls/hr Documented By: Admin: 02/05/22 00:36 Dose: 999 mls/hr Documented By: JOYCE Vancomycin HCl 1,500 mg/ (Sodium Chloride) 530 mls @ 200 mls/hr IV NOW ONE Stop: 02/05/22 02:40 Last Infusion: 02/05/22 02:48 Dose: 0 mls/hr Documented By: Infusion: 02/05/22 02:47 Dose: 0 mls/hr Documented By: Admin: 02/05/22 01:08 Dose: 200 mls/hr Documented By: JOYCE Cefepime HCl (Maxipime) 2,000 mg in 20 mls @ 5 mls/min IV NOW STA; Protocol Stop: 02/05/22 00:05 Last Admin: 02/05/22 00:37 Dose: 5 mls/min Documented By: JOYCE Sodium Chloride (Nss 1000ml) 1,000 mls @ 999 mls/hr IV .Q1H1M ONE Stop: 02/05/22 01:29 Last Infusion: 02/05/22 01:35 Dose: 0 mls/hr Documented By: Admin: 02/05/22 00:37 Dose: 999 mls/hr Documented By: JOYCE Acetaminophen (Ofirmev) 1,000 mg in 100 mls @ 400 mls/hr IV NOW STA Stop: 02/05/22 00:46 Last Infusion: 02/05/22 01:05 Dose: 0 mls/hr Documented By: Admin: 02/05/22 00:37 Dose: 400 mls/hr Documented By: JOYCE Sodium Chloride (Nss 1000ml) 1,000 mls @ 250 mls/hr IV .Q4H [facility] Stop: 03/07/22 04:44 Last Admin: 02/05/22 16:18 Dose: Not Given Documented By: Infusion: 02/05/22 10:47 Dose: 0 mls/hr Documented By: Admin: 02/05/22 05:50 Dose: 250 mls/hr Documented By: JOYCE Cefepime HCl 2,000 mg/ Syringe 20 mls @ 5 mls/min IV BID MIKIE; Protocol Stop: 03/19/22 09:43 Last Admin: 02/05/22 10:47 Dose: Not Given Documented By: CECELIA Ioversol (Optiray 320 125ml) 120 ml IV ONCE ONE Stop: 02/05/22 11:02 Last Admin: 02/05/22 11:04 Dose: 120 ml Documented By: GARRY Lisinopril (Lisinopril 5 Mg Tab) Confirm Administered Dose 5 mg PO .STK-MED ONE Stop: 02/05/22 12:38 Last Admin: 02/05/22 12:43 Dose: Not Given Documented By: REJI Tamsulosin HCl (Tamsulosin Hcl 0.4 Mg Cap) 0.4 mg PO NOW ONE Stop: 02/05/22 09:54 Last Admin: 02/05/22 10:46 Dose: 0.4 mg Documented By: CECELIA Medical Decision Making Differential Diagnosis Differential diagnosis: Etiologies such as viral syndrome, otitis, pharyngitis, pneumonia, influenza, meningitis, urinary tract infection, sepsis, bacteremia, as well as others were entertained. Medical Records Attestation: I reviewed the patient's medical records. Home Medications Current Medication List: was personally reviewed by me Laboratory Data Attestation: I reviewed the patient's lab results. Result diagrams: 02/05/22 10:04 02/05/22 10:04 Lab Results 02/04/22 02/04/22 02/04/22 Range/Units 21:37 21:37 21:37 WBC 11.03 H (4.8-10.8) K/ul RBC 4.11 L (4.63-6.08) M/uL Hgb 12.8 L (14.0-18.0) g/dl Hct 36.4 L (40.1-51.0) % MCV 88.6 (80.0-100.0) fL MCH 31.1 (25.0-34.0) pg MCHC 35.2 (32.0-36.0) g/dL RDW Std Deviation 41.2 (36.4-46.3) fL RDW Coeff of Charles 12.8 (11.5-14.5) % Plt Count 75 L (130-400) K/uL MPV 13.7 H (9.4-12.4) fL Immature Gran % (Auto) 1.8 % Neut % (Auto) 84.2 % Lymph % (Auto) 4.6 % [place] % (Auto) 8.8 % Eos % (Auto) 0.3 % Baso % (Auto) 0.3 % Neut # (Auto) 9.29 H (1.4-6.5) K/uL Lymph # (Auto) 0.51 L (1.2-3.4) K/uL [place] # (Auto) 0.97 H (0.24-0.82) K/uL Eos # (Auto) 0.03 (0-0.50) K/uL Baso # (Auto) 0.03 (0-0.2) K/uL Immature Gran # (Auto) 0.20 H (0.00-0.02) K/uL Toxic Vacuolation 1+ Dohle Bodies 1+ Echinocytes 1+ Sodium 131 L (136-145) mmol/L Potassium 3.7 (3.5-5.1) mmol/L Chloride 100 (98-107) mmol/L Carbon Dioxide 20 L (21-32) mmol/L Anion Gap 11 (3-11) BUN 52 H (6-23) mg/dl Creatinine 1.37 (0.6-1.4) mg/dl Est Cr Clr Drug Dosing 38.4 ml/min Est GFR ( Amer) 57.7 ml/min Est GFR (Non-Af Amer) 49.7 ml/min BUN/Creatinine Ratio 38.0 H (10-20) Glucose 105 H (70-99(Fasting)) mg/dl Calcium 10.1 (8.5-10.1) mg/dl Total Bilirubin 4.6 H (0.2-1.0) mg/dl AST 31 (13-39) U/L ALT 20 (7-52) U/L Alkaline Phosphatase 171 H (34-104) U/L Total Protein 7.1 (6.0-8.3) gm/dl Albumin 3.7 (3.4-5.0) gm/dl Globulin 3.4 (2.5-4.0) gm/dl Albumin/Globulin Ratio 1.1 (0.9-2) Procalcitonin 34.11 H (0-0.5) ng/ml Urine Color Urine Appearance (Clear) Urine pH (4.5-7.5) Ur Specific [place] (1.000-1.030) Urine Protein (Negative) Urine Glucose (UA) (Negative) Urine Ketones (Negative) Urine Blood (Negative) Urine Nitrite (Negative) Urine Bilirubin (Negative) Urine Urobilinogen (Negative) Ur Leukocyte Esterase (Negative) Urine WBC (Auto) (0-5) /hpf Urine RBC (Auto) (0-4) /hpf U Hyaline Cast (Auto) (0-5) /lpf U Epithel Cells (Auto) (0-5) /lpf Urine Bacteria (Auto) (Negative) SARS-CoV-2 (PCR) (Negative) Enterobacterales (PCR) (NotDetected) Influenza Type A (PCR) (Neg) Influenza Type B (PCR) (Neg) K. pneumoniae group (PCR) (NotDetected) RSV (RT-PCR) (Neg) mcr-1 Colistin Res Gene PCR (NotDetected) blaIMP Car res Gene PCR (NotDetected) KPC-Carbap Res Gene PCR (NotDetected) blaNDM Car Res Gene PCR (NotDetected) OXA-48 Carbapenem Resis Gene (PCR) (NotDetected) blaVIM Car Res Gene PCR (NotDetected) CTX-M Gene Resistance (PCR) (NotDetected) Bld Cult ID Panel PCR (NotDetected) 02/04/22 02/04/22 02/04/22 Range/Units 23:39 23:40 23:40 WBC (4.8-10.8) K/ul RBC (4.63-6.08) M/uL Hgb (14.0-18.0) g/dl Hct (40.1-51.0) % MCV (80.0-100.0) fL MCH (25.0-34.0) pg MCHC (32.0-36.0) g/dL RDW Std Deviation (36.4-46.3) fL RDW Coeff of Charles (11.5-14.5) % Plt Count (130-400) K/uL MPV (9.4-12.4) fL Immature Gran % (Auto) % Neut % (Auto) % Lymph % (Auto) % [place] % (Auto) % Eos % (Auto) % Baso % (Auto) % Neut # (Auto) (1.4-6.5) K/uL Lymph # (Auto) (1.2-3.4) K/uL [place] # (Auto) (0.24-0.82) K/uL Eos # (Auto) (0-0.50) K/uL Baso # (Auto) (0-0.2) K/uL Immature Gran # (Auto) (0.00-0.02) K/uL Toxic Vacuolation Dohle Bodies Echinocytes Sodium (136-145) mmol/L Potassium (3.5-5.1) mmol/L Chloride (98-107) mmol/L Carbon Dioxide (21-32) mmol/L Anion Gap (3-11) BUN (6-23) mg/dl Creatinine (0.6-1.4) mg/dl Est Cr Clr Drug Dosing ml/min Est GFR ( Amer) ml/min Est GFR (Non-Af Amer) ml/min BUN/Creatinine Ratio (10-20) Glucose (70-99(Fasting)) mg/dl Calcium (8.5-10.1) mg/dl Total Bilirubin (0.2-1.0) mg/dl AST (13-39) U/L ALT (7-52) U/L Alkaline Phosphatase (34-104) U/L Total Protein (6.0-8.3) gm/dl Albumin (3.4-5.0) gm/dl Globulin (2.5-4.0) gm/dl Albumin/Globulin Ratio (0.9-2) Procalcitonin (0-0.5) ng/ml Urine Color Dark Yellow Urine Appearance Clear (Clear) Urine pH 5.0 (4.5-7.5) Ur Specific [place] 1.018 (1.000-1.030) Urine Protein 1+ H (Negative) Urine Glucose (UA) Negative (Negative) Urine Ketones Negative (Negative) Urine Blood 2+ H (Negative) Urine Nitrite Negative (Negative) Urine Bilirubin 1+ H (Negative) Urine Urobilinogen Negative (Negative) Ur Leukocyte Esterase Negative (Negative) Urine WBC (Auto) 0 (0-5) /hpf Urine RBC (Auto) 5-10 H (0-4) /hpf U Hyaline Cast (Auto) 1-5 (0-5) /lpf U Epithel Cells (Auto) 0-5 (0-5) /lpf Urine Bacteria (Auto) Negative (Negative) SARS-CoV-2 (PCR) NEGATIVE (Negative) Enterobacterales (PCR) DETECTED A (NotDetected) Influenza Type A (PCR) Negative (Neg) Influenza Type B (PCR) Negative (Neg) K. pneumoniae group (PCR) DETECTED A (NotDetected) RSV (RT-PCR) Negative (Neg) mcr-1 Colistin Res Gene PCR Not Detected (NotDetected) blaIMP Car res Gene PCR Not Detected (NotDetected) KPC-Carbap Res Gene PCR Not Detected (NotDetected) blaNDM Car Res Gene PCR Not Detected (NotDetected) OXA-48 Carbapenem Resis Gene (PCR) Not Detected (NotDetected) blaVIM Car Res Gene PCR Not Detected (NotDetected) CTX-M Gene Resistance (PCR) Not Detected (NotDetected) Bld Cult ID Panel PCR See PCR Comment (NotDetected) Imaging Data Radiologist's Impression: Chest X-Ray 02/04/22 21:52 XR chest 1V portable HISTORY: 76 years-old Male Fever acute fever COMPARISON: Chest radiograph 04/15/2021 TECHNIQUE: AP view of the chest FINDINGS: The cardiac silhouette is moderately enlarged. Unchanged positioning of the right IJ [id number] catheter. No pneumothorax, large pleural effusion or overt pulmonary edema. There is unchanged blunting of the costophrenic angles. Emphysema with chronic interstitial coarsening. Degenerative changes of the shoulders and spine. IMPRESSION: Chronic findings as above without acute process. ACT 112: Negative or not required by law. The above report was generated using voice recognition software. It may contain grammatical, syntax or spelling errors. Electronically signed by: Kenneth Mercado M.D. 02/05/2022 8:49 AM ECG Data Attestation: I personally reviewed and interpreted this ECG as follows: Indication: + weakness Rate (beats per minute): 104 Rhythm: + sinus tachycardia ECG Intervals/blocks: + Normal QRS and + Normal QT ECG Moyers: + Normal ECG ST segments: + Nonspecific ST abnormalities MDM Narrative An order was placed for continuous cardiac monitoring. The monitor shows a rate of __98_ with _normal sinus__ rhythm. This is a 76-year-old male with a history of bacteremia/sepsis who presents due to concern for recurrent evolving infection. Patient had no focal signs or sym ptoms on exam was otherwise well-appearing despite clinical dehydration. Patient initially mildly tachycardic with borderline blood pressure, however once IV fluids were started and the patient these both improved. Patient was seen on a day of high volume and acuity. Nursing staff had started blood work per their protocol. Upon my evaluation of the patient, I added additional sepsis labs and cultures. Empiric antibiotics were added. Patient did receive multiple liters of IV fluids while in the emergency room for rehydration and as part of sepsis treatment. He did receive a total of 30 mL/KG. Patient was noted to have an elevated procalcitonin. Given acuity of several other patients at that time, I discussed the case with hospitalist for additional evaluation and treatment and deferred any additional imaging to them. Of note on review of EMR patient did have a prior line infection from his indwelling TPN line. Patient remained hemodynamically stable while in the emergency room. All results were discussed with him at bedside, he verbalized understanding and was in agreement with the plan for additional inpatient evaluation and treatment. Impression & Plan Fever, Dehydration, Elevated procalcitonin, Thrombocytopenia, Hyperbilirubinemia, Hyponatremia Discharge Plan Visit Data Chief Complaint: Fever ED Provider: Delfina Anderson Discharge Problem: Fever, Dehydration, Elevated procalcitonin, Thrombocytopenia, Hyperbilirubinemia, Hyponatremia Patient Disposition: Admitted As Inpatient Discharge Instructions Interventions: ED Discharge Assessment Last Done: 02/05/22 09:44
[2022-02-05 00:33] LABS: Influenza A virus by PCR Negative (Neg); Influenza B virus by PCR Negative (Neg); RSV by PCR Negative (Neg); SARS CoV2 RNA(COVID-19) InHosp NEGATIVE (Negative)
--- NOTE | 2022-02-05 01:12 | History & Physical Report ---
Date of Service February 05, 2022 History of Present Illness Chief Complaint: malaise and fever Primary Care Provider: Tao Montoya MD 76 year old male w/ short gut syndrome, ulcerative colitis, HTN, BPH, chronic pain, TPN for malnutrition, ileostomy, and recent osteomyelitis/diskitis finished treatment 2 months ago. Per patient, temp to 100-101 x 4 days. This morning was 103. + dysuria x2 days. EMS: F 103 at home x 4 days. Confusion, dec appetite, dec output. From home. Receives 2.5L TPN Given 500mL NSS bolus. ED course: wbc 11.03. Hb stable 12.8. plts 75. Na 131. Cr 1.37 (baseline .8). Procal 34.11. UA w/o infectious. covid, flu, rsv neg. BC pending. cxr: * ecg: sinus tach 104. incomplete RBBB not new. Confirmed w/ nurse: blood cultures were drawn from central line and from peripheral line. Allergies Allergy/AdvReac Type Severity Reaction Status Date / Time ibuprofen AdvReac Intermediate GASTRIC Verified 02/04/22 23:39 ULCERS, NO COLON Home Medications Medication Instructions Recorded Confirmed Type cholecalciferol (vitamin D3) 25 1,000 unit PO BID 04/23/18 02/04/22 History mcg (1,000 unit) tablet (Vitamin D3) diphenoxylate-atropine 2.5 2 tab PO QID 04/23/18 02/04/22 History mg-0.025 mg tablet (Lomotil) finasteride 5 mg tablet 5 mg PO HS 04/23/18 02/04/22 History lipase 3,000-protease 1 cap PO TIDM 04/23/18 02/04/22 History 9,500-amylase 15,000 unit capsule, delayed rel (Creon) paroxetine HCl 30 mg tablet 30 mg PO PM 04/23/18 02/04/22 History polysaccharide iron complex 150 mg 150 mg PO BID 05/03/18 02/04/22 History iron capsule (Ferrex) tamsulosin 0.4 mg capsule 0.4 mg PO HS 05/03/18 02/04/22 History zolpidem 10 mg tablet 10 mg PO HS PRN Insomnia 05/03/18 02/04/22 History lisinopril 5 mg tablet 5 mg PO QAM 08/13/20 02/04/22 History bupropion HCl 100 mg tablet,12 hr 100 mg PO QAM 09/16/20 02/04/22 History sustained-release codeine sulfate 30 mg tablet 30 mg PO QID 09/16/20 02/04/22 History loperamide 2 mg capsule 2 mg PO QID 09/16/20 02/04/22 History psyllium husk 3.4 gram/5.4 gram 1 tbsp PO QID 04/15/21 02/04/22 History oral powder (Metamucil) Past Med/Surg History Medical History Anxiety BPH (benign prostatic hyperplasia) Chronic pain H/O ulcerative colitis HTN (hypertension) Ileostomy in place Infection of intravenous catheter Insomnia Leukocytosis On total parenteral nutrition (TPN) Pancreatitis pt denies any history Positive blood culture SBO (small bowel obstruction) hx Sepsis Short gut syndrome Sleep apnea CPAP Surgical History H/O rotator cuff surgery right H/O total colectomy (~1973) History of colonoscopy History of laparotomy removed SBO History of tonsillectomy Family History Other No family history of adverse response to anesthesia No significant family history Social History Smoking Status: Former smoker Tobacco Type: Cigarettes Second Hand Exposure: No; Hx Alcohol Use: No Hx Substance Use: No Preferred Language: Cameroonian Communication Ability: Effective Radio Electronics Technician Required: No Beliefs That Will Affect Care: None marital status: Current Living Situation: Spouse How many Children do You have: 2 Feels Safe at Home: Yes Assistive Devices: None Review of Systems Review of Systems: All systems reviewed & are unremarkable except as noted in HPI & below Physical Exam Physical Exam: General: Grossly A&O. NAD. Cooperative. HEENT: Atraumatic, normocephalic. EOMI Pulm: CTAB. -wheezes, -rales, -rhonchi. No respiratory distress. Cardiac: RRR, -mrg. Radial pulses intact and symmetrical. Abdominal: Nontender, nondistended, soft. Results & Data Results & Data ([facility]) Vital Signs (Past 12 Hours) Vital Signs Temp Pulse Pulse Resp BP BP Pulse Ox 02/05/22 00:00 75 18 103/60 92 02/04/22 23:25 92 H 16 96/52 L 92 02/04/22 21:52 93 02/04/22 21:45 37.2 C 105 H 18 120/64 93 O2 Del Method 02/05/22 00:00 Room Air 02/04/22 23:25 Room Air 02/04/22 21:52 Room Air 02/04/22 21:45 Room Air Code Status & VTE Plan Code Status full VTE Prophylaxis Plan VTE Prophylaxis will be ordered: Yes Resident Activity Tracking Resident Involvement: Resident Care Provided Care Provided: Adult Hospital Medicine
[2022-02-05] MEDS: SODIUM CHLORIDE 0.9% 1000ML 1,000 ML IV SCH ×4 (05:50→20:08)
[2022-02-05 07:05] LABS: A calco-baum cmplx NotReported Not Detected (NotDetected); Bact fragilis Not Reported Not Detected (NotDetected); C auris Not Reported Not Detected (NotDetected); CTX-M Resistant Gene Not Detected (NotDetected); Calbicans Not Reported Not Detected (NotDetected); Candida glabrata Not Reported Not Detected (NotDetected); Candida krusei Not Reported Not Detected (NotDetected); Cneoformans/gatti Not Reported Not Detected (NotDetected); Cparapsilosis Not Reported Not Detected (NotDetected); Ctropicalis Not Reported Not Detected (NotDetected); E cloacae compx Not Reported Not Detected (NotDetected); Efaecalis Not Reported Not Detected (NotDetected); Efaecium Not Reported Not Detected (NotDetected); Enterobacterales DETECTED (NotDetected); Enterobacterales Not Reported DETECTED (NotDetected); Escherichia coli Not Reported Not Detected (NotDetected); H influenzae Not Reported Not Detected (NotDetected); IMP Resistant Gene Not Detected (NotDetected); K aerogenes Not Reported Not Detected (NotDetected); KPC Resistant Gene Not Detected (NotDetected); Koxytoca Not Reported Not Detected (NotDetected); Kpneumoniae grp Not Reported DETECTED (NotDetected); Lmonocyt Not Reported Not Detected (NotDetected); N meningitidis Not Reported Not Detected (NotDetected); NDM Resistant Gene Not Detected (NotDetected); OXA 48 Like Resistant Gene Not Detected (NotDetected); P aeruginosa Not Reported Not Detected (NotDetected); Proteus spp Not Reported Not Detected (NotDetected); Salmonella spp Not Reported Not Detected (NotDetected); Smarcescens Not Reported Not Detected (NotDetected); Staph lugdunensis Not Reported Not Detected (NotDetected); Staph spp. Not Reported Not Detected (NotDetected); Staphaureus Not Reported Not Detected (NotDetected); Staphepi Not Reported Not Detected (NotDetected); Stenmaltophilia Not Reported Not Detected (NotDetected); Strep agal(GrpB) Not Reported Not Detected (NotDetected); Strep pneum Not Reported Not Detected (NotDetected); Strep pyog (GrpA) Not Reported Not Detected (NotDetected); Strep spp Not Reported Not Detected (NotDetected); VIM Resistant Gene Not Detected (NotDetected); mcr-1 Colistin Resistant Gene Not Detected (NotDetected)
[2022-02-05 07:17] LABS: Klebsiella pneumoniae group DETECTED (NotDetected)
--- NOTE | 2022-02-05 08:50 | XRay Report ---
XR chest 1V portable HISTORY: 76 years-old Male Fever acute fever COMPARISON: Chest radiograph 04/15/2021 TECHNIQUE: AP view of the chest FINDINGS: The cardiac silhouette is moderately enlarged. Unchanged positioning of the right IJ [id number] ca theter. No pneumothorax, large pleural effusion or overt pulmonary edema. There is unchanged blunting of the costophrenic angles. Emphysema with chronic interstitial coarsening. Degenerative changes of the shoulders and spine. IMPRESSION: Chronic findings as above without acute process. ACT 112: Negative or not required by law. The above report was generated using voice recognition software. It may contain grammatical, syntax o r spelling errors. Electronically signed by: Kenneth Mercado M.D. 02/05/2022 8:49 AM
--- NOTE | 2022-02-05 09:23 | Electrocardiogram Report ---
Test Reason : Blood Pressure : / mmHG Vent. Rate : 104 BPM Atrial Rate : 104 BPM P-R Int : 140 ms QRS Dur : 098 ms QT Int : 330 ms P-R-T Axes : 057 -29 043 degrees QTc Int : 433 ms Sinus tachycardia Incomplete right bundle branch block Borderline ECG When compared with ECG of 15-APR-2021 16:21, Vent. rate has increased BY 38 BPM Nonspecific T wave abnormality, improved in Lateral leads Confirmed by Kit Junior ([id number]) on 02/05/2022 9:23:15 AM Referred By: REFERRED SELF Confirmed By:Kit Junior
[2022-02-05] MEDS ORDERED: CEFEPIME 2,000 MG in SYRINGE 0 ML IV SCH ×2 (09:44→14:00)
[2022-02-05] MEDS ORDERED: NITROGLYCERIN SL 0.4 MG/TAB TAB SL PRN (09:44)
[2022-02-05] MEDS ORDERED: ACETAMINOPHEN 325 MG TAB PO PRN (09:44)
[2022-02-05] MEDS ORDERED: TAMSULOSIN HCL 0.4 MG CAP PO ONE (09:53)
[2022-02-05 10:18] LABS: Hematocrit (blood only) 32.5 % (40.1-51.0); Hemoglobin 11.2 g/dl (14.0-18.0); Mean Corpuscular Hemoglobin 31.3 pg (25.0-34.0); Mean Corpuscular Hgb Conc 34.5 g/dL (32.0-36.0); Mean Corpuscular Volume 90.8 fL (80.0-100.0); Mean Platelet Volume 12.3 fL (9.4-12.4); Platelet Count 83 K/uL (130-400); RDW Coefficient of Variation 13.2 % (11.5-14.5); RDW Standard Deviation 43.8 fL (36.4-46.3); Red Blood Count 3.58 M/uL (4.63-6.08); White Blood Count 9.79 K/ul (4.8-10.8)
[2022-02-05 10:38] LABS: BUN Creatinine Ratio 35.1 (10-20); Calcium 9.1 mg/dl (8.5-10.1); Creatinine Clr Calc Pharmacy 47.4 ml/min; Est GFR (African American) 74.4 ml/min; Est GFR (Non-African American) 64.2 ml/min; Magnesium 1.9 mg/dl (1.7-2.4); Potassium 3.8 mmol/L (3.5-5.1)
--- NOTE | 2022-02-05 10:38 | History and Physical Report ---
DATE OF ADMISSION: 02/05/2022. CHIEF COMPLAINT: Fever. HISTORY OF PRESENT ILLNESS: This is a 76-year-old male with past medical history significant for hyperlipidemia, triglyceridemia, obstructive sleep apnea, hypertension, chronic ulcerative pancolitis, malnutrition, short bowel syndrome, BPH, depression, status post ileostomy, chronic insomnia, generalized anxiety disorder, parastomal hernia. The patient states in 1974 he had colectomy and ileostomy, but 5 years ago again he had total colectomy and also partial small bowel taken out and since then he is on TPN. He has a central line placed .He can eat whatever he wants, but he is also on TPN . Since placed on TPN, he had five infections. The line was not infected as per the patient. Recently in September, he came here to [facility] with back pain and was found to have osteomyelitis and diskitis and transferred to [place]. He was treated with 8 weeks of antibiotics and was in rehab, finished antibiotic course in first week of December. After that, he still had some back pain, but since last 1 week, the back pain is completely resolved.But since the last 4-5 days, he is having poor appetite. Generally whenever he gets infected, his appetite goes down and also his temperature was going high, so he came here. Today, he has some headache, but denies any neck pain or back pain. No abdominal pain. No chest pain, but feeling short of breath with minimal exertion, no cough. He vomited yesterday. Denies any belly pain. Ileostomy is working okay. Urine is very dark and some pain while micturating. No swelling in the legs. Currently, BP is somewhat soft. The patient is afebrile in the ER. His white count is 11, platelets of 75. His procalcitonin is 34. SARS-CoV-2 PCR is negative. Chest x-ray was unremarkable. ALLERGIES: IBUPROFEN. PAST MEDICAL HISTORY: As mentioned above. PAST SURGICAL HISTORY: Insertion of tunneled catheter, total colectomy, and ileostomy. MEDICATIONS: The patient is currently on bupropion 100 mg p.o. a.m., vitamin D 1000 Units p.o. b.i.d., codeine sulfate 30 mg p.o. q.i.d., Creon 1 capsule p.o. t.i.d. with meals, Lomotil 2 tablets p.o. q.i.d., finasteride 5 mg p.o. at bedtime, lisinopril 5 mg p.o. a.m., loperamide, Metamucil 1 tablespoon q.i.d., ____ 30 mg p.o. a.m., Flomax 0.4 mg at bedtime, zolpidem 10 mg p.o. at bedtime p.r.n. FAMILY HISTORY: Significant for no family history on file. SOCIAL HISTORY: , no smoking, no alcohol, no drug use. REVIEW OF SYSTEMS: As per HPI. Rest of review of systems is negative. PHYSICAL EXAMINATION: GENERAL: The patient is of moderate build, not in acute distress. VITAL SIGNS: Temperature 37.2, pulse 67, respiratory rate 16, blood pressure 94/51, oxygen 93% on room air. HEENT: Pupils equal, round, and reactive to light. Oral mucosa moist. NECK: No JVD, no neck masses. CARDIOVASCULAR: S1 and S2 heard. Regular rate and rhythm. No murmur, no gallop. Central line site in the left lateral chest, no obvious infection seen. RESPIRATORY SYSTEM: Normal AP diameter. No accessory muscle use. No wheezing, no crackles. ABDOMEN: Surgical scar seen. Ileostomy is seen. No erythema around the ileostomy site. Abdomen nontender. CENTRAL NERVOUS SYSTEM: Cranial nerves II-XII grossly intact, nonfocal. EXTREMITIES: No edema, no erythema. LABORATORY DATA: WBC 11.03, hemoglobin 12.8, hematocrit 36.4, platelets 75. Sodium 131, potassium 3.7, chloride 100, bicarbonate 20, BUN 52, creatinine 1.3, serum glucose 105, calcium 10.1, total bilirubin 4.6, AST 31, alkaline 20, alkaline phosphatase 171. Procalcitonin 34. Urinalysis, +1 protein, +2 blood, SARS-CoV-2 PCR negative. Influenza A and B PCR negative. RSV PCR negative. IMAGING DATA: Chest x-ray, no acute findings. EKG: Sinus tachycardia at a rate of 104. Incomplete right bundle-branch block, nonspecific T-wave abnormalities. ASSESSMENT AND PLAN: This is a 76-year-old male who presents with not feeling well, poor appetite, and fevers at home. 1. Fever, poor appetite: The patient placed on central line 5 years ago for TPN. Had 5 infections sice then.Possible sepsis with elevated wbc, BP soft, and thrombocytopenia.His procalcitonin is elevated at 34. In September first week, was diagnosed with osteomyelitis, was in [place]. He was treated with 8 weeks of IV antibiotics and followed up with ID. The patient says he is getting more short of breath lately. Will get a CT of the chest to rule out PE and also CT abdomen and pelvis for any occult infection, also look at the spine. ER empirically started on vancomycin and cefepime, which will be continued. Follow the cultures. IV fluids and closely monitor. 2. Thrombocytopenia: Platelets of 75, possibly from sepsis. Platelets were normal in December of this year. Will follow the repeat labs. 3. History of hypertension: Continue his lisinopril with hold parameters.. IF bP low will hold lisinopril. 4. Depression: Continue his bupropion and paroxetine. 5. Benign prostatic hypertrophy: Continue Flomax, finasteride. 6. Ulcerative osteoarthritis: Status post total colectomy and also a part of small bowel is taken out. He is on ileostomy. Nutrition is on TPN because of the bowel resection. Will consult dietitian while the patient is in the hospital. 7. Deep venous thrombosis prophylaxis: The patient has thrombocytopenia, platelets of 75, sequential compression devices for now. DISPOSITION: Closely monitor in the [employer]. PT/OT prior to discharge. Social service to help with discharge planning. Level 1 full code. Job ID: [id number] MTDD
[2022-02-05] MEDS ORDERED: TPN/PPN CONSULT PHARMACY PRN (10:45)
[2022-02-05] MEDS ORDERED: FINASTERIDE 5 MG TAB PO ONE (11:00)
[2022-02-05] MEDS ORDERED: OPTIRAY 320 125ml IV ONE (11:01)
--- NOTE | 2022-02-05 11:15 | CT Scan Report ---
CT head/brain wo/w con HISTORY: 76 years-old Male new headaches in the setting of bacteremia acute headache with bacteremia COMPARISON: None TECHNIQUE: Multiple axial CT images of the head were obtained both with and without the use 120 mL Op tiray 320. A dose lowering technique was used consistent with the principals of KELLY. FINDINGS: No acute intracranial hemorrhage, midline shift, abnormal extra-axial collection, hydrocephalus, intr acranial mass or acute territorial infarct. Cerebral vascular calcifications. Involutional changes. W paulette matter hypodensities suggest chronic microvascular ischemic disease. No abnormal enhancement. Ce rebral venous sinuses are patent. The imaged opacified arterial structures appear unremarkable. No acute calvarial fracture. The mastoid air cells and paranasal sinuses are clear. Unremarkable soft tissues. IMPRESSION: 1. No acute intracranial abnormality. 2. No abnormal enhancement. ACT 112: Negative or not required by law. The above report was generated using voice recognition software. It may contain grammatical, syntax o r spelling errors. Electronically signed by: Kenneth Mercado M.D. 02/05/2022 11:12 AM
--- NOTE | 2022-02-05 11:35 | CT Scan Report ---
CT angio chest PE protocol, CT abd pelvis IV con only CT DOSE: 2090.66 mGy.cm HISTORY: 76 years-old Male with PE. Acute shortness of breath with nausea, vomiting and bacteremia TECHNIQUE: Multiple CTA images of the chest were obtained after the intravenous administration of 120 ml Optiray. Coronal and sagittal MIPS were obtained from the axial data set and were submitted for review. All measurements were obtained according to NASCET criteria. CT abdomen and pelvis with IV c ontrast only was also obtained. A dose lowering technique was utilized adhering to the principles of ALARA. COMPARISON: Lumbar spine radiographs 2019 exam Chest, abdomen and pelvis 10/21/2016 FINDINGS: CTA: Moderate cardiomegaly. No pericardial effusion. Mild coronary artery calcifications. Atherosclerosis of the thoracic aorta. Patency of the imaged great vessels. Satisfactory opacification of the pulmona ry arterial tree. No filling defects are identified to suggest thromboembolic disease. CT CHEST: No thyroid nodule. Nonspecific mild mediastinal and hilar lymphadenopathy. Hilar lymph nodes measure up to 10 mm. Subcarinal lymph nodes measure up to 12 mm. Small pleural effusions. No pneumothorax. Mo derate pulmonary emphysema. Intralobular septal thickening. Patchy multifocal bilateral groundglass d ensities are most pronounced within the upper lobes. The central airways are patent. Unremarkable soft tissues. Degenerative changes of the shoulders and spine. Healed chronic bilateral rib fractures. Chronic T12 compression deformity. CT ABDOMEN/PELVIS: No pneumatosis or pneumoperitoneum. The spleen is mildly enlarged. There is equivocal inflammatory st randing adjacent to the pancreatic tail. The pancreas is otherwise unremarkable. The adrenal glands a re within normal limits. Cholelithiasis with equivocal wall thickening of the gallbladder. Nonspecifi c mild periportal and precaval lymphadenopathy with lymph nodes measuring up to 1.3 cm. 1.1 cm hypode nsity of the right hepatic lobe is suggestive of a probable cyst, mildly increased in size from prior . The liver is mildly enlarged. Patency of the hepatic and portal veins. There is mild lumbar levosco liosis. Endplate irregularity at L1-L2 redemonstrated at the area of previously described discitis/os teomyelitis. Chronic T12 compression deformity. IMPRESSION: 1. No pulmonary emboli. 2. Cardiomegaly with mild pulmonary edema and small pleural effusions. 3. Patchy upper lobe predominant bilateral groundglass opacities are suspicious for a superimposed in fectious or inflammatory pneumonitis. 4. Mild mediastinal and hilar lymphadenopathy. 5. Cholelithiasis with equivocal gallbladder wall thickening. Correlation with right upper quadrant a bdominal ultrasound recommended. 6. Total colectomy with right lower quadrant ileostomy. 7. Subacute findings of discitis/osteomyelitis are again noted at L1-L2. 8. Additional findings as above. ACT 112: Negative or not required by law. The above report was generated using voice recognition software. It may contain grammatical, syntax o r spelling errors. Electronically signed by: Kenneth Mercado M.D. 02/05/2022 11:33 AM
[2022-02-05 11:37] LABS: Acanthocytes 1+; Basophils # (auto) 0.03 K/uL (0-0.2); Basophils % (auto) 0.3 %; Dohle Bodies 1+; Echinocytes 2+; Eosinophils # (auto) 0.01 K/uL (0-0.50); Eosinophils % (auto) 0.1 %; Immature Granulocytes # (auto) 0.29 K/uL (0.00-0.02); Lymphocytes # (auto) 0.56 K/uL (1.2-3.4); Lymphocytes % (auto) 5.7 %; Monocytes # (auto) 1.19 K/uL (0.24-0.82); Monocytes % (auto) 12.2 %; Neutrophils # (auto) 7.71 K/uL (1.4-6.5); Neutrophils % (auto) 78.7 %; Poikilocytosis Present; Toxic Granulation 1+; Toxic Vacuolation 1+
[2022-02-05] MEDS ORDERED: DEXTROSE 10% 1,000 ML IV PRN (11:45)
--- NOTE | 2022-02-05 11:57 | Communication Note ---
Date of Service: February 05, 2022 The patient is a 76 year old man with pmh HLD, DAVID, HTN, UC s/p colectomy 1970s with revisions 2010s and right sided colostomy, short bowel syndrome on chronic TPN with right sided central line, recent history of lumbar discitis/OM s/p 6 weeks antibiotics (finished 1st week of 12/2021) who presented with 1 week of fatigue, malaise, rigors, decreased appetite. Found to have Klebsiella bacteremia, started on vancomycin and cefepime initially, deescalated to ceftriaxone. PHYSICAL EXAMINATION: GENERAL: The patient is of moderate build, not in acute distress. HEENT: Pupils equal, round, and reactive to light. Oral mucosa moist. NECK: No JVD, no neck masses. CARDIOVASCULAR: S1 and S2 heard. Regular rate and rhythm. No murmur, no leonard p. Central line site in the right lateral chest, no obvious infection seen. RESPIRATORY SYSTEM: Normal AP diameter. No accessory muscle use. No wheezing, no crackles. ABDOMEN: Surgical scar seen. Ileostomy is seen. No erythema around the ileostomy site. Abdomen nontender. has abdominal right sided hernia without pain or incarceration CENTRAL NERVOUS SYSTEM: Cranial nerves II-XII grossly intact, nonfocal. EXTREMITIES: No edema, no erythema. Assessment/Plan Klebsiella bacteremia - positive blood cultures from admission - afebrile, mild WBC elevation (now wnl), rigors, fatigue, decreased appetite - s/p vanc and cefepime in ED - desescalated to ceftriaxone given pansensitive Klebsiella - will need CVC removal - general surgery consulted for removal - hold TPN - will repeat blood cultures once CVC is removed - ID consult - trend fever, hemodynamically stable - see H&P from this morning for further details Ganga Leong MD [facility]
[2022-02-05] MEDS ORDERED: lisinopril 5 MG TAB PO ONE (12:37)
[2022-02-05] MEDS: cefTRIAXone SODIUM 2,000 MG in DEXTROSE 5% 50 ML IV SCH (12:41)
[2022-02-05] MEDS: CODEINE SULFATE 30 MG TAB PO SCH ×3 (12:41→20:19)
[2022-02-05] MEDS: PSYLLIUM or GUAR GUM FIBER POWDER PACKET PO SCH ×3 (12:41→20:22)
[2022-02-05] MEDS: PANCREAZE (LIPASE 4,200U) CAP PO SCH ×2 (12:42→16:39)
[2022-02-05] MEDS: lisinopril 5 MG TAB PO SCH (12:42)
[2022-02-05] MEDS: DIPHENOXYLATE/ATROPINE 2.5/0.025MG TAB PO SCH ×3 (12:42→20:14)
[2022-02-05] MEDS: buPROPion SR 100 MG TABCR PO SCH (16:17)
[2022-02-05] MEDS: CHOLECALCIFEROL 1,000 UNITS 25 MCG TAB PO SCH (20:12)
[2022-02-05] MEDS: FINASTERIDE 5 MG TAB PO SCH (20:15)
[2022-02-05] MEDS: PARoxetine HCL 20 MG TAB PO SCH (20:20)
[2022-02-05] MEDS: TAMSULOSIN HCL 0.4 MG CAP PO SCH (20:21)
[2022-02-05] MEDS ORDERED: TAMSULOSIN HCL 0.4 MG CAP PO SCH (21:00)
[2022-02-05] MEDS: ZOLPIDEM TARTRATE 10 MG TAB PO PRN (21:30)
[2022-02-06] MEDS ORDERED: VANCOMYCIN CONSULT ACTIVE PRN (07:16)
[2022-02-06] MEDS ORDERED: VANCOMYCIN HCL 1,000 MG in SODIUM CHLORIDE 0.9% 500 ML IV SCH (07:30)
[2022-02-06] MEDS: CHOLECALCIFEROL 1,000 UNITS 25 MCG TAB PO SCH ×2 (07:45→20:13)
[2022-02-06] MEDS: CODEINE SULFATE 30 MG TAB PO SCH ×4 (07:45→20:14)
[2022-02-06] MEDS: buPROPion SR 100 MG TABCR PO SCH (07:46)
[2022-02-06] MEDS: PANCREAZE (LIPASE 4,200U) CAP PO SCH ×3 (07:46→16:41)
[2022-02-06] MEDS: DIPHENOXYLATE/ATROPINE 2.5/0.025MG TAB PO SCH ×4 (07:46→20:15)
[2022-02-06] MEDS: PSYLLIUM or GUAR GUM FIBER POWDER PACKET PO SCH ×4 (07:47→20:20)
[2022-02-06] MEDS: cefTRIAXone SODIUM 2,000 MG in DEXTROSE 5% 50 ML IV SCH (07:50)
[2022-02-06] MEDS ORDERED: VANCOMYCIN HCL 1,500 MG in SODIUM CHLORIDE 0.9% 500 ML IV ONE (08:00)
--- NOTE | 2022-02-06 08:14 | Hospitalist Progress Note ---
Date of Service February 06, 2022 Assessment & Plan (1) Gram-negative bacteremia: Plan: - positive blood cultures for Klebsiella from admission - history of multiple episodes of bacteremia likely related to chronic CVC and TPN - afebrile, mild WBC elevation (now wnl), rigors, fatigue, decreased appetite - s/p vanc and cefepime in ED - desescalated to ceftriaxone given pansensitive Klebsiella - will need CVC removal - general surgery consulted for removal - hold TPN - will repeat blood cultures once CVC is removed - ID consult - trend fever, hemodynamically stable - Staph spp also growing, likely contaminant - biofire shows no resistance to ceftriaxone - will dc vanco (2) Sepsis: Plan: - presented with leukocytosis, tachycardia, fever, elevated procalcitonin - IV abx and IVF as above - to remove CVC as above - holding TPN in the setting of sepsis (3) Thrombocytopenia: Plan: - new finding - unclear etiology - no history of liver disease and CT AP without significant finding - no signs of bleeding - possibly in the stting of sepsis - will trend for now (4) Hyponatremia: Plan: - likely in the setting of sepsis and decrease po intake - s/p IVF with improvement - no neurologic symptoms - trend Na - monitor (5) Ulcerative colitis: Plan: - s/p total colectomy with revision and resection of partial small bowel 2015 - on chronic TPN through CVC for short gut syndrome - holding TPN as above (6) HTN (hypertension): Plan: - no BP meds as outpatient - currently normotensive (7) Short gut syndrome: Plan: - chronic TPN as above - holding while septic and plan to pull CVC to clear bacteremia (8) BPH (benign prostatic hyperplasia): Plan: - continue tamsulosin and finasteride Plan DVT ppx: holding for potential CVC removal Full Code Ganga Leong MD Hospital Medicine Admission and Anticipated Discharge Date Admission Date: February 05, 2022 Subjective The patient is a 76 year old man with pmh HLD, DAVID, HTN, UC s/p colectomy with revisions and right sided colostomy, short bowel syndrome on chronic TPN with right sided central line, recent history of lumbar discitis/OM s/p 6 weeks antibiotics (finished 1st week of 12/2021) who presented with 1 week of fatigue, malaise, rigors, decreased appetite. Found to have Klebsiella bacteremia, started on vancomycin and cefepime initially, deescalated to ceftriaxone. Surgery was consulted to remove CVC due to bacteremia. The patient denies any complaints today of chest pain, shortness of breath, n/v/d, abdominal pain, dysuria, rigors. He reports feeling better than when he intially presented. Review of Systems Review of Systems: All systems reviewed & are unremarkable except as noted in Subjective Physical Exam Physical Exam: GENERAL: The patient is of moderate build, not in acute distress. HEENT: Pupils equal, round, and reactive to light. Oral mucosa moist. NECK: No JVD, no neck masses. CARDIOVASCULAR: S1 and S2 heard. Regular rate and rhythm. No murmur, no gallop. Central line site in the right lateral chest, no obvious infection seen. RESPIRATORY SYSTEM: Normal AP diameter. No accessory muscle use. No wheezing, no crackles. ABDOMEN: Surgical scar seen. Ileostomy is seen. No erythema around the ileostomy site. Abdomen nontender. has abdominal right sided hernia without pain or incarceration CENTRAL NERVOUS SYSTEM: Cranial nerves II-XII grossly intact, nonfocal. EXTREMITIES: No edema, no erythema. Results & Data Results & Data ([facility]) Vital Signs (Past 12 Hours) Vital Signs Temp Pulse Pulse Resp BP Pulse Ox O2 Del Method 02/06/22 02:42 36.8 C 77 18 123/72 91 Nasal Cannula 02/06/22 00:15 71 02/05/22 23:36 Nasal Cannula 02/05/22 23:28 36.8 C 68 16 105/63 95 Nasal Cannula O2 Flow Rate 02/06/22 02:42 2.0 02/06/22 00:15 02/05/22 23:36 2 02/05/22 23:28 Laboratory Results Short CBC 02/05/22 Range/Units 10:04 WBC 9.79 (4.8-10.8) K/ul Hgb 11.2 L (14.0-18.0) g/dl Hct 32.5 L (40.1-51.0) % Plt Count 83 L (130-400) K/uL BMP 02/05/22 10:04 Sodium 135 L Potassium 3.8 Chloride 106 Carbon Dioxide 21 BUN 39 H Creatinine 1.11 Glucose 101 H Calcium 9.1 Medications Administered Current Inpatient Medications Acetaminophen (Acetaminophen 325 Mg Tab) 650 mg PO Q4H PRN PRN Reason: Pain or Fever Stop: 03/07/22 09:43 Last Admin: 02/05/22 15:09 Dose: 650 mg Lipase/Protease/Amylase (Pancreaze (Lipase 4,200u) Cap) 1 cap PO TIDM MIKIE Stop: 03/07/22 11:59 Last Admin: 02/06/22 07:46 Dose: 1 cap Bupropion HCl (Bupropion Sr 100 Mg Tabcr) 100 mg PO QAM MIKIE Stop: 03/07/22 10:59 Last Admin: 02/06/22 07:46 Dose: 100 mg Codeine Sulfate (Codeine Sulfate 30 Mg Tab) 30 mg PO QID@0800,1200,1700,2100 MIKIE Stop: 02/19/22 11:59 Last Admin: 02/06/22 07:45 Dose: 30 mg Diphenoxylate HCl/Atropine (Diphenoxylate/Atropine 2.5/0.025mg Tab) 2 tab PO QID@0800,1200,1700,2100 MIKIE Stop: 03/07/22 11:59 Last Admin: 02/06/22 07:46 Dose: 2 tab Finasteride (Finasteride 5 Mg Tab) 5 mg PO HS MIKIE Stop: 03/07/22 20:59 Last Admin: 02/05/22 20:15 Dose: 5 mg Sodium Chloride (Nss 1000ml) 1,000 mls @ 75 mls/hr IV .[id number] MIKIE Stop: 02/06/22 10:12 Last Infusion: 02/05/22 20:08 Dose: 75 mls/hr Ceftriaxone Sodium 2,000 mg/ (Dextrose) 70 mls @ 100 mls/hr IV DAILY MIKIE; Protocol Stop: 02/19/22 10:29 Last Admin: 02/06/22 07:50 Dose: 100 mls/hr Dextrose (D10w) 1,000 mls @ 0 mls/hr IV .Q0M PRN PRN Reason: protocol (see label comments) Stop: 03/07/22 11:44 Vancomycin HCl 1,500 mg/ (Sodium Chloride) 530 mls @ 200 mls/hr IV NOW ONE Stop: 02/06/22 10:38 Vancomycin HCl 1,000 mg/ (Sodium Chloride) 270 mls @ 200 mls/hr IV Q18H [facility] Stop: 02/21/22 01:59 Lisinopril (Lisinopril 5 Mg Tab) 5 mg PO QAM [facility] Stop: 03/07/22 10:59 Last Admin: 02/05/22 12:42 Dose: Not Given Miscellaneous Information (Tpn/Ppn Consult Pharmacy) 1 each N/A UD PRN PRN Reason: Consult Stop: 03/07/22 10:44 Miscellaneous Information (Vancomycin Consult Active) 1 each N/A UD PRN PRN Reason: Consult Stop: 03/08/22 07:15 Nitroglycerin (Nitroglycerin Sl 0.4 Mg/Tab Tab) 0.4 mg SL UD PRN PRN Reason: Chest Pain Stop: 03/07/22 09:43 Paroxetine HCl (Paroxetine Hcl 20 Mg Tab) 30 mg PO QPM [facility] Stop: 03/07/22 20:59 Last Admin: 02/05/22 20:20 Dose: 30 mg Psyllium Hydrophilic Mucilloid (Psyllium Or Guar Gum Fiber Powder Packet) 1 pkt PO QID MIKIE Stop: 03/07/22 12:59 Last Admin: 02/06/22 07:47 Dose: Not Given Tamsulosin HCl (Tamsulosin Hcl 0.4 Mg Cap) 0.4 mg PO HS [facility] Stop: 03/07/22 20:59 Last Admin: 02/05/22 20:21 Dose: 0.4 mg Vitamin D (Cholecalciferol 1,000 Units 25 Mcg Tab) 1,000 units PO BID MIKIE Stop: 03/07/22 20:59 Last Admin: 02/06/22 07:45 Dose: 1,000 units Zolpidem Tartrate (Zolpidem Tartrate 10 Mg Tab) 10 mg PO HS PRN PRN Reason: Insomnia Stop: 03/07/22 09:43 Last Admin: 02/05/22 21:30 Dose: 10 mg
[2022-02-06 08:56] LABS: Basophils # (auto) 0.06 K/uL (0-0.2); Basophils % (auto) 0.6 %; Eosinophils # (auto) 0.05 K/uL (0-0.50); Eosinophils % (auto) 0.5 %; Hematocrit (blood only) 31.4 % (40.1-51.0); Hemoglobin 10.7 g/dl (14.0-18.0); Immature Granulocytes # (auto) 0.14 K/uL (0.00-0.02); Immature Granulocytes % (auto) 1.3 %; Lymphocytes # (auto) 0.99 K/uL (1.2-3.4); Lymphocytes % (auto) 9.2 %; Mean Corpuscular Hgb Conc 34.1 g/dL (32.0-36.0); Mean Platelet Volume 12.6 fL (9.4-12.4); Monocytes % (auto) 15.8 %; Neutrophils # (auto) 7.79 K/uL (1.4-6.5); Neutrophils % (auto) 72.6 %; Platelet Count 85 K/uL (130-400); RDW Coefficient of Variation 13.2 % (11.5-14.5); RDW Standard Deviation 43.7 fL (36.4-46.3); Red Blood Count 3.45 M/uL (4.63-6.08); White Blood Count 10.73 K/ul (4.8-10.8)
[2022-02-06 09:10] LABS: A calco-baum cmplx NotReported Not Detected (NotDetected); Bact fragilis Not Reported Not Detected (NotDetected); C auris Not Reported Not Detected (NotDetected); Calbicans Not Reported Not Detected (NotDetected); Candida glabrata Not Reported Not Detected (NotDetected); Candida krusei Not Reported Not Detected (NotDetected); Cneoformans/gatti Not Reported Not Detected (NotDetected); Cparapsilosis Not Reported Not Detected (NotDetected); Ctropicalis Not Reported Not Detected (NotDetected); E cloacae compx Not Reported Not Detected (NotDetected); Efaecalis Not Reported Not Detected (NotDetected); Efaecium Not Reported Not Detected (NotDetected); Enterobacterales Not Reported Not Detected (NotDetected); Escherichia coli Not Reported Not Detected (NotDetected); H influenzae Not Reported Not Detected (NotDetected); K aerogenes Not Reported Not Detected (NotDetected); Koxytoca Not Reported Not Detected (NotDetected); Kpneumoniae grp Not Reported Not Detected (NotDetected); Lmonocyt Not Reported Not Detected (NotDetected); N meningitidis Not Reported Not Detected (NotDetected); P aeruginosa Not Reported Not Detected (NotDetected); Proteus spp Not Reported Not Detected (NotDetected); Salmonella spp Not Reported Not Detected (NotDetected); Smarcescens Not Reported Not Detected (NotDetected); Staph lugdunensis Not Reported Not Detected (NotDetected); Staph spp. Not Reported DETECTED (NotDetected); Staphaureus Not Reported Not Detected (NotDetected); Staphepi Not Reported Not Detected (NotDetected); Staphylococcus spp. DETECTED (NotDetected); Stenmaltophilia Not Reported Not Detected (NotDetected); Strep agal(GrpB) Not Reported Not Detected (NotDetected); Strep pneum Not Reported Not Detected (NotDetected); Strep pyog (GrpA) Not Reported Not Detected (NotDetected); Strep spp Not Reported Not Detected (NotDetected)
[2022-02-06 09:42] LABS: Creatinine Clr Calc Pharmacy 65.8 ml/min; Est GFR (African American) 100.6 ml/min; Est GFR (Non-African American) 86.8 ml/min; Magnesium 1.7 mg/dl (1.7-2.4); Phosphorus 2.3 mg/dl (2.5-4.9); Potassium 3.6 mmol/L (3.5-5.1)
[2022-02-06] MEDS ORDERED: LACTATED RINGER'S 1,000 ML IV ONE (12:15)
[2022-02-06] MEDS ORDERED: POTASSIUM PHOS 3 MMOL/1 ML INFUSION IV STA (12:19)
[2022-02-06] MEDS ORDERED: MAGNESIUM SULFATE / D5W 1 GM/100 ML BAG IV ONE (12:19)
[2022-02-06] MEDS ORDERED: POTASSIUM PHOSPHATE 30 MMOL in SODIUM CHLORIDE 0.9% 500 ML IV ONE (12:30)
--- NOTE | 2022-02-06 13:12 | History & Physical Bridge Note ---
Date of Service February 06, 2022 History & Physical Bridge Note I have examined the patient, reviewed the History & Physical and in the interval since the performance of the History & Physical I have noted the following changes of clinical significance: no changes noted
--- NOTE | 2022-02-06 13:12 | Surgery Consultation ---
Date of Consultation February 06, 2022 Assessment & Plan (1) Septicemia: pt is a 76 year-old male who was admitted to hospital for infected central line catheter, IMP: infected central line catheter, plan, I recommend to remove central line catheter under local anesthesia, D/W benefits, risks, and alternatives of the surgery, the risks- infection, sepsis, bleeding, blood clot, embolization, pt understood, he agrees with the surgery, he signed informed consent, I answered all questions, History of Present Illness Reason for Consultation: infected central line catheter Requesting Physician: Ganga Morris MD Attending Physician: Ganga Morris MD History of Present Illness CHIEF COMPLAINT: Fever. HISTORY OF PRESENT ILLNESS: This is a 76-year-old male with past medical history significant for hyperlipidemia, triglyceridemia, obstructive sleep apnea, hypertension, chronic ulcerative pancolitis, malnutrition, short bowel syndrome, BPH, depression, status post ileostomy, chronic insomnia, generalized anxiety disorder, parastomal hernia. The patient states in 1974 he had colectomy and ileostomy, but 5 years ago again he had total colectomy and also partial small bowel taken out and since then he is on TPN. He has a central line placed .He can eat whatever he wants, but he is also on TPN . Since placed on TPN, he had five infections. The line was not infected as per the patient. Recently in September, he came here to [facility] with back pain and was found to have osteomyelitis and diskitis and transferred to [place]. He was treated with 8 weeks of antibiotics and was in rehab, finished antibiotic course in first week of December. After that, he still had some back pain, but since last 1 week, the back pain is completely resolved.But since the last 4-5 days, he is having poor appetite. Generally whenever he gets infected, his appetite goes down and also his temperature was going high, so he came here. Today, he has some headache, but denies any neck pain or back pain. No abdominal pain. No chest pain, but feeling short of breath with minimal exertion, no cough. He vomited yesterday. Denies any belly pain. Ileostomy is working okay. Urine is very dark and some pain while micturating. No swelling in the legs. Currently, BP is somewhat soft. The patient is afebrile in the ER. His white count is 11, platelets of 75. His procalcitonin is 34. SARS-CoV-2 PCR is negative. Chest x-ray was unremarkable. I ( Parker Mckay MD) got a call for consult remove infected central line catheter, I reviewed pt's H/P, labs, blood culture result with pt, ALLERGIES: IBUPROFEN. PAST MEDICAL HISTORY: As mentioned above. PAST SURGICAL HISTORY: Insertion of tunneled catheter, total colectomy, and ileostomy. MEDICATIONS: The patient is currently on bupropion 100 mg p.o. a.m., vitamin D 1000 Units p.o. b.i.d., codeine sulfate 30 mg p.o. q.i.d., Creon 1 capsule p.o. t.i.d. with meals, Lomotil 2 tablets p.o. q.i.d., finasteride 5 mg p.o. at bedtime, lisinopril 5 mg p.o. a.m., loperamide, Metamucil 1 tablespoon q.i.d., ____ 30 mg p.o. a.m., Flomax 0.4 mg at bedtime, zolpidem 10 mg p.o. at bedtime p.r.n. FAMILY HISTORY: Significant for no family history on file. SOCIAL HISTORY: , no smoking, no alcohol, no drug use. REVIEW OF SYSTEMS: As per HPI. Rest of review of systems is negative. Allergies Allergy/AdvReac Type Severity Reaction Status Date / Time ibuprofen AdvReac Intermediate GASTRIC Verified 02/04/22 23:39 ULCERS, NO COLON Home Medications Medication Instructions Recorded Confirmed Type cholecalciferol (vitamin D3) 25 1,000 unit PO BID 04/23/18 02/04/22 History mcg (1,000 unit) tablet (Vitamin D3) diphenoxylate-atropine 2.5 2 tab PO QID 04/23/18 02/04/22 History mg-0.025 mg tablet (Lomotil) finasteride 5 mg tablet 5 mg PO HS 04/23/18 02/04/22 History lipase 3,000-protease 1 cap PO TIDM 04/23/18 02/04/22 History 9,500-amylase 15,000 unit capsule, delayed rel (Creon) paroxetine HCl 30 mg tablet 30 mg PO PM 04/23/18 02/04/22 History polysaccharide iron complex 150 mg 150 mg PO BID 05/03/18 02/04/22 History iron capsule (Ferrex) tamsulosin 0.4 mg capsule 0.4 mg PO HS 05/03/18 02/04/22 History zolpidem 10 mg tablet 10 mg PO HS PRN Insomnia 05/03/18 02/04/22 History lisinopril 5 mg tablet 5 mg PO QAM 08/13/20 02/04/22 History bupropion HCl 100 mg tablet,12 hr 100 mg PO QAM 09/16/20 02/04/22 History sustained-release codeine sulfate 30 mg tablet 30 mg PO QID 09/16/20 02/04/22 History loperamide 2 mg capsule 2 mg PO QID 09/16/20 02/04/22 History psyllium husk 3.4 gram/5.4 gram 1 tbsp PO QID 04/15/21 02/04/22 History oral powder (Metamucil) Patient History Medical History Anxiety BPH (benign prostatic hyperplasia) Chronic pain H/O ulcerative colitis HTN (hypertension) Ileostomy in place Infection of intravenous catheter Insomnia Leukocytosis On total parenteral nutrition (TPN) Pancreatitis pt denies any history Positive blood culture SBO (small bowel obstruction) hx Sepsis Short gut syndrome Sleep apnea CPAP Surgical History H/O rotator cuff surgery right H/O total colectomy (~1973) History of colonoscopy History of laparotomy removed SBO History of tonsillectomy Family History Other No family history of adverse response to anesthesia No significant family history Social History Smoking Status: Former smoker Tobacco Type: Cigarettes Second Hand Exposure: No; Hx Alcohol Use: No Hx Substance Use: No Preferred Language: Swedish Communication Ability: Effective 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 Beliefs That Will Affect Care: None marital status: Current Living Situation: Spouse How many Children do You have: 2 Feels Safe at Home: Yes Safety Concerns: Feels Safe At This Time Assistive Devices: Oxygen - Continuous Physical Exam Constitutional: WD/WN, vitals as above Eyes: PERRL, conjunctivae normal, anicteric sclerae Neck: trachea midline, no thyromegaly Respiratory: normal respiratory effort, lungs clear to auscultation a central line catheter at right upper chest wall, no drainage from catheter, Cardiovascular: RRR, no murmur, no edema Skin: no redness at central line catheter at right upper chest wall, Neurologic: patellar DTR's 2+ bilat, sensation intact Psychiatric: A+Ox3, euthymic affect Results & Data ([facility]) Vital Signs (Past 12 Hours) Vital Signs Temp Pulse Pulse Resp BP BP Pulse Ox 02/06/22 11:50 36.7 C 83 20 112/72 93 02/06/22 09:44 02/06/22 08:00 85 02/06/22 08:00 36.8 C 87 20 125/71 91 02/06/22 02:42 36.8 C 77 18 123/72 91 Pulse Ox O2 Del Method O2 Del Method O2 Flow Rate 02/06/22 11:50 Nasal Cannula 1 02/06/22 09:44 91 Room Air 02/06/22 08:00 02/06/22 08:00 Room Air 02/06/22 02:42 Nasal Cannula 2.0 Laboratory Results Abnormal lab results 02/04/22 02/05/22 02/06/22 Range/Units 23:24 15:12 08:31 RBC (4.63-6.08) M/uL Hgb (14.0-18.0) g/dl Hct (40.1-51.0) % Plt Count (130-400) K/uL MPV (9.4-12.4) fL Neut # (Auto) (1.4-6.5) K/uL Lymph # (Auto) (1.2-3.4) K/uL Gooding # (Auto) (0.24-0.82) K/uL Immature Gran # (Auto) (0.00-0.02) K/uL BUN/Creatinine Ratio 25.0 H (10-20) Glucose 118 H (70-99(Fasting)) mg/dl POC Glucose 116 H (70-99) mg/dl Phosphorus 2.3 L (2.5-4.9) mg/dl Staphylococcus sp PCR DETECTED A (NotDetected) 02/06/22 Range/Units 08:31 RBC 3.45 L (4.63-6.08) M/uL Hgb 10.7 L (14.0-18.0) g/dl Hct 31.4 L (40.1-51.0) % Plt Count 85 L (130-400) K/uL MPV 12.6 H (9.4-12.4) fL Neut # (Auto) 7.79 H (1.4-6.5) K/uL Lymph # (Auto) 0.99 L (1.2-3.4) K/uL Gooding # (Auto) 1.70 H (0.24-0.82) K/uL Immature Gran # (Auto) 0.14 H (0.00-0.02) K/uL BUN/Creatinine Ratio (10-20) Glucose (70-99(Fasting)) mg/dl POC Glucose (70-99) mg/dl Phosphorus (2.5-4.9) mg/dl Staphylococcus sp PCR (NotDetected)
[2022-02-06] MEDS ORDERED: BACITRACIN OINT 15 GM TUBE ONE (13:26)
[2022-02-06] MEDS ORDERED: BUPIVACAINE 0.5 % 5 MG/1 ML MPF 30ML VIAL ONE (13:27)
[2022-02-06] MEDS ORDERED: LIDOCAINE 1% LOCAL 20 ML VIAL ONE (13:27)
--- NOTE | 2022-02-06 14:17 | Post Operative Brief Note ---
Immediate Post Op Note v1 Date of Surgery February 06, 2022 Pre & Post Diagnosis Operation Date: 02/06/22 07:45 Pre-Op Diagnosis: Septicemia, infected central line catheter Post-Op Diagnosis: Septicemia, infected central line catheter, I identified the patient and participated in the time-out.: Yes Procedure Operation Date: 02/06/22 07:45 Actual Procedures p Removal Central Line(Right) - Parker Mckay MD Surgeon Parker Mckay MD [employer] surgical product sales consultant Estimated Blood Loss 10 Findings Consistent with Post-Op Diagnosis Fluids 50ml Specimens culture tip of catheter Anesthesia Type Local Complications none Disposition Accompanied Patient To Recovery: Yes
[2022-02-06] MEDS: LOPERAMIDE HCL 2 MG CAP PO SCH ×2 (16:40→20:17)
[2022-02-06] MEDS: FINASTERIDE 5 MG TAB PO SCH (20:16)
[2022-02-06] MEDS: TAMSULOSIN HCL 0.4 MG CAP PO SCH (20:17)
[2022-02-06] MEDS: IRON POLYSACCHARIDE COMPLEX 150 MG CAPSULE PO SCH (20:18)
[2022-02-06] MEDS: PARoxetine HCL 20 MG TAB PO SCH (20:19)
[2022-02-06] MEDS: ZOLPIDEM TARTRATE 10 MG TAB PO PRN (22:22)
--- NOTE | 2022-02-06 23:42 | Operative Report (OR) ---
DATE OF PROCEDURE: 02/06/2022. PREOPERATIVE DIAGNOSIS: Infected central line catheter. POSTOPERATIVE DIAGNOSIS: Infected central line catheter. OPERATION: Removal of central line catheter. SURGEON: Parker Mckay MD ANESTHESIA: Local. ESTIMATED BLOOD LOSS: About 10 mL. FINDINGS: Infected intact central line catheter. COMPLICATIONS: None. INDICATIONS FOR THE PROCEDURE: This is a 76-year-old gentleman who was admitted to the hospital for infected central line catheter and I recommended to remove the central line catheter under local anes thesia. I did talk to the patient about the benefits, risks, alternate procedures. I indicated the risks may include, but not limited to, such as bleeding, infection, blood clot, embolization, sepsis. The patient understands. He signed informed consent and I answered all questions. DETAILS OF PROCEDURE: After we identified the patient and verified the procedure, we brought in the patient to the OR, put the patient in the supine position and the patient received SCDs on bilateral legs to prevent DVT. The nurse monitored the patient's vital signs. The right upper chest wall was prepped and draped in routine sterile fashion. After timeout, I injected the local anesthesia by usi ng 1% lidocaine mixed with 0.5% Marcaine around the catheter. Then, I used a 15 blade and made a ski n incision because the patient had a cup on the catheter. Once we dissected out the cup with whole c atheter, and easy to remove the whole catheter, the catheter was intact. The catheter tip was sent t o culture. Hemostasis was obtained. Then, I used 3-0 nylon to close the incision interruptedly, the n we put the dressing on. The patient tolerated the procedure well. All instrument, needle, and spo nge counts were correct x2 at the end of the case. The patient was transferred to recovery room in s table condition. After the procedure, I did talk to the patient about the OR finding and the procedu re we did. Also, I gave the patient postoperative care instruction. The tip of the catheter was sen t to culture. Job ID: [id number]
[2022-02-07] MEDS ORDERED: VANCOMYCIN HCL 1,000 MG in SODIUM CHLORIDE 0.9% 250 ML IV SCH (02:00)
[2022-02-07] MEDS: DIPHENOXYLATE/ATROPINE 2.5/0.025MG TAB PO SCH ×4 (08:14→20:55)
[2022-02-07] MEDS: cefTRIAXone SODIUM 2,000 MG in DEXTROSE 5% 50 ML IV SCH (08:14)
[2022-02-07] MEDS: CODEINE SULFATE 30 MG TAB PO SCH ×4 (08:14→20:54)
[2022-02-07] MEDS: IRON POLYSACCHARIDE COMPLEX 150 MG CAPSULE PO SCH ×2 (08:15→20:57)
[2022-02-07] MEDS: CHOLECALCIFEROL 1,000 UNITS 25 MCG TAB PO SCH ×2 (08:15→20:57)
[2022-02-07] MEDS: PSYLLIUM or GUAR GUM FIBER POWDER PACKET PO SCH ×4 (08:15→20:58)
[2022-02-07] MEDS: PANCREAZE (LIPASE 4,200U) CAP PO SCH ×3 (08:15→16:18)
[2022-02-07] MEDS: LOPERAMIDE HCL 2 MG CAP PO SCH ×4 (08:16→20:55)
[2022-02-07] MEDS: buPROPion SR 100 MG TABCR PO SCH (08:17)
[2022-02-07] MEDS: lisinopril 5 MG TAB PO SCH (08:18)
--- NOTE | 2022-02-07 10:01 | Hospitalist Progress Note ---
Date of Service February 07, 2022 Assessment & Plan (1) Gram-negative bacteremia: Plan: - positive blood cultures for Klebsiella from admission - history of multiple episodes of bacteremia likely related to chronic CVC and TPN - afebrile, mild WBC elevation (now wnl), rigors, fatigue, decreased appetite - s/p vanc and cefepime in ED - desescalated to ceftriaxone given pansensitive Klebsiella - will need CVC removal - general surgery consulted for removal - s/p removal 02/06/2022 - hold TPN - will repeat blood cultures once CVC is removed - repeated evening 02/06/2022 - if BCx negative 48 hours - replace CVC and and likley be discharged home on 2 weeks PO antibiotcs - ID consult - trend fever, hemodynamically stable - Coag neg staph in 07/05 bottles also growing, likely contaminant - biofire shows no resistance to ceftriaxone (2) Sepsis: Plan: - presented with leukocytosis, tachycardia, fever, elevated procalcitonin - IV abx and IVF as above - to remove CVC as above - holding TPN in the setting of sepsis (3) Thrombocytopenia: Plan: - new finding - unclear etiology - no history of liver disease and CT AP without significant finding - no signs of bleeding - possibly in the stting of sepsis - will trend for now - stable in 80s (4) Hyponatremia: Plan: - likely in the setting of sepsis and decrease po intake - s/p IVF with improvement - no neurologic symptoms - trend Na - resolved as of 02/06/2022 (5) Ulcerative colitis: Plan: - s/p total colectomy with revision and resection of partial small bowel 2015 - on chronic TPN through CVC for short gut syndrome - holding TPN as above (6) HTN (hypertension): Plan: - no BP meds as outpatient - mostly wnl but occasionally elevated BP - will monitor for now without change in medications (7) Short gut syndrome: Plan: - chronic TPN as above - holding while septic and plan to pull CVC to clear bacteremia (8) BPH (benign prostatic hyperplasia): Plan: - continue tamsulosin and finasteride Plan DVT ppx: lovenox Full Code Ganga Leong MD Hospital Medicine Admission and Anticipated Discharge Date Admission Date: February 05, 2022 Subjective The patient is a 76 year old man with pmh HLD, DAVID, HTN, UC s/p colectomy 1970s with revisions and right sided colostomy, short bowel syndrome on chronic TPN with right sided central line, recent history of lumbar discitis/OM s/p 6 weeks antibiotics (finished 1st week of 12/2021) who presented with 1 week of fatigue, malaise, rigors, decreased appetite. Found to have Klebsiella bacteremia, started on vancomycin and cefepime initially, deescalated to ceftriaxone. Surgery was consulted to remove CVC due to bacteremia. CVC removed 02/06/2022, repeat blood cultures taken after removal. The patient denies any complaints today of chest pain, shortness of breath, n/v/d, abdominal pain, dysuria, rigors. He reports feeling better than when he intially presented, appetiteis recovering well. CVC removed from right chest by general surgery yesterday 02/06/2022. Review of Systems Review of Systems: All systems reviewed & are unremarkable except as noted in Subjective Physical Exam Physical Exam: GENERAL: The patient is of moderate build, not in acute distress. HEENT: Pupils equal, round, and reactive to light. Oral mucosa moist. NECK: No JVD, no neck masses. CARDIOVASCULAR: S1 and S2 heard. Regular rate and rhythm. No murmur, no gallop. CVC no long in right chest, bandaged - minimal tenderness RESPIRATORY SYSTEM: Normal AP diameter. No accessory muscle use. No wheezing, no crackles. ABDOMEN: Surgical scar seen. Ileostomy is seen. No erythema around the ileostomy site. Abdomen nontender. has abdominal right sided hernia without pain or incarceration CENTRAL NERVOUS SYSTEM: Cranial nerves II-XII grossly intact, nonfocal. EXTREMITIES: No edema, no erythema. Results & Data Results & Data ([facility]) Vital Signs (Past 12 Hours) Vital Signs Temp Pulse Pulse Resp BP BP Pulse Ox 02/07/22 07:47 37.1 C 102 H 19 160/97 H 92 02/07/22 05:08 37.1 C 84 16 147/81 H 92 02/06/22 23:39 81 02/06/22 23:30 37.1 C 116 H 16 138/91 90 O2 Del Method O2 Flow Rate 02/07/22 07:47 Nasal Cannula 02/07/22 05:08 Nasal Cannula 2 02/06/22 23:39 02/06/22 23:30 Nasal Cannula 2 Medications Administered Current Inpatient Medications Acetaminophen (Acetaminophen 325 Mg Tab) 650 mg PO Q4H PRN PRN Reason: Pain or Fever Stop: 03/07/22 09:43 Last Admin: 02/05/22 15:09 Dose: 650 mg Lipase/Protease/Amylase (Pancreaze (Lipase 4,200u) Cap) 1 cap PO TIDM [facility] Stop: 03/07/22 11:59 Last Admin: 02/07/22 08:15 Dose: 1 cap Bupropion HCl (Bupropion Sr 100 Mg Tabcr) 100 mg PO QAM [facility] Stop: 03/07/22 10:59 Last Admin: 02/07/22 08:17 Dose: 100 mg Codeine Sulfate (Codeine Sulfate 30 Mg Tab) 30 mg PO QID@0800,1200,1700,2100 [facility] Stop: 02/19/22 11:59 Last Admin: 02/07/22 08:14 Dose: 30 mg Diphenoxylate HCl/Atropine (Diphenoxylate/Atropine 2.5/0.025mg Tab) 2 tab PO QID@0800,1200,1700,2100 [facility] Stop: 03/07/22 11:59 Last Admin: 02/07/22 08:14 Dose: 2 tab Finasteride (Finasteride 5 Mg Tab) 5 mg PO HS [facility] Stop: 03/07/22 20:59 Last Admin: 02/06/22 20:16 Dose: 5 mg Ceftriaxone Sodium 2,000 mg/ (Dextrose) 70 mls @ 100 mls/hr IV DAILY [facility]; Protocol Stop: 02/19/22 10:29 Last Infusion: 02/07/22 08:58 Dose: Infused Dextrose (D10w) 1,000 mls @ 0 mls/hr IV .Q0M PRN PRN Reason: protocol (see label comments) Stop: 03/07/22 11:44 Lisinopril (Lisinopril 5 Mg Tab) 5 mg PO QAM [facility] Stop: 03/07/22 10:59 Last Admin: 02/07/22 08:18 Dose: 5 mg Loperamide HCl (Loperamide Hcl 2 Mg Cap) 2 mg PO QID [facility] Stop: 03/08/22 16:59 Last Admin: 02/07/22 08:16 Dose: 2 mg Miscellaneous Information (Tpn/Ppn Consult Pharmacy) 1 each N/A UD PRN PRN Reason: Consult Stop: 03/07/22 10:44 Nitroglycerin (Nitroglycerin Sl 0.4 Mg/Tab Tab) 0.4 mg SL UD PRN PRN Reason: Chest Pain Stop: 03/07/22 09:43 Paroxetine HCl (Paroxetine Hcl 20 Mg Tab) 30 mg PO QPM [facility] Stop: 03/07/22 20:59 Last Admin: 02/06/22 20:19 Dose: 30 mg Polysaccharide Iron Complex (Iron Polysaccharide Complex 150 Mg Capsule) 150 mg PO BID [facility] Stop: 03/08/22 20:59 Last Admin: 02/07/22 08:15 Dose: 150 mg Psyllium Hydrophilic Mucilloid (Psyllium Or Guar Gum Fiber Powder Packet) 1 pkt PO QID [facility] Stop: 03/07/22 12:59 Last Admin: 02/07/22 08:15 Dose: 1 pkt Tamsulosin HCl (Tamsulosin Hcl 0.4 Mg Cap) 0.4 mg PO HS [facility] Stop: 03/07/22 20:59 Last Admin: 02/06/22 20:17 Dose: 0.4 mg Vitamin D (Cholecalciferol 1,000 Units 25 Mcg Tab) 1,000 units PO BID [facility] Stop: 03/07/22 20:59 Last Admin: 02/07/22 08:15 Dose: 1,000 units Zolpidem Tartrate (Zolpidem Tartrate 10 Mg Tab) 10 mg PO HS PRN PRN Reason: Insomnia Stop: 03/07/22 09:43 Last Admin: 02/05/22 21:30 Dose: 10 mg
[2022-02-07] MEDS: ENOXAPARIN INJ 40 MG/0.4 ML SYR SQ SCH (11:09)
[2022-02-07] MEDS: LACTATED RINGER'S 1,000 ML IV SCH (12:59)
--- NOTE | 2022-02-07 13:57 | Surgery Progress Note ---
Date of Service February 07, 2022 Assessment & Plan (1) Septicemia: Plan: pt is a 76 year-old male who was admitted to hospital for infected central line catheter, IMP: infected central line catheter, plan, I recommend to remove central line catheter under local anesthesia, D/W benefits, risks, and alternatives of the surgery, the risks- infection, sepsis, bleeding, blood clot, embolization, pt understood, he agrees with the surgery, he signed informed consent, I answered all questions, 02/07/2022 1:56PM Dr. Mckay F/U S/P removed central line catheter, POD 1 doing fine, F/U me 2 weeks, for remove sutures, , sign off today, Thanks, Admission and Anticipated Discharge Date Admission Date: February 05, 2022 Subjective The patient is a 76 year old man with pmh HLD, DAVID, HTN, UC s/p colectomy 1970s with revisions and right sided colostomy, short bowel syndrome on chronic TPN with right sided central line, recent history of lumbar discitis/OM s/p 6 weeks antibiotics (finished 1st week of 12/2021) who presented with 1 week of fatigue, malaise, rigors, decreased appetite. Found to have Klebsiella bacteremia, started on vancomycin and cefepime initially, deescalated to ceftriaxone. Surgery was consulted to remove CVC due to bacteremia. CVC removed 02/06/2022, repeat blood cultures taken after removal. The patient denies any complaints today of chest pain, shortness of breath, n/v/d, abdominal pain, dysuria, rigors. He reports feeling better than when he intially presented, appetiteis recovering well. CVC removed from right chest by general surgery yesterday 02/06/2022. 02/07/2022 1:54PM, Dr. Woody Winter/Radha S/P removed central line catheter, POD 1 pt is doing fine, he feels better, NO fever, Physical Exam Constitutional: WD/WN, vitals as above Eyes: PERRL, conjunctivae normal, anicteric sclerae Neck: trachea midline, no thyromegaly Respiratory: normal respiratory effort, lungs clear to auscultation Cardiovascular: RRR, no murmur, no edema Skin: incision site dry, no drainage, Neurologic: patellar DTR's 2+ bilat, sensation intact Psychiatric: A+Ox3, euthymic affect Results & Data ([facility]) Vital Signs (Past 12 Hours) Vital Signs Temp Pulse Pulse Resp BP BP Pulse Ox 02/07/22 11:29 36.7 C 79 18 138/75 94 02/07/22 08:00 77 02/07/22 08:00 02/07/22 07:47 37.1 C 102 H 19 160/97 H 92 02/07/22 05:08 37.1 C 84 16 147/81 H 92 O2 Del Method O2 Flow Rate 02/07/22 11:29 Nasal Cannula 2 02/07/22 08:00 02/07/22 08:00 Nasal Cannula 2 02/07/22 07:47 Nasal Cannula 02/07/22 05:08 Nasal Cannula 2
[2022-02-07] MEDS: TAMSULOSIN HCL 0.4 MG CAP PO SCH (20:54)
[2022-02-07] MEDS: FINASTERIDE 5 MG TAB PO SCH (20:55)
[2022-02-07] MEDS: PARoxetine HCL 20 MG TAB PO SCH (20:57)
[2022-02-07] MEDS: ZOLPIDEM TARTRATE 10 MG TAB PO PRN (21:01)
[2022-02-08] MEDS: LACTATED RINGER'S 1,000 ML IV SCH (03:05)
[2022-02-08 06:45] LABS: Basophils # (auto) 0.03 K/uL (0-0.2); Basophils % (auto) 0.3 %; Eosinophils # (auto) 0.28 K/uL (0-0.50); Eosinophils % (auto) 3.1 %; Hematocrit (blood only) 32.9 % (40.1-51.0); Hemoglobin 11.1 g/dl (14.0-18.0); Immature Granulocytes # (auto) 0.14 K/uL (0.00-0.02); Immature Granulocytes % (auto) 1.5 %; Lymphocytes # (auto) 1.36 K/uL (1.2-3.4); Mean Corpuscular Hemoglobin 30.9 pg (25.0-34.0); Mean Corpuscular Hgb Conc 33.7 g/dL (32.0-36.0); Mean Corpuscular Volume 91.6 fL (80.0-100.0); Mean Platelet Volume 12.1 fL (9.4-12.4); Neutrophils # (auto) 6.25 K/uL (1.4-6.5); Neutrophils % (auto) 69.1 %; Platelet Count 151 K/uL (130-400); RDW Coefficient of Variation 13.2 % (11.5-14.5); RDW Standard Deviation 44.6 fL (36.4-46.3); Red Blood Count 3.59 M/uL (4.63-6.08); White Blood Count 9.06 K/ul (4.8-10.8)
[2022-02-08 07:10] LABS: Albumin Globulin Ratio 0.9 (0.9-2); BUN Creatinine Ratio 15.9 (10-20); Bilirubin,Total 3.3 mg/dl (0.2-1.0); Calcium 8.7 mg/dl (8.5-10.1); Creatinine Clr Calc Pharmacy 76.3 ml/min; Est GFR (African American) 106.9 ml/min; Est GFR (Non-African American) 92.2 ml/min; Globulin 3.2 gm/dl (2.5-4.0); Magnesium 1.8 mg/dl (1.7-2.4); Phosphorus 3.3 mg/dl (2.5-4.9); Potassium 3.5 mmol/L (3.5-5.1); Total Protein 6.2 gm/dl (6.0-8.3)
[2022-02-08] MEDS: IRON POLYSACCHARIDE COMPLEX 150 MG CAPSULE PO SCH ×2 (08:37→21:11)
[2022-02-08] MEDS: LOPERAMIDE HCL 2 MG CAP PO SCH ×4 (08:37→21:09)
[2022-02-08] MEDS: cefTRIAXone SODIUM 2,000 MG in DEXTROSE 5% 50 ML IV SCH (08:37)
[2022-02-08] MEDS: DIPHENOXYLATE/ATROPINE 2.5/0.025MG TAB PO SCH ×4 (08:37→21:08)
[2022-02-08] MEDS: PANCREAZE (LIPASE 4,200U) CAP PO SCH ×3 (08:38→17:20)
[2022-02-08] MEDS: lisinopril 5 MG TAB PO SCH (08:38)
[2022-02-08] MEDS: CHOLECALCIFEROL 1,000 UNITS 25 MCG TAB PO SCH ×2 (08:38→21:09)
[2022-02-08] MEDS: buPROPion SR 100 MG TABCR PO SCH (08:38)
[2022-02-08] MEDS: ENOXAPARIN INJ 40 MG/0.4 ML SYR SQ SCH (08:38)
[2022-02-08] MEDS: PSYLLIUM or GUAR GUM FIBER POWDER PACKET PO SCH ×4 (08:38→21:08)
[2022-02-08] MEDS: CODEINE SULFATE 30 MG TAB PO SCH ×4 (08:40→21:16)
--- NOTE | 2022-02-08 20:37 | Hospitalist Progress Note ---
Date of Service February 08, 2022 Assessment & Plan (1) Sepsis: (2) Gram-negative bacteremia: Plan: - presented with leukocytosis, tachycardia, fever, elevated procalcitonin - positive blood cultures for Klebsiella from admission - history of multiple episodes of bacteremia likely related to chronic CVC and TPN - afebrile, mild WBC elevation (now wnl), rigors, fatigue, decreased appetite - s/p vanc and cefepime in ED - desescalated to ceftriaxone given pansensitive Klebsiella - will need CVC removal - general surgery consulted for removal - s/p removal 02/06/2022 - hold TPN - Repeat blood cx no growth - if BCx negative for 72hrs, will replace CVC - ID on board recommended IV rocephin to complete 2 weeks course (3) Thrombocytopenia: Plan: - new finding - unclear etiology - no history of liver disease and CT AP without significant finding - no signs of bleeding - possibly in the stting of sepsis - will trend for now - stable in 80s (4) Hyponatremia: Plan: - likely in the setting of sepsis and decrease po intake - s/p IVF with improvement - no neurologic symptoms - trend Na - resolved as of 02/06/2022 (5) Ulcerative colitis: Plan: - s/p total colectomy with revision and resection of partial small bowel 2015 - on chronic TPN through CVC for short gut syndrome - holding TPN as above (6) HTN (hypertension): Plan: - no BP meds as outpatient - mostly wnl but occasionally elevated BP - will monitor for now without change in medications (7) Short gut syndrome: Plan: - chronic TPN as above - holding while septic and plan to pull CVC to clear bacteremia (8) BPH (benign prostatic hyperplasia): Plan: - continue tamsulosin and finasteride Plan DVT ppx: lovenox Full Code Admission and Anticipated Discharge Date Admission Date: February 05, 2022 Subjective Pt was seen and examined for follow up bacteremia Lying in bed with no acute distress Pt said that he feels better He said that he slept well last night Currently he is on oxygen supplement Review of Systems Review of Systems: All systems reviewed & are unremarkable except as noted in Subjective Physical Exam Physical Exam: General- No acute distress Head- atraumatic Eyes- PERRL, EOMI, ENT- oropharynx clear Neck- supple, no JVD Lungs- clear to auscultation Heart- regular rhythm; no murmur Abdomen- normal bowel sounds, soft, nontender Extremities- no calf tenderness Neuro- alert, oriented x 3; PERRL, EOMI; no facial palsy; no dysarthria Skin- warm & dry Results & Data Results & Data ([facility]) Vital Signs (Past 12 Hours) Vital Signs Temp Pulse Resp BP BP Pulse Ox O2 Del Method 02/08/22 19:11 36.6 C 70 18 119/70 94 Nasal Cannula 02/08/22 15:24 37 C 80 14 121/77 95 Nasal Cannula 02/08/22 11:11 36.4 C L 69 19 138/73 96 Nasal Cannula O2 Flow Rate 02/08/22 19:11 3 02/08/22 15:24 2 02/08/22 11:11 2
[2022-02-08] MEDS: TAMSULOSIN HCL 0.4 MG CAP PO SCH (21:08)
[2022-02-08] MEDS: FINASTERIDE 5 MG TAB PO SCH (21:09)
[2022-02-08] MEDS: PARoxetine HCL 20 MG TAB PO SCH (21:10)
[2022-02-08] MEDS: ZOLPIDEM TARTRATE 10 MG TAB PO PRN (22:16)
[2022-02-09] MEDS: LOPERAMIDE HCL 2 MG CAP PO SCH ×4 (08:38→22:34)
[2022-02-09] MEDS: buPROPion SR 100 MG TABCR PO SCH (08:38)
[2022-02-09] MEDS: PANCREAZE (LIPASE 4,200U) CAP PO SCH ×3 (08:38→17:59)
[2022-02-09] MEDS: DIPHENOXYLATE/ATROPINE 2.5/0.025MG TAB PO SCH ×4 (08:38→22:33)
[2022-02-09] MEDS: ENOXAPARIN INJ 40 MG/0.4 ML SYR SQ SCH (08:38)
[2022-02-09] MEDS: lisinopril 5 MG TAB PO SCH (08:38)
[2022-02-09] MEDS: CHOLECALCIFEROL 1,000 UNITS 25 MCG TAB PO SCH ×2 (08:38→22:32)
[2022-02-09] MEDS: IRON POLYSACCHARIDE COMPLEX 150 MG CAPSULE PO SCH ×2 (08:38→22:32)
[2022-02-09] MEDS: PSYLLIUM or GUAR GUM FIBER POWDER PACKET PO SCH ×4 (08:39→22:34)
[2022-02-09] MEDS: cefTRIAXone SODIUM 2,000 MG in DEXTROSE 5% 50 ML IV SCH (08:49)
[2022-02-09] MEDS: CODEINE SULFATE 30 MG TAB PO SCH ×4 (08:49→23:06)
[2022-02-09] MEDS: FINASTERIDE 5 MG TAB PO SCH (22:32)
[2022-02-09] MEDS: PARoxetine HCL 20 MG TAB PO SCH ×2 (22:32→22:37)
[2022-02-09] MEDS: TAMSULOSIN HCL 0.4 MG CAP PO SCH (22:33)
[2022-02-09] MEDS: ZOLPIDEM TARTRATE 10 MG TAB PO PRN (22:34)
--- NOTE | 2022-02-09 23:56 | Hospitalist Progress Note ---
Date of Service February 09, 2022 Assessment & Plan (1) Sepsis: (2) Gram-negative bacteremia: Plan: - presented with leukocytosis, tachycardia, fever, elevated procalcitonin - positive blood cultures for Klebsiella from admission - history of multiple episodes of bacteremia likely related to chronic CVC and TPN - afebrile, mild WBC elevation (now wnl), rigors, fatigue, decreased appetite - s/p vanc and cefepime in ED - desescalated to ceftriaxone given pansensitive Klebsiella - will need CVC removal - general surgery consulted for removal - s/p removal 02/06/2022 - hold TPN - Repeat blood cx no growth after 72hr - ID on board recommended IV rocephin to complete 2 weeks course -Case discussed with surgery to replace CVP access for TPN and abx - Due to OR schedule, surgery will contact patient next week to place access outpatient - Will place a PICC line for IV abx infusion and TPN for the short time -Case management was notified to arrange for antibiotic infusion outpatient (3) Thrombocytopenia: Plan: - new finding - unclear etiology - no history of liver disease and CT AP without significant finding - no signs of bleeding - possibly in the setting of sepsis - platelet improved at 151 (4) Hyponatremia: Plan: - likely in the setting of sepsis and decrease po intake - s/p IVF with improvement - no neurologic symptoms - trend Na - resolved as of 02/06/2022 (5) Ulcerative colitis: Plan: - s/p total colectomy 1970s with revision and resection of partial small bowel 2016 - on chronic TPN through CVC for short gut syndrome - holding TPN as above (6) HTN (hypertension): Plan: - no BP meds as outpatient - mostly wnl but occasionally elevated BP - will monitor for now without change in medications (7) Short gut syndrome: Plan: - chronic TPN as above - will resume TPN outpatient -PICC line placed (8) BPH (benign prostatic hyperplasia): Plan: - continue tamsulosin and finasteride Plan DVT ppx: lovenox Full Code Admission and Anticipated Discharge Date Admission Date: February 05, 2022 Subjective Pt was seen and examined for follow up bacteremia Lying in bed with no acute distress Pt said that he feels fine Denies any chest pain, palpitation, dizziness and SOB Review of Systems Review of Systems: All systems reviewed & are unremarkable except as noted in Subjective Physical Exam Physical Exam: General- No acute distress Head- atraumatic Eyes- PERRL, EOMI, ENT- oropharynx clear Neck- supple, no JVD Lungs- clear to auscultation Heart- regular rhythm; no murmur Abdomen- normal bowel sounds, soft, nontender Extremities- no calf tenderness Neuro- alert, oriented x 3; PERRL, EOMI; no facial palsy; no dysarthria Skin- warm & dry Results & Data Results & Data ([facility]) Vital Signs (Past 12 Hours) Vital Signs Temp Pulse Pulse Pulse Resp BP BP 02/09/22 22:28 78 02/09/22 23:03 36.7 C 73 18 137/67 02/09/22 19:29 36.8 C 72 18 140/70 02/09/22 19:24 02/09/22 18:34 74 02/09/22 15:05 37.2 C 69 18 119/62 Pulse Ox O2 Del Method 02/09/22 22:28 02/09/22 23:03 90 Room Air 02/09/22 19:29 92 Room Air 02/09/22 19:24 Room Air 02/09/22 18:34 02/09/22 15:05 91 Room Air
[2022-02-10 07:10] LABS: BUN Creatinine Ratio 15.2 (10-20); Calcium 8.7 mg/dl (8.5-10.1); Creatinine Clr Calc Pharmacy 79.7 ml/min; Est GFR (African American) 108.8 ml/min; Est GFR (Non-African American) 93.9 ml/min; Magnesium 1.8 mg/dl (1.7-2.4); Phosphorus 3.2 mg/dl (2.5-4.9); Potassium 3.8 mmol/L (3.5-5.1)
[2022-02-10] MEDS: DIPHENOXYLATE/ATROPINE 2.5/0.025MG TAB PO SCH ×3 (08:45→16:34)
[2022-02-10] MEDS: CHOLECALCIFEROL 1,000 UNITS 25 MCG TAB PO SCH (08:45)
[2022-02-10] MEDS: lisinopril 5 MG TAB PO SCH (08:45)
[2022-02-10] MEDS: PANCREAZE (LIPASE 4,200U) CAP PO SCH ×3 (08:45→16:34)
[2022-02-10] MEDS: IRON POLYSACCHARIDE COMPLEX 150 MG CAPSULE PO SCH (08:45)
[2022-02-10] MEDS: CODEINE SULFATE 30 MG TAB PO SCH ×3 (08:45→16:33)
[2022-02-10] MEDS: buPROPion SR 100 MG TABCR PO SCH (08:46)
[2022-02-10] MEDS: cefTRIAXone SODIUM 2,000 MG in DEXTROSE 5% 50 ML IV SCH (08:46)
[2022-02-10] MEDS: LOPERAMIDE HCL 2 MG CAP PO SCH ×3 (08:46→16:34)
[2022-02-10] MEDS: ENOXAPARIN INJ 40 MG/0.4 ML SYR SQ SCH (08:46)
[2022-02-10] MEDS: PSYLLIUM or GUAR GUM FIBER POWDER PACKET PO SCH ×3 (08:46→16:34)
--- NOTE | 2022-02-15 08:19 | Discharge Summary ---
Date of Service February 10, 2022 Admission HPI Per Admitting Provider CHIEF COMPLAINT: Fever. HISTORY OF PRESENT ILLNESS: This is a 76-year-old male with past medical history significant for hyperlipidemia, triglyceridemia, obstructive sleep apnea, hypertension, chronic ulcerative pancolitis, malnutrition, short bowel syndrome, BPH, depression, status post ileostomy, chronic insomnia, generalized anxiety disorder, parastomal hernia. The patient states in 1974 he had colectomy and ileostomy, but 5 years ago again he had total colectomy and also partial small bowel taken out and since then he is on TPN. He has a central line placed .He can eat whatever he wants, but he is also on TPN . Since placed on TPN, he had five infections. The line was not infected as per the patient. Recently in September, he came here to [facility] with back pain and was found to have osteomyelitis and diskitis and transferred to [place]. He was treated with 8 weeks of antibiotics and was in rehab, finished antibiotic course in first week of December. After that, he still had some back pain, but since last 1 week, the back pain is completely resolved.But since the last 4-5 days, he is having poor appetite. Generally whenever he gets infected, his appetite goes down and also his temperature was going high, so he came here. Today, he has some headache, but denies any neck pain or back pain. No abdominal pain. No chest pain, but feeling short of breath with minimal exertion, no cough. He vomited yesterday. Denies any belly pain. Ileostomy is working okay. Urine is very dark and some pain while micturating. No swelling in the legs. Currently, BP is somewhat soft. The patient is afebrile in the ER. His white count is 11, platelets of 75. His procalcitonin is 34. SARS-CoV-2 PCR is negative. Chest x-ray was unremarkable. Admission Exam Per Admitting Provider GENERAL: The patient is of moderate build, not in acute distress. VITAL SIGNS: Temperature 37.2, pulse 67, respiratory rate 16, blood pressure 94/51, oxygen 93% on room air. HEENT: Pupils equal, round, and reactive to light. Oral mucosa moist. NECK: No JVD, no neck masses. CARDIOVASCULAR: S1 and S2 heard. Regular rate and rhythm. No murmur, no gallop. Central line site in the left lateral chest, no obvious infection seen. RESPIRATORY SYSTEM: Normal AP diameter. No accessory muscle use. No wheezing, no crackles. ABDOMEN: Surgical scar seen. Ileostomy is seen. No erythema around the ileostomy site. Abdomen nontender. CENTRAL NERVOUS SYSTEM: Cranial nerves II-XII grossly intact, nonfocal. EXTREMITIES: No edema, no erythema. Principal Diagnosis (1) Sepsis: (2) Gram-negative bacteremia: (3) Thrombocytopenia: (4) Hyponatremia: (5) Ulcerative colitis: (6) HTN (hypertension): (7) Short gut syndrome: (8) BPH (benign prostatic hyperplasia): Discharge Exam General- No acute distress Head- atraumatic Eyes- PERRL, EOMI, ENT- oropharynx clear Neck- supple, no JVD Lungs- clear to auscultation Heart- regular rhythm; no murmur Abdomen- normal bowel sounds, soft, nontender Extremities- no calf tenderness Neuro- alert, oriented x 3; PERRL, EOMI; no facial palsy; no dysarthria Skin- warm & dry Discharge Data Allergies Allergy/AdvReac Type Severity Reaction Status Date / Time ibuprofen AdvReac Intermediate GASTRIC Verified 02/04/22 23:39 ULCERS, NO COLON Consultations 02/05/22 02:54 ED Decision to Admit Stat 02/05/22 10:28 Consult Infectious Diseases Routine 02/05/22 11:11 Consult General Surgery Routine Procedures Performed Operation Date: 02/06/22 07:45 Actual Procedures p Removal Central Line(Right) - Parker Mckay MD Ordered Studies 02/05/22 09:44 CT Abd and Pelvis [CT abd pelvis IV con only] Urgent CT angio chest PE protocol Urgent 02/05/22 09:51 CT head/brain wo/w con Routine CT head/brain wo/w con HISTORY: 76 years-old Male new headaches in the setting of bacteremia acute headache with bacteremia COMPARISON: None TECHNIQUE: Multiple axial CT images of the head were obtained both with and without the use 120 mL Optiray 320. A dose lowering technique was used consistent with the principals of KELLY. FINDINGS: No acute intracranial hemorrhage, midline shift, abnormal extra-axial collection, hydrocephalus, intracranial mass or acute territorial infarct. Cerebral vascular calcifications. Involutional changes. White matter hypodensities suggest chronic microvascular ischemic disease. No abnormal enhancement. Cerebral venous sinuses are patent. The imaged opacified arterial structures appear unremarkable. No acute calvarial fracture. The mastoid air cells and paranasal sinuses are clear. Unremarkable soft tissues. IMPRESSION: 1. No acute intracranial abnormality. 2. No abnormal enhancement. ACT 112: Negative or not required by law. The above report was generated using voice recognition software. It may contain grammatical, syntax or spelling errors. Electronically signed by: Kenneth Mercado M.D. 02/05/2022 11:12 AM Dictated:02/05/22 1109 Transcribed: 02/05/[address] angio chest PE protocol, CT abd pelvis IV con only CT DOSE: 2090.66 mGy.cm HISTORY: 76 years-old Male with PE. Acute shortness of breath with nausea, vomiting and bacteremia TECHNIQUE: Multiple CTA images of the chest were obtained after the intravenous administration of 120 ml Optiray. Coronal and sagittal MIPS were obtained from the axial data set and were submitted for review. All measurements were obtained according to NASCET criteria. CT abdomen and pelvis with IV contrast only was also obtained. A dose lowering technique was utilized adhering to the principles of ALARA. COMPARISON: Lumbar spine radiographs 2019 exam Chest, abdomen and pelvis 10/21/2016 FINDINGS: CTA: Moderate cardiomegaly. No pericardial effusion. Mild coronary artery calcifications. Atherosclerosis of the thoracic aorta. Patency of the imaged great vessels. Satisfactory opacification of the pulmonary arterial tree. No filling defects are identified to suggest thromboembolic disease. CT CHEST: No thyroid nodule. Nonspecific mild mediastinal and hilar lymphadenopathy. Hilar lymph nodes measure up to 10 mm. Subcarinal lymph nodes measure up to 12 mm. Small pleural effusions. No pneumothorax. Moderate pulmonary emphysema. Intralobular septal thickening. Patchy multifocal bilateral groundglass densit ies are most pronounced within the upper lobes. The central airways are patent. Unremarkable soft tissues. Degenerative changes of the shoulders and spine. Healed chronic bilateral rib fractures. Chronic T12 compression deformity. CT ABDOMEN/PELVIS: No pneumatosis or pneumoperitoneum. The spleen is mildly enlarged. There is equivocal inflammatory stranding adjacent to the pancreatic tail. The pancreas is otherwise unremarkable. The adrenal glands are within normal limits. Cholelithiasis with equivocal wall thickening of the gallbladder. Nonspecific mild periportal and precaval lymphadenopathy with lymph nodes measuring up to 1.3 cm. 1.1 cm hypodensity of the right hepatic lobe is suggestive of a probable cyst, mildly increased in size from prior. The liver is mildly enlarged. Patency of the hepatic and portal veins. There is mild lumbar levoscoliosis. Endplate irregularity at L1-L2 redemonstrated at the area of previously described discitis/osteomyelitis. Chronic T12 compression deformity. IMPRESSION: 1. No pulmonary emboli. 2. Cardiomegaly with mild pulmonary edema and small pleural effusions. 3. Patchy upper lobe predominant bilateral groundglass opacities are suspicious for a superimposed infectious or inflammatory pneumonitis. 4. Mild mediastinal and hilar lymphadenopathy. 5. Cholelithiasis with equivocal gallbladder wall thickening. Correlation with right upper quadrant abdominal ultrasound recommended. 6. Total colectomy with right lower quadrant ileostomy. 7. Subacute findings of discitis/osteomyelitis are again noted at L1-L2. 8. Additional findings as above. ACT 112: Negative or not required by law. The above report was generated using voice recognition software. It may contain grammatical, syntax or spelling errors. Electronically signed by: Kenneth Mercado M.D. 02/05/2022 11:33 AM Dictated:02/05/22 1115 Transcribed: 02/05/[address] angio chest PE protocol, CT abd pelvis IV con only CT DOSE: 2090.66 mGy.cm HISTORY: 76 years-old Male with PE. Acute shortness of breath with nausea, vomiting and bacteremia TECHNIQUE: Multiple CTA images of the chest were obtained after the intravenous administration of 120 ml Optiray. Coronal and sagittal MIPS were obtained from the axial data set and were submitted for review. All measurements were obtained according to NASCET criteria. CT abdomen and pelvis with IV contrast only was also obtained. A dose lowering technique was utilized adhering to the principles of ALARA. COMPARISON: Lumbar spine radiographs 2019 exam Chest, abdomen and pelvis 10/21/2016 FINDINGS: CTA: Moderate cardiomegaly. No pericardial effusion. Mild coronary artery calcifications. Atherosclerosis of the thoracic aorta. Patency of the imaged great vessels. Satisfactory opacification of the pulmonary arterial tree. No filling defects are identified to suggest thromboembolic disease. CT CHEST: No thyroid nodule. Nonspecific mild mediastinal and hilar lymphadenopathy. Hilar lymph nodes measure up to 10 mm. Subcarinal lymph nodes measure up to 12 mm. Small pleural effusions. No pneumothorax. Moderate pulmonary emphysema. Intralobular septal thickening. Patchy multifocal bilateral groundglass densities are most pronounced within the upper lobes. The central airways are patent. Unremarkable soft tissues. Degenerative changes of the shoulders and spine. Healed chronic bilateral rib fractures. Chronic T12 compression deformity. CT ABDOMEN/PELVIS: No pneumatosis or pneumoperitoneum. The spleen is mildly enlarged. There is equivocal inflammatory stranding adjacent to the pancreatic tail. The pancreas is otherwise unremarkable. The adrenal glands are within normal limits. Cholelithiasis with equivocal wall thickening of the gallbladder. Nonspecific mild periportal and precaval lymphadenopathy with lymph nodes measuring up to 1.3 cm. 1.1 cm hypodensity of the right hepatic lobe is suggestive of a probable cyst, mildly increased in size from prior. The liver is mildly enlarged. Patency of the hepatic and portal veins. There is mild lumbar levoscoliosis. Endplate irregularity at L1-L2 redemonstrated at the area of previously described discitis/osteomyelitis. Chronic T12 compression deformity. IMPRESSION: 1. No pulmonary emboli. 2. Cardiomegaly with mild pulmonary edema and small pleural effusions. 3. Patchy upper lobe predominant bilateral groundglass opacities are suspicious for a superimposed infectious or inflammatory pneumonitis. 4. Mild mediastinal and hilar lymphadenopathy. 5. Cholelithiasis with equivocal gallbladder wall thickening. Correlation with right upper quadrant abdominal ultrasound recommended. 6. Total colectomy with right lower quadrant ileostomy. 7. Subacute findings of discitis/osteomyelitis are again noted at L1-L2. 8. Additional findings as above. ACT 112: Negative or not required by law. The above report was generated using voice recognition software. It may contain grammatical, syntax or spelling errors. Electronically signed by: Kenneth Mercado M.D. 02/05/2022 11:33 AM Dictated:02/05/22 1115 Transcribed: 02/05/22 1115 XR chest 1V portable HISTORY: 76 years-old Male Fever acute fever COMPARISON: Chest radiograph 04/15/2021 TECHNIQUE: AP view of the chest FINDINGS: The cardiac silhouette is moderately enlarged. Unchanged positioning of the right IJ [id number]-Caip catheter. No pneumothorax, large pleural effusion or overt pulmonary edema. There is unchanged blunting of the costophrenic angles. Emphysema with chronic interstitial coarsening. Degenerative changes of the shoulders and spine. IMPRESSION: Chronic findings as above without acute process. ACT 112: Negative or not required by law. The above report was generated using voice recognition software. It may contain grammatical, syntax or spelling errors. Electronically signed by: Kenneth Mercado M.D. 02/05/2022 8:49 AM Dictated:02/05/22847 Transcribed: 02/05/22847 Hospital Course (1) Sepsis: (2) Gram-negative bacteremia: - presented with leukocytosis, tachycardia, fever, elevated procalcitonin - positive blood cultures for Klebsiella from admission - history of multiple episodes of bacteremia likely related to chronic CVC and TPN - afebrile, mild WBC elevation (now wnl), rigors, fatigue, decreased appetite - s/p vanc and cefepime in ED - desescalated to ceftriaxone given pansensitive Klebsiella - will need CVC removal - general surgery consulted for removal - s/p removal 02/06/2022 - hold TPN - Repeat blood cx no growth after 72hr - ID on board recommended IV rocephin to complete 2 weeks course -Case discussed with surgery to replace CVP access for TPN and abx - Due to OR schedule, surgery will contact patient next week to place access outpatient - Will place a PICC line for IV abx infusion and TPN for the short time -Case management was notified to arrange for antibiotic infusion outpatient (3) Thrombocytopenia: - new finding - unclear etiology - no history of liver disease and CT AP without significant finding - no signs of bleeding - possibly in the setting of sepsis - platelet improved at 151 (4) Hyponatremia: - likely in the setting of sepsis and decrease po intake - s/p IVF with improvement - no neurologic symptoms - trend Na - resolved as of 02/06/2022 (5) Ulcerative colitis: - s/p total colectomy 1970s with revision and resection of partial small bowel 2015 - on chronic TPN through CVC for short gut syndrome - holding TPN as above (6) HTN (hypertension): - no BP meds as outpatient - mostly wnl but occasionally elevated BP - will monitor for now without change in medications (7) Short gut syndrome: - chronic TPN as above - will resume TPN outpatient -PICC line placed (8) BPH (benign prostatic hyperplasia): - continue tamsulosin and finasteride Plan DVT ppx: lovenox Full Code Total Time Total Time Spent Total Time Spent (In Minutes): 40 minutes Discharge Plan Discharge Items Patient Disposition: Home - Home Health Services Reason For Visit: FEVER Discharge Diagnosis: (1) Sepsis: (2) Gram-negative bacteremia: (3) Thrombocytopenia: (4) Hyponatremia: (5) Ulcerative colitis: (6) HTN (hypertension): (7) Short gut syndrome: (8) BPH (benign prostatic hyperplasia): Activity: Resume your previous activity Non-emergency contact: Primary Care Provider and Surgeon Call non-emergency contact if: you have any medication questions and your temperature is above 101 Follow-up/Referrals: Tao Montoya MD [Primary Care Provider] - (Date & Time 02/15/2022 11:40 AM Provider Jessica Cabrera PA-C [facility] ) Diet: Heart Healthy Addtl Attending Provider Instructions: Follow up with your primary care provider 02/15/2022 11:40 AM Provider Jessica Cabrera PA-C [facility] Follow up with isinger surgeon Dr. Mckay in 1 to 2 weeks to arrange for central line catheter for TPN and to remove sutures ( phone# [phone]) Continue antibiotic infusion outpatient with ceftriaxone 2g daily Check CBC and CHAPLAIN weekly while on IV antibiotic resume TPN as perviously ordered seek medical [place] if your symptoms reoccur or develop any fever fall precaution Pending Studies at Discharge: No Stand-Alone Forms: [facility] [employer], Smoking Cessation Medications and DC Order Prescriptions: New ceftriaxone 2 gram recon soln 2 g IV DAILY Qty: 10 0RF Continued cholecalciferol (vitamin D3) [Vitamin D3] 1,000 unit Tablet 1,000 unit PO BID diphenoxylate-atropine [Lomotil] 2.5-0.025 mg Tablet 2 tab PO QID finasteride 5 mg Tablet 5 mg PO HS paroxetine HCl 30 mg Tablet 30 mg PO PM Creon 3,000-9,500- 15,000 unit Capsule,Delayed Release(Dr/Ec) 1 cap PO TIDM zolpidem 10 mg Tablet 10 mg PO HS PRN (Reason: Insomnia) polysaccharide iron complex [Ferrex 150] 150 mg iron Capsule 150 mg PO BID tamsulosin 0.4 mg Capsule 0.4 mg PO HS lisinopril 5 mg tablet 5 mg PO QAM loperamide 2 mg capsule 2 mg PO QID bupropion HCl 100 mg tablet sustained-release 12 hr 100 mg PO QAM codeine sulfate 30 mg tablet 30 mg PO QID Metamucil 3.4 gram/5.4 gram Powder 1 tbsp PO QID Rx Instructions: Takes with his lomotil Discharge Orders: Discharge Order (Routine); Ordered 02/10/22 Ordered By: Watson Castillo Admission Data Admit Date/Time: 02/05/22 08:01 Attending Provider: Watson Castillo Admit Provider: Josh Oliver Primary Care Provider: Tao Montoya Other Providers: Josh Oliver ; Kaz Herndon ; Nadine Salazar ; Wade Banerjee I. ; Leonardo Doll II ; Genevieve Silva ; Joe Foley ; Miguel A Cordova ; Freddy Bradshaw ; Ganga Leong Other Interventions: Discharge Summary Assessment (RN) Last Done: 02/10/22 14:48
== END 2022-02-10 16:58 | disposition home health service (06) | DRG 314 ==
LOC: ED 21:34 → SUATTDRO 02-05 08:01 → EDINP 02-05 08:01 → 2E 02-05 09:44 → 2N 02-08 23:37
DX: F32.A Depression, unspecified; E87.1 Hypo-osmolality and hyponatremia; I10 Essential (primary) hypertension; E46 Unspecified protein-calorie malnutrition; Z88.6 Allergy status to analgesic agent; A41.59 Other Gram-negative sepsis; Y71.2 Prosthetic and other implants, materials and accessory cardiovascular devices associated with adverse incidents; D69.6 Thrombocytopenia, unspecified; K51.90 Ulcerative colitis, unspecified, without complications; Y92.009 Unspecified place in unspecified non-institutional (private) residence as the place of occurrence of the external cause; Z90.49 Acquired absence of other specified parts of digestive tract; N40.0 Benign prostatic hyperplasia without lower urinary tract symptoms; T80.211A Bloodstream infection due to central venous catheter, initial encounter; G47.33 Obstructive sleep apnea (adult) (pediatric); Z87.891 Personal history of nicotine dependence; E86.0 Dehydration; Z93.2 Ileostomy status; K91.2 Postsurgical malabsorption, not elsewhere classified; E80.6 Other disorders of bilirubin metabolism